=== PATIENT | male | born 1970 | race African-American/Black ===

== ENCOUNTER 2018-10-23 08:57 | Emergency (ER) | payer OTHER ==
[2018-10-23 09:20] LABS: #Basophils 0.1 thou/uL (0.0-0.2); #Lymphocytes 1.1 thou/uL (1.20-3.40); #Monocytes 0.7 thou/uL (0.11-0.59); #Neutrophils 5.8 thou/uL (1.40-6.50); %Basophils 0.8 % (0.0-1.0); %Eosinophils 0.1 % (0.0-10.0); %Lymphocytes 14.3 % (21.0-51.0); %Monocytes 9.3 % (0.0-10.0); %Neutrophils 75.4 % (42.0-75.0); Hemoglobin 14.5 g/dL (14.0-18.0); Mean Corpuscular HGB CONC 33.7 g/dL (32.0-36.0); Mean Corpuscular Hemoglobin 33.8 pg (27.0-31.0); Mean Platelet Volume 9.1 fL (7.4-10.4); Platelet Count 133 thou/uL (130-400); Red Blood Cell (RBC) Count 4.29 mill/uL (4.70-6.10); White Blood Cell (WBC) Count 7.7 thou/uL (4.8-10.8)
[2018-10-23 09:46] LABS: ALT (SGPT) 14 U/L (8-55); AST (SGOT) 50 U/L (5-34); Albumin 4.1 g/dL (3.5-5.0); Alkaline Phosphatase 96 U/L (40-150); Anion Gap 16 mmol/L (10-20); BUN (Urea Nitrogen) Less than 4 mg/dL (8.9-20.6); Bilirubin, Total 1.3 mg/dL (0.2-1.2); Calc. Creatinine Clearance 0 mL/min (70-130); Calcium 9.7 mg/dL (7.8-10.44); Carbon Dioxide 26 mmol/L (22-29); Chloride 97 mmol/L (98-107); Estimated GFR-MDRD Greater than 90; Glucose 124 mg/dL (70-105); Lipase 219 U/L (8-78); Potassium 3.7 mmol/L (3.5-5.1); Protein, Total 8.1 g/dL (6.0-8.3); Sodium 135 mmol/L (136-145)
[2018-10-23] MEDS ORDERED: Ondansetron PF 4 MG/2 ML Vial ONE (10:06)
[2018-10-23] MEDS ORDERED: Morphine 4 MG/ML VIAL ONE (10:06)
[2018-10-23 10:34] LABS: Bilirubin Negative (Negative); Blood, Urine Negative (Negative); Clarity CLEAR (Clear); Glucose, Urine (Dipstick) Negative (Negative); Leukocyte Negative (Negative); Nitrite Negative (Negative); Protein, Urine (Dipstick) Negative (Neg-Trace); Specific Gravity, Urine 1.018 (1.002-1.036); Urobilinogen 0.2 mg/dL (0.2-1.0); pH, Urine 6.5 (5.0-9.0)
--- NOTE | 2018-10-23 10:57 | CT ---
CT ABDOMEN AND PELVIS WITH IV CONTRAST: Date: 10/23/18 PROVIDED CLINICAL HISTORY: Right lower quadrant tenderness and nausea. FINDINGS: The visualized lung bases are free of significant opacity. There is diffuse fatty infiltration of the liver. The solid abdominal organs demonstrate an otherwise unremarkable CT appearance. Multiple gallstones are seen. No obvious pericholecystic inflammatory ch yeison. There is no bowel dilatation, inflammatory fat stranding, free fluid, or lymph node enlargement appar ent. No evidence for free air. The appendix appears normal. There are several subtle foci of diminished density that may reflect bone lesions within the lumbar s pine. IMPRESSION: 1. Cholelithiasis. 2. Fatty infiltration of the liver. 3. Subtle foci of density alteration involving the lumbar spine that may reflect bone lesions. Corre lation with a whole body bone scan is recommended to exclude metastatic disease. POS: CHARBEL
[2018-10-23] MEDS ORDERED: ISOVUE-370 76%-LOCM 1 ML ONE (11:24)
== END 2018-10-23 11:25 | disposition home or self-care (01) ==
LOC: ERS 08:57
DX: K85.90 Acute pancreatitis without necrosis or infection, unspecified (principal); K59.00 Constipation, unspecified; G95.9 Disease of spinal cord, unspecified; I48.91 Unspecified atrial fibrillation; I45.6 Pre-excitation syndrome; K21.9 Gastro-esophageal reflux disease without esophagitis; E78.5 Hyperlipidemia, unspecified; I10 Essential (primary) hypertension; F20.9 Schizophrenia, unspecified; F43.10 Post-traumatic stress disorder, unspecified
CPT/HCPCS: 36415; 74177; 80053; 81003; 83690; 85025; 96361; 96374; 96375; J2270; J2405

== ENCOUNTER 2018-12-16 07:17 | Outpatient (CLI) | payer OTHER ==
--- NOTE | 2018-12-16 08:54 | ULT ---
ABDOMINAL ULTRASOUND: 12/16/18 HISTORY: Cirrhosis FINDINGS: Liver demonstrates increased echogenicity likely attributable to fatty infiltration. There is mild nonspecific heterogeneity of the pancreas. The pancreas is not well evaluated on this e xam. There is echogenic material seen within the gallbladder lumen suggesting sludge. A few nonshadowing m obile echogenic foci also seen within the lumen of the gallbladder which is also likely attributable to sludge. Gallbladder wall is borderline increased in thickness measuring 0.3 cm. No pericholecystic fluid is seen. The common duct is normal in caliber measuring 0.4 cm. The spleen and bilateral kidneys demonstrate a normal sonographic appearance. The right kidney measur es 10.2 cm in length with the left kidney measuring 10.5 cm in length. IMPRESSION: 1. Fatty infiltration of the liver. 2. Gallbladder sludge with upper limits of normal to borderline thickening of the gallbladder wall. POS: CHARBEL
--- NOTE | 2018-12-16 14:39 | NM ---
WHOLE BODY BONE SCAN: HISTORY: Abnormality involving the lumbar spine on the CT scan of 10/23/2018. RADIOPHARMACEUTICAL: Technetium 99m MDP 33 millicuries injected intravenously. CORRELATION: CT abdomen and pelvis of 10/23/2018. FINDINGS: Mild increased uptake in the shoulders, elbows, and wrists, and focally intense uptake in the medial aspect of the left foot, consistent with degenerative changes. No other abnormal areas of tracer loc alization are seen, including the lumbar spine. Tracer excretion through the kidneys is within fatmata l limits. IMPRESSION: No scintigraphic evidence of metastatic disease. POS: OFF
== END 2018-12-16 07:18 | disposition home or self-care (01) ==
LOC: ULT 07:17
PROVIDERS: ATTEND Family Medicine
DX: Z12.9 Encounter for screening for malignant neoplasm, site unspecified (principal); K74.3 Primary biliary cirrhosis; M89.9 Disorder of bone, unspecified; K76.0 Fatty (change of) liver, not elsewhere classified; K82.8 Other specified diseases of gallbladder
CPT/HCPCS: 76700; 78306; A9503

== ENCOUNTER 2019-04-23 11:59 | Emergency (ER) | payer MEDICAID, OTHER ==
[2019-04-23] MEDS ORDERED: Ibuprofen 200 MG TAB ONE (13:56)
--- NOTE | 2019-04-23 14:05 | RAD ---
LEFT KNEE 4 VIEWS: HISTORY: Fall, left knee pain. FINDINGS/IMPRESSION: No acute fracture or dislocation is identified. POS: CHARBEL
--- NOTE | 2019-04-23 14:31 | RAD ---
RIGHT KNEE 4 VIEWS: HISTORY: Fall, right knee pain. FINDINGS/IMPRESSION: No acute fracture or dislocation is seen. There is cortical thickening in the proximal shaft of the fibula likely due to old healed fracture. POS: MICHELLEH
== END 2019-04-23 14:53 | disposition home or self-care (01) ==
LOC: ERS 11:59
DX: S80.02XA Contusion of left knee, initial encounter (principal); S80.01XA Contusion of right knee, initial encounter; I45.6 Pre-excitation syndrome; E78.5 Hyperlipidemia, unspecified; I10 Essential (primary) hypertension; I48.91 Unspecified atrial fibrillation; F43.10 Post-traumatic stress disorder, unspecified; F20.9 Schizophrenia, unspecified; K76.0 Fatty (change of) liver, not elsewhere classified; Z79.899 Other long term (current) drug therapy; W18.30XA Fall on same level, unspecified, initial encounter

== ENCOUNTER 2019-06-14 10:27 | Inpatient (IN) | payer MEDICAID, OTHER ==
[2019-06-14 11:33] LABS: #Lymphocytes 0.8 thou/uL (1.20-3.40); #Monocytes 0.8 thou/uL (0.11-0.59); #Neutrophils 5.5 thou/uL (1.40-6.50); %Eosinophils 0.2 % (0.0-10.0); %Lymphocytes 11.6 % (21.0-51.0); %Monocytes 11.1 % (0.0-10.0); %Neutrophils 77.1 % (42.0-75.0); ALT (SGPT) 33 U/L (8-55); AST (SGOT) 88 U/L (5-34); Alkaline Phosphatase 103 U/L (40-150); Anion Gap 15 mmol/L (10-20); BUN (Urea Nitrogen) Less than 4 mg/dL (8.9-20.6); Bilirubin, Total 1.3 mg/dL (0.2-1.2); Calc. Creatinine Clearance 0 mL/min (70-130); Calcium 9.6 mg/dL (7.8-10.44); Carbon Dioxide 27 mmol/L (22-29); Chloride 95 mmol/L (98-107); Estimated GFR-MDRD Greater than 90; Globulin 3.6 g/dL (2.4-3.5); Glucose 125 mg/dL (70-105); Hemoglobin 13.9 g/dL (14.0-18.0); Lipase 922 U/L (8-78); Mean Corpuscular HGB CONC 34.2 g/dL (32.0-36.0); Mean Corpuscular Hemoglobin 33.9 pg (27.0-31.0); Mean Corpuscular Volume 99.2 fL (78.0-98.0); Mean Platelet Volume 9.3 fL (7.4-10.4); Platelet Count 109 thou/uL (130-400); Platelet Morphology Comment Appears Decreased; Potassium 3.8 mmol/L (3.5-5.1); Protein, Total 7.6 g/dL (6.0-8.3); RBC Distribution Width 12.6 % (11.5-14.5); Sodium 133 mmol/L (136-145); White Blood Cell (WBC) Count 7.1 thou/uL (4.8-10.8)
[2019-06-14 12:01] LABS: Bacteria/HPF None Seen HPF (None Seen); Bilirubin Negative (Negative); Blood, Urine Negative (Negative); Clarity Clear (Clear); Glucose, Urine (Dipstick) Normal (Negative); Leukocyte Negative Leu/uL (Negative); Nitrite Negative (Negative); Protein, Urine (Dipstick) 30 mg/dL (Neg-Trace); Squamous Epithelial 0-3 HPF (0-3); WBC/HPF 0-3 HPF (0-3)
--- NOTE | 2019-06-14 12:42 | ULT ---
RIGHT UPPER QUADRANT ULTRASOUND: DATE: 06/14/2019. COMPARISON: None. HISTORY: Right upper quadrant pain. TECHNIQUE: Multiplanar, figueroa scale, sonographic imaging of the right upper quadrant obtained. FINDINGS: The pancreas is obscured by bowel gas. The hepatic parenchyma is heterogeneous and echogenic suggesting hepatocellular disease, such as hepa tic steatosis. The common bile duct measures 4 mm, within normal limits. No gallbladder wall thickening or pericholecystic fluid is seen. There is hyperdense material layering within the gallbladder fundus suggesting gallbladder sludge. N o shadowing stones. The right kidney measures 10.5 cm in craniocaudal dimension and demonstrates no evidence for stone, h ydronephrosis, or mass lesion. The dry mop maker reports a negative Ureña's sign. IMPRESSION: Findings suggesting significant gallbladder sludge within the fundus with no shadowing stones. No so nographic evidence of cholecystitis or biliary dilatation. POS: OFF
[2019-06-14] MEDS ORDERED: Morphine 4 MG/ML VIAL ONE (13:03)
[2019-06-14] MEDS ORDERED: Ondansetron PF 4 MG/2 ML Vial ONE (13:04)
[2019-06-14] MEDS ORDERED: ISOVUE-370 76%-LOCM 1 ML ONE (13:11)
--- NOTE | 2019-06-14 13:23 | CT ---
CT OF THE ABDOMEN AND PELVIS: DATE: 06/14/2019. COMPARISON: 10/23/2018. HISTORY: Abdominal pain. TECHNIQUE: Axial CT imaging at 5 mm intervals from the lung bases through the pubic symphysis with IV contrast. Coronal and sagittal reformatted imaging obtained. FINDINGS: The visualized lung bases are unremarkable. No free intraperitoneal air. The hepatic parenchyma is diffusely hypodense, evidence of steatosis. High-density material is again seen within the gallbladder suggesting sludge in the region of the fun dus. The spleen and adrenal glands are unremarkable. The pancreatic body and tail of the pancreas are ill-defined and mildly enlarged, a new finding. In addition, there is new free fluid adjacent to the body and tail of the pancreas extending into the pa racolic gutter on the left involving the left perirenal space. Findings suggest pancreatitis. Bilateral kidneys appear unremarkable. Evaluation of the bowel is limited without oral contrast media. There is no evidence for bowel infla mmatory change or bowel obstruction. The appendix appears grossly unremarkable. There is no lymphadenopathy appreciated within the abdomen or pelvis. The vascular structures appear patent. Review of the osseous structures demonstrates no worrisome lytic or bone lesions. IMPRESSION: 1. Ill-defined enlarged pancreatic body and tail with adjacent inflammatory stranding and free fluid suggesting interval development of pancreatitis. 2. Fatty infiltration of the liver. 3. Findings suggesting sludge within the gallbladder fundus. POS: OFF
--- NOTE | 2019-06-14 13:30 | PDOC.FPRHP ---
- History of Present Illness Chief Complaint: abdominal pain History of Present Illness: Patient is a 49M with PMHx of afib, sky-parkinson white syndrome, HLD, HTN, GERD, schizophrenia, PTSD presenting with 2 day course of abdominal pain accompanied by nausea, vomiting, and diarrhea. Patient reports the symptoms began this past Friday. Anything he tried to eat would come back up with bouts of emesis. He tried some pepto bismol but that did not seem to help. He denies any jose blood in his emesis or diarrhea. He points to the midepigastrium, radiating diffusely, as the source of his pain. He states that it is constant, stabbing, 10/10 pain that woke him from sleep. He denies any previous episodes of pain like this. ED Course: 1L NS, 4mg zofran, 4mg morphine - Allergies/Adverse Reactions Allergies Allergy/AdvReac Type Severity Reaction Status Date / Time ELZBIETA Inhibitors Allergy Anaphylaxis Verified 04/11/16 03:04 sertraline HCl [From Zoloft] Allergy Swollen Verified 04/11/16 03:04 Lips Sulfa (Sulfonamide Allergy Verified 05/21/16 01:56 Antibiotics) sulfamethoxazole Allergy Verified 04/11/16 03:04 [From Bactrim] trimethoprim [From Bactrim] Allergy Verified 04/11/16 03:04 - Home Medications Medication Instructions Recorded Confirmed Type Amlodipine Besylate [amLODIPine 10 mg PO DAILY 06/24/13 06/14/19 History Besylate] Esomeprazole Magnesium [NexIUM] 20 mg PO QAM-WM 12/22/15 06/14/19 History Ibuprofen [Motrin] 600 mg PO Q6H PRN #0 tab 02/22/16 06/14/19 Rx Aspirin [Ecotrin Low Strength] 81 mg PO DAILY #0 tab 05/23/16 06/14/19 Rx Paliperidone Palmitate [Invega 234 mg IM Q28D 06/14/19 06/14/19 History Sustenna] - History PMHx: Afib, sky-parkinson white syndrome, GERD, HTN, HLD, schizophrenia, PTSD PSHx: bilateral compartment syndrome (2016), hernia repair FHx: Mom: HTN and HLD Social: Drinks 6pk per week, no alcohol since last . Denies smoking and illicit drug use. - Review of Systems General: reports: fever/chills. denies: weight/appetite/sleep changes Eyes: denies: eye pain, vision changes ENT: reports: rhinorrhea. denies: nasal congestion Respiratory: denies: cough, congestion, shortness of breath Cardiovascular: denies: chest pain, palpitation, edema, paroxysmal nocturnal dyspnea Gastrointestinal: reports: nausea, vomiting, diarrhea, abdominal pain. denies: constipation, GI bleeding Genitourinary: reports: dysuria (Since Friday.). denies: polyuria, discharge Skin: denies: rashes, lesions Musculoskeletal: denies: pain, tenderness, stiffness Neurological: reports: other (h/o migraines). denies: numbness, syncope, seizure Psychological: reports: other (Schizophrenia) - Vital signs BP: [147/90] HR: [103] RR: [18] Tmax: [99.2] Pox: [99]% on [RA] Wt: [58] - Physical Exam Constitutional: NAD, awake, alert and oriented, well developed HEENT: normocephalic and atraumatic, other (scleral icterus) Neck: FROM, trachea midline Chest: no-tender to palpation Heart: RRR, normal S1/S2 Lungs: CTAB, no respiratory distress, no wheezing Abdomen: other (distention, tenderness to palpation) Musculoskeletal: normal tone, ROM grossly normal Neurological: no focal deficit, normal sensation Skin: good turgor, capillary refill <2 seconds Heme/Lymphatic: no unusual bruising or bleeding Psychiatric: normal mood and affect, good judgment and insight FMR H&P: Results - Labs Result Diagrams: 06/14/19 10:59 06/14/19 10:59 Lab results: WBC 7.1 thou/uL (4.8-10.8) 06/14/19 10:59 Hgb 13.9 g/dL (14.0-18.0) L 06/14/19 10:59 Hct 40.7 % (42.0-52.0) L 06/14/19 10:59 MCV 99.2 fL (78.0-98.0) H 06/14/19 10:59 Plt Count 109 thou/uL (130-400) L 06/14/19 10:59 Neutrophils % 77.1 % (42.0-75.0) H 06/14/19 10:59 Sodium 133 mmol/L (136-145) L 06/14/19 10:59 Potassium 3.8 mmol/L (3.5-5.1) 06/14/19 10:59 Chloride 95 mmol/L (98-107) L 06/14/19 10:59 Carbon Dioxide 27 mmol/L (22-29) 06/14/19 10:59 BUN Less than 4 mg/dL (8.9-20.6) L 06/14/19 10:59 Creatinine 0.77 mg/dL (0.7-1.3) 06/14/19 10:59 Glucose 125 mg/dL (70-105) H 06/14/19 10:59 Calcium 9.6 mg/dL (7.8-10.44) 06/14/19 10:59 Total Bilirubin 1.3 mg/dL (0.2-1.2) H 06/14/19 10:59 AST 88 U/L (5-34) H 06/14/19 10:59 ALT 33 U/L (8-55) 06/14/19 10:59 Alkaline Phosphatase 103 U/L (40-150) 06/14/19 10:59 Serum Total Protein 7.6 g/dL (6.0-8.3) 06/14/19 10:59 Albumin 4.0 g/dL (3.5-5.0) 06/14/19 10:59 Lipase 922 U/L (8-78) H 06/14/19 10:59 Urine Ketones 20 mg/dL (Negative) A 06/14/19 11:27 Urine Blood Negative (Negative) 06/14/19 11:27 Urine Nitrite Negative (Negative) 06/14/19 11:27 Ur Leukocyte Esterase Negative Liang/uL (Negative) 06/14/19 11:27 Urine RBC 4-6 HPF (0-3) A 06/14/19 11:27 Urine WBC 0-3 HPF (0-3) 06/14/19 11:27 Ur Squamous Epith Cells 0-3 HPF (0-3) 06/14/19 11:27 Urine Bacteria None Seen HPF (None Seen) 06/14/19 11:27 - EKG Interpretation EKG: Normal sinus rhythm - Radiology Interpretation CT scan - abdomen Status: report reviewed by me Additional comment: Ill-defined enlarged pancreatic body and tail with adjacent inflammatory stranding and free fluid suggesting interval development of pancreatitis Fatty infiltration of the liver Findings suggesting sludge within the gallbladder fundus US - abdomen Status: report reviewed by me (Significant gallbladder sludge within the fundus with no shadowing stones. No sonographic evidence of cholecystitis or biliary dilatation) FMR H&P: A/P - Problem List (1) Pancreatitis Current Visit: Yes Status: Acute Code(s): K85.90 - ACUTE PANCREATITIS WITHOUT NECROSIS OR INFECTION, UNSP (2) GERD (gastroesophageal reflux disease) Current Visit: No Status: Acute Code(s): K21.9 - GASTRO-ESOPHAGEAL REFLUX DISEASE WITHOUT ESOPHAGITIS (3) Transaminitis Current Visit: No Status: Acute Code(s): R74.0 - NONSPEC ELEV OF LEVELS OF TRANSAMNS & LACTIC ACID DEHYDRGNSE (4) Hypertension Current Visit: No Status: Chronic Code(s): I10 - ESSENTIAL (PRIMARY) HYPERTENSION (5) Schizophrenia Current Visit: No Status: Chronic Code(s): F20.9 - SCHIZOPHRENIA, UNSPECIFIED (6) Okmyq-Bbzikgxyy-Ohuuy (WPW) syndrome Current Visit: No Status: Chronic Code(s): I45.6 - PRE-EXCITATION SYNDROME (7) Thrombocytopenia Current Visit: Yes Status: Acute Code(s): D69.6 - THROMBOCYTOPENIA, UNSPECIFIED - Plan Patient is a 49M with PMHx of afib, sky-parkinson white syndrome, HLD, HTN, GERD, schizophrenia, PTSD presenting with pancreatitis. #Pancreatitis -lipase 922 -Abdominal CT: pancreatitis, biliary sludge within the gallbladder fundus -Abdominal U/S: gallbladder fundus sludge, No sonographic evidence of cholecystitis or biliary dilatation -AST 88, ALT 33, Patient reports drinking 6 drinks/week -Bilirubin 1.3 -FLP to look for hypertriglyceridemia -NPO -IVF -morphine for pain control -will continue to monitor electrolytes and lipase #Transaminitis, Thrombocytopenia likely 2/2 fatty infiltration of the liver, possibly 2/2 primary biliary cirrhosis -previously positive smooth muscle and anti-mitochondrial antibodies, though biopsy not suggestive primary biliary cirrhosis at that time 2/2 concurrent disease process -recommend outpatient repeat labs -AST 88 -Platelets 109 #HTN -continue home 10mg amlodipine #HLD -not currently on medication -FLP to look for hypertrigliceridemia #Schizophrenia -currently on 234 invega, controlled #Sky-parkinson white, afib -currently in NSR #GERD -continue home nexium DVT: SCDs Diet: NPO Code Status: Full Dispo: Inpatient for pancreatitis workup and management FMR H&P: Upper Level - Pertinent history 49 year old male with history of schizophrenia, HTN, HLD, and GERD presents with N/V/D since Friday. Patient reports associated abdominal pain is constant and rated at 10/10. Pain is sharp in nature. He has not experienced pain like this before. Patient reports he has not been told he has gallstones or gallbladder sludge previously, although records would suggest otherwise. Patient states that he drinks approximately 6 beers a week. He states that he last drank on at which point he had only 2-3 beers while at [facility]. Per records, patient has had history of alcohol abuse in the past. Patient has had extensive workup for elevated liver enzymes and hyperbilirubinemia. Diagnosis at the time was cholestasis with possible PBC given elevated antimitochondrial antibodies, smooth muscle antibodies, and FRANCISCO JAVIER. Patient was supposed to follow up for outpatient serial labs to measure these values when cholestasis had resolved. - Pertinent findings General: Alert and oriented. No acute distress. HEENT: MMM Card: Tachycardia, no appreciable murmur Resp: CTA bilaterally, no acute respiratory distress Abdomen: Soft, mildly distended, tender to palpation throughout, but worse in epigastric region, bowel sounds present Ext: No lower extremity edema or cyanosis - Plan Date/Time: 06/14/19 1326 IPaty, have evaluated this patient and agree with findings/plan as outlined by staff internist office based only resident. Pertinent changes/additions are listed here. Acute pancreatitis - Elevated lipase (900's), evidence of pancreatitis on CT abdomen/pelvis - N/V, decreased PO intake - Morphine CUCO and PRN for breakthrough; wean as tolerated - LR @ 150 mL/hr - Unclear etiology at this time. Hx of EtoH abuse, but denies recent EtOH use. Drug screens pending. Gallbladder with sludge but no evidence of stones. Labs similar to previous admission and sludge noted on previous admission. 20-40% of patients with acute pancreatitis with no obvious cause can be attributed to biliary sludge. Consider HIDA scan and GI consult if no improvement in pancreatitis. FLP pending to evaluate TG's. - Trend lipase and evaluate for improvement clinically - Early feeding as tolerated as recommended for treatment of pancreatitis Hyperbilirubinemia and elevated transaminase likely 2/2 PBC - Unclear if this has been officially diagnosed - Patient with cholestasis during hospital visit in which antibodies were collected and liver biopsy was performed; given existing cholestasis, a definitive diagnosis of PBC could not be made at that time - Labs seem to be at baseline currently, but will continue to trend - RUQ ultrasound and CT suggestive of biliary sludge, but no evidence of cholecystitis or gallstones - Consider HIDA scan to further evaluate, CBD WNL Thrombocytopenia - 119, has been low in the past, but baseline appears to be in normal range- - Continue to monitor HTN - Continue current medications HLD - Not currently on statin - FLP pending GERD - Continue home medication Schizophrenia - Continue home medication (injection qmonth) Macrocytic anemia - Has been evaluated in the past - Concern for hemachromatosis at that time, as ferritin was elevated - Will continue to monitor - Consider B12 and folate - Anemia much improved from prior visits Dispo: Code status: Full DVT PPX: SCD's Dispo: Admit to medical for management of acute pancreatitis. Anticipate LOS > 48 hours. Addendum - Attending - Attending Attestation Date/Time: 06/14/192029 I personally evaluated the patient and discussed the management with Dr. Menjivar I agree with the History, Examination, Assessment and Plan documented above with any addition or exceptions noted below - 49 yo male with h/o HTN, HLD, schizophrenia who presets c/o abdominal pain since Friday. States that pain is in midepigatrium but radiates diffusely. Pain has been associated with N/V. States that he has been unable to hold down food or liquids. He tried Pepto without relief. PMH/PSH/Meds/SH reviewed and agree with resident's documentation. Afebrile BP 145/84 P96 RR19 99% RA Exam repeated by me and agree with resident's findings. Labs: WBC=7.1, H/H=13.9/40.7, Los=744, Qz=863, K =3.8, Cl=95, CO2=27, BUN/Cr=4/0.77, Biet=984, t bili=1.3, AST=88, ALT=33, lipase =933, UDS negative; ETOH=negative. CT Abd- ill defines enlearged pancreatic body and tail with adjacent inflammatory stranding and free fluid suggestive of pancreatitis. A/P: 1) Pancreatitis- Admit to medical. NPO, IVF, pain medications. 2) HTN- continue home meds.
[2019-06-14] MEDS ORDERED: Ondansetron ODT 4 MG TAB PO PRN (14:01)
[2019-06-14] MEDS ORDERED: Senokot S 8.6-50 MG TAB PO PRN (14:01)
[2019-06-14] MEDS ORDERED: Calcium Carbonate 500 MG ChewTAB PO PRN (14:01)
[2019-06-14] MEDS ORDERED: Morphine 2 MG/ML SYRINGE SLOW IVP PRN ×2 (14:10→21:31)
[2019-06-14 14:22] LABS: Amphetamine Not Detected (NotDetected); Barbiturates Screen Not Detected (NotDetected); Benzodiazepine Screen Not Detected (NotDetected); Cocaine Metabolite Screen Not Detected (NotDetected); Medtox Control Line Valid? VALID (VALID); Medtox Reader # READER 4; Methadone Not Detected (NotDetected); Methamphetamine Not Detected (NotDetected); Opiate Screen Not Detected (NotDetected); Oxycodone Screen Not Detected (NotDetected); Phencyclidine (PCP) Not Detected (NotDetected); THC/Cannabinoid Screen Not Detected (NotDetected); Tricyclic Screen Not Detected (NotDetected)
[2019-06-14 15:21] VITALS: BMI 20.3
[2019-06-14 15:23] LABS: INR-International Normal Ratio 1.1
[2019-06-14 15:25] LABS: Acetaminophen Less than 6.0 mcg/mL (10.0-30.0); Alcohol Less than 10 mg/dL (Less than 10); Salicylate Less than 8.0 mg/dL (15.0-30.0)
[2019-06-14] MEDS ORDERED: Prevnar 13-Val Conj/PF 0.5 ML SYRINGE IM ONE (15:45)
[2019-06-14] MEDS: Lactated Ringer's 1,000 ML IV SCH ×2 (15:49→21:55)
[2019-06-14] MEDS: Morphine 2 MG/ML SYRINGE SLOW IVP SCH ×3 (15:56→21:53)
[2019-06-15] MEDS: Morphine 2 MG/ML SYRINGE SLOW IVP SCH ×2 (02:16→06:08)
[2019-06-15] MEDS: Lactated Ringer's 1,000 ML IV SCH ×4 (02:18→22:46)
--- NOTE | 2019-06-15 05:26 | PDOC.FM ---
- Subjective Subjective: Patient doing well this morning, though he continues to report of abdominal pain. Denies cp, sob. - Objective Vital Signs & Weight: Vital Signs (12 hours) Temp Pulse Resp BP Pulse Ox 06/15/19 02:19 99.2 F 91 16 132/84 98 06/14/19 20:00 98.4 F 91 18 152/90 H 98 Weight Weight 55.452 kg I&O: 06/13/19 06/14/19 06/15/19 06:59 06:59 06:59 Intake Total 450 Balance 450 Result Diagrams: 06/15/19 05:41 06/15/19 05:41 Phys Exam - Physical Examination Constitutional: NAD HEENT: moist MMs sclera icteric Neck: supple, full ROM Respiratory: no wheezing, clear to auscultation bilateral Cardiovascular: RRR, no significant murmur firm, tender to palpation Musculoskeletal: no edema, pulses present Neurological: normal sensation, moves all 4 limbs Lymphatic: no nodes Psychiatric: normal affect, A&O x 3 Skin: normal turgor, cap refill <2 seconds Dx/Plan (1) Pancreatitis Code(s): K85.90 - ACUTE PANCREATITIS WITHOUT NECROSIS OR INFECTION, UNSP Status: Acute (2) GERD (gastroesophageal reflux disease) Code(s): K21.9 - GASTRO-ESOPHAGEAL REFLUX DISEASE WITHOUT ESOPHAGITIS Status: Acute (3) Transaminitis Code(s): R74.0 - NONSPEC ELEV OF LEVELS OF TRANSAMNS & LACTIC ACID DEHYDRGNSE Status: Acute (4) Hypertension Code(s): I10 - ESSENTIAL (PRIMARY) HYPERTENSION Status: Chronic (5) Schizophrenia Code(s): F20.9 - SCHIZOPHRENIA, UNSPECIFIED Status: Chronic (6) Effjo-Txgzmqsry-Rsicc (WPW) syndrome Code(s): 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 #Pancreatitis -lipase 922>755 -Abdominal CT: pancreatitis, biliary sludge within the gallbladder fundus -Abdominal U/S: gallbladder fundus sludge, No sonographic evidence of cholecystitis or biliary dilatation -AST 88, ALT 33, Patient reports drinking 6 drinks/week -Bilirubin 1.3 -FLP: triglycerides 41, total chol 161, LDL 58, HDL 95 -NPO -IVF -morphine for pain control -will continue to monitor electrolytes and lipase -will consider GI/gen surg consult if his pain does not improve #Transaminitis, Thrombocytopenia likely 2/2 fatty infiltration of the liver, possibly 2/2 primary biliary cirrhosis -previously positive smooth muscle and anti-mitochondrial antibodies, though biopsy not suggestive primary biliary cirrhosis at that time 2/2 concurrent disease process -recommend outpatient repeat labs -AST 88>48 -Platelets 109>87 -will continue to monitor #HTN -continue home 10mg amlodipine #HLD -not currently on medication -FLP: triglycerides 41, total chol 161, LDL 58, HDL 95 #Schizophrenia -currently on 234 invega, controlled #Sky-parkinson white, afib -currently in NSR #GERD -continue home nexium DVT: SCDs Diet: NPO Code Status: Full Dispo: Inpatient for pancreatitis workup and management Addendum - Attending - Attending Attestation Date/Time: 06/15/19 [id number] I personally evaluated the patient and discussed the management with Dr. Olivas. I agree with the History, Examination, Assessment and Plan documented above with any addition or exceptions noted below. Pt still has epigastric tenderness this morning and doesn't want to eat at this time. Will continue iv fluids and npo status. Pain control.
[2019-06-15 06:14] LABS: Mean Corpuscular HGB CONC 34.5 g/dL (32.0-36.0); Mean Corpuscular Hemoglobin 33.8 pg (27.0-31.0); Mean Corpuscular Volume 98.2 fL (78.0-98.0); Mean Platelet Volume 9.5 fL (7.4-10.4); Platelet Count 87 thou/uL (130-400); RBC Distribution Width 12.4 % (11.5-14.5); Red Blood Cell (RBC) Count 3.85 mill/uL (4.70-6.10); White Blood Cell (WBC) Count 8.3 thou/uL (4.8-10.8)
[2019-06-15 06:21] LABS: ALT (SGPT) 22 U/L (8-55); AST (SGOT) 48 U/L (5-34); Albumin 3.5 g/dL (3.5-5.0); Alkaline Phosphatase 85 U/L (40-150); Anion Gap 11 mmol/L (10-20); BUN (Urea Nitrogen) Less than 4 mg/dL (8.9-20.6); Bilirubin, Total 1.1 mg/dL (0.2-1.2); Calc. Creatinine Clearance 109 mL/min (70-130); Carbon Dioxide 25 mmol/L (22-29); Cardiac Risk 1.7 (Less than 4.5); Chloride 96 mmol/L (98-107); Cholesterol 161 mg/dl (< 200 Desired); Estimated GFR-MDRD Greater than 90; Globulin 3.2 g/dL (2.4-3.5); Glucose 100 mg/dL (70-105); HDL Cholesterol 95 mg/dL (>60 Neg Risk); LDL Cholesterol, Calculated 58 mg/dL; Lipase 755 U/L (8-78); Potassium 3.4 mmol/L (3.5-5.1); Protein, Total 6.7 g/dL (6.0-8.3); Sodium 129 mmol/L (136-145); Triglycerides 41 mg/dL (Less than 150)
[2019-06-15] MEDS: Amlodipine 10 MG TAB PO SCH (08:13)
[2019-06-15] MEDS: Morphine 2 MG/ML SYRINGE SLOW IVP PRN ×4 (09:52→22:41)
[2019-06-16] MEDS: Morphine 2 MG/ML SYRINGE SLOW IVP PRN ×5 (02:44→19:31)
--- NOTE | 2019-06-16 05:25 | PDOC.FM ---
- Subjective Subjective: Patient doing better this morning. Still reporting pain at an 8 after his morpine starts to wear off. Reports that he has started to feel hungry, as he hasn't eaten since this past Friday since he had been vomiting before coming to the ED. - Objective Vital Signs & Weight: Vital Signs (12 hours) Temp Pulse Resp BP Pulse Ox 06/16/19 04:50 99.0 F 106 H 18 128/87 98 06/16/19 00:00 99.0 F 105 H 20 125/76 97 06/15/19 20:09 98.6 F 91 18 120/77 98 06/15/19 20:00 98 Weight Admit Weight 55.452 kg Weight 55.452 kg I&O: 06/14/19 06/15/19 06/16/19 06:59 06:59 06:59 Intake Total 450 1800 Output Total 1900 Balance 450 -100 Result Diagrams: 06/16/19 04:58 06/16/19 04:58 Phys Exam - Physical Examination Constitutional: NAD HEENT: moist MMs, oral pharynx no lesions Neck: supple, full ROM Respiratory: no wheezing, clear to auscultation bilateral Cardiovascular: RRR, no significant murmur Gastrointestinal: positive bowel sounds softer than yesterday, ttp throughout Musculoskeletal: no edema, pulses present Neurological: normal sensation, moves all 4 limbs Lymphatic: no nodes Psychiatric: normal affect, A&O x 3 Skin: normal turgor, cap refill <2 seconds Dx/Plan (1) Pancreatitis Code(s): K85.90 - ACUTE PANCREATITIS WITHOUT NECROSIS OR INFECTION, UNSP Status: Acute (2) GERD (gastroesophageal reflux disease) Code(s): K21.9 - GASTRO-ESOPHAGEAL REFLUX DISEASE WITHOUT ESOPHAGITIS Status: Acute (3) Transaminitis Code(s): R74.0 - NONSPEC ELEV OF LEVELS OF TRANSAMNS & LACTIC ACID DEHYDRGNSE Status: Acute (4) Hypertension Code(s): I10 - ESSENTIAL (PRIMARY) HYPERTENSION Status: Chronic (5) Schizophrenia Code(s): F20.9 - SCHIZOPHRENIA, UNSPECIFIED Status: Chronic (6) Wzwna-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 #Pancreatitis -lipase 922>[id number] -Abdominal CT: pancreatitis, biliary sludge within the gallbladder fundus -Abdominal U/S: gallbladder fundus sludge, No sonographic evidence of cholecystitis or biliary dilatation -AST 88, ALT 33, Patient reports drinking 6 drinks/week -Bilirubin 1.3>0.9 -FLP: triglycerides 41, total chol 161, LDL 58, HDL 95 -NPO, though may consider advancing his diet today as tolerated -IVF -morphine for pain control, pain scores mostly 7-8 overnight, patient continues to request q4h morphine -will continue to monitor electrolytes and lipase -will consider GI/gen surg consult if his pain does not improve #Transaminitis, Thrombocytopenia likely 2/2 fatty infiltration of the liver, possibly 2/2 primary biliary cirrhosis -previously positive smooth muscle and anti-mitochondrial antibodies, though biopsy not suggestive primary biliary cirrhosis at that time 2/2 concurrent disease process -recommend outpatient repeat labs -AST 88>48>34 -Platelets 109>87>86 -will continue to monitor #HTN -continue home 10mg amlodipine #HLD -not currently on medication -FLP: triglycerides 41, total chol 161, LDL 58, HDL 95 #Schizophrenia -currently on 234 invega, controlled #Sky-parkinson white, afib -currently in NSR #GERD -continue home nexium DVT: SCDs Diet: NPO Code Status: Full Dispo: Inpatient for pancreatitis workup and management Addendum - Attending - Attending Attestation Date/Time: 06/16/19 2854 I personally evaluated the patient and discussed the management with Dr. Olivas. I agree with the History, Examination, Assessment and Plan documented above with any addition or exceptions noted below. The patient rates pain as 8/10 however he is hungry this morning. He has started with clear liquids and is tolerating these. Lipase is improving. Clinically improved. Pt resting comfortably.
[2019-06-16 05:49] LABS: Hemoglobin 12.2 g/dL (14.0-18.0); Mean Corpuscular HGB CONC 34.9 g/dL (32.0-36.0); Mean Corpuscular Hemoglobin 34.8 pg (27.0-31.0); Mean Corpuscular Volume 99.5 fL (78.0-98.0); Mean Platelet Volume 9.8 fL (7.4-10.4); Platelet Count 86 thou/uL (130-400); RBC Distribution Width 12.3 % (11.5-14.5); Red Blood Cell (RBC) Count 3.52 mill/uL (4.70-6.10); White Blood Cell (WBC) Count 6.9 thou/uL (4.8-10.8)
[2019-06-16 06:10] LABS: ALT (SGPT) 17 U/L (8-55); AST (SGOT) 34 U/L (5-34); Albumin 3.3 g/dL (3.5-5.0); Alkaline Phosphatase 73 U/L (40-150); Anion Gap 13 mmol/L (10-20); BUN (Urea Nitrogen) Less than 4 mg/dL (8.9-20.6); Bilirubin, Total 0.9 mg/dL (0.2-1.2); Calc. Creatinine Clearance 112 mL/min (70-130); Calcium 8.5 mg/dL (7.8-10.44); Carbon Dioxide 25 mmol/L (22-29); Chloride 96 mmol/L (98-107); Estimated GFR-MDRD Greater than 90; Glucose 75 mg/dL (70-105); Lipase 430 U/L (8-78); Potassium 3.1 mmol/L (3.5-5.1); Protein, Total 6.3 g/dL (6.0-8.3); Sodium 131 mmol/L (136-145)
[2019-06-16] MEDS: Lactated Ringer's 1,000 ML IV SCH ×3 (06:43→19:31)
[2019-06-16] MEDS ORDERED: Potassium Chloride 20 MEQ TAB PO SCH (07:30)
[2019-06-16] MEDS: Amlodipine 10 MG TAB PO SCH (10:52)
[2019-06-16] MEDS ORDERED: Polyethylene Glycol 3350 17 GM Packet PO PRN (12:23)
[2019-06-17] MEDS: Morphine 2 MG/ML SYRINGE SLOW IVP PRN ×2 (00:12→04:27)
[2019-06-17] MEDS: Lactated Ringer's 1,000 ML IV SCH ×4 (03:07→23:45)
--- NOTE | 2019-06-17 05:32 | PDOC.FM ---
- Subjective Subjective: Patient doing well this morning. Tolerated the clear liquids well yesterday, reports that he is hungry today. Per nursing he will ask for his morphine exactly every 4 hours, and when asked his pain he will say "10" and then immediately after it will be "zero." Per nursing at some encounters he has denied abdominal pain but has endorsed back pain. He has been encouraged to get out of bed and walk around. Per patient has has slept very little since he's been here, due to pain. Per nursing he sleeps very few hours every day even after receiving morphine. - Objective Vital Signs & Weight: Vital Signs (12 hours) Temp Pulse Resp BP Pulse Ox 06/17/19 04:00 98.0 F 112 H 20 125/84 98 06/16/19 20:00 99 06/16/19 19:52 98.4 F 94 18 133/79 99 Weight Admit Weight 55.452 kg Weight 55.452 kg I&O: 06/15/19 06/16/19 06/17/19 06:59 06:59 06:59 Intake Total 450 3300 2400 Output Total 2900 3750 Balance 450 400 -1350 Result Diagrams: 06/17/19 04:43 06/17/19 04:43 Phys Exam - Physical Examination Constitutional: NAD HEENT: moist MMs, sclera anicteric Neck: supple, full ROM Respiratory: no wheezing, clear to auscultation bilateral Cardiovascular: RRR, no significant murmur firm, ttp mostly toward the upper abdomen, some guarding noted Musculoskeletal: no edema, pulses present Neurological: normal sensation, moves all 4 limbs Lymphatic: no nodes Psychiatric: A&O x 3 Deviation from normal: flat affect Skin: normal turgor, cap refill <2 seconds Dx/Plan (1) Pancreatitis Code(s): K85.90 - ACUTE PANCREATITIS WITHOUT NECROSIS OR INFECTION, UNSP Status: Acute (2) GERD (gastroesophageal reflux disease) Code(s): K21.9 - GASTRO-ESOPHAGEAL REFLUX DISEASE WITHOUT ESOPHAGITIS Status: Acute (3) Transaminitis Code(s): R74.0 - NONSPEC ELEV OF LEVELS OF TRANSAMNS & LACTIC ACID DEHYDRGNSE Status: Acute (4) Hypertension Code(s): I10 - ESSENTIAL (PRIMARY) HYPERTENSION Status: Chronic (5) Schizophrenia Code(s): F20.9 - SCHIZOPHRENIA, UNSPECIFIED Status: Chronic (6) Ljlvp-Vvzmobpwo-Yqaqj (WPW) syndrome Code(s): 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 #Pancreatitis -lipase 922>755>430>375 -Abdominal CT: pancreatitis, biliary sludge within the gallbladder fundus -Abdominal U/S: gallbladder fundus sludge, No sonographic evidence of cholecystitis or biliary dilatation -AST 88>40, ALT 33, Patient reports drinking 6 drinks/week -Bilirubin 1.3>0.9 -FLP: triglycerides 41, total chol 161, LDL 58, HDL 95 -tolerated his clear liquid diet yesterday, will advance today to full liquids -IVF -morphine for pain control, pain scores 10 overnight, which quickly resolve to 0 with morphine; patient continues to request q4h morphine; will transition to q6h -will continue to monitor electrolytes and lipase -will consider GI/gen surg consult if his pain does not improve #Transaminitis, Thrombocytopenia likely 2/2 fatty infiltration of the liver, possibly 2/2 primary biliary cirrhosis -previously positive smooth muscle and anti-mitochondrial antibodies, though biopsy not suggestive primary biliary cirrhosis at that time 2/2 concurrent disease process -recommend outpatient repeat labs -AST 88>48>40 -Platelets 109>87>86>99 -will continue to monitor #HTN -continue home 10mg amlodipine #HLD -not currently on medication -FLP: triglycerides 41, total chol 161, LDL 58, HDL 95 #Schizophrenia -currently on 234 invega, controlled #Sky-parkinson white, afib -currently in NSR #GERD -continue home nexium DVT: SCDs Diet: NPO Code Status: Full Dispo: Inpatient for pancreatitis workup and management. Morphine 6qh for pain control. Advance diet today to full liquids Addendum - Attending - Attending Attestation Date/Time: 06/17/19 1422 I personally evaluated the patient and discussed the management with Dr. Olivas. I agree with the History, Examination, Assessment and Plan documented above with any addition or exceptions noted below. Pt has no more abdominal guarding and has no pain on palpation of his abdomen.
[2019-06-17 06:08] LABS: Mean Corpuscular HGB CONC 34.1 g/dL (32.0-36.0); Mean Corpuscular Volume 99.8 fL (78.0-98.0); Mean Platelet Volume 9.9 fL (7.4-10.4); Platelet Count 99 thou/uL (130-400); RBC Distribution Width 12.3 % (11.5-14.5); Red Blood Cell (RBC) Count 3.83 mill/uL (4.70-6.10); White Blood Cell (WBC) Count 6.5 thou/uL (4.8-10.8)
[2019-06-17 06:29] LABS: ALT (SGPT) 18 U/L (8-55); AST (SGOT) 40 U/L (5-34); Albumin 3.5 g/dL (3.5-5.0); Alkaline Phosphatase 78 U/L (40-150); Anion Gap 12 mmol/L (10-20); BUN (Urea Nitrogen) Less than 4 mg/dL (8.9-20.6); Bilirubin, Total 0.9 mg/dL (0.2-1.2); Calc. Creatinine Clearance 103 mL/min (70-130); Calcium 9.2 mg/dL (7.8-10.44); Carbon Dioxide 28 mmol/L (22-29); Chloride 98 mmol/L (98-107); Estimated GFR-MDRD Greater than 90; Globulin 3.3 g/dL (2.4-3.5); Glucose 101 mg/dL (70-105); Lipase 375 U/L (8-78); Potassium 3.2 mmol/L (3.5-5.1); Protein, Total 6.8 g/dL (6.0-8.3); Sodium 135 mmol/L (136-145)
[2019-06-17] MEDS ORDERED: Morphine 2 MG/ML SYRINGE SLOW IVP PRN (07:24)
[2019-06-17] MEDS ORDERED: Potassium Chloride 20 MEQ TAB PO SCH (07:30)
[2019-06-17] MEDS: Amlodipine 10 MG TAB PO SCH (08:44)
[2019-06-17] MEDS ORDERED: Acetaminophen 325 MG TAB PO PRN (14:44)
[2019-06-17] MEDS: traMADol HCl 50 MG TAB PO PRN ×2 (15:16→21:34)
[2019-06-18] MEDS: traMADol HCl 50 MG TAB PO PRN (03:26)
--- NOTE | 2019-06-18 05:00 | PDOC.FM ---
- Subjective Subjective: Tolerated full diet yesterday. Pain scores 4-8 overnight on tramadol q6h prn. Nursing reports that he will know exactly when 6 hours are up to request pain medication again. Denies cp, sob. - Objective Vital Signs & Weight: Vital Signs (12 hours) Temp Pulse Resp BP Pulse Ox 06/18/19 03:33 98 06/17/19 20:00 99 06/17/19 19:50 98.4 F 84 16 130/88 99 Weight Admit Weight 55.452 kg Weight 55.452 kg I&O: 06/16/19 06/17/19 06/18/19 06:59 06:59 06:59 Intake Total 3300 4900 640 Output Total 2900 6050 1375 Balance 656 -7890 -005 Result Diagrams: 06/17/19 04:43 06/18/19 07:08 Phys Exam - Physical Examination Constitutional: NAD HEENT: moist MMs, sclera anicteric Neck: supple, full ROM Respiratory: no wheezing, clear to auscultation bilateral Cardiovascular: RRR, no significant murmur softer than yesterday, mildly ttp Musculoskeletal: no edema, pulses present Neurological: normal sensation, moves all 4 limbs Lymphatic: no nodes Psychiatric: A&O x 3 Deviation from normal: flat affect Skin: normal turgor, cap refill <2 seconds Dx/Plan (1) Pancreatitis Code(s): K85.90 - ACUTE PANCREATITIS WITHOUT NECROSIS OR INFECTION, UNSP Status: Acute (2) GERD (gastroesophageal reflux disease) Code(s): K21.9 - GASTRO-ESOPHAGEAL REFLUX DISEASE WITHOUT ESOPHAGITIS Status: Acute (3) Transaminitis Code(s): R74.0 - NONSPEC ELEV OF LEVELS OF TRANSAMNS & LACTIC ACID DEHYDRGNSE Status: Acute (4) Hypertension Code(s): I10 - ESSENTIAL (PRIMARY) HYPERTENSION Status: Chronic (5) Schizophrenia Code(s): F20.9 - SCHIZOPHRENIA, UNSPECIFIED Status: Chronic (6) Vowdp-Lmnswrpaj-Owsld (WPW) syndrome Code(s): I45.6 - PRE-EXCITATION SYNDROME Status: Chronic (7) Thrombocytopenia Code(s): D69.6 - THROMBOCYTOPENIA, UNSPECIFIED Status: Acute (8) Hypokalemia Code(s): E87.6 - HYPOKALEMIA Status: Acute - Plan Plan: Patient is a 49M with PMHx of afib, sky-parkinson white syndrome, HLD, HTN, GERD, schizophrenia, PTSD presenting with pancreatitis. #Pancreatitis -lipase 922>755>430>375>356 -Abdominal CT: pancreatitis, biliary sludge within the gallbladder fundus -Abdominal U/S: gallbladder fundus sludge, No sonographic evidence of cholecystitis or biliary dilatation -AST 88>40, ALT 33, Patient reports drinking 6 drinks/week -Bilirubin 1.3>0.9 -FLP: triglycerides 41, total chol 161, LDL 58, HDL 95 -tolerated his regular diet yesterday -D/C IVF today -morphine transitioned to tramadol q6h for pain control yesterday, try to wean today -will continue to monitor electrolytes #Transaminitis, Thrombocytopenia likely 2/2 fatty infiltration of the liver, possibly 2/2 primary biliary cirrhosis -previously positive smooth muscle and anti-mitochondrial antibodies, though biopsy not suggestive primary biliary cirrhosis at that time 2/2 concurrent disease process -recommend outpatient repeat labs -AST 88>48>40 -Platelets 109>87>86>99 -will continue to monitor #Hypokalemia -potassium 3.0 this morning, ordered 40meq K-dur #HTN -continue home 10mg amlodipine #HLD -not currently on medication -FLP: triglycerides 41, total chol 161, LDL 58, HDL 95 #Schizophrenia -currently on 234 invega, controlled -due for next dose 06/24 @840am at [facility] #Sky-parkinson white, afib -currently in NSR #GERD -continue home nexium DVT: SCDs Diet: NPO Code Status: Full Dispo: Inpatient for pancreatitis workup and management. Morphine 6qh for pain control. Possibly home today if continues to tolerate diet Addendum - Attending - Attending Attestation Date/Time: 06/18/191934 I personally evaluated the patient and discussed the management with Dr. Olivas. I agree with the History, Examination, Assessment and Plan documented above with any addition or exceptions noted below. Patient was able to eat last night. When I palpate his abdomen this morning he states it "feels good." He has no guarding and abdomen is soft. He will d/c home.
[2019-06-18 08:11] LABS: ALT (SGPT) 18 U/L (8-55); AST (SGOT) 40 U/L (5-34); Albumin 3.5 g/dL (3.5-5.0); Alkaline Phosphatase 74 U/L (40-150); Anion Gap 10 mmol/L (10-20); BUN (Urea Nitrogen) Less than 4 mg/dL (8.9-20.6); Bilirubin, Total 0.7 mg/dL (0.2-1.2); Calc. Creatinine Clearance 111 mL/min (70-130); Calcium 8.9 mg/dL (7.8-10.44); Carbon Dioxide 29 mmol/L (22-29); Chloride 97 mmol/L (98-107); Estimated GFR-MDRD Greater than 90; Globulin 3.3 g/dL (2.4-3.5); Glucose 92 mg/dL (70-105); Protein, Total 6.8 g/dL (6.0-8.3); Sodium 133 mmol/L (136-145)
[2019-06-18] MEDS ORDERED: traMADol HCl 50 MG TAB PO PRN (08:21)
[2019-06-18] MEDS ORDERED: Potassium Chloride 20 MEQ TAB PO SCH (08:30)
[2019-06-18] MEDS: Amlodipine 10 MG TAB PO SCH (08:52)
[2019-06-18] MEDS ORDERED: Prevnar 13-Val Conj/PF 0.5 ML SYRINGE IM ONE (12:15)
[2019-06-18] MEDS ORDERED: Magnesium 2 GM/50 ML 2 GM in Premix Bag 1 BAG IVPB SCH (12:30)
[2019-06-18 16:07] VITALS: BP 109/74; TEMP 97.5
--- NOTE | 2019-06-19 03:24 | DIS ---
DATE OF ADMISSION: 06/14/2019 DATE OF DISCHARGE: 06/18/2019 ADMITTING RESIDENT: Chantale Olivas MD ADMITTING ATTENDING: Carol Villalba MD DISCHARGE RESIDENT: Chantale Olivas MD DISCHARGE ATTENDING: MD Moustapha CONSULTS: Walking program. PROCEDURES: None. PRIMARY DIAGNOSES: Pancreatitis, transaminitis, thrombocytopenia, hypokalemia, hypomagnesemia. SECONDARY DIAGNOSES: Hypertension, hyperlipidemia, schizophrenia, atrial fibrillation, Hfbsn-Soxionbsk-Dagaf, and gastroesophageal reflux disease. DISCHARGE MEDICATIONS: 1. 650 mg of acetaminophen p.o. q.6 hours p.r.n. x3 days. 2. 10 mg amlodipine p.o. daily. 3. 81 mg aspirin p.o. daily. 4. 20 mg Nexium p.o. q.a.m. with meals. 5. 600 mg ibuprofen p.o. q.6 hours p.r.n. 6. 234 mg Invega IM q.28 days. DISCONTINUED MEDICATIONS: 1. Morphine. 2. Tramadol. 3. Magnesium. 4. Potassium. HISTORY OF PRESENT ILLNESS/HOSPITAL COURSE: The patient presented after having onset of abdominal pain, diarrhea, emesis throughout days prior. He reported that he had not been able to keep anything down because of the continuous emesis. He was found to have a lipase of 922, AST 88, ALT 33, bilirubin of 1.3. EKG showed normal sinus rhythm. He was diagnosed with pancreatitis and kept n.p.o., being started on IVF and given morphine for pain management. His diet was progressed as tolerated from clear liquids to full liquids, advance to full diet. The pain medication was transitioned from morphine to tramadol and finally to Tylenol. He was able to tolerate a full diet on the day of discharge, with pain control on Tylenol. His potassium and magnesium were also repleted at times throughout the hospitalization, but day of discharge they were within normal limits. DISPOSITION: Stable. DISCHARGE INSTRUCTIONS: 1. Location: Home. 2. Diet: Heart healthy. 3. Activity: As tolerated. 4. Followup: With PCP within 7 to 10 days. Job ID: [id number] [facility]
--- NOTE | 2019-06-19 23:17 | EKG ---
Test Reason : ABD PAIN Blood Pressure : / mmHG Vent. Rate : 084 BPM Atrial Rate : 084 BPM P-R Int : 120 ms QRS Dur : 080 ms QT Int : 340 ms P-R-T Axes : 030 022 021 degrees QTc Int : 401 ms Normal sinus rhythm Nonspecific T wave abnormality Abnormal ECG Confirmed by DRAON ZHANG ([id number]), make up editor DARCI PIMENTEL ([id number]) on 06/19/2019 11:16:52 PM Referred By: Confirmed By:DARON ZHANG
--- NOTE | 2019-06-21 04:42 | PQF ---
BRYAN KILLIAN KATHERINE MD [id number] CLINICAL DOCUMENTATION CLARIFICATION FORM: POST DISCHARGE Addendum to original discharge summary date: ____ Late entry note date: __ DATE: 06-21-2019 ATTN:Venessa Lai Please exercise your independent, professional judgment in responding to the clarification form. Clinical indicators are provided on the bottom of this form for your review Can you please specify the clinical significance of the indicators below. Please check appropriate box(s): [ x ] Hyponatremia [ ] Insignificant laboratory finding [ ] Other diagnosis please specify: [ ] Unable to determine For continuity of documentation, please document condition throughout progress notes and discharge summary. Thank You. CLINICAL INDICATORS: HP 06/[address] Olivas presenting with abdominal pain accompanied with nausea and vomiting HP 06/[address] Olivas Ill defined enlarged pancreatic body and tail with adjacent inflammatory stranding and free fluid suggesting interval development of pancreatitis DS 06/[address] Olivas hypokalemia, hypomagnesemia Laboratory: Sjzvgq=789 L (06/18) 135 L(06/17) 131 L (06/16) 129L (06/15) 133 L (06/14) RISK FACTORS: HP 06/14 Dr. Olivas- GERD HP 06/14 Dr. Olivas- Pancreatitis HP 06/14 Dr. Olivas- ROS GI: nausea, vomiting, diarrhea TREATMENT: Imaging 06/14- CT abdomen laboratory- Chemistry labs monitoring DEC 19- Lactated Ringers 1,000 ml IV 150mls/hr DEC 19 Sodium Chloride 10ml IV (This form is maintained as a part of the permanent medical record) 2014 [employer]. All Rights Reserved Shima [email or web address] [not provided] MTDD
== END 2019-06-18 16:08 | disposition home or self-care (01) | DRG 439 ==
LOC: ERS 10:27 → T4-A 13:53
PROVIDERS: ADMIT Family Medicine; ATTEND Family Medicine
PROC: 3E0234Z Introduction of Serum, Toxoid and Vaccine into Muscle, Percutaneous Approach (ICD-10-PCS; principal; 2019-06-15)
DX: K85.90 Acute pancreatitis without necrosis or infection, unspecified (principal); E87.1 Hypo-osmolality and hyponatremia; I48.91 Unspecified atrial fibrillation; K21.9 Gastro-esophageal reflux disease without esophagitis; E78.5 Hyperlipidemia, unspecified; E78.00 Pure hypercholesterolemia, unspecified; I10 Essential (primary) hypertension; F20.9 Schizophrenia, unspecified; F43.10 Post-traumatic stress disorder, unspecified; F17.210 Nicotine dependence, cigarettes, uncomplicated; I45.6 Pre-excitation syndrome; K76.0 Fatty (change of) liver, not elsewhere classified; D69.6 Thrombocytopenia, unspecified; E87.6 Hypokalemia; E83.42 Hypomagnesemia; Z23 Encounter for immunization; Z88.2 Allergy status to sulfonamides; Z88.1 Allergy status to other antibiotic agents; Z88.8 Allergy status to other drugs, medicaments and biological substances; Z79.899 Other long term (current) drug therapy; Z79.82 Long term (current) use of aspirin; D53.9 Nutritional anemia, unspecified
CPT/HCPCS: 36415; 74177; 76705; 80053; 80061; 80306; 80307; 81003; 81015; 83690; 83735; 85025; 85027; 85610; 85730; 90471; 90670; 93005; 96361; 96374; 96375; G0009; J2270; J2405; J3475; Q9966

== ENCOUNTER 2020-03-25 16:59 | Inpatient (IN) | payer OTHER ==
[~2020-03-25 16:59] MED LIST: Magnesium 2 GM/50 ML 2 GM in Premix Bag 1 BAG IVPB SCH
[2020-03-25 17:38] LABS: Bilirubin Negative (Negative); Blood, Urine Negative (Negative); Clarity Clear (Clear); Glucose, Urine (Dipstick) Normal (Negative); Leukocyte Negative Leu/uL (Negative); Nitrite Negative (Negative); Protein, Urine (Dipstick) Negative (Neg-Trace); Urobilinogen Normal mg/dL (Less than 2)
[2020-03-25] MEDS ORDERED: Ondansetron PF 4 MG/2 ML Vial ONE (17:49)
[2020-03-25] MEDS ORDERED: Morphine 4 MG/ML VIAL ONE ×2 (17:49→21:19)
[2020-03-25] MEDS ORDERED: Pantoprazole 40 MG VIAL ONE (17:49)
[2020-03-25 17:50] LABS: #Lymphocytes 1.2 thou/uL (1.20-3.40); #Monocytes 0.5 thou/uL (0.11-0.59); #Neutrophils 2.8 thou/uL (1.40-6.50); %Basophils 0.5 % (0.0-1.0); %Eosinophils 0.4 % (0.0-10.0); %Lymphocytes 26.7 % (21.0-51.0); %Monocytes 10.8 % (0.0-10.0); %Neutrophils 61.6 % (42.0-75.0); Hemoglobin 12.2 g/dL (14.0-18.0); Mean Corpuscular Hemoglobin 34.9 pg (27.0-31.0); Mean Corpuscular Volume 99.7 fL (78.0-98.0); Mean Platelet Volume 11.1 fL (7.4-10.4); Platelet Count 36 thou/uL (130-400); RBC Distribution Width 11.6 % (11.5-14.5); Red Blood Cell (RBC) Count 3.49 mill/uL (4.70-6.10); White Blood Cell (WBC) Count 4.6 thou/uL (4.8-10.8)
[2020-03-25 18:00] LABS: MDiff Complete? YES; Platelet Morphology Comment Appears Decreased; Polychromasia SLIGHT = 2-3 cells (100X) (0-2/hpf)
[2020-03-25 18:05] LABS: ALT (SGPT) 45 U/L (8-55); AST (SGOT) 147 U/L (5-34); Albumin 3.7 g/dL (3.5-5.0); Alkaline Phosphatase 94 U/L (40-110); Anion Gap 19 mmol/L (10-20); BUN (Urea Nitrogen) Less than 4 mg/dL (8.9-20.6); Calc. Creatinine Clearance 0 mL/min (70-130); Carbon Dioxide 21 mmol/L (22-29); Chloride 93 mmol/L (98-107); Estimated GFR-MDRD Greater than 90; Globulin 3.6 g/dL (2.4-3.5); Glucose 110 mg/dL (70-105); Lipase 239 U/L (8-78); Potassium 3.1 mmol/L (3.5-5.1); Protein, Total 7.3 g/dL (6.0-8.3); Sodium 130 mmol/L (136-145)
--- NOTE | 2020-03-25 19:28 | CT ---
EXAM: ABDOMEN CT WITH CONTRAST PELVIC CT WITH CONTRAST 03/25/20 HISTORY: Bilateral lower leg surgery. History of blood clots. Previous hernia repair. Abdominal pain. Epigastr ic pain. FINDINGS: ABDOMEN CT: Lung bases do not demonstrate any acute abnormality. Normal heart size. No pericardial effusion. The visualized aorta has a normal caliber. No periaortic fat stranding. Heterogeneous attenuation of the liver due to hepatic steatosis and fatty sparing. There are no enha ncing masses within the liver. There is hyperdensity In the dependent portion of the gallbladder suggesting sludge and possible ston es. There is hyperemia of the gallbladder wall. Cholecystitis cannot be excluded. Common bile duct trujillo s a normal caliber. Pancreas, spleen, and adrenal glands have appropriate attenuation and enhancement. Bilaterally, no obstructive uropathy. Symmetric enhancement of the kidneys. No mesenteric mass, lymphadenopathy, free air or free fluid. Limited evaluation of the alimentary canal by the lack of oral contrast. There is no small bowel obst ruction. Ileocecal junction is normal. Normal caliber appendix. Scattered fecal material in a nondist ended, nondilated colon. Anterior abdominal wall: No hernias. PELVIC CT: Heterogeneous prostate gland. Correlate for prostatitis. There is mild stranding of the peripancreati c fat at the level of the distal body and tail of the pancreas. No mass effect upon the floor of the urinary bladder. Incomplete evaluation of the bladder mucosal due to inadequate distention. No pelvic mass, lymphadenopathy, free air or free fluid. Degenerative changes of the lumbosacral junction. No lytic or blastic lesions in the osseous structur es. IMPRESSION: 1. Sludge and stones in the lumen of the gallbladder. There is gallbladder wall enhancement. Cor relate for possible cholecystitis. Findings are similar to the previous examination. Minimal strandin g of the tail of the pancreas and distal body of the pancreas. Correlate for possible pancreatitis. 2. Heterogeneous prostate gland. Correlate for prostatitis. POS: PPP
--- NOTE | 2020-03-25 20:34 | ULT ---
ULTRASOUND ABDOMEN LIMITED: (RIGHT UPPER QUADRANT) DATE: 03/25/2020 HISTORY: 49-year-old male with abdominal pain, nausea, vomiting, elevated lipase, and elevated bilirubin. FINDINGS: Gallbladder:Mildly distended. Diffuse hypoechoic sludge in the lumen. At the fundus, there is an appr oximately 2.5 x 2.5 x 1 cm intraluminal masslike structure which is homogeneously hyperechoic, with no acoustic shadowing. This appearance is unchanged compared to ultrasound of 06/14/2019, and correspon ds to the hyperdense region seen on CTs of today and 06/14/2019 at the gallbladder fundus. No gallstone identified. Normal wall thickness. No pericholecystic fluid. No sonographic Ureña's sign. Common duct: 4 mm. Liver:Diffusely increased echogenicity consistent with fatty liver Pancreas:Completely obscured by shadowing from bowel gas Right kidney:No hydronephrosis IMPRESSION: 1) in addition to typical gallbladder sludge, there is a small nonshadowing hyperechoic mass-like str ucture at the gallbladder fundus. This could be a sludge ball. Neoplasm is less likely but possible. 2) hepatic steatosis
--- NOTE | 2020-03-25 21:43 | PDOC.FPRHP ---
- History of Present Illness Chief Complaint: Abdominal Pain History of Present Illness: 49yo AAM with h/o pancreatitis 1 year ago, afib, HLD, HTN, schizophrenia who presents for acute onset abdominal pain. Onset of pain , epigastric, radiating throughout the abdomen. Associated diarrhea x3 daily, nonbloody. Nausea with associated vomiting x4, streaks of blood, nonbillious. Unable to keep food down. No CP, SOB, congestion, fever. Pain worse with PO intake, nothing seems to make worse. Rated 10/10. States used to be chronic drinker, but has "cut back" since previous hospitalization last year. States last drink was last friday, but then told attending, last drink was at onset of sxs. Drinks about a 6 pack when he does drink. Endorses a tremor, states slightly worse, but states has been ongoing for "many years." ED Course: Morphine 4mg x2, 1L NS, 200cc/hr, Protonix 80mg, zofran 4mg - Allergies/Adverse Reactions Allergies Allergy/AdvReac Type Severity Reaction Status Date / Time ELZBIETA Inhibitors Allergy Anaphylaxis Verified 04/11/16 03:04 sertraline HCl [From Zoloft] Allergy Swollen Verified 04/11/16 03:04 Lips Sulfa (Sulfonamide Allergy Verified 05/21/16 01:56 Antibiotics) sulfamethoxazole Allergy Verified 04/11/16 03:04 [From Bactrim] trimethoprim [From Bactrim] Allergy Verified 04/11/16 03:04 - Home Medications Medication Instructions Recorded Confirmed Type Amlodipine Besylate [amLODIPine 10 mg PO DAILY 06/24/13 03/25/20 History Besylate] Esomeprazole Magnesium [NexIUM] 20 mg PO QAM-WM 12/22/15 03/25/20 History Aspirin [Ecotrin Low Strength] 81 mg PO DAILY #0 tab 05/23/16 03/25/20 Rx Paliperidone Palmitate [Invega 234 mg IM Q28D 06/14/19 03/25/20 History Sustenna] Acetaminophen [Tylenol Regular 650 mg PO Q6H PRN 3 Days #24 tab 06/18/19 Rx Strength] - History PMHx: Afib, GERD, Schizophrenia, WPW, HLD, HTN, fatty Liver PSHx: Umbilical Hernia repair, Bl LE surgery for compartment syndrome and " blood clots" FHx: CAD, HTN Social: 6 pack of beer 1-2x/wk, last drink 1 wk ago. Used to drink daily and cut back about a year ago. Denies tobacco and illicit drug use. - Review of Systems General: reports: weight/appetite/sleep changes. denies: fever/chills Eyes: denies: eye pain, vision changes ENT: reports: other (scleral icterus). denies: nasal congestion, rhinorrhea Respiratory: denies: cough, congestion, shortness of breath, exercise intolerance Cardiovascular: denies: chest pain, palpitation, edema Gastrointestinal: reports: nausea, vomiting, diarrhea, abdominal pain, GI bleeding (notes specks of blood in vomiting) Genitourinary: reports: dysuria. denies: incontinence Skin: denies: rashes Musculoskeletal: denies: pain, tenderness Neurological: denies: numbness, weakness Psychological: denies: anxiety, depression - Vital signs BP: 126/80 HR: 88 RR: 20 Tmax: 98.8 Pox: 99% on RA Wt: 57kg - Physical Exam Constitutional: NAD, awake, alert and oriented, well developed, other (thin) HEENT: normocephalic and atraumatic, PERRLA, EOMI, grossly normal vision, grossly normal hearing, normal nasal mucosa, MMM, oropharynx clear, other ( scleral icterus) Neck: supple, trachea midline Heart: RRR, normal S1/S2, pulses present, no edema, other (2/6 CAROL best heard at apex) Lungs: CTAB, no respiratory distress, good air movement, no rales/rhonchi, no wheezing Abdomen: soft, non-tender (non-tender with distracted palpation, during questioning states epigastric TTP), bowel sounds present, other (negative napier 's, no rebound or guarding) Musculoskeletal: normal structure, normal tone Neurological: no focal deficit, other (resting tremor) Skin: no rash/lesions, good turgor Heme/Lymphatic: no unusual bruising or bleeding, no purpura, no petechia Psychiatric: normal mood and affect, good judgment and insight, intact recent and remote memory FMR H&P: Results - Labs Result Diagrams: 03/26/20 01:47 03/26/20 01:47 Lab results: WBC 4.6 thou/uL (4.8-10.8) L 03/25/20 17:31 Hgb 12.2 g/dL (14.0-18.0) L 03/25/20 17:31 Hct 34.8 % (42.0-52.0) L 03/25/20 17:31 MCV 99.7 fL (78.0-98.0) H 03/25/20 17:31 Plt Count 36 thou/uL (130-400) L 03/25/20 17: Neutrophils % 61.6 % (42.0-75.0) 03/25/20 17:31 Sodium 130 mmol/L (136-145) L 03/25/20 17:31 Potassium 3.1 mmol/L (3.5-5.1) L 03/25/20 17: Chloride 93 mmol/L (98-107) L 03/25/20 17:31 Carbon Dioxide 21 mmol/L (22-29) L 03/25/20 17:31 BUN Less than 4 mg/dL (8.9-20.6) L 03/25/20 17: Creatinine 0.73 mg/dL (0.7-1.3) 03/25/20 17:31 Glucose 110 mg/dL (70-105) H 03/25/20 17: Calcium 9.0 mg/dL (7.8-10.44) 03/25/20 17:31 Total Bilirubin 2.0 mg/dL (0.2-1.2) H 03/25/20 17:31 AST 147 U/L (5-34) H 03/25/20 17:31 ALT 45 U/L (8-55) 03/25/20 17:31 Alkaline Phosphatase 94 U/L (40-110) 03/25/20 17:31 Serum Total Protein 7.3 g/dL (6.0-8.3) 03/25/20 17:31 Albumin 3.7 g/dL (3.5-5.0) 03/25/20 17:31 Lipase 239 U/L (8-78) H 03/25/20 17:31 Urine Ketones Negative mg/dL (Negative) 03/25/20 17:20 Urine Blood Negative (Negative) 03/25/20:20 Urine Nitrite Negative (Negative) 03/25/20 17:20 Ur Leukocyte Esterase Negative Liang/uL (Negative) 03/25/20 17:20 - Radiology Interpretation CT scan - abdomen Status: report reviewed by me (sludge and stones in gallbladder, inflammation suggestive of pancreatitis, possible cholecystitis, possible prostitis, clinically correlate) US - abdomen Status: report reviewed by me (Hepatic steatosis, sludge in gallbladder. CBD 4mm , 2.5 x 2.5 x 1 c mass in fundus of gallbladder likely sludge ball cannot exclude neoplasm) FMR H&P: A/P - Problem List (1) Alcohol withdrawal Current Visit: No Status: Acute Code(s): F10.239 - ALCOHOL DEPENDENCE WITH WITHDRAWAL, UNSPECIFIED Qualifiers: Complication of substance-induced condition: uncomplicated Qualified Code(s ): F10.230 - Alcohol dependence with withdrawal, uncomplicated (2) Pancreatitis Current Visit: No Status: Acute Code(s): K85.90 - ACUTE PANCREATITIS WITHOUT NECROSIS OR INFECTION, UNSP Qualifiers: Chronicity: acute Pancreatitis type: alcohol induced - Plan 49yo AAM with h/o pancreatitis 1 year ago, afib, HLD, HTN, schizophrenia who presents for acute onset abdominal pain. #Acute Pancreatitis, likely alcohol induced - Lipase 239, CT findings suggestive of pancreatitis - RUQ US with gallbladder sludge, CBD 4mm, no inflammation, 2.5x2.5x1cm sludge ball vs possible neoplasm - VSS, non-toxic appearing - blood streaked vomiting, suspect esophageal irritation with possible Romy Vyas Tears. Hb stable, will trend and monitor - LR @ 200cc/hr - Zofran and morphine prn - will check mag and replace lytes as necessary - Lipid panel ordered - NPO for bowel rest #EtOH abuse, concern for acute alcohol withdrawal - h/o abuse, patient unclear with current use and of last drink - tremor at baseline - ASE scores with ASE med protocol - Multivitamin, Folic acid, IV high-dose thiamine - will monitor closely #Transaminitis and hyperbilirubenemia - AST 147, ALT 45, Tbili 2.0 - likely alcohol induced with chronic gallbladder sludge and possible intermittent obstruction of CBD, will monitor #Suspected Cirrhosis - Hepatic steatosis on US - Plt 36, elevated LFTs - will obtain coag studies, will need outpatient GI follow up #Anion gap metabolic acidosis - AG 16, CO2 21 - suspected lactic acidosis from volume deleption - will check LA - monitor #Pancytopenia - likely EtOH induced - Will check iron studies and B12 and folate - peripheral smear #Gallbladder sludge ball vs neoplasm - will need outpatient GI follow up and likely cholecystectomy as outpatient with surg once pancreatitis resolved #H/o Afib and WPW - sinus at presentation, will monitor #Schizophrenia - on Invega injections, no acute episode PCP: ZAY You Ivf: LR @ 200cc/hr Diet: NPO VTE: SCDs (Held pharm 2/2 Plt) Disposition/LOS: Admit to medical for acute pancreatitis, likely EtOH induced. Further workup pending, supportive care. Anticipate LOS > 48hrs. FMR H&P: Upper Level - Plan Date/Time: 03/25/202142 IMatilde DO, have evaluated this patient and agree with findings/plan as outlined by pr intern resident. Pertinent changes/additions are listed here. Pt is a 49 yo M with PMH of alcoholism, hx of pancreatitis 06/2019, and questionable hx of Primary Biliary Cirrhosis presenting for abd pain x2 days associated with n/v/d, worsened by movement and eating, relieved by nothing. Hx of positive anti smooth muscle and anti-mitochondrial ab with neg bx for PBC , however GI f/u recommended but hasn't followed up. Hx of alcoholism, reports last drink 1 wk ago. VS: T99.6, P119, R18, O296%RA, BP135/85 PE: Gen: tremulous, NAD HEENT: Moist MM, no LAD, scleral icterus Heart: Regular rhythm, mildly tachycardic, no murmurs or extra sounds. Distal pulses 2+ Lungs: CTAB, no wheezing. No increased work of breathing Abd: soft, mild epigastric ttp, BS+, no masses or hernias Neuro: b/l hand/arm tremor, no asterixis Ext: no cyanosis or edema Skin: no rashes Psych: AOx3 Pertinent Labs/Imaging: Na 130, K 3.1, Cl 93, CO2- 21, Alb 3.7 Bili 2.0 Lipase 239 Hgb 12.2, RBC 3.4, WBC 4.6, Plt 36 AST 147 CTabd/pelvis- possible cholecystitis with gallbladder sludge and inflammation of pancreas suggestive of pancreatitis RUQ US-gallbladder sludge, small nonshadowing hyperechoic mass-like structure at GB fundus- sludge ball vs neoplasm (less likely) A/P: Acute Pancreatitis: -likely 2/2 alcohol use -r/o other causes with FLP -NPO, LR @200 -morphine for pain control Pancytopenia: -likely 2/2 chronic alcohol use -peripheral smear, Fe, B12, Folate pending -coags pending Transaminitis and Hyperbilirubinemia: -hepatic steatosis on US -coags pending -likely bordering cirrhosis with hx and severe thrombocytopenia, will need GI f/ u outpatient Gallbladder Sludge Ball vs Neoplasm: - no acute signs of cholecystitis -US with CBD 4mm, no wall thickening, or pericholecystic fluid, Sludge ball vs neoplasm on US -will need outpatient f/u for likely cholecystectomy Hx of Autoimmune Hepatitis vs Primary Biliary Cirrhosis: -per chart review, dx unclear and patient hasn't followed up with GI -will need to establish GI care outpt Hypovolemic Hyponatremia: -IVF and trend Hypochloremic Metabolic Acidosis with Anion Gap: -likely from volume depletion -LA pending -IVF as above Alcohol Abuse: -pt reports cutting back however has sx of acute withdrawal -Alcohol level and UDS pending -ASE protocol with prn meds per protocol -Place on thiamine, b12, and folate Hx of Afib and WPW: -NSR at this time, no rate or rhythm controlling agents per clinic chart. -continue to monitor -not a candidate for anticoagulation with thrombocytopenia GERD -continue home meds HTN: -continue home meds Schizophrenia: -takes monthly Invega injections Dispo: stable, place inpatient for pancreatitis tx, LOS likely >48h DVT PPx: SCD GI PPx: home nexium PCP: Dr. Ady You Addendum - Attending - Attending Attestation Date/Time: 03/26/20 3467 I personally evaluated the patient and discussed the management with the team. I agree with the History, Examination, Assessment and Plan documented above with any addition or exceptions noted below. Tells me he stopped drinking last , the day that his pain started. TTP, especially in BILLIE, with no guarding or rigidity. IVF Pain control Early feeds if possible Progression of liver disease presumably, consider GI consultation as he has not followed up outpatient. Low suspicion for acute cholecysitis/biliary pathology as cause currently.
[2020-03-25] MEDS ORDERED: Ondansetron PF 4 MG/2 ML Vial IVP PRN ×2 (21:57→22:27)
[2020-03-25] MEDS ORDERED: Ondansetron ODT 4 MG TAB SL PRN (21:57)
[2020-03-25] MEDS ORDERED: Morphine 4 MG/ML VIAL SLOW IVP PRN ×2 (21:58→22:32)
[2020-03-25] MEDS ORDERED: Lactated Ringer's 1,000 ML IV SCH (22:00)
[2020-03-25] MEDS ORDERED: Ondansetron ODT 4 MG TAB PO PRN (22:27)
[2020-03-25] MEDS ORDERED: Calcium Carbonate 500 MG ChewTAB PO PRN (22:27)
[2020-03-25] MEDS ORDERED: Potassium Chloride 20 MEQ TAB PO SCH (22:45)
[2020-03-25 22:51] VITALS: BMI 21.1
[2020-03-25] MEDS ORDERED: Diazepam 5 MG TAB PO PRN (22:54)
[2020-03-25 23:00] LABS: INR-International Normal Ratio 1.1; PTT 28.1 sec (22.9-36.1); Prothrombin Time 14.4 sec (12.0-14.7)
[2020-03-25] MEDS ORDERED: Diazepam 5 MG TAB PO SCH (23:00)
[2020-03-25 23:16] LABS: Alcohol Less than 10 mg/dL (Less than 10); Cardiac Risk 2.1 (Less than 4.5); Cholesterol 173 mg/dl (< 200 Desired); HDL Cholesterol 84 mg/dL (>60 Neg Risk); LDL Cholesterol, Calculated 78 mg/dL; Magnesium 1.5 mg/dL (1.6-2.6); Triglycerides 57 mg/dL (Less than 150)
[2020-03-25 23:21] LABS: Lactic Acid 4.8 mmol/L (0.5-2.2)
[2020-03-26] MEDS: Magnesium 2 GM/50 ML 2 GM in Premix Bag 1 BAG IVPB SCH (01:26)
[2020-03-26] MEDS: Lactated Ringer's 1,000 ML IV SCH ×7 (01:39→23:23)
[2020-03-26 02:18] LABS: Band 3 % (5-11); Hypochromia SLIGHT = 6-15 cells (100X) (0-5/hpf); Lymphocytes 15 % (21-51); MDiff Complete? YES; Mean Corpuscular HGB CONC 35.2 g/dL (32.0-36.0); Mean Corpuscular Hemoglobin 35.4 pg (27.0-31.0); Mean Platelet Volume 11.5 fL (7.4-10.4); Monocytes 1 % (0-10); Neutrophil 81 % (42-75); Platelet Count 35 thou/uL (130-400); Platelet Morphology Comment Appears Decreased; RBC Distribution Width 11.8 % (11.5-14.5); Red Blood Cell (RBC) Count 3.11 mill/uL (4.70-6.10); White Blood Cell (WBC) Count 5.7 thou/uL (4.8-10.8)
[2020-03-26 02:31] LABS: ALT (SGPT) 35 U/L (8-55); AST (SGOT) 114 U/L (5-34); Albumin 3.3 g/dL (3.5-5.0); Alkaline Phosphatase 82 U/L (40-110); Anion Gap 14 mmol/L (10-20); BUN (Urea Nitrogen) Less than 4 mg/dL (8.9-20.6); Bilirubin, Total 2.1 mg/dL (0.2-1.2); Calc. Creatinine Clearance 97 mL/min (70-130); Carbon Dioxide 25 mmol/L (22-29); Chloride 98 mmol/L (98-107); Estimated GFR-MDRD Greater than 90; Globulin 3.2 g/dL (2.4-3.5); Glucose 111 mg/dL (70-105); Magnesium 2.6 mg/dL (1.6-2.6); Potassium 3.6 mmol/L (3.5-5.1); Protein, Total 6.5 g/dL (6.0-8.3); Sodium 133 mmol/L (136-145)
[2020-03-26] MEDS ORDERED: Diazepam 5 MG TAB PO PRN (04:00)
--- NOTE | 2020-03-26 04:55 | PDOC.FM ---
- Subjective Subjective: Patient was resting comfortably in bed at the time of evaluation. He complained of continued ABD pain and occasional nausea. He denied any chest pain, SOB, fevers or auditory/visual hallucinations. - Objective Vital Signs & Weight: Vital Signs (12 hours) Temp Pulse Resp BP BP Pulse Ox 03/26/20 04:00 98.0 F 85 18 123/72 123/72 96 03/26/20 00:00 99.0 F 106 H 18 137/76 97 03/25/20 21:50 99.6 F 119 H 18 135/85 96 Weight Weight 57.606 kg Result Diagrams: 03/26/20 01:47 03/26/20 01:47 Phys Exam - Physical Examination Constitutional: NAD HEENT: PERRLA, moist MMs, oral pharynx no lesions Mild scleral icterus Neck: supple, full ROM Respiratory: no wheezing, no rales, no rhonchi, clear to auscultation bilateral Cardiovascular: RRR, no significant murmur, no rub Gastrointestinal: soft, no distention, positive bowel sounds No TTP noted during exam, but when questioned patient endorsed 10/10 pain Musculoskeletal: no edema, pulses present Neurological: non-focal, moves all 4 limbs Psychiatric: A&O x 3 Deviation from normal: Flattened Affect Skin: no rash Dx/Plan (1) Anxiety and depression Code(s): F41.9 - ANXIETY DISORDER, UNSPECIFIED; F32.9 - MAJOR DEPRESSIVE DISORDER, SINGLE EPISODE, UNSPECIFIED Status: Chronic (2) Hypokalemia Code(s): E87.6 - HYPOKALEMIA Status: Acute (3) Pancreatitis Code(s): K85.90 - ACUTE PANCREATITIS WITHOUT NECROSIS OR INFECTION, UNSP Status: Acute Qualifiers: Chronicity: acute Pancreatitis type: alcohol induced (4) Thrombocytopenia Code(s): D69.6 - THROMBOCYTOPENIA, UNSPECIFIED Status: Acute (5) Transaminitis Code(s): R74.0 - NONSPEC ELEV OF LEVELS OF TRANSAMNS & LACTIC ACID DEHYDRGNSE Status: Acute (6) Hypertension Code(s): I10 - ESSENTIAL (PRIMARY) HYPERTENSION Status: Chronic (7) Schizophrenia Code(s): F20.9 - SCHIZOPHRENIA, UNSPECIFIED Status: Chronic (8) 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 #Acute Pancreatitis, likely EtOH-Induced - Elevated Lipase (239) w/ CT findings suggestive of Pancreatitis - RUQ US: Gallbladder sludge, CBD 4mm, no inflammation, 2.5x2.5x1cm sludge ball vs. possible neoplasm - VSS, non-toxic appearing on intial evaluation - Blood streaked vomiting, suspect esophageal irritation with possible Romy Vyas Tears. Hb stable, will trend and monitor - LR @ 200cc/hr, s/p 1L NS bolus - Zofran and Morphine prn - will attempt to decrease Morphine use this AM based on suspect physical exam - M.6 - Ca: 8 - Glucose: 111 - FLP: Tri(57) Chol(173) LDL(78) HDL(84) - NPO for bowel rest #EtOH Abuse, concern for EtOH Withdrawal - Patient endorses a Hx of abuse, unclear with current use and of last drink - Tremor at baseline - ASE Protocol - Multivitamin, Folic Acid, IV high-dose Thiamine - Will continue to monitor #Transaminitis, Hyperbilirubinemia - AST: 147 / ALT: 45 - TBili: 2.0 - Likely EtOH-induced, chronic gallbladder sludge and possible intermittent obstruction of CBD could be contributing factors - Will continue to monitor #Suspected Cirrhosis - US suggestive of Hepatic Steatosis - Plt: 36 - Coag Panel: PT(14.4) INR(1.1) APTT(28.1) - Patient will require outpatient GI follow-up #Anion Gap Metabolic Acidosis, resolved - A on admission > 10 on 03/26 - LA: 4.8 on admission - 1.4 on 03/26 - Suspected Lactic Acidosis from volume depletion - Will continue to monitor #Pancytopenia - Likely EtOH induced - Peripheral Smear: Pending #Gallbladder Sludge Ball vs Neoplasm - Will need outpatient GI / GenSurg follow-up and likely cholecystectomy as outpatient #H/o A-Fib and WPW - Sinus Rhythm at presentation - Will continue to monitor #Schizophrenia - On Invega injections, no acute episode - Will continue home medication regimen PCP: ZAY You Code: Full Diet: NPO Activity: Ad brian IVF: LR @ 200cc/hr VTE: SCDs Only due to Low Platelets Dispo: Patient is currently admitted to the Medical Floor for ongoing evaluation and treatment of likely EtOH-induced Acute Pancreatitis. Will proceed with fluid resuscitation, pain management, and bowel rest as per above. Additional work-up pending. Expected LOS > 48H. Addendum - Attending - Attending Attestation Date/Time: 03/26/20 0806 I personally evaluated the patient and discussed the management with Dr. Rojas. I agree with the History, Examination, Assessment and Plan documented above with any addition or exceptions noted below. Patient admitted for acute pancreatitis. he continues to complain of abd pain. Nausea as well. Patient NPO, continue bowel rest and IVF. Should further evaluate this possibility of cholecystitis based on the CT scan report.
[2020-03-26] MEDS: Morphine 4 MG/ML VIAL SLOW IVP PRN ×5 (05:22→19:24)
[2020-03-26 07:18] LABS: Amphetamine Not Detected (NotDetected); Barbiturates Screen Not Detected (NotDetected); Benzodiazepine Screen Not Detected (NotDetected); Cocaine Metabolite Screen Not Detected (NotDetected); Medtox Control Line Valid? VALID (VALID); Medtox Reader # READER 4; Methadone Not Detected (NotDetected); Methamphetamine Not Detected (NotDetected); Opiate Screen Not Detected (NotDetected); Oxycodone Screen Not Detected (NotDetected); Phencyclidine (PCP) Not Detected (NotDetected); THC/Cannabinoid Screen Not Detected (NotDetected); Tricyclic Screen Not Detected (NotDetected)
[2020-03-26] MEDS: Folic Acid 1 MG TAB PO SCH (08:05)
[2020-03-26] MEDS: Amlodipine 10 MG TAB PO SCH (08:05)
[2020-03-26] MEDS: Multivitamin W/ Minerals 1 TAB PO SCH (08:05)
[2020-03-26] MEDS: Aspirin 81 mg Enteric Coated Tablet PO SCH (08:05)
[2020-03-26 08:06] LABS: Iron 62 ug/dL (65-175); Iron Binding Capacity, Total 144 mcg/dL (261-462)
[2020-03-26] MEDS ORDERED: Magnesium Oxide 400 MG TAB PO SCH (09:00)
--- NOTE | 2020-03-26 12:36 | CON ---
DATE OF CONSULTATION: CHIEF COMPLAINT: Epigastric abdominal pain. HISTORY OF PRESENT ILLNESS: This is a 49-year-old male with 3-day history of epigastric pain associated with nausea. He has had previous episodes. No change in urine color. No fever. PAST MEDICAL HISTORY: Schizophrenia, history of deep venous thrombosis, and hypertension. MEDICATIONS: Include; 1. Invega, that is given IM every 28 days. 2. Nexium. 3. Aspirin. 4. Amlodipine. 5. Acetaminophen. PAST SURGICAL HISTORY: He has had leg surgery twice. ALLERGIES: TO SULFA. FAMILY HISTORY: Noncontributory. SOCIAL HISTORY: Single, unemployed. No tobacco. Social alcohol. PHYSICAL EXAMINATION: VITAL SIGNS: Temperature 98.1, pulse 97, and blood pressure 139/86. GENERAL: He is a thin man, in no apparent distress. HEENT: No jaundice. LUNGS: Clear. HEART: Regular rate and rhythm. ABDOMEN: Soft. He is tender in the right upper quadrant. No real Ureña's sign. He has well-healed surgical scars on his legs. LABORATORY DATA: His white count is 5.7, H/H of 11 and 31, and his platelet count is only 35,000. His T-bilirubin is 2.1, AST of 114. CT scan showed some hyperemia of the gallbladder wall, normal common duct, and sludge. Ultrasound showed a sludge ball. The common bile duct is 4 mm. ASSESSMENT: This could be biliary colic. PLAN: HIDA scan. He is at high risk due to his thrombocytopenia for surgery. Job ID: [id number]
[2020-03-26] MEDS: Senokot S 8.6-50 MG TAB PO SCH (17:26)
[2020-03-26] MEDS ORDERED: Fleet Enema 133 ML BOT PR SCH (19:00)
[2020-03-27] MEDS: Magnesium 2 GM/50 ML 2 GM in Premix Bag 1 BAG IVPB SCH (00:33)
[2020-03-27] MEDS: Morphine 4 MG/ML VIAL SLOW IVP PRN ×4 (00:34→17:52)
[2020-03-27] MEDS: Lactated Ringer's 1,000 ML IV SCH ×4 (04:56→19:54)
[2020-03-27 05:35] LABS: ALT (SGPT) 29 U/L (8-55); AST (SGOT) 76 U/L (5-34); Albumin 3.6 g/dL (3.5-5.0); Alkaline Phosphatase 80 U/L (40-110); Anion Gap 14 mmol/L (10-20); BUN (Urea Nitrogen) Less than 4 mg/dL (8.9-20.6); Bilirubin, Total 2.5 mg/dL (0.2-1.2); Calc. Creatinine Clearance 101 mL/min (70-130); Calcium 8.3 mg/dL (7.8-10.44); Carbon Dioxide 26 mmol/L (22-29); Chloride 98 mmol/L (98-107); Estimated GFR-MDRD Greater than 90; Globulin 3.4 g/dL (2.4-3.5); Glucose 90 mg/dL (70-105); Potassium 3.7 mmol/L (3.5-5.1); Sodium 134 mmol/L (136-145)
[2020-03-27] MEDS ORDERED: Lactated Ringer's 1,000 ML IV SCH (05:41)
[2020-03-27 05:51] LABS: Band 8 % (5-11); Hemoglobin 11.4 g/dL (14.0-18.0); Lymphocytes 15 % (21-51); MDiff Complete? YES; Mean Corpuscular HGB CONC 32.5 g/dL (32.0-36.0); Mean Corpuscular Hemoglobin 32.9 pg (27.0-31.0); Mean Platelet Volume 11.8 fL (7.4-10.4); Monocytes 5 % (0-10); Neutrophil 72 % (42-75); Platelet Count 47 thou/uL (130-400); Platelet Morphology Comment Appears Decreased; RBC Distribution Width 12.1 % (11.5-14.5); Red Blood Cell (RBC) Count 3.45 mill/uL (4.70-6.10); White Blood Cell (WBC) Count 6.4 thou/uL (4.8-10.8)
--- NOTE | 2020-03-27 05:51 | PDOC.FM ---
- Subjective Subjective: Patient was resting comfortably in bed at the time of evaluation. He denied any acute overnight events, and specifically stated that his ABD pain was reduced from the previous evaluation. He denied any severe fevers, nausea or vomiting. - Objective Vital Signs & Weight: Vital Signs (12 hours) Temp Pulse Resp BP BP Pulse Ox 03/27/20 04:00 99.3 F 121 H 16 128/84 128/84 96 03/27/20 00:00 131/78 03/26/20 23:33 99.0 F 101 H 20 131/78 97 03/26/20 20:00 142/92 H 03/26/20 19:56 98.8 F 111 H 16 142/92 H 98 Weight Weight 57.606 kg I&O: 03/25/20 03/26/20 03/27/20 06:59 06:59 06:59 Intake Total 1700 4560 Output Total 400 Balance 1700 4160 Result Diagrams: 03/27/20 05:03 03/27/20 05:03 Phys Exam - Physical Examination Constitutional: NAD HEENT: PERRLA, moist MMs, oral pharynx no lesions Neck: supple, full ROM Respiratory: no wheezing, no rales, no rhonchi, clear to auscultation bilateral Cardiovascular: no significant murmur, no rub Tachycardia Gastrointestinal: soft, no distention, positive bowel sounds Minimally tender in the epigastric region - patient endorses "soreness" Musculoskeletal: no edema, pulses present Neurological: non-focal, moves all 4 limbs Lymphatic: no nodes Deviation from normal: Guarded affect Skin: no rash Dx/Plan (1) Anxiety and depression Code(s): F41.9 - ANXIETY DISORDER, UNSPECIFIED; F32.9 - MAJOR DEPRESSIVE DISORDER, SINGLE EPISODE, UNSPECIFIED Status: Chronic (2) Pancreatitis Code(s): K85.90 - ACUTE PANCREATITIS WITHOUT NECROSIS OR INFECTION, UNSP Status: Acute Qualifiers: Chronicity: acute Pancreatitis type: alcohol induced (3) Thrombocytopenia Code(s): D69.6 - THROMBOCYTOPENIA, UNSPECIFIED Status: Acute (4) Transaminitis Code(s): R74.0 - NONSPEC ELEV OF LEVELS OF TRANSAMNS & LACTIC ACID DEHYDRGNSE Status: Acute (5) Hypertension Code(s): I10 - ESSENTIAL (PRIMARY) HYPERTENSION Status: Chronic (6) Schizophrenia Code(s): F20.9 - SCHIZOPHRENIA, UNSPECIFIED Status: Chronic (7) Xgwnd-Xasncdxif-Glksy (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 #Acute Pancreatitis, likely EtOH-Induced - Elevated Lipase (239 > 1288), ABD pain and w/ CT findings suspicious for inflammation at the Pancreatic Tail - RUQ US: Gallbladder sludge, CBD 4mm, no inflammation, 2.5x2.5x1cm sludge ball vs. possible neoplasm - VSS, non-toxic appearing on initial evaluation - Blood streaked vomiting noted by patient, suspect esophageal irritation with possible Romy Vyas Tears - Hg/Hct appear stable - will trend with AM Labs and continue to monitor - LR @ 150 ml/hr - titrated down from 200 ml/hr for ~36H and s/p 1L NS bolus in ED - Zofran and Morphine PRN - M.6 - Ca: 8 - Glucose: 111 - FLP: Tri(57) Chol(173) LDL(78) HDL(84) - NPO for bowel rest -GenSurg: Consulted on 03/26 - recommended HIDA Scan -HIDA Scan: Pending #EtOH Abuse, concern for EtOH Withdrawal - Patient endorses a Hx of abuse, unclear with current use and of last drink - Tremor at baseline - ASE Protocol - Multivitamin, Folic Acid, IV high-dose Thiamine - UDS: Negative - Will continue to monitor #Transaminitis, Hyperbilirubinemia - AST: 147 / ALT: 45 > AST: 76 / ALT: 29 - TBili: 2.0 > 2.5 - Likely EtOH-induced, chronic gallbladder sludge and possible intermittent obstruction of CBD could be contributing factors - Will continue to monitor #Suspected Cirrhosis - US suggestive of Hepatic Steatosis - Plt: 36 - Coag Panel: PT(14.4) INR(1.1) APTT(28.1) - Patient will require outpatient GI follow-up #Anion Gap Metabolic Acidosis, resolved - A on admission > 10 on 03/26 - LA: 4.8 on admission - 1.4 on 03/26 - Suspected Lactic Acidosis from volume depletion - Will continue to monitor #Pancytopenia - Likely EtOH induced - Peripheral Smear: Pending #Gallbladder Sludge Ball vs Neoplasm - Will need outpatient GI / GenSurg follow-up and likely cholecystectomy as outpatient #H/o A-Fib and WPW - Sinus Rhythm at presentation - Will continue to monitor #Schizophrenia - On Invega injections, no acute episode - Will continue home medication regimen PCP: ZAY You Code: Full Diet: NPO Activity: Ad brian IVF: LR @ 150 ml/hr VTE: SCDs Only due to Low Platelets Dispo: Patient is currently admitted to the Medical Floor for ongoing evaluation and treatment of likely EtOH-induced Acute Pancreatitis. Will proceed with fluid resuscitation, pain management, and bowel rest as per above. GenSurg consulted, recs appreciated - will proceed w/ HIDA Scan this AM. Additional work-up and evaluation pending. Expected LOS > 48H. Addendum - Attending - Attending Attestation Date/Time: 03/27/201818 I personally evaluated the patient and discussed the management with Dr. Rojas I agree with the History, Examination, Assessment and Plan documented above with any addition or exceptions noted below - Patient ambulating in room. States that h continues to have abdominal pain. Denies any N/V. Afebrile VSS A/P : 1) Acute pancreatitis - trial of clears; continue pain medications. HIDA scan negative. 2) Cirrhosis - stable. 3) Thrombocytopenia secondary to #2- stable.
[2020-03-27] MEDS: Amlodipine 10 MG TAB PO SCH (08:41)
[2020-03-27] MEDS: Aspirin 81 mg Enteric Coated Tablet PO SCH (08:41)
[2020-03-27] MEDS: Folic Acid 1 MG TAB PO SCH (08:44)
[2020-03-27] MEDS: Multivitamin W/ Minerals 1 TAB PO SCH (08:45)
[2020-03-27] MEDS: Senokot S 8.6-50 MG TAB PO SCH ×2 (08:45→19:54)
--- NOTE | 2020-03-27 12:07 | NM ---
HEPATOBILIARY SCAN: Date: 03/27/2020 HISTORY: Epigastric pain, elevated LFTs. Gallbladder sludge and hyperechoic mass at the gallbladder fundus on the ultrasound of 03/25/2020. RADIOPHARMACEUTICAL: 5 mCi technetium-99m mebrofenin injected intravenously. FINDINGS: There is good tracer extraction by the liver with normal excretion into the biliary tract and small b owel loops, and normal filling of the gallbladder. IMPRESSION: No evidence of cystic duct obstruction or acute cholecystitis. POS: [facility]
[2020-03-28] MEDS: Morphine 4 MG/ML VIAL SLOW IVP PRN ×4 (00:06→18:30)
[2020-03-28] MEDS: Lactated Ringer's 1,000 ML IV SCH ×4 (00:07→18:31)
[2020-03-28 05:06] LABS: Band 1 % (5-11); Hypochromia SLIGHT = 6-15 cells (100X) (0-5/hpf); Lymphocytes 21 % (21-51); MDiff Complete? YES; Macrocytosis SLIGHT = 6-15 cells (100X) (0-5/hpf); Mean Corpuscular HGB CONC 32.9 g/dL (32.0-36.0); Mean Corpuscular Hemoglobin 33.8 pg (27.0-31.0); Mean Platelet Volume 11.7 fL (7.4-10.4); Monocytes 9 % (0-10); Neutrophil 69 % (42-75); Platelet Count 43 thou/uL (130-400); Platelet Morphology Comment Appears Decreased; RBC Distribution Width 12.2 % (11.5-14.5); Red Blood Cell (RBC) Count 2.95 mill/uL (4.70-6.10); White Blood Cell (WBC) Count 4.2 thou/uL (4.8-10.8)
[2020-03-28 05:20] LABS: ALT (SGPT) 26 U/L (8-55); AST (SGOT) 73 U/L (5-34); Albumin 3.1 g/dL (3.5-5.0); Alkaline Phosphatase 66 U/L (40-110); Anion Gap 9 mmol/L (10-20); BUN (Urea Nitrogen) Less than 4 mg/dL (8.9-20.6); Bilirubin, Total 1.4 mg/dL (0.2-1.2); Calc. Creatinine Clearance 113 mL/min (70-130); Carbon Dioxide 27 mmol/L (22-29); Chloride 99 mmol/L (98-107); Estimated GFR-MDRD Greater than 90; Globulin 2.9 g/dL (2.4-3.5); Glucose 70 mg/dL (70-105); Potassium 3.3 mmol/L (3.5-5.1); Sodium 132 mmol/L (136-145)
--- NOTE | 2020-03-28 07:01 | EKG ---
Test Reason : Blood Pressure : / mmHG Vent. Rate : 096 BPM Atrial Rate : 096 BPM P-R Int : 112 ms QRS Dur : 080 ms QT Int : 342 ms P-R-T Axes : 063 025 024 degrees QTc Int : 432 ms Normal sinus rhythm Normal ECG When compared with ECG of 25-MAR-2020 17:53, (Unconfirmed) Premature atrial complexes are no longer Present Criteria for Septal infarct are no longer Present Confirmed by DR. Najma CONTRERAS ([id number]) on 03/28/2020 7:01:22 AM Referred By: KASI wallace Confirmed By:DR. Najma CONTRERAS
--- NOTE | 2020-03-28 08:34 | PRG ---
DATE OF SERVICE: 03/28/2020 SUBJECTIVE: The patient states he is still having quite a bit of epigastric pain, maybe a little better. No nausea or vomiting. OBJECTIVE: VITAL SIGNS: On examination temperature is 98.6, pulse 106, blood pressure 142/91. GENERAL: He is awake, alert, in minimal distress. ABDOMEN: Mildly tender. LABORATORY DATA: His white count is 4.2, H and H is 10 and 30, is platelet is only 43,000. His last lipase, it was going up, it was 1288. ASSESSMENT: Pancreatitis, possibly biliary, but he does not have gallstones present, just sludge on ultrasound. He has a very low platelet count, making this a higher risk procedure. I have GI look at him. We will repeat his lipase today. We may need to do a lap sofia with cholangiogram with added platelets. I will see what GI has to say. Job ID: [id number]
--- NOTE | 2020-03-28 08:43 | PDOC.FM ---
- Subjective Subjective: Patient was resting comfortably in bed at the time of evaluation. Patient denied any acute overnight events, but did states that he noticed that his ABD pain returned intermittently in between doses of PRN Morphine. Patient also endorsed an increased appetite and asked if his diet could be advanced beyond Clear Liquids. - Objective Vital Signs & Weight: Vital Signs (12 hours) Temp Pulse Resp BP BP Pulse Ox 03/28/20 07:39 98.6 F 106 H 18 142/91 H 99 03/28/20 04:00 135/85 03/28/20 03:24 98.6 F 105 H 16 135/85 100 03/27/20 23:30 98.5 F 105 H 16 134/81 99 Weight Admit Weight 57.606 kg Weight 57.606 kg I&O: 03/27/20 03/28/20 03/29/20 06:59 06:59 06:59 Intake Total 4560 5010 Output Total 400 325 Balance 4160 4685 Result Diagrams: 03/28/20 04:27 03/28/20 04:27 Phys Exam - Physical Examination Constitutional: NAD HEENT: moist MMs, oral pharynx no lesions Neck: supple, full ROM Respiratory: no wheezing, no rales, no rhonchi, clear to auscultation bilateral Cardiovascular: no significant murmur, no rub Mild tacycardia Gastrointestinal: soft, non-tender, no distention, positive bowel sounds No TTP, Apprehension Sign(-) Musculoskeletal: no edema, pulses present Neurological: non-focal, moves all 4 limbs Deviation from normal: Flattened affect Dx/Plan (1) Anxiety and depression Code(s): F41.9 - ANXIETY DISORDER, UNSPECIFIED; F32.9 - MAJOR DEPRESSIVE DISORDER, SINGLE EPISODE, UNSPECIFIED Status: Chronic (2) Hypokalemia Code(s): E87.6 - HYPOKALEMIA Status: Acute (3) Pancreatitis Code(s): K85.90 - ACUTE PANCREATITIS WITHOUT NECROSIS OR INFECTION, UNSP Status: Acute Qualifiers: Chronicity: acute Pancreatitis type: alcohol induced (4) Thrombocytopenia Code(s): D69.6 - THROMBOCYTOPENIA, UNSPECIFIED Status: Acute (5) Transaminitis Code(s): R74.0 - NONSPEC ELEV OF LEVELS OF TRANSAMNS & LACTIC ACID DEHYDRGNSE Status: Acute (6) Hypertension Code(s): I10 - ESSENTIAL (PRIMARY) HYPERTENSION Status: Chronic (7) Schizophrenia Code(s): F20.9 - SCHIZOPHRENIA, UNSPECIFIED Status: Chronic (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 #Acute Pancreatitis, EtOH-induced vs/ Gallstone-induced - Elevated Lipase (239 > 1288), ABD pain and w/ CT findings suspicious for inflammation at the Pancreatic Tail - RUQ US: Gallbladder sludge, CBD 4mm, no inflammation, 2.5x2.5x1cm sludge ball vs. possible neoplasm - VSS, non-toxic appearing on initial evaluation - Blood streaked vomiting noted by patient, suspect esophageal irritation with possible Romy Vyas Tears - Hg/Hct appear stable - will trend with AM Labs and continue to monitor - LR @ 150 ml/hr - titrated down from 200 ml/hr for ~36H and s/p 1L NS bolus in ED - Zofran and Morphine PRN - M.6 - Ca: 8 - Glucose: 111 - FLP: Tri(57) Chol(173) LDL(78) HDL(84) - Clear Liquid Diet - will plan to advance as tolerated later today - GenSurg: Consulted on 03/26 - recommended HIDA Scan, subsequently consulted GI - HIDA Scan: No Filling Defects - GI Consult: Pending #EtOH Abuse, concern for EtOH Withdrawal - Patient endorses a Hx of abuse, unclear with current use and of last drink - Tremor at baseline - ASE Protocol - Multivitamin, Folic Acid, IV high-dose Thiamine - UDS: Negative - Will continue to monitor #Transaminitis, Hyperbilirubinemia - AST: 147 / ALT: 45 > AST: 76 / ALT: 29 - TBili: 2.0 > 2.5 > 1.4 - Likely EtOH-induced, chronic gallbladder sludge and possible intermittent obstruction of CBD could be contributing factors - Will continue to monitor #Suspected Cirrhosis - US suggestive of Hepatic Steatosis - Plt: 36 - Coag Panel: PT(14.4) INR(1.1) APTT(28.1) - Patient will require outpatient GI follow-up #Anion Gap Metabolic Acidosis, resolved - A on admission > 10 on 03/26 - LA: 4.8 on admission - 1.4 on 03/26 - Suspected Lactic Acidosis from volume depletion - Will continue to monitor #Pancytopenia - Likely EtOH induced - Peripheral Smear: Thrombocytopenia, possibly multi-factorial #Gallbladder Sludge Ball vs Neoplasm - GI Consult: Pending #H/o A-Fib and WPW - Sinus Rhythm at presentation - Repeat EKG: NSR - Will continue to monitor #Schizophrenia - On Invega injections, no acute episode - Will continue home medication regimen PCP: ZAY You Code: Full Diet: NPO Activity: Ad brian IVF: LR @ 150 ml/hr VTE: SCDs Only due to Low Platelets Dispo: Patient is currently admitted to the Medical Floor for ongoing evaluation and treatment of likely EtOH-induced Acute Pancreatitis. Will proceed with fluid resuscitation, pain management, and diet advancement as per above. GenSurg and GI consulted, recs appreciated. Additional work-up and evaluation pending. Expected LOS > 48H. Addendum - Attending - Attending Attestation Date/Time: 03/28/20 1882 I personally evaluated the patient and discussed the management with Dr. Rojas I agree with the History, Examination, Assessment and Plan documented above with any addition or exceptions noted below - Patient sitting up in bed. Pain controlled. States that Dr. Sow told him he would have surgery tomorrow. Afebrile VSS A/P: 1) Pancreatitis- lipase and pain improving. Plan for cholecystectomy tomorrow; appreciate surgery assistance. 2) Cirrhosis with thrombocytopenia- Platelets stable; plan to transfuse prior to surgery. 3) H/o WPW - will discuss with Dr. Andrade as to any pre-operative surgery recommendations.
[2020-03-28] MEDS ORDERED: Potassium Chloride 20 MEQ TAB PO SCH (09:00)
[2020-03-28] MEDS: Aspirin 81 mg Enteric Coated Tablet PO SCH (09:22)
[2020-03-28] MEDS: Senokot S 8.6-50 MG TAB PO SCH ×2 (09:22→20:02)
[2020-03-28] MEDS: Folic Acid 1 MG TAB PO SCH (09:22)
[2020-03-28] MEDS: Amlodipine 10 MG TAB PO SCH (09:22)
[2020-03-28] MEDS: Multivitamin W/ Minerals 1 TAB PO SCH (09:22)
[2020-03-28] MEDS ORDERED: CEFAZOLIN 2 GM in Premix Bag 1 BAG IVPB SCH (11:45)
--- NOTE | 2020-03-28 11:59 | PRG ---
DATE OF SERVICE: 03/28/2020 SUBJECTIVE: He is feeling better. His lipase has come back significantly improved down from 1200 to 200 and his bilirubin has dropped from 2.5 to 1.4. ASSESSMENT: Biliary pancreatitis, improved. PLAN: Recommend laparoscopic cholecystectomy with cholangiogram. Due to his thrombocytopenia, we will have platelets available. Job ID: [id number]
[2020-03-29] MEDS: Morphine 4 MG/ML VIAL SLOW IVP PRN ×2 (00:33→10:42)
--- NOTE | 2020-03-29 02:49 | CON ---
DATE OF CONSULTATION: 03/28/2020 CHIEF COMPLAINT: Abdominal pain. HISTORY OF PRESENT ILLNESS: Mr. Sabillon is a 49-year-old man with a history of pancreatitis and alcoholic hepatitis who presented with epigastric to diffuse abdominal pain that started 5 days ago. He has also had intermittent left lower quadrant pain as well. His pain has been stabbing to burning. He has had nausea and vomiting with it. When the pain started, he had diarrhea with a few liquidy stools per day initially. If he leans forward it helps the pain. He drinks alcohol couple times per week. PAST MEDICAL HISTORY: Atrial fibrillation, alcoholic hepatitis, fatty liver disease, gastroesophageal reflux disease, Bqhuq-Xbsgzlnmg-Cuceg syndrome, hypertension, hyperlipidemia, history of DVT. PAST SURGICAL HISTORY: Hernia repair. FAMILY HISTORY: Negative for GI malignancy. SOCIAL HISTORY: He drinks few beers a couple of times per week. He used to drink daily. No smoking or illicit drugs. ALLERGIES: INCLUDE ELZBIETA INHIBITORS, SERTRALINE, SULFA. OUTPATIENT MEDICATIONS: 1. Nexium. 2. Aspirin. 3. Amlodipine. 4. Paliperidone palmitate. REVIEW OF SYSTEMS: Negative x10 systems reviewed except as stated in the history of present illness. PHYSICAL EXAMINATION: VITAL SIGNS: Temperature 98.4, pulse 100, blood pressure 138/85. GENERAL: He is in no acute distress. Alert and oriented x3. EYES: Have slight scleral icterus. Oropharynx is clear without lesions. No cervical or supraclavicular lymphadenopathy. LUNGS: Clear to auscultation bilaterally. HEART: Regular rate and rhythm without murmur. ABDOMEN: Tender diffusely and he keeps his abdominal muscles tense during exam. There is no rebound or evidence of a surgical abdomen. EXTREMITIES: Has no lower extremity edema. LABORATORY DATA: Creatinine 0.65, bilirubin 1.4, down from 2.5 yesterday. AST is 73, ALT 26, alkaline phosphatase 66, albumin 3.1, lipase 1288 yesterday, down to 239 today. IMAGIN. Ultrasound of the gallbladder showed sludge versus gallbladder wall 2.5 x 2.5 cm intraluminal mass and hepatic steatosis. 2. CT scan of the abdomen and pelvis shows enhancement of the gallbladder wall and sludge and stones in the gallbladder. IMPRESSION: 1. Acute pancreatitis. He has known gallstones and elevated bilirubin and AST and this certainly could be a gallstone pancreatitis. He could have a recurrent alcoholic pancreatitis as well with elevation of the liver tests for other reasons. Either way, his gallbladder needs to be removed at this point. 2. A 2.5 cm x 2.5 cm gallbladder wall mass. Again, cholecystectomy was planned. 3. Abnormal liver function tests. He has a history of alcoholic hepatitis. His AST is mildly elevated greater than the ALT with elevated bilirubin and normal alkaline phosphatase. 4. This pattern would be more suggestive of alcoholic hepatitis than obstructive cholestasis. He has had in the past, transaminases as high as the thousands with elevated anti-smooth muscle antibody. He could have a history of autoimmune hepatitis. However, his globulin is not elevated now. He does have pancytopenia with low platelets, which could be a sign of portal hypertension and cirrhosis. His INR is normal. His albumin is low at 3.1. It might be helpful to pursue liver biopsy at the time of cholecystectomy to help sort out the etiology of his chronic liver disease and the degree of fibrosis. 5. History of schizophrenia. RECOMMENDATIONS: 1. Plan is for laparoscopic cholecystectomy with intraoperative cholangiogram tomorrow. 2. If possible, then liver biopsy would be helpful to sort out his degree of fibrosis and etiology of underlying liver disease. He has had elevated autoimmune markers in the past. However, I think his liver disease is more likely alcohol induced in nature. He does have thrombocytopenia and the plan is to receive platelets prior to his surgery tomorrow. I will give Dr. Sow a call regarding this. Job ID: [id number]
[2020-03-29 04:25] LABS: ALT (SGPT) 22 U/L (8-55); AST (SGOT) 62 U/L (5-34); Albumin 3.1 g/dL (3.5-5.0); Alkaline Phosphatase 69 U/L (40-110); Anion Gap 13 mmol/L (10-20); BUN (Urea Nitrogen) Less than 4 mg/dL (8.9-20.6); Bilirubin, Total 1.2 mg/dL (0.2-1.2); Calc. Creatinine Clearance 108 mL/min (70-130); Calcium 8.5 mg/dL (7.8-10.44); Carbon Dioxide 26 mmol/L (22-29); Chloride 102 mmol/L (98-107); Estimated GFR-MDRD Greater than 90; Globulin 3.2 g/dL (2.4-3.5); Glucose 81 mg/dL (70-105); Potassium 3.7 mmol/L (3.5-5.1); Protein, Total 6.3 g/dL (6.0-8.3); Sodium 137 mmol/L (136-145)
[2020-03-29 04:31] LABS: Band 2 % (5-11); Eosinophils 1 % (0-10); Hemoglobin 10.4 g/dL (14.0-18.0); Lymphocytes 21 % (21-51); MDiff Complete? YES; Mean Corpuscular HGB CONC 33.3 g/dL (32.0-36.0); Mean Corpuscular Hemoglobin 34.4 pg (27.0-31.0); Mean Platelet Volume 11.3 fL (7.4-10.4); Monocytes 10 % (0-10); Myelocyte 1 % (0-0); Neutrophil 63 % (42-75); Platelet Count 64 thou/uL (130-400); Platelet Morphology Comment Appears Decreased; RBC Distribution Width 12.3 % (11.5-14.5); Reactive Lymphocytes 2 % (0-10); Red Blood Cell (RBC) Count 3.02 mill/uL (4.70-6.10); White Blood Cell (WBC) Count 4.1 thou/uL (4.8-10.8)
--- NOTE | 2020-03-29 05:22 | PDOC.FM ---
- Subjective Subjective: Patient was resting comfortably in his bed at the time of evaluation. He denied any acute events, to include chest pain, worsening ABD pain, nausea or vomiting. - Objective Vital Signs & Weight: Vital Signs (12 hours) Temp Pulse Resp BP BP Pulse Ox 03/29/20 03:55 139/90 03/29/20 03:29 98.2 F 103 H 16 139/90 98 03/29/20 00:00 130/86 03/28/20 23:17 98.1 F 109 H 16 130/86 99 03/28/20 20:00 137/88 99 03/28/20 19:53 98.3 F 118 H 16 137/88 99 Weight Admit Weight 57.606 kg Weight 57.606 kg I&O: 03/27/20 03/28/20 03/29/20 06:59 06:59 06:59 Intake Total 4560 5010 5360 Output Total 400 325 Balance 4160 4685 5360 Result Diagrams: 03/29/20 03:26 03/29/20 03:26 Phys Exam - Physical Examination Constitutional: NAD HEENT: moist MMs, sclera anicteric, oral pharynx no lesions Neck: supple, full ROM Respiratory: no wheezing, no rales, no rhonchi, clear to auscultation bilateral Cardiovascular: no significant murmur, no rub Mild Tachycardia Gastrointestinal: soft, no distention Minimal bowel sounds, appropriately TTP Musculoskeletal: no edema, pulses present Mild tremor of upper extremities, at baseline Deviation from normal: Flattened affect Dx/Plan (1) Anxiety and depression Code(s): F41.9 - ANXIETY DISORDER, UNSPECIFIED; F32.9 - MAJOR DEPRESSIVE DISORDER, SINGLE EPISODE, UNSPECIFIED Status: Chronic (2) Hypokalemia Code(s): E87.6 - HYPOKALEMIA Status: Acute (3) Pancreatitis Code(s): K85.90 - ACUTE PANCREATITIS WITHOUT NECROSIS OR INFECTION, UNSP Status: Acute Qualifiers: Chronicity: acute Pancreatitis type: alcohol induced (4) Thrombocytopenia Code(s): D69.6 - THROMBOCYTOPENIA, UNSPECIFIED Status: Acute (5) Transaminitis Code(s): R74.0 - NONSPEC ELEV OF LEVELS OF TRANSAMNS & LACTIC ACID DEHYDRGNSE Status: Acute (6) Hypertension Code(s): I10 - ESSENTIAL (PRIMARY) HYPERTENSION Status: Chronic (7) Schizophrenia Code(s): F20.9 - SCHIZOPHRENIA, UNSPECIFIED Status: Chronic (8) Xhbpb-Sxkdzchry-Vqeac (WPW) syndrome Code(s): 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 #Acute Pancreatitis, EtOH-induced vs. Gallstone-induced - Elevated Lipase (239 > 1288), ABD pain and w/ CT findings suspicious for inflammation at the Pancreatic Tail - RUQ US: Gallbladder sludge, CBD 4mm, no inflammation, 2.5x2.5x1cm sludge ball vs. possible neoplasm - VSS, non-toxic appearing on initial evaluation - Blood streaked vomiting noted by patient, suspect esophageal irritation with possible Romy Vyas Tears - Hg/Hct appear stable - will trend with AM Labs and continue to monitor - LR @ 150 ml/hr - titrated down from 200 ml/hr for ~36H and s/p 1L NS bolus in ED - Zofran and Morphine 4 mg Q6H PRN - M.6 - Ca: 8 - Glucose: 111 - FLP: Tri(57) Chol(173) LDL(78) HDL(84) - Clear Liquid Diet - will plan to advance as tolerated following procedure today - GenSurg: Consulted on 03/26 - recommended HIDA Scan, subsequently consulted GI - recommended Cholecystectomy w/ Cholangiogram and Liver Biopsy - official reports still pending -GI: Consulted, recs appreciated - HIDA Scan: No Filling Defects #EtOH Abuse, concern for EtOH Withdrawal - Patient endorses a Hx of abuse, unclear with current use and of last drink - Tremor at baseline - ASE Protocol - Multivitamin, Folic Acid, IV high-dose Thiamine - UDS: Negative - Will continue to monitor #Transaminitis, Hyperbilirubinemia - AST: 147 / ALT: 45 > AST: 76 / ALT: 29 - TBili: 2.0 > 2.5 > 1.4 - Likely EtOH-induced, although chronic gallbladder sludge and possible intermittent obstruction of CBD could be contributing factors - Will continue to monitor #Suspected Cirrhosis - US suggestive of Hepatic Steatosis - Plt: 36 - Coag Panel: PT(14.4) INR(1.1) APTT(28.1) - Will have supplemental Plts ready during procedure on 03/29 - Patient will require outpatient GI follow-up #Anion Gap Metabolic Acidosis, resolved - A on admission > 10 on 03/26 - LA: 4.8 on admission - 1.4 on 03/26 - Suspected Lactic Acidosis from volume depletion - Will continue to monitor #Pancytopenia - Likely EtOH induced - Peripheral Smear: Thrombocytopenia, possibly multi-factorial #Gallbladder Sludge Ball vs Neoplasm - Will perform Cholecystectomy on 03/29 w/ intraoperative Cholangiogram - GI: Consulted, recs appreciated #H/o A-Fib and WPW - Sinus Rhythm at presentation - Repeat EKG: NSR - EP: Consulted - No barriers to surgery - recommended IV Amiodarone intraoperatively if SVT or A-Fib occurs - Will continue to monitor #Schizophrenia - On monthly Invega injections, no acute episode - Will continue home medication regimen PCP: ZAY You Code: Full Diet: NPO Activity: Ad brian IVF: LR @ 150 ml/hr VTE: SCDs Only due to Low Platelets Dispo: Patient is currently admitted to the Medical Floor for ongoing evaluation and treatment of likely EtOH-induced Acute Pancreatitis. Will proceed with fluid resuscitation, pain management, and diet advancement as per above. GenSurg and GI consulted, recs appreciated. Plan for surgery this AM. Expected LOS > 48H. Addendum - Attending - Attending Attestation Date/Time: 03/29/20 [id number] I personally evaluated the patient and discussed the management with Dr. Rojas I agree with the History, Examination, Assessment and Plan documented above with any addition or exceptions noted below. s/p cholecystectomy today. ERCP tomorrow. f/u specialist recs.
[2020-03-29] MEDS ORDERED: Iopamidol 50 ML FS ONE (06:27)
[2020-03-29] MEDS ORDERED: Bupivacaine 0.25% HCL 30 ML VIAL ONE (06:27)
[2020-03-29] MEDS ORDERED: EPINEPHrine 1 MG/ML AMP ONE (06:27)
[2020-03-29] MEDS ORDERED: Midazolam HCl 2 mg/2 ml Vial ONE (06:57)
[2020-03-29] MEDS ORDERED: Fentanyl 100 MCG/2 ML VIAL ONE ×2 (06:57→09:34)
--- NOTE | 2020-03-29 08:19 | RAD ---
Cholangiogram intraoperative: 03/29/2020 HISTORY: 49-year-old male with abdominal pain, nausea, vomiting, elevated lipase, and elevated bilirubin. Gall bladder sludge and mass in gallbladder lumen found on ultrasound. FINDINGS: 2 fluoroscopic spot images obtained with C-arm in the OR. The first image demonstrates contrast mater ial opacifying the common hepatic duct, left and right hepatic ducts, and right hepatic biliary radicles which all demonstrate little or no dilation. There is an abrupt cut off of the contrast in t he region of the common bile duct. No contrast in the duodenum. Slightly superior to this cough, there is a round filling defect occupying the entire diameter of the common duct. The second image de monstrates contrast caudal to that previously seen cut off, tapering to the region of the ampulla of Vater. There is still a filling defect, but it is slightly more caudal in location, and is no long er round, but rather deformed into a crescent shape. IMPRESSION: Filling defect in the common duct. Possibilities include choledocholithiasis, sludge ball, and air bu bble. Recommend correlation with appearance during fluoroscopy.
[2020-03-29] MEDS ORDERED: Ondansetron HCl/PF 4 MG/2 ML Vial IVP PRN (08:43)
[2020-03-29] MEDS ORDERED: Promethazine HCl 25 MG/ML VIAL IM PRN ×2 (08:43→08:54)
[2020-03-29] MEDS ORDERED: Promethazine HCl 25 MG/ML VIAL SLOW IVP PRN (08:43)
[2020-03-29] MEDS ORDERED: Esmolol 100 MG/10 ML VIAL ONE (08:47)
[2020-03-29] MEDS ORDERED: Dextrose 50% Abboject 50 ML SYRINGE SLOW IVP PRN (08:54)
[2020-03-29] MEDS ORDERED: Dextrose 5% in Water 1,000 ML IV PRN (08:54)
[2020-03-29] MEDS ORDERED: Calcium Carbonate 500 MG ChewTAB PO PRN (08:54)
[2020-03-29] MEDS ORDERED: HYDROcodone/Acetaminophen 10/325 mg Tablet PO PRN ×2 (08:54)
[2020-03-29] MEDS ORDERED: Mag-Al 1200 mg/1200 mg/30 ML UDCUP PO PRN (08:54)
[2020-03-29] MEDS ORDERED: Ondansetron PF 4 MG/2 ML Vial IVP PRN (08:54)
[2020-03-29] MEDS ORDERED: hydrALAZINE 20 MG/ML VIAL SLOW IVP PRN (08:54)
[2020-03-29] MEDS ORDERED: Metoprolol Tartrate 5 MG/5 ML VIAL ONE (09:57)
[2020-03-29] MEDS: Folic Acid 1 MG TAB PO SCH (10:43)
[2020-03-29] MEDS: Multivitamin W/ Minerals 1 TAB PO SCH (10:43)
[2020-03-29] MEDS: Senokot S 8.6-50 MG TAB PO SCH ×2 (10:43→19:43)
[2020-03-29] MEDS: Amlodipine 10 MG TAB PO SCH (10:43)
[2020-03-29] MEDS: Famotidine/PF 20 mg/2ml Vial SLOW IVP SCH ×2 (10:43→20:55)
[2020-03-29] MEDS: Lactated Ringer's 1,000 ML IV SCH ×2 (10:44→16:47)
[2020-03-29] MEDS: Famotidine 20 MG TAB PO SCH ×2 (10:44→21:09)
[2020-03-29] MEDS ORDERED: Lidocaine 1% PF 5 ML VIAL ONE (11:57)
[2020-03-29] MEDS ORDERED: Glycopyrrolate 0.2 MG/ML 5 ML SYRINGE ONE (11:57)
[2020-03-29] MEDS ORDERED: Rocuronium Bromide 10 MG/ML (10ML VIAL) ONE (11:57)
[2020-03-29] MEDS ORDERED: PROPOFOL 200 MG/20 ML VIAL ONE (11:57)
[2020-03-29] MEDS ORDERED: Ondansetron PF 4 MG/2 ML Vial ONE (11:57)
--- NOTE | 2020-03-29 12:15 | PRG ---
DATE OF SERVICE: 03/29/2020 SUBJECTIVE: The patient had a cholecystectomy earlier this morning. He is sore from the surgery. He has nausea, but no vomiting. PHYSICAL EXAMINATION: VITAL SIGNS: Temperature is 98.7, blood pressure is 120/75, pulse of 135. GENERAL: He is alert, uncomfortable, but in no distress. HEENT: Shows anicteric sclerae. Oropharynx is moist. CV: Shows normal S1, S2. Regular rate and rhythm. CHEST: Shows breath sounds. ABDOMEN: Slightly firm, but no distention. No active bowel sounds. EXTREMITIES: Show no edema. LABORATORY DATA: Prior to surgery, electrolytes in the normal range, creatinine 0.68, bilirubin is 1.2, alkaline phosphatase 69, AST 62, ALT 22. Lipase yesterday down to 239 from 1288. WBCs 4.1, hemoglobin 10.4, platelet count of 64. ASSESSMENT: 1. Gallstone pancreatitis, status post cholecystectomy earlier this morning. Intraoperative cholangiogram suggestive of choledocholithiasis. 2. Alcoholic hepatitis with pancytopenia. Status post liver biopsy this morning. RECOMMENDATIONS: We will proceed with ERCP tomorrow with sphincterotomy and stone extraction. Indication including risk, not limited to bleeding, perforation, and possible pancreatitis were reviewed with the patient. Job ID: [id number]
--- NOTE | 2020-03-29 13:19 | PDOC.EP ---
- Subjective Date: 03/29/20 Time: 13:17 Interval History: Follow-up for WPW management, perioperative. patient underwent cholecystectomy this morning as well as liver biopsy. he is having some discomfort but is relieved to have 1 operation done. Denies any significant are racing or palpitations since yesterday - Review of Systems Constitutional: reports: malaise. denies: chills, fever, weakness Respiratory: denies: cough, wheezing Cardiology: denies: chest pain, heart racing, light headedness, palpitations, passing out Gastrointestinal: reports: abdominal pain, diarrhea, nausea. denies: constipation Musculoskeletal: denies: unstable gait, falls - Objective Allergies/Adverse Reactions: Allergies Allergy/AdvReac Type Severity Reaction Status Date / Time ELZBIETA Inhibitors Allergy Anaphylaxis Verified 04/11/16 03:04 sertraline HCl [From Zoloft] Allergy Swollen Verified 04/11/16 03:04 Lips Sulfa (Sulfonamide Allergy Verified 05/21/16 01:56 Antibiotics) sulfamethoxazole Allergy Verified 04/11/16 03:04 [From Bactrim] trimethoprim [From Bactrim] Allergy Verified 04/11/16 03:04 Current Medications Acetaminophen (Tylenol) 650 mg PO Q4H PRN PRN Reason: Headache/Fever/Mild Pain (1-3) Hydrocodone Bitart/Acetaminophen ([place] 10/325) 1 tab PO Q6H PRN PRN Reason: Moderate Pain (4-6) Hydrocodone Bitart/Acetaminophen ([place] 10/325) 2 tab PO Q6H PRN PRN Reason: Severe Pain (7-10) Al Hydroxide/Mg Hydroxide (Maalox) 15 ml PO Q6H PRN PRN Reason: Dyspepsia Albuterol/Ipratropium (Duoneb) 3 ml NEB Q4H PRN PRN Reason: Wheezing Amlodipine Besylate (Norvasc) 10 mg PO DAILY [facility] Last Admin: 03/29/20 10:43 Dose: 10 mg Calcium Carbonate (Tums) 1,000 mg PO Q4H PRN PRN Reason: Dyspepsia Dextrose/Water (Dextrose 50%) 25 gm SLOW IVP PRN PRN PRN Reason: Hypoglycemia Diazepam (Valium) 5 mg PO Q4H PRN PRN Reason: FOR ASE 10 OR GREATER Famotidine (Pepcid) 20 mg PO Q12HR [facility] Last Admin: 03/29/20 10:44 Dose: Not Given Famotidine (Pepcid) 20 mg SLOW IVP Q12HR [facility] Last Admin: 03/29/20 10:43 Dose: 20 mg Folic Acid (Folvite) 1 mg PO DAILY [facility] Last Admin: 03/29/20 10:43 Dose: 1 mg Glucagon (Glucagon) 1 mg IM PRN PRN PRN Reason: Hypoglycemia Hydralazine HCl (Apresoline) 10 mg SLOW IVP Q4H PRN PRN Reason: SBP > 170 or DBP > 100 Thiamine HCl 200 mg/ Sodium (Chloride) 52 mls @ 100 mls/hr IVPB Q24HR [facility] Last Admin: 03/28/20 23:18 Dose: 52 mls Lactated Ringer's (Lactated Ringer's) 1,000 mls @ 150 mls/hr IV .Q6H40M [facility] Last Admin: 03/29/20 10:44 Dose: Not Given Cefazolin Sodium/Dextrose 2 gm (/ Device) 50 mls @ 100 mls/hr IVPB ONCALL-OR [facility] Dextrose/Water (D5w) 1,000 mls @ 0 mls/hr IV .Q0M PRN PRN Reason: Hypoglycemia Cefoxitin Sodium/Dextrose 2 gm (/ Device) 50 mls @ 100 mls/hr IVPB Q8HR [facility] Iron/Minerals/Multivitamins (Theragran M) 1 tab PO DAILY [facility] Last Admin: 03/29/20 10:43 Dose: 1 tab Miscellaneous (Ase Protocol) 1 each FS ONE [facility] Stop: 04/04/20 22:46 Morphine Sulfate (Morphine) 4 mg SLOW IVP Q6H PRN PRN Reason: Pain Last Admin: 03/29/20 10:42 Dose: 4 mg Ondansetron HCl (Zofran Odt) 4 mg PO Q6H PRN PRN Reason: Nausea/Vomiting Ondansetron HCl (Zofran) 4 mg IVP Q6H PRN PRN Reason: Nausea/Vomiting Last Admin: 03/26/20 18:07 Dose: 4 mg Pantoprazole Sodium (Protonix) 40 mg PO DAILY [facility] Last Admin: 03/29/20 10:44 Dose: 40 mg Promethazine HCl (Phenergan) 12.5 mg IM Q4H PRN PRN Reason: Nausea/Vomiting Senna/Docusate Sodium (Senokot S) 1 tab PO BID [facility] Last Admin: 03/29/20 10:43 Dose: 1 tab Sodium Chloride (Flush - Normal Saline) 10 ml IVF PRN PRN PRN Reason: Saline Flush Last Admin: 03/29/20 00:33 Dose: 10 ml Vital Signs & Weight: Vital Signs Temp Pulse Resp BP BP Pulse Ox 03/29/20 10:43 135 H 03/29/20 05:39 98.7 F 135 H 16 120/75 100 03/29/20 03:55 139/90 03/29/20 03:29 98.2 F 103 H 16 139/90 98 Admit Weight 127 lb Weight 127 lb I/O: I/O 03/28/20 03/29/20 03/30/20 06:59 06:59 06:59 Intake Total 5010 7900 Output Total 325 325 Balance 4685 7575 - Physical Exam General: alert & oriented x3, appears well, no apparent distress, speech clear, affect appropriate HEENT: mucus membranes moist, normocephaly Neck: supple neck, midline trachea, no lymphadenopathy Cardiology: regular rate and rhythm, PMI nondisplaced, tachycardia Lungs: clear to auscultation, no wheeze, rales, rhonchi Neurology: grossly intact, no lateralizing findings - Labs Result Diagrams: 03/29/20 03:26 03/29/20 03:26 - EKG Interpretation EKG Method: Telemetry EKG shows: Sinus rhythm, Sinus tachycardia - Assessment/Plan Assessment/Plan: 1. Ydzuh-Wzfkrfhap-Rvgfd syndrome 2. gallstone pancreatitis 3. alcoholic hepatitis 4. pancytopenia 5. alcohol abuse 6. tremor Mr. lang has done well with his 1st operation. Heart rhythm is remains study. He remains in sinus tachycardia with rates between 100-110 beats per minute. This could be associated with his ongoing pain or potentially alcohol withdrawal. I would recommend his medical issues to be addressed and resolved before considering ablation. I will allow him to recover from his recent an upcoming operations, seen him back in clinic in 6 weeks. At that time we can discuss scheduling an EP study and ablation. No atrial fibrillation has been seen and I can find no medical record/history of AFib. Should it be seen intraoperatively I would recommend IV amiodarone with a cardioversion. Thank you for allowing me to participate in the care of this patient. Feel free to contact me for any additional EP input that may be needed. EP signing off.
[2020-03-29] MEDS ORDERED: Lactated Ringer's 1,000 ML IV SCH (13:30)
[2020-03-29] MEDS: cefOXitin Sodium/Dextrose,Iso 2 GM in Premix Bag 1 BAG IVPB SCH ×2 (13:54→23:32)
[2020-03-29] MEDS ORDERED: cefOXitin 2 GM in Sodium Chloride 0.9% 100 ML IVPB SCH (14:00)
[2020-03-29 16:49] LABS: #Lymphocytes 0.4 thou/uL (1.20-3.40); #Monocytes 0.9 thou/uL (0.11-0.59); #Neutrophils 5.1 thou/uL (1.40-6.50); %Basophils 0.5 % (0.0-1.0); %Eosinophils 0.4 % (0.0-10.0); %Lymphocytes 5.8 % (21.0-51.0); %Monocytes 13.9 % (0.0-10.0); %Neutrophils 79.5 % (42.0-75.0); Hemoglobin 7.9 g/dL (14.0-18.0); MDiff Complete? YES; Mean Corpuscular HGB CONC 33.7 g/dL (32.0-36.0); Mean Corpuscular Hemoglobin 35.1 pg (27.0-31.0); Platelet Count 112 thou/uL (130-400); RBC Distribution Width 12.5 % (11.5-14.5); Red Blood Cell (RBC) Count 2.25 mill/uL (4.70-6.10); White Blood Cell (WBC) Count 6.4 thou/uL (4.8-10.8)
--- NOTE | 2020-03-29 18:06 | OP ---
DATE OF PROCEDURE: 03/29/2020 PREOPERATIVE DIAGNOSIS: Acute cholecystitis with elevated liver function tests. PROCEDURES PERFORMED: Laparoscopic cholecystectomy, intraoperative cholangiogram, wedge liver biopsy. INDICATIONS: The patient is a 49-year-old male, thrombocytopenic, with severe epigastric pain and pancreatitis, who on ultrasound was found to have multiple sludge or small stones. FINDINGS: Multiple tiny stones in the cystic duct that had to be milked out to be able to place the cholangiocatheter. Then, there was filling defect in the common duct and no flow in the duodenum. His liver looked very yellow and fatty, but not nodular. DESCRIPTION OF PROCEDURE: After informed consent was obtained, the patient was taken to the operating room, given general endotracheal anesthesia, placed in the supine position. Abdomen was prepped and draped in usual fashion. Local anesthesia was infiltrated subcutaneously and deep. A subumbilical incision was performed, subcu divided sharply. The fascia was grasped and 2 stay sutures of 0 Vicryl placed through each side of midline. Midline incised. Digital palpation revealed no local adhesions. A blunt 12 mm trocar inserted. Pneumoperitoneum was created to a pressure of 15 mmHg. A 0-degree laparoscope inserted under direct vision, three 5-mm ports were placed subcostally. The gallbladder grasped, advanced superiorly. This cystic duct and artery were dissected out. A clip was placed at the base of the gallbladder on the cystic duct. The cystic duct was opened and multiple stones were milked retrograde from the distal cystic duct out. Then, the cholangiocatheter was inserted, that is an Arrow cholangiocatheter, and an intraoperative cholangiogram was performed, which showed no flow into the duodenum and filling defects within the common duct. The duct was triply ligated with hemoclips and divided. The artery was triply ligated with hemoclips and divided. The gallbladder was removed from its fossa utilizing electrocautery. Hemostasis was achieved utilizing electrocautery. The gallbladder was removed from the abdomen through the umbilical port, then a wedge of liver was excised from the edge of the liver and hemostasis achieved with electrocautery, and then Ashley powder was applied to both the biopsy site and the gallbladder bed. Hemostasis was assured. Trocars and retractors removed. The fascia closed with interrupted 0 Vicryl suture. Skin closed with interrupted 4-0 Rapide. Dermabond applied. The patient tolerated the procedure well, transferred to Recovery in good condition. Sponge and needle count verified correct x2. Job ID: [id number]
--- NOTE | 2020-03-29 19:28 | EKG ---
Test Reason : COMFIRMATION Blood Pressure : / mmHG Vent. Rate : 107 BPM Atrial Rate : 107 BPM P-R Int : 128 ms QRS Dur : 068 ms QT Int : 340 ms P-R-T Axes : 047 012 -08 degrees QTc Int : 453 ms Poor data quality, interpretation may be adversely affected Sinus tachycardia Nonspecific T wave abnormality Abnormal ECG When compared with ECG of 27-MAR-2020 13:46, Nonspecific T wave abnormality now evident in Lateral leads Confirmed by DR. Najma CONTRERAS ([id number]) on 03/29/2020 7:27:57 PM Referred By: SHELLIE Confirmed By:DR. Najma CONTRERAS
--- NOTE | 2020-03-29 19:45 | CON ---
DATE OF CONSULTATION: 03/28/2020 REASON FOR CONSULTATION: WPW. HISTORY OF PRESENT ILLNESS: Mr. Sabillon is a 49-year-old gentleman with a history of hypertension, schizophrenia, and Wnofm-Bttvazcek-Kluos. He was evaluated in the emergency room for epigastric pain that radiated through the abdomen as well as diarrhea. There are associated nausea and vomiting as well. He is found to have significant alcohol abuse. During his evaluation, he was found to have acute pancreatitis, likely alcohol induced as well as pancytopenia and gallstone pancreatitis as well as choledocholithiasis. Given his history of Kyjvt-Suynfmyia-Zzjjx syndrome, EP consultation has been requested for perioperative evaluation. Ridge continues to have abdominal pain, tremors, but appears to be in no acute distress. REVIEW OF SYSTEMS: A 12-point review of systems is otherwise unremarkable. PAST MEDICAL HISTORY: 1. Hypertension. 2. Schizophrenia. 3. Xzqwd-Lkbvsfrnj-Cnadx. 4. Alcohol abuse. ALLERGIES: INCLUDE SULFA AND SULFA BASED MEDICATIONS. MEDICATIONS: 1. Invega injection IM q.28 days. 2. Nexium 20 mg daily. 3. Ecotrin 81 mg daily. 4. Amlodipine 10 mg daily. 5. Tylenol as needed. PHYSICAL EXAMINATION: VITAL SIGNS: Temperature 98.1 degrees Fahrenheit, pulse 109, blood pressure is 130/86, respirations 16, and oxygen 99% on room air. GENERAL: The patient is alert and oriented, underlying tremor. He appears restless, but is in no apparent distress at the time of the exam. HEENT: He is normocephalic and atraumatic. Sclerae are anicteric. EOMs are intact. Oral mucosa is moist and pink with adequate dentition. NECK: Supple without jugular venous distention. No lymphadenopathy. Trachea is midline. LUNGS: Clear to auscultation bilaterally without wheezes, crackles, or rhonchi. He is on room air. HEART: Rate is irregularly irregular. Slightly tachycardic. PMI nondisplaced. ABDOMEN: Tender to palpation. Positive bowel sounds are noted throughout. EXTREMITIES: Warm and dry to touch. Well perfused without clubbing, cyanosis, or edema. NEUROLOGIC: Grossly intact, nonfocal and gait was not assessed. LABORATORY DATA: WBC 4.2, hemoglobin 10, and platelet count 69. Chemistry; sodium 132, potassium 3.3, and creatinine 0.65. AST slightly elevated, ALT and alkaline phosphatase within normal ranges. Lipase peaked at 1288, today was 239. TSH within normal ranges. Magnesium 1.5 on admission, currently 2.6. IMAGING STUDIES: 1. EKGs and telemetry shows sinus tachycardia with slight delta wave. Current EKG is more prominent than prior EKGs from 2017. 2. There is concern for possible history of atrial fibrillation, though I can find no documentation where EKG/telemetry is reporting that. 3. History of preserved LVEF 70% and structurally normal heart by echo on 12/22/2015. 4. Alcoholic pancreatitis and cirrhosis. 5. Pancytopenia. 6. Anxiety, depression, and schizophrenia. ASSESSMENT: 1. Igwen-Txoffdyfs-Ajymz syndrome. 2. Palpitations. 3. Hypertension. 4. Gallstone pancreatitis. 5. Alcoholic hepatitis. 6. Pancytopenia. PLAN AND RECOMMENDATIONS: The patient is scheduled for cholecystectomy the following morning and arrhythmia clearance is requested and guidance regarding his WPW. He has a long documented history of WPW pre-excitation seen on EKGs dating back to at least 2012. At that time, he was also admitted for EP study and ablation, but has never followed to arrange this. I do not see his delta waves prominently on his current EKGs. They are clearly noted on prior EKGs. At this point, I do not think his operation should be delayed and you can proceed with surgery as scheduled. I cannot find any documented atrial fibrillation or notes historically mentioning that atrial fibrillation has been seen. If he does experience atrial fibrillation intraoperatively, I would recommend IV amiodarone with or without cardioversion depending on its duration. He would likely benefit from an EP study and possible ablation to lower his WPW pathway, which can be arranged as an outpatient after he is recovered from his upcoming procedures. Do not hesitate to contact me with any heart rhythm management-related questions surrounding his operative time. Thank you for allowing me to participate in the care of this patient. Job ID: [id number]
[2020-03-29] MEDS: Acetaminophen 325 MG TAB PO PRN (21:00)
[2020-03-30 00:02] LABS: Hemoglobin 9.6 g/dL (14.0-18.0)
[2020-03-30] MEDS: Lactated Ringer's 1,000 ML IV SCH ×4 (03:33→18:12)
[2020-03-30] MEDS: Acetaminophen 325 MG TAB PO PRN (03:37)
--- NOTE | 2020-03-30 05:24 | PDOC.FM ---
- Subjective Subjective: Patient was using the restroom at the time of evaluation, and was able to ambulate to his bed with ease. Patient endorsed overnight feelings of fevers, chills, continued but not worsening ABD pain, and diarrhea x1. Per chart review and discussions with Nursing, patient had continued bleeding after his surgical procedure on 03/29 and was transfused 1u PRBCs and 2u Plts. He documented 3 temperatures > 100.4 overnight and was administered Tylenol x2. Nursing also reported mild fluctuations in mental status, but stated that the patient was A&Ox3. The Resident Night Team was not notified. - Objective Vital Signs & Weight: Vital Signs (12 hours) Temp Pulse Pulse Resp BP BP BP 03/30/20 02:30 100.9 F H 104 H 18 129/73 03/30/20 00:49 100.5 F H 99 16 119/71 03/29/20 23:45 100.5 F H 99 16 119/71 03/29/20 23:30 100.5 F H 99 16 119/71 03/29/20 21:07 100.5 F H 97 18 121/62 03/29/20 20:42 99.8 F H 94 20 125/80 03/29/20 19:25 99.7 F H 113 H 20 126/75 126/75 03/29/20 17:50 99.7 F H BP Pulse Ox 03/30/20 02:30 96 03/30/20 00:49 95 03/29/20 23:45 119/71 95 03/29/20 23:30 95 03/29/20 21:07 95 03/29/20 20:42 94 L 03/29/20 19:25 94 L 03/29/20 17:50 Weight Admit Weight 57.606 kg Weight 57.606 kg I&O: 03/28/20 03/29/20 03/30/20 06:59 06:59 06:59 Intake Total 5010 7900 1040 Output Total 474 205 0885 Balance 4685 7575 40 Result Diagrams: 03/30/20 17:16 03/30/20 08:21 Phys Exam - Physical Examination Constitutional: NAD HEENT: moist MMs, oral pharynx no lesions Neck: supple, full ROM Respiratory: no wheezing, no rales, no rhonchi, clear to auscultation bilateral Cardiovascular: RRR, no significant murmur, no rub Gastrointestinal: soft, no distention, positive bowel sounds Bleeding umbilical incision, TTP, w/o guarding, rigidity or rebound. Musculoskeletal: no edema, pulses present Neurological: non-focal, normal sensation, moves all 4 limbs Psychiatric: normal affect, A&O x 3 Skin: no rash Dx/Plan (1) Anxiety and depression Code(s): F41.9 - ANXIETY DISORDER, UNSPECIFIED; F32.9 - MAJOR DEPRESSIVE DISORDER, SINGLE EPISODE, UNSPECIFIED Status: Chronic (2) Hypokalemia Code(s): E87.6 - HYPOKALEMIA Status: Acute (3) Pancreatitis Code(s): K85.90 - ACUTE PANCREATITIS WITHOUT NECROSIS OR INFECTION, UNSP Status: Acute Qualifiers: Chronicity: acute Pancreatitis type: alcohol induced (4) Thrombocytopenia Code(s): D69.6 - THROMBOCYTOPENIA, UNSPECIFIED Status: Acute (5) Transaminitis Code(s): R74.0 - NONSPEC ELEV OF LEVELS OF TRANSAMNS & LACTIC ACID DEHYDRGNSE Status: Acute (6) Hypertension Code(s): I10 - ESSENTIAL (PRIMARY) HYPERTENSION Status: Chronic (7) Schizophrenia Code(s): F20.9 - SCHIZOPHRENIA, UNSPECIFIED Status: Chronic (8) Vurwi-Csyedmsaf-Dbzte (WPW) syndrome Code(s): 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 #Acute Pancreatitis, EtOH-induced vs. Gallstone-induced - Elevated Lipase (239 > 1288), ABD pain and w/ CT findings suspicious for inflammation at the Pancreatic Tail - RUQ US: Gallbladder sludge, CBD 4mm, no inflammation, 2.5x2.5x1cm sludge ball vs. possible neoplasm - VSS, non-toxic appearing on initial evaluation - Blood streaked vomiting noted by patient, suspect esophageal irritation with possible Romy Vyas Tears - Hg/Hct appear stable - will trend with AM Labs and continue to monitor - LR @ 150 ml/hr - titrated down from 200 ml/hr for ~36H and s/p 1L NS bolus in ED - Zofran and Morphine 4 mg Q6H PRN, w/ [place] 10/325 post-op per GenSurg - M.6 - Ca: 8 - Glucose: 111 - FLP: Tri(57) Chol(173) LDL(78) HDL(84) - NPO - will plan to advance as tolerated following procedure today - GenSurg: Consulted on 03/26 - recommended HIDA Scan, subsequently consulted GI - recommended Cholecystectomy w/ Cholangiogram and Liver Biopsy -GI: Consulted, recs appreciated - HIDA Scan: No Filling Defects - Will plan for ERCP later this AM, per GI #Post-Operative Fever -Patient endorses continue ABD pain w/ new-onset fevers and chills -Possibly related to multiple recent transfusions, post-op atelectasis or infection of unknown etiology -CXR: Unremarkable -UA: Pending -UCx: Pending -BCx: Pending -Patient currently receiving Cefoxitin for surgical prophylaxis - may need to augment coverage infectious etiology identified #EtOH Abuse, concern for EtOH Withdrawal - Patient endorses a Hx of abuse, unclear with current use and of last drink, although patient has been asymptomatic for > 4D - Tremor at baseline, stable - ASE Protocol - Multivitamin, Folic Acid, IV high-dose Thiamine - UDS: Negative - Will continue to monitor #Transaminitis, Hyperbilirubinemia - AST: 147 / ALT: 45 > AST: 62 / ALT: 22 - TBili: 2.0 > 1.2 - Likely EtOH-induced, although chronic gallbladder sludge and possible intermittent obstruction of CBD could be contributing factors - Will continue to monitor #Suspected Cirrhosis - US suggestive of Hepatic Steatosis - Plt: 36 - Coag Panel: PT(14.4) INR(1.1) APTT(28.1) - Will have supplemental Plts ready during procedure on 03/29 - Liver Biopsy: Pending - Patient will require outpatient GI follow-up #Anion Gap Metabolic Acidosis, resolved - A on admission > 10 on 03/26 - LA: 4.8 on admission - 1.4 on 03/26 - Suspected Lactic Acidosis from volume depletion - Will continue to monitor #Pancytopenia - Likely EtOH induced - Peripheral Smear: Thrombocytopenia, possibly multi-factorial #Gallbladder Sludge Ball vs Neoplasm - Cholecystectomy performed on on 03/29 w/ intraoperative Cholangiogram - possible stone noted in CBD - GI: Consulted, recs appreciated #H/o A-Fib and WPW - Sinus Rhythm at presentation - Repeat EKG: NSR - EP: Consulted - No barriers to surgery - recommended IV Amiodarone intraoperatively if SVT or A-Fib occurs - Will continue to monitor #Schizophrenia - On monthly Invega injections, no acute episode - Will continue home medication regimen as required PCP: [facility] You Code: Full Diet: NPO Activity: Ad brian IVF: LR @ 150 ml/hr VTE: SCDs Only due to Low Platelets Dispo: Patient is currently admitted to the Medical Floor for ongoing evaluation and treatment of likely Gallstone-induced Acute Pancreatitis. Will proceed with fluid resuscitation, pain management, and diet advancement as per above. GenSurg and GI consulted, recs appreciated. Plan for ERCP this AM. Continue to investigate post-operative fever as per above. Expected LOS > 48H. Addendum - Attending - Attending Attestation Date/Time: 03/30/201942 I personally evaluated the patient and discussed the management with Dr. Rojas I agree with the History, Examination, Assessment and Plan documented above with any addition or exceptions noted below - Patient without complaints. Denies any pain currently. Tolerated clear liquids. Afebrile VSS. A/P: 1) Gallstone Pancreatitis- improved clinically. 2) Choledocholithiasis- s/P cholecystectomy, s/p ERCP- doing well. Plans as per surgery. 2) Anemia- continue to monitor H/H. 3) Cirrhosis - s/p liver biopsy.
[2020-03-30] MEDS: cefOXitin Sodium/Dextrose,Iso 2 GM in Premix Bag 1 BAG IVPB SCH ×3 (06:01→21:10)
--- NOTE | 2020-03-30 08:16 | RAD ---
PORTABLE CHEST: Date: 03/30/2020 PROVIDED CLINICAL HISTORY: Confusion, fever. FINDINGS: Comparison with 01/04/2017. Cardiac and mediastinal silhouette is within normal limits. No focal consolidation, pleural fluid, or pneumothorax apparent. IMPRESSION: No evidence for an acute cardiopulmonary process. POS: LEXI
[2020-03-30] MEDS: Folic Acid 1 MG TAB PO SCH (08:19)
[2020-03-30] MEDS: Amlodipine 10 MG TAB PO SCH (08:19)
[2020-03-30] MEDS: Multivitamin W/ Minerals 1 TAB PO SCH (08:20)
[2020-03-30] MEDS: Senokot S 8.6-50 MG TAB PO SCH ×2 (08:20→20:52)
[2020-03-30 08:53] LABS: Band 5 % (5-11); Eosinophils 1 % (0-10); Lymphocytes 10 % (21-51); MDiff Complete? YES; Mean Corpuscular HGB CONC 33.5 g/dL (32.0-36.0); Mean Corpuscular Hemoglobin 33.7 pg (27.0-31.0); Mean Platelet Volume 9.6 fL (7.4-10.4); Monocytes 19 % (0-10); Neutrophil 65 % (42-75); Platelet Count 163 thou/uL (130-400); Platelet Morphology Comment Appears Adequate; Polychromasia SLIGHT = 2-3 cells (100X) (0-2/hpf); RBC Distribution Width 13.5 % (11.5-14.5); Red Blood Cell (RBC) Count 2.97 mill/uL (4.70-6.10); White Blood Cell (WBC) Count 6.9 thou/uL (4.8-10.8)
--- NOTE | 2020-03-30 08:54 | PRG ---
DATE OF SERVICE: 03/30/2020 SUBJECTIVE: The patient is continuing to bleed through his umbilical incision. He had a hematoma there locally. He has required a unit of blood transfusion. OBJECTIVE: VITAL SIGNS: His temperature is 100, pulse 99, and blood pressure 119/71. GENERAL: He is awake, alert. ABDOMEN: Distended. LABORATORY DATA: His white count 6.4, H and H are now 9.6 and 27, and his platelet count is 110. ASSESSMENT: Bleeding is probably coming from enlarged vessels periumbilical due to cirrhosis. PLAN: He has an ERCP done and is scheduled for today for common bile duct stone. We will under anesthesia, open this incision and put some more stitches in to control bleeding. Job ID: [id number]
[2020-03-30 09:01] LABS: ALT (SGPT) 60 U/L (8-55); AST (SGOT) 299 U/L (5-34); Albumin 3.4 g/dL (3.5-5.0); Alkaline Phosphatase 115 U/L (40-110); Anion Gap 14 mmol/L (10-20); BUN (Urea Nitrogen) Less than 4 mg/dL (8.9-20.6); Bilirubin, Total 2.3 mg/dL (0.2-1.2); Calc. Creatinine Clearance 80 mL/min (70-130); Calcium 8.3 mg/dL (7.8-10.44); Carbon Dioxide 22 mmol/L (22-29); Chloride 101 mmol/L (98-107); Estimated GFR-MDRD Greater than 90; Globulin 3.2 g/dL (2.4-3.5); Glucose 79 mg/dL (70-105); Lipase 105 U/L (8-78); Potassium 3.5 mmol/L (3.5-5.1); Protein, Total 6.6 g/dL (6.0-8.3); Sodium 133 mmol/L (136-145)
[2020-03-30 09:36] LABS: Bacteria/HPF None Seen HPF (None Seen); Bilirubin Negative (Negative); Blood, Urine Negative (Negative); Clarity Clear (Clear); Glucose, Urine (Dipstick) Normal (Negative); Leukocyte Negative Leu/uL (Negative); Nitrite Negative (Negative); Protein, Urine (Dipstick) Negative (Neg-Trace); RBC/HPF 0-3 HPF (0-3); Squamous Epithelial 0-3 HPF (0-3); Urobilinogen Normal mg/dL (Less than 2); WBC/HPF 0-3 HPF (0-3)
[2020-03-30 09:37] LABS: Urine Culture Reflex No No
[2020-03-30] MEDS ORDERED: Iopamidol 50 ML FS ONE (11:25)
[2020-03-30] MEDS ORDERED: Indomethacin 50 MG SUPP ONE (11:25)
[2020-03-30] MEDS ORDERED: SUGAMMADEX SODIUM 200 MG/2 ML VIAL ONE (11:39)
[2020-03-30] MEDS ORDERED: Midazolam HCl 2 mg/2 ml Vial ONE (11:39)
[2020-03-30] MEDS ORDERED: Fentanyl 100 MCG/2 ML VIAL ONE ×3 (11:39→14:02)
--- NOTE | 2020-03-30 13:19 | RAD ---
EXAM: ERCP HISTORY: Cholelithiasis COMPARISON: Cholangiogram 03/29/2020 FINDINGS: Limited intraoperative fluoroscopic views were taken during a an ERCP. The common bile duct is normal in caliber without filling defect. No leakage from the common bile duct. No abnormality of the intrahepatic bile ducts. IMPRESSION: Unremarkable ERCP
[2020-03-30] MEDS ORDERED: Ondansetron HCl/PF 4 MG/2 ML Vial IVP PRN (13:23)
[2020-03-30] MEDS ORDERED: Dexamethasone 20 MG/5 ML VIAL ONE (15:19)
[2020-03-30] MEDS ORDERED: Rocuronium Bromide 10 MG/ML (10ML VIAL) ONE (15:19)
[2020-03-30] MEDS ORDERED: Glycopyrrolate 0.2 MG/ML 5 ML SYRINGE ONE (15:19)
[2020-03-30] MEDS ORDERED: diphenhydrAMINE 50 MG/ML VIAL ONE (15:19)
[2020-03-30] MEDS ORDERED: PROPOFOL 200 MG/20 ML VIAL ONE (15:19)
[2020-03-30] MEDS ORDERED: Ondansetron PF 4 MG/2 ML Vial ONE (15:19)
[2020-03-30 17:26] LABS: Hemoglobin 9.1 g/dL (14.0-18.0)
--- NOTE | 2020-03-30 19:31 | OP ---
DATE OF PROCEDURE: 03/30/2020 PROCEDURES PERFORMED: Endoscopic retrograde cholangiopancreatography with sphincterotomy and removal of foreign body with balloon extraction. INDICATION FOR PROCEDURE: Choledocholithiasis with filling defects seen on intraoperative cholangiogram, biliary pancreatitis. DESCRIPTION OF PROCEDURE: After the risks and benefits of the procedure were explained to the patient including risks of bleeding, infection, perforation, reactions to anesthesia, aspiration, and/or pain, informed consent was obtained. The patient was then taken to the endoscopy suite, where general anesthesia was administered followed by endotracheal tube intubation. Once the patient was intubated and sedated, he was taken to the ERCP/fluoroscopy room, where he was placed in the prone position in anticipation of the ERCP. Once in adequate position, the standard duodenoscope was introduced into the mouth with intubation of the esophagus, stomach, and the proximal small intestines with the findings listed below. On conclusion of the initial examination/EGD portion of the exam, the ampulla was successfully identified within the second portion of the duodenum again with the findings listed below. On conclusion of the procedure, all equipment was removed from the patient and the patient was transferred to PACU in satisfactory condition. FINDINGS: EGD findings: Of the limited views seen of the esophagus, stomach, and the proximal small intestines, normal-appearing mucosa was seen in the proximal, mid, and distal esophagus. There were 2 small erythematous spots measuring approximately 3 to 4 mm in diameter seen in the gastric body without any associated erosion or ulceration. No biopsies were taken during this examination. Otherwise, normal-appearing mucosa was seen in the gastric cardia, fundus, body, incisura, and antrum. Normal-appearing mucosa was then seen within the duodenal bulb and second portion of the duodenum. ERCP findings: The ampulla was easily identified within the second portion of the duodenum and did not display any mucosal irregularities or erythema. Using a 5 mm sphincterotome/Ultratome, the ampulla was then successfully cannulated with a guidewire placed into the intrahepatic biliary tree. Once adequate placement of the guidewire was performed, the sphincterotome was advanced into the common bile duct with a cholangiogram subsequently performed at that time. The common bile duct measured approximately 4 to 5 mm in size with possible filling defect seen in the distal common bile duct. The cystic duct takeoff was also seen in the distal aspect of the common hepatic/common bile duct in addition to surgical clips on the cystic duct with no leak noted at the time of the procedure. Using the sphincterotome, a generous sphincterotomy was then performed with mild oozing of blood after the maneuver. Then, the sphincterotome was then exchanged over the guidewire for a 9-12 mm balloon using exchange technique. Once the exchange was successful, a 9 mm biliary balloon was advanced into the common bile duct with successive sweeps of the duct performed. There were no observed stones or debris extracted from the common bile duct despite 3-4 successive attempts. The balloon was then advanced to the common hepatic duct with a successive balloon sweep yielding again no debris or stones. An occlusion cholangiogram was then performed, which showed adequate filling of the intrahepatic, common hepatic, and common bile duct as well as the cystic duct stump, which again did not show any evidence of leak. All equipment was then removed from the patient. With direct visualization, the mild oozing of blood was visualized to slow down, at which point, the duodenoscope was removed from the patient. IMPRESSION: Possible biliary choledocholithiasis, status post successful sphincterotomy and balloon sweeps with possible stone extraction. RECOMMENDATIONS: 1. We would continue to trend the patient's H and H and transfuse as necessary to maintain an H and H of 7/21. 2. Continue to monitor clinically for signs of active GI bleeding, especially in light of minimal oozing of blood seen during the examination today. 3. Would continue IV fluid resuscitation as part of treatment for pancreatitis. 4. We would place the patient on a clear liquid diet and advance as tolerated. 5. Pain control per primary team. 6. We will continue to monitor the patient clinically for signs of worsening pancreatitis indicative of post ERCP pancreatitis. We will continue to follow. Please call with any questions. Job ID: [id number]
[2020-03-30 23:17] LABS: Hemoglobin 8.7 g/dL (14.0-18.0)
[2020-03-31] MEDS: Lactated Ringer's 1,000 ML IV SCH ×2 (02:20→15:42)
[2020-03-31 03:53] LABS: Band 10 % (5-11); Hemoglobin 8.5 g/dL (14.0-18.0); Lymphocytes 15 % (21-51); MDiff Complete? YES; Mean Corpuscular HGB CONC 34.3 g/dL (32.0-36.0); Mean Corpuscular Hemoglobin 34.7 pg (27.0-31.0); Mean Platelet Volume 9.2 fL (7.4-10.4); Monocytes 12 % (0-10); Neutrophil 63 % (42-75); Platelet Count 125 thou/uL (130-400); Platelet Morphology Comment Appears Adequate; RBC Distribution Width 13.2 % (11.5-14.5); Red Blood Cell (RBC) Count 2.44 mill/uL (4.70-6.10); White Blood Cell (WBC) Count 6.1 thou/uL (4.8-10.8)
[2020-03-31 04:11] LABS: ALT (SGPT) 42 U/L (8-55); AST (SGOT) 137 U/L (5-34); Albumin 2.8 g/dL (3.5-5.0); Alkaline Phosphatase 84 U/L (40-110); Anion Gap 11 mmol/L (10-20); BUN (Urea Nitrogen) Less than 4 mg/dL (8.9-20.6); Bilirubin, Total 1.1 mg/dL (0.2-1.2); Calc. Creatinine Clearance 104 mL/min (70-130); Calcium 7.9 mg/dL (7.8-10.44); Carbon Dioxide 26 mmol/L (22-29); Chloride 105 mmol/L (98-107); Estimated GFR-MDRD Greater than 90; Globulin 2.8 g/dL (2.4-3.5); Glucose 104 mg/dL (70-105); Potassium 3.7 mmol/L (3.5-5.1); Protein, Total 5.6 g/dL (6.0-8.3); Sodium 138 mmol/L (136-145)
--- NOTE | 2020-03-31 05:22 | OP ---
DATE OF PROCEDURE: 03/30/2020 PREOPERATIVE DIAGNOSIS: Wound hemorrhage. PROCEDURE PERFORMED: Wound exploration. INDICATIONS FOR PROCEDURE: A 49-year-old male with cirrhosis and biliary pancreatitis, underwent lap sofia yesterday, had extensive bleeding from his umbilical incision and a hematoma. He required platelet transfusion, still bleeding. FINDINGS: General ooze in the subcutaneous tissue, did not appear to be coming from the depth of the wound. I was able to stop this with electrocautery as well as suture ligation. DESCRIPTION OF PROCEDURE: After informed consent was obtained, the patient was taken to the operating room, given general mask anesthesia, placed in supine position. Abdomen was prepped and draped in usual fashion. A subumbilical incision was performed through the incision. The sutures were removed. Suction was used. There was ooze from the subcu that was controlled with electrocautery. Then, the subcu was reapproximated with interrupted 2-0 Vicryl, and the skin was closed with a running subcuticular 4-0 Rapide. Dermabond applied. The patient tolerated the procedure well. Job ID: [id number]
[2020-03-31] MEDS: cefOXitin Sodium/Dextrose,Iso 2 GM in Premix Bag 1 BAG IVPB SCH ×2 (05:45→15:23)
--- NOTE | 2020-03-31 07:29 | PDOC.FM ---
- Subjective Subjective: Patient was resting comfortably in bed at the time of evaluation. He stated that his pain had greatly improved since his last evaluation, and that he was able to tolerate a PO diet. - Objective Vital Signs & Weight: Vital Signs (12 hours) Temp Pulse Resp BP BP BP Pulse Ox 03/31/20 04:00 114/81 03/31/20 03:36 99.0 F 87 18 114/81 99 03/30/20 23:59 99.1 F 91 18 115/72 115/72 99 03/30/20 20:00 135/81 99 Weight Admit Weight 57.606 kg Weight 57.606 kg I&O: 03/30/20 03/31/20 04/01/20 06:59 06:59 06:59 Intake Total 1040 4500 Output Total 1000 900 Balance 40 3600 Result Diagrams: 03/31/20 03:29 03/31/20 03:29 Phys Exam - Physical Examination Constitutional: NAD HEENT: moist MMs, oral pharynx no lesions Neck: supple, full ROM Respiratory: no wheezing, no rales, no rhonchi, clear to auscultation bilateral Cardiovascular: RRR, no significant murmur, no rub Gastrointestinal: soft, non-tender, no distention, positive bowel sounds Musculoskeletal: no edema, pulses present Deviation from normal: Flattened affect Skin: no rash Deviation from normal: Well healing surgical incision sites. Dx/Plan (1) Anxiety and depression Code(s): F41.9 - ANXIETY DISORDER, UNSPECIFIED; F32.9 - MAJOR DEPRESSIVE DISORDER, SINGLE EPISODE, UNSPECIFIED Status: Chronic (2) Hypokalemia Code(s): E87.6 - HYPOKALEMIA Status: Acute (3) Pancreatitis Code(s): K85.90 - ACUTE PANCREATITIS WITHOUT NECROSIS OR INFECTION, UNSP Status: Acute Qualifiers: Chronicity: acute Pancreatitis type: alcohol induced (4) Thrombocytopenia Code(s): D69.6 - THROMBOCYTOPENIA, UNSPECIFIED Status: Acute (5) Transaminitis Code(s): R74.0 - NONSPEC ELEV OF LEVELS OF TRANSAMNS & LACTIC ACID DEHYDRGNSE Status: Acute (6) Hypertension Code(s): I10 - ESSENTIAL (PRIMARY) HYPERTENSION Status: Chronic (7) Schizophrenia Code(s): F20.9 - SCHIZOPHRENIA, UNSPECIFIED Status: Chronic (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 #Acute Pancreatitis, EtOH-induced vs. Gallstone-induced - Elevated Lipase (239 > 1288), ABD pain and w/ CT findings suspicious for inflammation at the Pancreatic Tail - RUQ US: Gallbladder sludge, CBD 4mm, no inflammation, 2.5x2.5x1cm sludge ball vs. possible neoplasm - VSS, non-toxic appearing on initial evaluation - Blood streaked vomiting noted by patient, suspect esophageal irritation with possible Romy Vyas Tears - Hg/Hct appear stable - will trend with AM Labs and continue to monitor - LR @ 150 ml/hr - titrated down from 200 ml/hr for ~36H and s/p 1L NS bolus in ED - Zofran and Morphine 4 mg Q6H PRN, w/ [place] 10/325 post-op per GenSurg - M.6 - Ca: 8 - Glucose: 111 - FLP: Tri(57) Chol(173) LDL(78) HDL(84) - GenSurg: Consulted on 03/26 - recommended HIDA Scan, subsequently consulted GI - recommended Cholecystectomy w/ Cholangiogram and Liver Biopsy -GI: Consulted, recs appreciated -HIDA Scan: No Filling Defects -s/p Cholecystectomy and ERCP #Post-Operative Fever -No documented fevers overnight -Possibly related to multiple recent transfusions, post-op atelectasis or infection of unknown etiology -CXR: Unremarkable -UA: Unremarkable -UCx: Pending -BCx: Pending -Wheezing reported by Nursing following procedure on 03/30 - possible Atelectasis , will encourage Incentive Spirometry -Patient currently receiving Cefoxitin for surgical prophylaxis - may need to augment coverage if infectious etiology identified #EtOH Abuse, concern for EtOH Withdrawal - Patient endorses a Hx of abuse, unclear with current use and of last drink - asymptomatic since admission - Tremor at baseline, stable - ASE Protocol - Multivitamin, Folic Acid, IV high-dose Thiamine - UDS: Negative - Will continue to monitor #Transaminitis, Hyperbilirubinemia - AST: 147 / ALT: 45 > AST: 62 / ALT: 22 - TBili: 2.0 > 1.2 - Likely EtOH-induced, although chronic gallbladder sludge and possible intermittent obstruction of CBD could be contributing factors - Will continue to monitor #Suspected Cirrhosis - US suggestive of Hepatic Steatosis - Plt: 36 - Coag Panel: PT(14.4) INR(1.1) APTT(28.1) - Will have supplemental Plts ready during procedure on 03/29 - Liver Biopsy: Pending - Patient will require outpatient GI follow-up #Anion Gap Metabolic Acidosis, resolved - A on admission > 10 on 03/26 - LA: 4.8 on admission - 1.4 on 03/26 - Suspected Lactic Acidosis from volume depletion - Will continue to monitor #Pancytopenia - Likely EtOH induced - Peripheral Smear: Thrombocytopenia, possibly multi-factorial #Gallbladder Sludge Ball vs Neoplasm - Cholecystectomy performed on on 03/29 w/ intraoperative Cholangiogram - possible stone noted in CBD - GI: Consulted, recs appreciated #H/o A-Fib and WPW - Sinus Rhythm at presentation - Repeat EKG: NSR - EP: Consulted - No barriers to surgery - recommended IV Amiodarone intraoperatively if SVT or A-Fib occurs - Will continue to monitor #Schizophrenia - On monthly Invega injections, no acute episode - Will continue home medication regimen as required PCP: ZAY You Code: Full Diet: Regular Activity: Ad brian IVF: None VTE: SCDs Only due to Low Platelets Dispo: Patient is currently admitted to the Medical Floor for ongoing evaluation and treatment of likely Gallstone-induced Acute Pancreatitis. Will likely DC today based on GenSurg and GI recs. Expected LOS < 48H. Addendum - Attending - Attending Attestation Date/Time: 03/31/20 1746 I personally evaluated the patient and discussed the management with Dr. Rojas I agree with the History, Examination, Assessment and Plan documented above with any addition or exceptions noted below - Patient feeling well. Tolerating regular diet. Afebrile VSS. A/P: 1) Gallstone pancreatitis- s/p lap sofia and ERCP- tolerating po well. Plan to d/c home today. 2) WPW- stable
--- NOTE | 2020-03-31 07:54 | PRG ---
DATE OF SERVICE: 03/31/2020 SUBJECTIVE: The patient reports that he feels much better. He denies any pain. He is hungry for hamburger. OBJECTIVE: VITAL SIGNS: His temperature is 99, pulse is 87, blood pressure 114/81. He looks good. ABDOMEN: The umbilical incision has stopped bleeding. It is dry. The other incisions are good. LABORATORY DATA: His white count is 6.1, H and H 8.5 and 24.7. His platelet count is 125. Electrolytes are fine. His T-bilirubin has gone down to normal at 1.1. His AST is down to 137. Rest of his LFTs are normal. Lipase is normal. ASSESSMENT: Status post ERCP and stone extraction after laparoscopic cholecystectomy for biliary pancreatitis, doing well. PLAN: Advance diet. Discharge when stable by Medical Services. Job ID: [id number]
[2020-03-31 08:18] VITALS: TEMP 98.6
[2020-03-31] MEDS: Amlodipine 10 MG TAB PO SCH (08:18)
[2020-03-31] MEDS: Folic Acid 1 MG TAB PO SCH (08:18)
[2020-03-31] MEDS: Multivitamin W/ Minerals 1 TAB PO SCH (08:19)
[2020-03-31] MEDS: Senokot S 8.6-50 MG TAB PO SCH (08:19)
[2020-03-31 08:20] VITALS: BP 114/81
--- NOTE | 2020-03-31 14:49 | PRG ---
DATE OF SERVICE: 03/31/2020 SUBJECTIVE: The patient states that he is doing well this morning with no acute events or problems overnight. In relation to his abdominal pain,it seems centered around the umbilicus at this point, related to the surgery that he received yesterday. He currently denies any midepigastric pain and had been able to tolerate his regular diet this morning without difficulty or increase in his pain. Currently, he denies any nausea, vomiting, fevers, chills, dysphagia, or odynophagia. OBJECTIVE: VITAL SIGNS: Temperature 98.6, pulse 93, blood pressure 114/81, respiratory rate 16, and saturating 99% on room air. GENERAL: The patient was sitting at bedside, in no acute distress. Alert and oriented x4. CARDIOVASCULAR: Regular rate and rhythm. RESPIRATORY: Clear to auscultation bilaterally. ABDOMEN: Normoactive bowel sounds. Soft, nondistended. Tenderness to palpation in the periumbilical region. The periumbilical wound was clean, dry, and intact with no evidence of continued bleeding. EXTREMITIES: No cyanosis, clubbing, or edema. LABORATORY DATA: CBC with a white blood cell count of 6.1, hemoglobin 8.5, hematocrit 24.7, and platelets 125. Chemistry with a sodium of 138, potassium 3.7, chloride 105, CO2 of 26, BUN less than 4, creatinine 0.71, and glucose 104. AST 137, ALT 42, alkaline phosphatase 84, and total bilirubin 1.1. IMAGING DATA: ERCP was performed on 03/30/2020, which showed a normal diameter of the common bile duct with a possible filling defect in the distal common bile duct; however, multiple balloon sweeps did not yield any stone or stone debris consistent with choledocholithiasis. ASSESSMENT AND PLAN: The patient is a 49-year-old male with past medical history of atrial fibrillation, gastroesophageal reflux disease, schizophrenia, Kgtwp-Aohyvikja-Vdxii syndrome, hyperlipidemia, hypertension, and hepatic steatosis, presenting with presumed biliary pancreatitis (now resolving) and fatty liver on biopsy. 1. Biliary pancreatitis: The patient initially presented to the hospital with the acute onset of abdominal pain, located in the epigastric region and radiating throughout the entire abdomen. Right upper quadrant ultrasound showed the presence of sludge versus a gallbladder wall intraluminal mass along with hepatic steatosis. CT scan of the abdomen and pelvis showed enhancement of the gallbladder wall in addition to the stones and sludge within the gallbladder. However, serological testing also showed an elevated lipase of 1288, consistent with a diagnosis of pancreatitis. He was subsequently placed on IV fluids and pain control with n.p.o. status, but given the presence of these stones, he underwent a cholecystectomy on 03/29/2020 with an intraoperative cholangiogram performed showing possible choledocholithiasis in the distal common bile duct. ERCP was subsequently performed on 03/30/2020, which did possibly show a filling defect in the distal common bile duct on initial cholangiogram, but with successive balloon sweeps and repeat cholangiogram, no further stones were seen. At this time, the patient is doing well and tolerating a regular diet without any significant increases in his pain. Based on his history and laboratory findings, I would consider this acute uncomplicated pancreatitis that is now resolving/resolved. Recommendations: a. Would continue to monitor the patient clinically for signs of increasing midepigastric pain, consistent with repeat pancreatitis or post-ERCP pancreatitis. b. Continue the patient on solid diet, but with recommendations to maintain a low-fat diet on discharge. c. Pain control per primary team. 2. Possible cirrhosis: The patient presented with a history of hepatic steatosis, but during the laparoscopic cholecystectomy, he was noted to have some mild nodular morphology of the liver, but more extensively hepatic steatosis on the liver. Liver biopsy was performed at that time, which showed extensive steatosis without the presence of necroinflammatory activity or fibrosis indicative of cirrhosis. At this time, the patient does not have any biopsy findings that conducive toward the diagnosis of cirrhosis and currently has normal function as denoted by a normal total bilirubin. He does continue to have some mildly decreased thrombocytes/thrombocytopenia, but could also be a normal variant of the patient. Recommendations: a. Would continue to trend his LFTs during the course of this admission to continue monitoring and downtrending of the enzymes. b. Would have the patient follow up in the outpatient GI Clinic for management regarding his hepatic steatosis including strong recommendations for weight loss. Given the resolving abdominal pain and lack of cirrhosis on liver biopsy, we will sign off at this time. Please call with any additional questions. Job ID: [id number]
[2020-03-31] MEDS: Acetaminophen 325 MG TAB PO PRN (15:22)
--- NOTE | 2020-03-31 23:58 | DIS ---
DATE OF ADMISSION: 03/25/2020 DATE OF DISCHARGE: 03/31/2020 RESIDENT: Rehan Rojas MD ADMITTING ATTENDING: Celestino Kraft MD DISCHARGE ATTENDING: Carol Villalba MD CONSULTS: 1. Reed Sow MD, General Surgery. 2. Jacek Chance MD, Gastroenterology. 3. Martin Ochoa MD, Gastroenterology. PROCEDURES PERFORMED: Abdomen pelvis CT scan performed on 03/25/2020, demonstrating sludge and stones in the lumen of the gallbladder. There is gallbladder wall enhancement correlate for possible cholecystitis. Heterogeneous prostate gland correlate for prostatitis. Abdominal ultrasound performed on 03/25/2020, revealing gallbladder stone, sludge, and a small non-shadowing hyperechoic masslike structure of the gallbladder fundus could be a sludge ball neoplasm less likely. Hepatic steatosis. HIDA scan performed on 03/27/2020, showing no evidence of cystic duct obstruction or acute cholecystitis. Intraoperative cholangiogram performed on 03/29/2020, showing a filling defect in the common duct. Possibilities include choledocholithiasis, sludge ball or air bubble recommend correlation with appearance during ERCP. Traditional cholecystectomy performed on 03/29/2020. ERCP performed on 03/30/2020, revealing an unremarkable exam. PRIMARY DIAGNOSIS: Acute cholecystitis most likely secondary to gallstones, possible alcohol abuse contributing factor. SECONDARY DIAGNOSES: Alcohol abuse, transaminitis, hyperbilirubinemia, cirrhosis, anion gap metabolic acidosis, pancytopenia, history of atrial fibrillation and Fgrge-Ocvxizavt-Fscbk, schizophrenia. DISCHARGE MEDICATIONS: 1. Amlodipine 10 mg p.o. daily. 2. Aspirin 81 mg p.o. daily. 3. Esomeprazole 40 mg p.o. daily. 4. Invega 234 mg IM q.28 days. DISCONTINUED MEDICATIONS: None. HISTORY OF PRESENT ILLNESS/HOSPITAL COURSE: The patient is a 49-year-old male with a history significant for pancreatitis one year ago, atrial fibrillation, hyperlipidemia, hypertension, schizophrenia, presents for acute onset abdominal pain. The patient states the pain began on was epigastric in nature and radiated throughout the abdomen, associated with diarrhea x3 that was nonbloody. Patient also experienced nausea and vomiting x4, streaks of blood, nonbilious, unable to keep food down. No chest pain, shortness of breath, congestion, fever, pain, worse p.o. intake. Nothing seems to make the pain better. Pain was rated as 10/10. The patient states he used to be a chronic drinker, but has cut back since previous hospitalization last year. States that his last drink was last Friday, but then told the attending his last drink was last . The patient states he drinks about a six-pack a day. Endorses tremor at baseline as the patient thinks that is slightly worse than normal. The patient states the tremors are present for many years. In the emergency department, the patient was given morphine 4 mg IV x2, 1 L normal saline bolus, and started on lactated Ringer's 200 mL/h as well as Protonix 80 mg and Zofran 4 mg. Additional evaluations with multiple imaging modalities were performed, the results of which are mentioned elsewhere in this document. The patient was subsequently transferred to the Oncology floor as there was no beds available on the medical floor. The patient was subsequently kept n.p.o. and given aggressive fluid resuscitation and pain management. GI and Surgery were both consulted and multiple procedures were performed, the results of which are mentioned elsewhere in this document. The patient recovered well following his traditional cholecystectomy, as well as his endoscopic retrograde cholangiopancreatography. Of note, the patient's traditional cholecystectom was high risk due to the patient's aforementioned pancytopenia, most likely secondary to cirrhosis as the patient's platelet count and hemoglobin remained low throughout his hospital stay. As such, he was subsequently transfused 2 units of platelets and 1 unit of packed red blood cells postoperatively. No complications were noted, and the patient remained hemodynamically stable throughout the duration of his hospitalization Following the successful completion of the patient's cholecystectomy, cholangiogram, liver biopsy, and ERCP, the patient's overall condition improved and his pain became greatly diminished and he was subsequently able to tolerate his baseline level of p.o. intake. As such, he was subsequently prepped for discharge. Prior to discharge, the patient's vital signs were recorded as temperature 98.6, pulse 93, blood pressure 114/81, respirations 16, O2 saturation 99% on room air. Laboratory analysis revealed white blood cell count of 6.1, hemoglobin 8.5, hematocrit 24.7, platelet count 125. Coag panel revealed a PT of 14.4, INR 1.1, APTT of 28.1. Chem panel revealed sodium of 138, potassium 3.7, chloride 105, carbon dioxide 26, BUN less than 4, creatinine 0.71, glucose 104. Lactic acid 1.4, downtrended from 4.8. Calcium 7.9, magnesium 2.6. Iron 62, TIBC 144, percent saturation 43, AST 137, ALT 42, alkaline phosphatase 84. Lipase 105, downtrended from a peak of 1288. Folate 11, TSH 4.4, triglycerides 57, cholesterol 173, LDL 78, HDL 84. Urinalysis was unremarkable x2. Toxicology report revealed negative urine drug screen. DISPOSITION: Stable. DISCHARGE INSTRUCTIONS: 1. Location: Home. 2. Diet: Heart healthy. 3. Activity: No restrictions. The patient was encouraged to refrain from lifting objects weighing greater than 25 pounds until being evaluated by General Surgery in approximately two weeks. Additionally, the patient was encouraged to follow up with Gastroenterology in two weeks in order to discuss the most recent results of the liver biopsy taken intraoperatively during his traditional course. Job ID: [id number] MTDD
--- NOTE | 2020-04-01 13:02 | EKG ---
Test Reason : Blood Pressure : / mmHG Vent. Rate : 088 BPM Atrial Rate : 088 BPM P-R Int : 126 ms QRS Dur : 072 ms QT Int : 380 ms P-R-T Axes : 069 015 015 degrees QTc Int : 459 ms Sinus rhythm with Premature atrial complexes Possible Left atrial enlargement Septal infarct , age undetermined Abnormal ECG Confirmed by ADITYA BOSCH DO ([id number]), editor magazine MINERVA COOK ([id number]) on 04/01/2020 1:02:18 PM Referred By: Confirmed By:ADITYA BOSCH DO
--- NOTE | 2020-04-03 09:52 | PQF ---
BRYAN KILLIAN ANNA MD [id number] CLINICAL DOCUMENTATION CLARIFICATION FORM: POST DISCHARGE Addendum to original discharge summary date: ____ Late entry note date: __ DATE: 04/03/2020 ATTN: Carol Noe Please exercise your independent, professional judgment in responding to the clarification form. Clinical indicators are provided on the bottom of this form for your review Please check appropriate box(s): [ ] Bleeding is a complication of current cholecystectomy surgery [ ] Bleeding is not a complication of current cholecystectomy surgery [ ] Other diagnosis [ ] Unable to determine In addition, please specify: Present on Admission (POA): [ ] Yes [ ] No [ ] Unable to determine CLINICAL INDICATORS - SIGNS / SYMPTOMS / LABS Patient is continuing to bleeding through his umbilical incision. He had a hematoma there locally. He has required a unit of blood transfusion - PN 03/30 by Reed Sow MD We will under anesthesia, open this incision and put some more stitches in to control bleeding - PN 03/30 by Reed Sow MD Underwent lap sofia yesterday, had extensive bleeding from his umbilical incision and a hematoma. He required platelet transfusion, still bleeding - OP report 03/30 by Reed Sow MD General ooze in the subcutaneous tissue, did not appear to be coming from the depth of the wound. I was able to stop this with electrocautery as well as suture ligation - OP report 03/30 by Reed Sow MD RISK FACTORS Laparoscopic cholecystectomy - OP report 03/29 by Reed Sow MD Cirrhosis - PN 03/30 by Reed Sow MD TREATMENT: Would exploration with control of bleeding - OP report 03/30 by Reed Sow MD Platelet transfusion 03/30 - Blood bank (This form is maintained as a part of the permanent medical record) 2014 [employer]. All Rights Reserved Maurisio JOE
== END 2020-03-31 16:25 | disposition home or self-care (01) | DRG 417 ==
LOC: ERS 16:59 → ONC 20:59
PROVIDERS: ADMIT Emergency Medicine; ATTEND Emergency Medicine
PROC: 0FT44ZZ Resection of Gallbladder, Percutaneous Endoscopic Approach (ICD-10-PCS; principal; 2020-03-29)
PROC: 0FB04ZX Excision of Liver, Percutaneous Endoscopic Approach, Diagnostic (ICD-10-PCS; 2020-03-29)
PROC: BF13YZZ Fluoroscopy of Gallbladder and Bile Ducts using Other Contrast (ICD-10-PCS; 2020-03-29)
PROC: 30233R1 Transfusion of Nonautologous Platelets into Peripheral Vein, Percutaneous Approach (ICD-10-PCS; 2020-03-29)
PROC: 30233N1 Transfusion of Nonautologous Red Blood Cells into Peripheral Vein, Percutaneous Approach (ICD-10-PCS; 2020-03-29)
PROC: 0W3F0ZZ Control Bleeding in Abdominal Wall, Open Approach (ICD-10-PCS; 2020-03-30)
PROC: 0F798ZZ Dilation of Common Bile Duct, Via Natural or Artificial Opening Endoscopic (ICD-10-PCS; 2020-03-30)
DX: K85.10 Biliary acute pancreatitis without necrosis or infection (principal); K22.6 Gastro-esophageal laceration-hemorrhage syndrome; E87.2 Acidosis; D61.818 Other pancytopenia; E87.1 Hypo-osmolality and hyponatremia; K80.62 Calculus of gallbladder and bile duct with acute cholecystitis without obstruction; I48.91 Unspecified atrial fibrillation; E78.5 Hyperlipidemia, unspecified; I10 Essential (primary) hypertension; F20.9 Schizophrenia, unspecified; K76.0 Fatty (change of) liver, not elsewhere classified; F41.9 Anxiety disorder, unspecified; F32.9 Major depressive disorder, single episode, unspecified; E87.6 Hypokalemia; I45.6 Pre-excitation syndrome; K82.8 Other specified diseases of gallbladder; K21.9 Gastro-esophageal reflux disease without esophagitis; K74.60 Unspecified cirrhosis of liver; K70.10 Alcoholic hepatitis without ascites; E86.9 Volume depletion, unspecified; F10.10 Alcohol abuse, uncomplicated; R00.0 Tachycardia, unspecified; R50.9 Fever, unspecified; Z88.1 Allergy status to other antibiotic agents; Z88.2 Allergy status to sulfonamides; Z88.8 Allergy status to other drugs, medicaments and biological substances; Z79.82 Long term (current) use of aspirin; Z86.718 Personal history of other venous thrombosis and embolism
CPT/HCPCS: 36415; 36416; 36430; 47532; 71045; 74177; 74330; 76705; 78226; 80053; 80061; 80306; 80307; 81001; 81003; 82150; 82607; 82746; 83540; 83550; 83605; 83690; 83735; 84443; 85007; 85025; 85027; 85060; 85610; 85730; 86850; 86900; 86901; 87040; 88304; 88307; 88313; 93005; 93010; 96361; 96374; 96375; 96376; A9537; C9113; J0171; J0690; J0694; J1100; J1200; J2001; J2250; J2270; J2405; J2704; J3010; J3411; J3475; J3490; P9016; P9035; Q9967; S0020; S0028

== ENCOUNTER 2020-08-16 06:47 | Outpatient (CLI) | payer OTHER ==
[2020-08-16 15:19] LABS: Hemoglobin 12.8 g/dL (14.0-18.0); Mean Corpuscular HGB CONC 33.6 G/DL (32.0-36.0); Mean Corpuscular Hemoglobin 33.6 PG (27.0-33.0); Platelet Count 103 10x3/uL (130-400); RBC Distribution Width 12.4 % (11.5-14.5); Red Blood Cell (RBC) Count 3.81 10x6/uL (4.40-5.80); White Blood Cell (WBC) Count 3.4 10x3/uL (4.5-11.0)
[2020-08-16 15:23] LABS: Anion Gap 18 mmol/L (10-20); BUN (Urea Nitrogen) 4 mg/dL (8.9-20.6); Calc. Creatinine Clearance 0 mL/min (70-130); Calcium 8.4 mg/dL (7.8-10.44); Carbon Dioxide 26 mmol/L (22-29); Chloride 100 mmol/L (98-107); Estimated GFR-MDRD Greater than 90; Glucose 86 mg/dL (70-105); Potassium 3.9 mmol/L (3.5-5.1); Sodium 140 mmol/L (136-145)
[2020-08-16 15:33] LABS: PTT 26.8 sec (22.0-33.0); Prothrombin Time 10.9 sec (9.5-12.1)
[2020-08-17 14:45] LABS: SARS-CoV-2 MS2 Positive; SARS-CoV-2 N Gene Negative; SARS-CoV-2 S Gene Negative; SARS-CoV-2 by NAA Not Detected (NotDetected); SARS-CoV-2 orf1ab Negative
== END 2020-08-16 06:48 | disposition home or self-care (01) ==
LOC: LABBT 06:47
PROVIDERS: ATTEND Internal Medicine Cardiovascular Disease
DX: Z01.818 Encounter for other preprocedural examination (principal); Z20.828 Contact with and (suspected) exposure to other viral communicable diseases; I45.6 Pre-excitation syndrome
CPT/HCPCS: 80048; 85027; 85610; 85730; 87635; 93005; 93010; U0003

== ENCOUNTER 2020-08-21 07:29 | Day surgery (SDC) | payer OTHER ==
[2020-08-18 09:41] VITALS: BMI 21.2
[2020-08-21] MEDS ORDERED: PHENYLEPHRINE-NS 100 MCG/ML 10 ML SYRINGE ONE (11:50)
[2020-08-21] MEDS ORDERED: Ondansetron PF 4 MG/2 ML Vial ONE (11:50)
[2020-08-21] MEDS ORDERED: Dexamethasone 20 MG/5 ML VIAL ONE (11:50)
[2020-08-21] MEDS ORDERED: Rocuronium Bromide 10 MG/ML (10ML VIAL) ONE (11:50)
[2020-08-21] MEDS ORDERED: PROPOFOL 200 MG/20 ML VIAL ONE (11:50)
[2020-08-21] MEDS ORDERED: diphenhydrAMINE 50 MG/ML VIAL ONE (11:50)
[2020-08-21] MEDS ORDERED: Glycopyrrolate 0.2 MG/ML 5 ML SYRINGE ONE (11:50)
[2020-08-21] MEDS ORDERED: Fentanyl 100 MCG/2 ML VIAL ONE (12:51)
[2020-08-21] MEDS ORDERED: Midazolam HCl 2 mg/2 ml Vial ONE (12:51)
[2020-08-21] MEDS ORDERED: Heparin 10,000 UNITS/ 10 ML VIAL ONE (13:19)
[2020-08-21] MEDS ORDERED: Isoproterenol 0.2 MG/1 ML AMP ONE (14:33)
--- NOTE | 2020-08-21 18:11 | OP ---
DATE OF PROCEDURE: 08/21/2020 PROCEDURE PERFORMED: Electrophysiology study and radiofrequency ablation. REASON FOR PROCEDURE: Mr. Sabillon is a 50-year-old man with prior EKGs consistent with pre-excitation and periodic rapid palpitations, tachycardia. He had history of pancreatitis and pancytopenia in March and now that he has recovered from that and is here for ablation. DESCRIPTION OF PROCEDURE: The patient received general anesthesia. After adequate level of sedation achieved, the left and right femoral venous area was prepped, draped, and anesthetized using subcutaneous lidocaine, and under ultrasound guidance, both femoral veins were cannulated. On the left side, a 6-Latvian sheath was introduced, through which an octapolar catheter was advanced to the right ventricle, His bundle, right atrial location. On the right femoral vein, an 8-Latvian sheath was used to advance a DecaNav pacing, mapping, and 3D mapping catheter into the right atrium, where it was used to image the right atrium, delineating His bundle, cavotricuspid isthmus, CS location. The catheter was eventually placed in the CS, and pacing, mapping, and recording were performed on all of these leads including pacing left atrium via the CS. Following findings were noted. Baseline rhythm was sinus rhythm, RR interval of 641 milliseconds, MS 170 milliseconds, QRS 69 milliseconds, QT 284 millisecond, AH 82 milliseconds, HV 35 milliseconds. The AV Wenckebach cycle length was measured at 320 milliseconds, retrograde Wenckebach cycle length was 280 milliseconds. Concentric retrograde VA conduction was seen. AV jett ERP was measured at 500/190 milliseconds. The dual AV node physiology noted at baseline. With burst atrial pacing maneuvers, echo beats were seen, double echo beats were also noted. We could not induce true SVTs. Following that, Isuprel was administered up to 10 mcg/minute, and even with that, we were unable to reinduce any supraventricular tachycardia sustained. Burst atrial pacing in the atrium down to 200 millisecond did not reinduce atrial flutter or fibrillation. No pre-excitation was noted with all of these maneuvers. At this point, decision was made to perform slow pathway modification, hence most likely cause for the patient's symptoms possibly is the development of AV jett reentry tachycardia, which with the current sympathetic tone - while in anesthesia - we were not able to induce. Slow pathway modification was performed using a standard 4 mm ablation catheter at 40 melvin and 50 degrees cut off. Junctional beats were noted throughout the burn, total of 1 minute, single burn was delivered. Following that, Isuprel was reintroduced and we were not able to demonstrate dual AV jett physiology, but the AV Wenckebach cycle length did not change. Additional burst atrial pacing and ventricular pacing maneuvers did not reinduce any atrial or ventricular arrhythmias, no evidence of pre-excitation there. CONCLUSION: 1. No evidence of pre-excitation at baseline or with pacing maneuvers, on Isuprel. 2. No definite SVT inducible, but dual AV jett physiology present. 3. Slow pathway modification performed. 4. Normal AV jett and His-Purkinje function. PLAN: Routine post ablation care. Continue monitoring for recurrent arrhythmias. Job ID: [id number] [facility]
== END 2020-08-21 20:53 | disposition home or self-care (01) ==
LOC: SDC 07:29
PROVIDERS: ATTEND Internal Medicine Cardiovascular Disease
PROC: 02K83ZZ Map Conduction Mechanism, Percutaneous Approach (ICD-10-PCS; principal; 2020-08-21)
PROC: 02583ZZ Destruction of Conduction Mechanism, Percutaneous Approach (ICD-10-PCS; principal; 2020-08-21)
PROC: 4A0234Z Measurement of Cardiac Electrical Activity, Percutaneous Approach (ICD-10-PCS; principal; 2020-08-21)
PROC: 4A023FZ Measurement of Cardiac Rhythm, Percutaneous Approach (ICD-10-PCS; principal; 2020-08-21)
DX: I45.6 Pre-excitation syndrome (principal); F20.9 Schizophrenia, unspecified; I10 Essential (primary) hypertension; Z79.82 Long term (current) use of aspirin; Z79.899 Other long term (current) drug therapy; Z88.2 Allergy status to sulfonamides; Z88.8 Allergy status to other drugs, medicaments and biological substances
CPT/HCPCS: 76942; 93005; 93613; 93623; 93653; C1730; C1732; J1100; J1200; J1644; J2250; J2405; J2704; J3010

== ENCOUNTER 2020-10-24 11:54 | Inpatient (IN) | payer OTHER ==
[2020-10-24 12:59] LABS: Hemoglobin 11.6 g/dL (14.0-18.0); Mean Corpuscular HGB CONC 33.9 g/dL (32.0-36.0); Mean Corpuscular Hemoglobin 33.9 pg (27.0-31.0); Red Blood Cell (RBC) Count 3.42 mill/uL (4.70-6.10); White Blood Cell (WBC) Count 8.5 thou/uL (4.8-10.8)
[2020-10-24 13:10] LABS: ALT (SGPT) 25 U/L (8-55); AST (SGOT) 118 U/L (5-34); Albumin 3.8 g/dL (3.5-5.0); Alkaline Phosphatase 73 U/L (40-110); Anion Gap 24 mmol/L (10-20); BUN (Urea Nitrogen) Less than 4 mg/dL (8.9-20.6); Bilirubin, Total 1.2 mg/dL (0.2-1.2); CK (CPK) 353 U/L (30-200); Calc. Creatinine Clearance 0 mL/min (70-130); Calcium 8.5 mg/dL (7.8-10.44); Carbon Dioxide 18 mmol/L (22-29); Chloride 94 mmol/L (98-107); Globulin 3.6 g/dL (2.4-3.5); Glucose 75 mg/dL (70-105); Potassium 3.6 mmol/L (3.5-5.1); Protein, Total 7.4 g/dL (6.0-8.3); Sodium 132 mmol/L (136-145)
[2020-10-24 13:16] LABS: #Eosinphils 0.1 thou/uL (0.0-0.7); #Lymphocytes 0.5 thou/uL (1.20-3.40); #Monocytes 0.5 thou/uL (0.11-0.59); #Neutrophils 7.4 thou/uL (1.40-6.50); %Basophils 0.5 % (0.0-1.0); %Eosinophils 0.9 % (0.0-10.0); %Lymphocytes 6.2 % (21.0-51.0); %Monocytes 5.3 % (0.0-10.0); %Neutrophils 87.1 % (42.0-75.0); MDiff Complete? YES; Mean Platelet Volume 10.1 fL (7.4-10.4); Platelet Count 36 thou/uL (130-400); Platelet Morphology Comment Appears Decreased; Polychromasia SLIGHT = 2-3 cells (100X) (0-2/hpf); RBC Distribution Width 11.8 % (11.5-14.5)
--- NOTE | 2020-10-24 13:20 | CT ---
CT Cervical Spine WO Con History: Dizziness Comparison: CT cervical spine 2014 Findings: The odontoid process is intact. Occipital condyles are intact. No acute fracture or malalig nment. Moderate C3-C7 degenerative disc space height loss with 1 mm C3-4, C4-5, C5-6 retrolisthesis and disc osteophyte complex. No acute cervical spine fracture or malalignment. The spinous processes are intact. Transverse proces ses are intact. Impression: No acute cervical spine fracture or malalignment.
--- NOTE | 2020-10-24 13:24 | RAD ---
XR Chest 1 View Portable History: Fall Comparison: Radiograph March 2020 Findings: Lungs are clear. No pneumothorax or effusion. Right upper quadrant surgical clips of the ab domen. No acute osseous abnormality. No displaced rib fracture. Impression: No acute intrathoracic abnormality.
--- NOTE | 2020-10-24 13:25 | CT ---
CT BRAIN NONCONTRAST: DATE: 10/24/2020 HISTORY: 50-year-old male with altered mental status after acute head trauma, status post fall. Dr. Dill reported the findings by telephone to Dr. Harper at 1:17 PM 10/24/2020 COMPARISON: 12/22/2015 FINDINGS: All of the following findings are new since the prior CT: Left frontotemporoparietal parietal subdural hematoma. A sample measurement at left frontal region at the level of the frontal horns, adjacent to the coronal suture has thickness of approximately 1 cm. Subdural hematoma along the anterior and posterior interhemispheric falx, which is 1.1 cm transverse thickness at cerebral convexity. Small right frontal subdural hematoma (0.4 cm thick). Diffuse effacement of left cerebral hemispheric sulci from mass effect. Left to right midline shift of septum pellucidum by 0.8 cm. At the left parasagittal upper cerebral hemisphere, superior to the level of the ventricles, there is a 4.1 x 2.1 cm intra-axial hematoma. Mild distortion of midbrain. Prepontine cistern and foramen magnum are clear. No calvarial fracture. IMPRESSION: 1) left frontotemporal parietal subdural hematoma. 2.) Subdural hematoma along anterior and posterior interhemispheric falx. 3) small right frontal subdural hematoma. 4) large 4 cm left paramedian cerebral intra-axial hematoma 5) mass effect upon the left cerebral hemisphere, and subfalcine herniation of 8 mm.
[2020-10-24 14:44] LABS: PTT 25.7 sec (22.9-36.1); Prothrombin Time 13.7 sec (12.0-14.7)
[2020-10-24] MEDS ORDERED: Ondansetron PF 4 MG/2 ML Vial IVP PRN (14:52)
[2020-10-24] MEDS ORDERED: hydrALAZINE 20 MG/ML VIAL SLOW IVP PRN (14:52)
[2020-10-24] MEDS ORDERED: Dextrose 5% in Water 1,000 ML IV PRN (14:52)
[2020-10-24] MEDS ORDERED: Dextrose 50% Abboject 50 ML SYRINGE SLOW IVP PRN (14:52)
[2020-10-24 15:00] LABS: Alcohol 41 mg/dL (Less than 10); Magnesium 1.4 mg/dL (1.6-2.6)
[2020-10-24] MEDS ORDERED: Oxazepam 10 MG CAP PO SCH ×3 (15:00→23:00)
[2020-10-24] MEDS ORDERED: Morphine 2 MG/ML VIAL SLOW IVP PRN (15:01)
[2020-10-24] MEDS ORDERED: Tranexamic Acid 1,000 MG/10 ML VIAL ONE (16:10)
--- NOTE | 2020-10-24 16:29 | HP ---
REQUESTING PHYSICIAN: Dr. Harper. PRIMARY CARE PHYSICIAN: Dr. Grant. CONSULTS: Neurosurgery, Dr. Valentine. CHIEF COMPLAINT: Ground level fall 2 days ago, head pain, left rib pain. HISTORY OF PRESENT ILLNESS: This is a 50-year-old gentleman with a past medical history of Djcgw-Kuihphbek-Opaeu, hypertension, schizophrenia, liver disease, and alcohol abuse. The patient states that he slipped and fell 2 days ago on the ice, hitting the back of his head and left ribs. The patient denies any loss of consciousness. The patient states that the head pain and left rib pain have gotten worse over the last couple of days, which prompted him to call 911. The patient denies any nausea or vomiting. The patient has had a decreased appetite over the last couple of days. The patient reports that he drinks alcohol approximately a six-pack of beer every other day. The patient denies any history of alcohol withdrawal. The patient currently tachycardic and tremors in his upper extremities. The patient states that he has tremors often. The patient reports that he last drank alcohol yesterday. The patient was recently hospitalized for a cholecystectomy in March and he also had a cardiac ablation. The patient did have thrombocytopenia at that time. The patient was evaluated in the emergency room and found to have a large subdural hemorrhage with a midline shift. The patient's current [place] Coma Scale is 14, -1 for confusion to date. The patient was given a L of normal saline in the ER and 1 unit of platelets have been ordered in addition to TXA. PAST MEDICAL HISTORY: Hypertension, schizophrenia, alcohol abuse, liver disease, atrial fibrillation, Tsaey-Keznvmewp-Tvxfj. SURGERIES: Cholecystectomy, ablation. ALLERGIES: ELZBIETA INHIBITORS, SERTRALINE, SULFA. SOCIAL HISTORY: The patient drinks a six pack of beer every other day. Denies illicit drug use. Denies tobacco use. CURRENT MEDICATIONS: 1. Aspirin 81 mg daily. 2. Amlodipine 10 mg q.a.m. 3. Nexium 24HR 20 mg q.a.m. 4. Invega Sustenna 234 mg intramuscular once a month. PHYSICAL EXAMINATION: VITAL SIGNS: Blood pressure 116/72, pulse 128, respirations 18, temperature 99.5, SpO2 of 100% on room air. GENERAL: Middle-age male, awake, alert. GCS 14, -1 for confusion, tremors in upper extremities. HEENT: Pain in back of head, no obvious deformity, normocephalic. Pupils are pinpoint bilateral, extraocular muscles intact. Midface stable. Mucous membranes moist. NECK: No cervical spine tenderness, normal range of motion of neck. RESPIRATORY: Bilateral breath sounds clear, no wheezing, rales, or rhonchi, tenderness left ribs, no obvious injuries, chest is symmetrical. CARDIAC: Tachycardic, regular rate, regular rhythm, systolic murmur. No pedal edema. No JVD. ABDOMEN: Soft, nontender, nondistended, pelvis stable. EXTREMITIES: Moves all extremities, neurovascularly intact x4, strength 5/5 in all extremities. NEUROLOGIC: GCS 14, -1 for confusion, no focal deficits. LABORATORY DATA: WBC 8.5, RBC 3.42, hemoglobin 11.6, hematocrit 34.3, MCV 100, platelets 36. PT 13.7, INR 1.0, APTT 25.7. Sodium 132, potassium 3.6, chloride 94, carbon dioxide 18, BUN 4, creatinine 0.68, estimated GFR greater than 90, magnesium 1.4, AST 18, ALT 25. CK 353, troponin I 0.010. Lipase 70, plasma alcohol 41. DIAGNOSTIC DATA: Brain CT, impression; left frontotemporoparietal subdural hematoma. Subdural hematoma along the anterior and posterior interhemispheric falx. Small right frontal subdural hematoma. Large 4 cm left paramedian cerebral intra-axial hematoma. Mass effect upon the left cerebral hemisphere and subfalcine herniation of 8 mm. Chest x-ray, impression; no acute intrathoracic abnormality. No pneumothorax, no displaced rib fractures. Cervical spine CT, impression; no acute cervical spine fracture or malalignment. IMPRESSION: 1. Ground level fall with delayed presentation. 2. Left frontotemporoparietal subdural hematoma, subdural hematoma of anterior and posterior interhemispheric falx. Small right frontal subdural hematoma. 3. Large 4 cm left paramedian cerebral intra-axial hematoma. 4. Mass effect left cerebral hemisphere and subfalcine herniation of 8 mm. 5. Hyponatremia, likely chronic. 6. Thrombocytopenia. 7. Liver disease. 8. Alcohol abuse. 9. History of schizophrenia, Daack-Unpvpshtl-Nglxb, atrial fibrillation, and hypertension. PLAN: Admit to the critical care unit with q.1 hour neuro checks. Neurosurgery pending plan at this time. The patient is getting unit of platelets currently in the ER and TXA for his thrombocytopenia. SCDs for mechanical VTE prophylaxis. Protonix for gastric prophylaxis. N.p.o. with sips and medications. Head of bed elevated at 30 degrees at all times. We will also start patient on Decadron for 24 hours. Medications for alcohol withdrawal. The plan was discussed with Dr. Gross, who agrees. Job ID: [id number] MTDD
[2020-10-24] MEDS ORDERED: Potassium Phosphate 30 MMOL, Magnesium Sulfate 4 GM in Sodium Chloride 0.9% 250 ML IVPB SCH (16:30)
[2020-10-24] MEDS: Sodium Chloride 0.9% 1,000 ML IV SCH (17:12)
[2020-10-24] MEDS: Dexamethasone 4 MG in Sodium Chloride 0.9% 50 ML IVPB SCH (18:37)
[2020-10-24 18:49] LABS: Platelet Count 76 thou/uL (130-400)
[2020-10-24 22:30] LABS: SARS-CoV-2 NAA Rapid Test Not Detected (NotDetected)
--- NOTE | 2020-10-24 22:31 | CON ---
DATE OF CONSULTATION: 10/24/2020 This is Romy Arias PA-C dictating a report for Barrett Valentine MD. HISTORY OF PRESENT ILLNESS: The patient is a 50-year-old male with a past medical history of chronic alcohol abuse, atrial fibrillation, Wetec-Bfyegmyze-Fyzsl, hypertension who was found today by a friend more confused. The patient's friend contacted EMS, who brought the patient to the ER for additional evaluation. The patient reports that Friday he had a mechanical fall while walking outside. He has had some headaches, dizziness and nausea since the event and some worsening confusion, last seen normal couple of days ago per the friend. He was evaluated with a noncontrast CT head on arrival, which showed acute subdural hematoma along the left convexity as well as interhemispheric fissure and also a large intra-axial parasagittal hematoma on the left just superior to the ventricles. There is moderate mass effect from the hemorrhages. The patient's platelets were also found to be 36,000. The patient was treated with TXA and platelets in the emergency department. Neurosurgery was contacted for his acute intracranial injuries. The Trauma Service was also notified. I visited the patient at the bedside. He is currently awake and oriented to person, place, and time. He has free active range of motion of all extremities and no gross motor deficits. Currently, GCS 15 during my exam. He is moderately tachycardic 125. PAST MEDICAL HISTORY: AFib, Ybiyx-Mxpinwxtj-Qdbiv, chronic alcohol abuse, GERD, hypertension, hyperlipidemia. PAST SURGICAL HISTORY: History of DVT in the lower extremities, hernia repair, psychiatric history, PTSD, schizophrenia. SOCIAL HISTORY: The patient does drink daily approximately six pack per day per the patient. He does not smoke. He denies drug use. MEDICATIONS: 1. The patient does report he takes an 81 mg aspirin daily. 2. Invega. 3. Nexium. 4. Amlodipine. PHYSICAL EXAMINATION: CONSTITUTIONAL: Awake, alert, oriented to person, place, and time. GCS 15. HEAD: No obvious trauma. EYES: PERRLA. Extraocular movements intact. He has some scleral icterus noted. ENT: Ecru intact and moist. The patient has normal voice. NECK: Nontender. Free active range of motion. No meningismus or nuchal rigidity. CARDIAC: Significantly tachycardic in the 120s, regular rhythm. PULMONARY: Symmetric chest expansion. No evidence of dyspnea. MUSCULOSKELETAL: Free active range of all extremities. No focal motor weakness. No trauma noted. NEUROLOGIC: A and O x3. GCS of 15. No focal neurologic deficits are appreciated. ASSESSMENT AND PLAN: The patient had a mechanical fall on Friday and has had some worsening headaches, dizziness, nausea, and confusion and found to have a large intra-axial hematoma, which is left parasagittal with moderate mass effect as well as subdural hematoma along the interhemispheric fissure and left convexity. He has significantly low platelets 36,000, which is likely related to his ETOH abuse. We have ordered him one pack of platelets and we will repeat his platelet count after this is complete and repeat with additional platelets, if needed. He will also be given TXA and we will hold any aspirin use. His situation is quite guarded and we will continue to monitor him closely in the ICU with q.1 neuro checks. I will plan to repeat a morning a.m. head CT. I have discussed this plan with Dr. Valentine who is in agreement. Job ID: [id number]
[2020-10-24] MEDS ORDERED: Pantoprazole 40 MG VIAL ONE (23:15)
[2020-10-24] MEDS: Pantoprazole 40 MG VIAL IVP SCH (23:32)
[2020-10-24 23:41] LABS: Platelet Count 126 thou/uL (130-400)
[2020-10-25] MEDS: Oxazepam 10 MG CAP PO SCH ×4 (00:05→23:14)
[2020-10-25] MEDS ORDERED: Acetaminophen 500 MG TAB ONE (00:16)
[2020-10-25] MEDS: Acetaminophen 500 MG TAB PO PRN ×2 (00:18→08:22)
--- NOTE | 2020-10-25 00:52 | PRG ---
DATE OF SERVICE: 10/24/2020 SUBJECTIVE: The patient was seen this evening first during rounds early in the evening and then later on. Initially, the patient's GCS was about 15. He was slightly tremulous and mildly tachycardic with a heart rate in the 100s. He reported a headache and the patient was given Tylenol. Upon re-evaluation later in the evening, nursing reported the patient's GCS was more on 14. He was not communicating as easily as before. He also appeared more tremulous and slightly more tachycardic with a heart rate in the one teens to 120s. Serax was increased from 10 mg to 20 mg q.8 hours at that time. The patient was re-evaluated later and appeared to be more comfortable. OBJECTIVE: VITAL SIGNS: Temperature 99.5, pulse 111, respirations 18, oxygen saturation 100% on room air, blood pressure 139/99. GCS was 14 to 15, -1 for occasional confusion. ASSESSMENT: 1. Status post ground level fall, with delayed presentation on aspirin. 2. Left frontal and temporal subdural hemorrhages. 3. Cerebral hematoma. 4. Left-sided chest wall contusion. 5. Acute alcohol withdrawal. 6. Hyponatremia. 7. Thrombocytopenia, status post platelet transfusion. 8. History of alcohol abuse, schizophrenia, liver disease, Nnuvb-Ooynmybvn-Epkqz syndrome, status post ablation, atrial fibrillation, and hypertension. PLAN: Continue n.p.o. Continue IV fluids. Increase Serax from 10 mg q.8 hours to 20 mg q.8 hours. Continue to closely monitor GCS. Repeat head CT in the morning. Repeat blood work in the morning as well. If the patient's GCS declines any further, we will repeat a head CT early. Neurosurgery was also updated on the condition of the patient by nursing. Job ID: [id number]
[2020-10-25] MEDS ORDERED: Tranexamic Acid 1,000 MG/10 ML VIAL ONE (01:17)
[2020-10-25] MEDS: Sodium Chloride 0.9% 1,000 ML IV SCH ×3 (02:20→23:44)
[2020-10-25] MEDS: Dexamethasone 4 MG in Sodium Chloride 0.9% 50 ML IVPB SCH ×4 (03:30→14:16)
[2020-10-25 05:40] VITALS: BMI 20.9
--- NOTE | 2020-10-25 07:09 | CT ---
PRELIMINARY REPORT/[facility]/EMERGENCY AFTER HOURS PROCEDURE: EXAM: CT Head Without Intravenous Contrast. CLINICAL HISTORY: FOLLOW UP TECHNIQUE: Axial computed tomography images of the head/brain without intravenous contrast. COMPARISON: October 24, 2020 FINDINGS: Again demonstrated is an intraparenchymal hematoma along the medial aspect of the left cere piedad just above the level of the body of the lateral ventricle. Abundant subdural hemorrhage is also seen on the left extending from the middle cranial fossa up to the level near the vertex with a prominent interhemispheric component extending to the tentorium.. The subdural collection along the lateral periphery of the left cerebrum has actually diminished in the interval with decreasing mass-e ffect and midline shift. The degree of midline shift only a few millimeters on the current study compared to about 8 mm on previous. Subdural thickness now measuring about 4 mm compared to about 9 mm on previous. Fairly dramatic improvement given the lack of apparent intervention. No new findings. IMPRESSION: Considerable interval improvement of the fairly large subdural hematoma on the left. Int raparenchymal hematoma on the left about the same. ELECTRONICALLY SIGNED BY: Manuel Johnson MD Oct 25, 2020 5:06:14 AM CERTIFIED MEDICAL CODING SPECIALIST FINAL REPORT HEAD CT WITHOUT CONTRAST: HISTORY: Follow-up intracranial hemorrhage. Trauma. Fall. COMPARISON: 10/24/2020. FINDINGS: Hemorrhage: Redemonstration of intraparenchymal and extraaxial hemorrhage. Intraparenchymal hematoma along the me dial left frontal lobe measures 1.8 x 4.3 cm, previously measuring 2.1 x 4.1 cm. Stable parafalcine, bilateral subarticular tentorial and left frontal temporal parietal subdural hematoma. T he degree of parafalcine subdural hematoma is unchanged. There is decreasing subdural hematoma along the left frontal and temporal and parietal convexities. Brain parenchyma: Cortical figueroa-white matter differentiation is preserved with the exception of the m edial left frontal lobe. There is evidence of associated edema peripheral to the aforementioned hematoma. 0.4 cm of left to right subfalcine herniation.. Ventricular system: Ventricles and sulci are patent and symmetric. Calvarium: Intact. Scalp: Left scalp hematoma is redemonstrated. Sinuses and mastoid air cells: Adequate aeration. IMPRESSION: 1. This report is in agreement with initial report by [facility]. 2. Decreasing left to right subfalcine herniation secondary to decreasing subdural hematoma along the left frontal temporal convexity. Additional areas of subdural blood are redemonstrated and unchanged. Transcribed Date/Time: 10/25/2020 7:41 AM
[2020-10-25 07:57] LABS: Amphetamine Not Detected (NotDetected); Barbiturates Screen Not Detected (NotDetected); Benzodiazepine Screen Detected (NotDetected); Cocaine Metabolite Screen Not Detected (NotDetected); Medtox Control Line Valid? VALID (VALID); Medtox Reader # READER 1; Methadone Not Detected (NotDetected); Methamphetamine Not Detected (NotDetected); Opiate Screen Not Detected (NotDetected); Oxycodone Screen Not Detected (NotDetected); Phencyclidine (PCP) Not Detected (NotDetected); THC/Cannabinoid Screen Not Detected (NotDetected); Tricyclic Screen Not Detected (NotDetected)
[2020-10-25 08:08] LABS: #Lymphocytes 0.5 thou/uL (1.20-3.40); #Monocytes 0.2 thou/uL (0.11-0.59); #Neutrophils 4.6 thou/uL (1.40-6.50); %Basophils 0.3 % (0.0-1.0); %Eosinophils 0.2 % (0.0-10.0); %Lymphocytes 8.7 % (21.0-51.0); %Monocytes 4.4 % (0.0-10.0); %Neutrophils 86.5 % (42.0-75.0); Mean Corpuscular HGB CONC 33.9 g/dL (32.0-36.0); Mean Corpuscular Hemoglobin 34.2 pg (27.0-31.0); Mean Platelet Volume 9.1 fL (7.4-10.4); Platelet Count 120 thou/uL (130-400); RBC Distribution Width 11.8 % (11.5-14.5); White Blood Cell (WBC) Count 5.4 thou/uL (4.8-10.8)
[2020-10-25 08:10] LABS: PTT 26.7 sec (22.9-36.1); Prothrombin Time 13.6 sec (12.0-14.7)
[2020-10-25] MEDS: Multivitamin W/ Minerals 1 TAB PO SCH (08:19)
[2020-10-25] MEDS: Polyethylene Glycol 3350 17 GM Packet PO SCH (08:19)
[2020-10-25] MEDS: Folic Acid 1 MG TAB PO SCH ×2 (08:19→08:20)
[2020-10-25] MEDS: Pantoprazole 40 MG VIAL IVP SCH ×2 (08:19→20:53)
[2020-10-25] MEDS: Senokot S 8.6-50 MG TAB PO SCH ×2 (08:19→20:52)
[2020-10-25] MEDS: Thiamine 100 MG TAB PO SCH (08:20)
[2020-10-25 08:21] LABS: Phosphorus 2.9 mg/dL (2.3-4.7)
[2020-10-25 08:25] LABS: ALT (SGPT) 21 U/L (8-55); AST (SGOT) 67 U/L (5-34); Albumin 3.9 g/dL (3.5-5.0); Alkaline Phosphatase 70 U/L (40-110); Anion Gap 21 mmol/L (10-20); BUN (Urea Nitrogen) 4 mg/dL (8.9-20.6); Bilirubin, Total 1.6 mg/dL (0.2-1.2); Calc. Creatinine Clearance 100 mL/min (70-130); Calcium 8.4 mg/dL (7.8-10.44); Carbon Dioxide 19 mmol/L (22-29); Chloride 99 mmol/L (98-107); Globulin 3.3 g/dL (2.4-3.5); Glucose 113 mg/dL (70-105); Magnesium 2.2 mg/dL (1.6-2.6); Potassium 4.6 mmol/L (3.5-5.1); Protein, Total 7.2 g/dL (6.0-8.3); Sodium 134 mmol/L (136-145)
[2020-10-25] MEDS: cloNIDine 0.1 MG TAB PO SCH ×3 (08:40→20:53)
[2020-10-25] MEDS ORDERED: Amlodipine 10 MG TAB PO SCH (09:00)
--- NOTE | 2020-10-25 11:14 | PRG ---
DATE OF SERVICE: 10/25/2020 SUBJECTIVE: The patient was seen and examined. I agree with Romy Arias's evaluation on 10/24/2020. The patient is a 50-year-old male who was found down yesterday, having a history of striking his head on a curb. He had severe thrombocytopenia with platelets in the 30s, presumably related to chronic alcoholism, although his coags are normal. OBJECTIVE: Currently, he is alert, interactive and appropriate and nonfocal. DIAGNOSTIC STUDIES: CT scan reveals a left superior frontal intraparenchymal hemorrhage with extension into the parafalcine subdural space and the left subdural space over the convexity. There is only modest mass effect. IMPRESSION AND PLAN: The patient has an intraparenchymal hemorrhage and subdural hematoma related to head trauma in the setting of thrombocytopenia. No neurosurgical intervention is warranted at this time. His platelets have been corrected and were at 126 this morning and I recommend trying to keep them over 100 throughout his hospital stay. His diet can be advanced and he can be mobilized. Job ID: [id number]
--- NOTE | 2020-10-25 13:56 | PRG ---
DATE OF SERVICE: 10/25/2020 SUBJECTIVE: Mr. Sabillon is a 50-year-old man, post injury day #1, status post ground level fall, where he sustained multiple traumatic injuries including left frontotemporal parietal subdural hematoma, intrafalcine subdural hematoma, and a large 4 cm left paramedian cerebral hematoma. This morning, he is awake and alert. His [place] Coma Scale remains stable at E4, V4, M6. Urinary output is adequate for the patient's age and weight. OBJECTIVE: VITAL SIGNS: Include blood pressure 121/77, pulse 88, respiratory rate is 20, maximum temperature since admission is 100 degrees Fahrenheit, oxygen saturation is 98% on room air. HEENT: Pupils are equal, round, and reactive to light bilaterally. HEART: Reveals regular rate and rhythm. LUNGS: Clear to auscultation bilaterally. Breathing, regular and nonlabored. ABDOMEN: Soft, nontender, and nondistended. EXTREMITIES: Reveal 2+ radial and pedal pulses bilaterally. No ankle edema is present. MUSCULOSKELETAL: Reveals 5/5 muscle strength in bilateral upper and lower extremities. He has intention tremor, which at present is baseline given his history of chronic alcoholism. NEUROLOGIC: Reveals no focal deficits present. LABORATORY FINDINGS: Today include a CBC with 5400 white blood cells, hemoglobin and hematocrit are stable at 11.0 and 32.3 respectively. Platelet count 120,000, this is after 2 units of platelets transfused yesterday for low platelet count of 36,000 then. Metabolic profile; sodium 134, potassium 4.6, chloride is 99, bicarb is 19, BUN is 4, creatinine 0.72, glucose is 113, magnesium 2.2, and phosphorus 2.9. IMPRESSION: 1. Post injury day #1, status post ground level fall. 2. Acute traumatic brain injury. Neurologically stable. CT scan of the brain reveals stable intracranial hemorrhages. 3. History of chronic alcoholism. PLAN: 1. Increase activity per Physical and Occupational Therapy. 2. Initiate speech and language pathology. The patient will be transferred to General Surgical Floor. 3. Anticipate transfer to inpatient rehabilitation following this discharge. Job ID: [id number]
--- NOTE | 2020-10-25 16:00 | PQF ---
CLINICAL DOCUMENTATION CLARIFICATION FORM: Dear Dr. MINDA MCCANN Date: 10-25-20 Please exercise your independent, professional judgment in responding to the clarification form. Clinical indicators are provided on the bottom of this form for your review. Please check appropriate box(es): [ x ] Encephalopathy: Type: [ x] Acute [ ] Subacute [ ] Chronic Etiology: [ ] Hypertensive [x ] Metabolic [ ] Toxic [ ] Other (please specify) [ ] Transient Alteration of Awareness [ ] Other diagnosis [ ] Unable to determine In addition, please specify: Present on Admission (POA): [ x ] Yes [ ] No [ ] Unable to determine For continuity of documentation, please document condition throughout progress notes and discharge summary. Thank You. To be completed by CDI/Coding staff for physician review: CLINICAL INDICATORS - SIGNS / SYMPTOMS / LABS / RESULTS AND LOCATION IN EMR: ER NOTES 10-24-20: CONFUSION AND HEAD INJURY ER DX: 10-24-20: INTRACRANIAL HEMORRHAGE H&P: 10-24-20: L FRONTOTEMPOROPARIETAL SUBDURAL HEMATOMA, SUBDURAL HEMATOMA OF ANTERIOR AND POSTERIOR INTERHEMISPHERIC FALX., MASS EFFECT LEFT CEREBRAL HEMISPHERE AND SUBFALCINE HERNIATION OF 8MM., HYPONATREMIA LIKELY CHRONIC, ALCOHOL ABUSE RISK FACTORS / RESULTS AND LOCATION IN EMR: H&P: 10-24-20: L FRONTOTEMPOROPARIETAL SUBDURAL HEMATOMA, SUBDURAL HEMATOMA OF ANTERIOR AND POSTERIOR INTERHEMISPHERIC FALX., MASS EFFECT LEFT CEREBRAL HEMISPHERE AND SUBFALCINE HERNIATION OF 8MM., HYPONATREMIA LIKELY CHRONIC, ALCOHOL ABUSE TREATMENTS / RESULTS AND LOCATION IN EMR: H&P 10-24-20: ADMIT TO CCU WITH 1 HR NEURO CHECKS, NEURO SX PENDING, DECADRON FOR 24 HRS CDS Signature: Sophia Kaur Phone #: [phone] Date/Time: 10-25-20 This is a permanent part of the Medical Record [facility]
[2020-10-25 17:19] LABS: Platelet Count 130 thou/uL (130-400)
--- NOTE | 2020-10-25 23:35 | PRG ---
DATE OF SERVICE: 10/25/2020 SUBJECTIVE: The patient was seen this evening during rounds. He was lying in bed, resting comfortably, and asleep with no signs of acute distress. Nursing reported no acute events. OBJECTIVE: VITAL SIGNS: Temperature 98.8, pulse 91, respirations 16, oxygen saturation 98% on room air, blood pressure 139/87. ASSESSMENT: 1. Status post ground-level fall, on aspirin. 2. Left frontal and temporal subdural hemorrhages with midline shift, stable. 3. Cerebral hematoma, stable. 4. Hyponatremia, improving. 5. Thrombocytopenia, improving. 6. History of alcohol abuse, schizophrenia, liver disease, Eoahz-Zzzijrrzi-Xwoft, status post ablation, atrial fibrillation, hypertension. PLAN: Continue current diet and pain regimen. Continue physical and occupational therapy. Continue speech therapy. We will discontinue the IV fluids. Monitor diet. Repeat blood work in the morning. The patient is pending discharge to acute rehab facility. Job ID: [id number]
[2020-10-26] MEDS: cloNIDine 0.1 MG TAB PO SCH ×4 (02:54→19:48)
[2020-10-26 06:02] LABS: Hemoglobin 10.3 g/dL (14.0-18.0); Mean Corpuscular HGB CONC 34.5 g/dL (32.0-36.0); Mean Corpuscular Hemoglobin 34.4 pg (27.0-31.0); Mean Corpuscular Volume 99.7 fL (78.0-98.0); Mean Platelet Volume 9.7 fL (7.4-10.4); Platelet Count 120 thou/uL (130-400); RBC Distribution Width 11.8 % (11.5-14.5); Red Blood Cell (RBC) Count 2.98 mill/uL (4.70-6.10); White Blood Cell (WBC) Count 7.9 thou/uL (4.8-10.8)
[2020-10-26 06:30] LABS: Anion Gap 12 mmol/L (10-20); BUN (Urea Nitrogen) 5 mg/dL (8.9-20.6); Calc. Creatinine Clearance 104 mL/min (70-130); Calcium 8.4 mg/dL (7.8-10.44); Carbon Dioxide 23 mmol/L (22-29); Chloride 101 mmol/L (98-107); Glucose 168 mg/dL (70-105); Magnesium 1.9 mg/dL (1.6-2.6); Phosphorus 2.5 mg/dL (2.3-4.7); Potassium 3.4 mmol/L (3.5-5.1); Sodium 133 mmol/L (136-145)
[2020-10-26 08:09] LABS: Hemoglobin A1c 4.5 % (4.0-6.0)
[2020-10-26] MEDS ORDERED: Magnesium 2 GM/50 ML 2 GM in Premix Bag 1 BAG IVPB SCH (08:30)
[2020-10-26] MEDS: Folic Acid 1 MG TAB PO SCH (08:47)
[2020-10-26] MEDS: Oxazepam 10 MG CAP PO SCH ×3 (08:47→23:15)
[2020-10-26] MEDS: Thiamine 100 MG TAB PO SCH (08:47)
[2020-10-26] MEDS: Senokot S 8.6-50 MG TAB PO SCH ×2 (08:47→19:48)
[2020-10-26] MEDS: Multivitamin W/ Minerals 1 TAB PO SCH (08:47)
[2020-10-26] MEDS: Amlodipine 10 MG TAB PO SCH (08:48)
[2020-10-26] MEDS: Polyethylene Glycol 3350 17 GM Packet PO SCH (08:48)
--- NOTE | 2020-10-26 10:17 | PRG ---
DATE OF SERVICE: 10/26/2020 SUBJECTIVE: Patient is now day 2, status post admission for a fall with acute left intracranial hemorrhage with a left superior frontal intraparenchymal hemorrhage as well as extension into the parafalcine subdural space and left subdural space over the convexity. This is stable on followup CT. His neurologic exam has improved with regard to confusion and he has moved to the floor yesterday. OBJECTIVE: GENERAL: On exam this morning, he is awake, oriented x3. Moving all 4s easily in the bed. He does have some subtle weakness in the right upper extremity and the right lower extremity diffusely. He has had some difficulty with ambulating when he tries to work with nurses in therapy. His platelets today are 120. The patient is improving with regard to his neurologic status but continues to suffer with some right-sided weakness and difficulty walking in the setting of his acute intracranial bleed. No plans for neurosurgical intervention at this time. The patient would benefit from inpatient rehab and rehab screen has been ordered. Job ID: [id number]
--- NOTE | 2020-10-26 13:19 | PRG ---
DATE OF SERVICE: 10/26/2020 SUBJECTIVE: The patient is a 50-year-old male on hospital day 3, status post ground level fall, where he sustained multiple traumatic injuries including left frontotemporoparietal subdural hematoma, intra-falcine subdural hematoma, a large 4-cm left paramedian cerebral hematoma. This morning, he is awake, alert, and oriented x2, this is unchanged from previous exams. GCS 14. He states he is tolerating diet. He has been able to work with PT, although he continues to have right-sided hemiparesis and some ataxia. OBJECTIVE: VITAL SIGNS: Blood pressure 123/83, pulse 86, temperature 98.6, respiratory rate 18, and oxygen saturation 99% on room air. HEENT: Pupils are equal, round, and reactive. Normocephalic, atraumatic. HEART: Regular rate and rhythm. LUNGS: Nonlabored breathing. Good inspiratory and expiratory effort. ABDOMEN: Soft, nondistended. EXTREMITIES: No edema. NEUROLOGIC: Mild right-sided weakness. Lower extremity right side muscle strength is 4/5, left side 5/5 lower extremity. LABORATORY FINDINGS: Hemoglobin 10.3, hematocrit 29.8, and platelets 120. Chemistry; sodium 133, potassium 3.4, BUN 5, creatinine 0.69, phosphorus 2.5, and magnesium 1.9. ASSESSMENT: 1. Status post ground level fall, on aspirin. 2. Left frontal and temporal subdural hemorrhage with midline shift, stable. 3. Cerebral hematoma, stable. 4. Hyponatremia. 5. Thrombocytopenia. 6. History of alcohol abuse. 7. Schizophrenia. 8. Liver disease. 9. Aqgsd-Nidrkbngc-Jbdgf. 10. Atrial fibrillation. 11. Hypertension. PLAN: Continue current supportive treatment. Encourage continued work with physical and occupational therapy. Neurosurgery continues to proceed with nonoperative management. Patient is pending approval for inpatient rehab. This patient was seen and evaluated by Dr. Gross on morning rounds. Job ID: [id number] [facility]
[2020-10-26] MEDS: Acetaminophen 500 MG TAB PO PRN (22:44)
--- NOTE | 2020-10-26 23:30 | PRG ---
DATE OF SERVICE: 10/26/2020 SUBJECTIVE: The patient was seen this evening during rounds. He was sitting up in bed, awake and alert, and watching TV. He reports he had just recently woken up for a nap. He is tolerating his diet. He did state that he does have a headache, but has not asked for pain medication. He was open to trying Tylenol. Nursing was updated and was providing the patient Tylenol. OBJECTIVE: VITAL SIGNS: Temperature 98.5, pulse 80, respirations 19, oxygen saturation 100% on room air, blood pressure 119/79. ASSESSMENT: 1. Status post ground level fall, on aspirin. 2. Large left frontal and temporal subdural hemorrhages with midline shift. 3. Cerebral hematoma. 4. Hwbqe-ek-zpueppc hyponatremia, improving. 5. Thrombocytopenia, improving. 6. History of alcohol abuse, schizophrenia, liver disease, Yqrbm-Vtglqpjge-Sujyn, status post ablation, atrial fibrillation, hypertension, and hepatitis. PLAN: Continue current diet and pain regimen. Continue physical and occupational therapy as well as speech language pathology. Continue supportive care. The patient will need placement in our acute rehab facility. He is pending insurance approval and is ready for discharge at this time. Job ID: [id number]
[2020-10-27] MEDS: cloNIDine 0.1 MG TAB PO SCH ×4 (02:13→20:06)
[2020-10-27 05:42] LABS: Mean Corpuscular HGB CONC 32.9 g/dL (32.0-36.0); Mean Platelet Volume 9.7 fL (7.4-10.4); Platelet Count 124 thou/uL (130-400); RBC Distribution Width 11.9 % (11.5-14.5); Red Blood Cell (RBC) Count 3.34 mill/uL (4.70-6.10); White Blood Cell (WBC) Count 6.4 thou/uL (4.8-10.8)
[2020-10-27 06:09] LABS: Anion Gap 13 mmol/L (10-20); BUN (Urea Nitrogen) 6 mg/dL (8.9-20.6); Calc. Creatinine Clearance 109 mL/min (70-130); Calcium 8.5 mg/dL (7.8-10.44); Carbon Dioxide 26 mmol/L (22-29); Chloride 103 mmol/L (98-107); Glucose 117 mg/dL (70-105); Magnesium 1.7 mg/dL (1.6-2.6); Phosphorus 3.7 mg/dL (2.3-4.7); Potassium 3.6 mmol/L (3.5-5.1); Sodium 138 mmol/L (136-145)
[2020-10-27] MEDS ORDERED: Potassium Phosphate 15 MMOL, Magnesium Sulfate 2 GM in Sodium Chloride 0.9% 250 ML 250 ML IVPB SCH (08:15)
[2020-10-27] MEDS: Thiamine 100 MG TAB PO SCH (08:19)
[2020-10-27] MEDS: Oxazepam 10 MG CAP PO SCH ×3 (08:19→23:27)
[2020-10-27] MEDS: Amlodipine 10 MG TAB PO SCH (08:19)
[2020-10-27] MEDS: Senokot S 8.6-50 MG TAB PO SCH ×2 (08:19→20:06)
[2020-10-27] MEDS: Multivitamin W/ Minerals 1 TAB PO SCH (08:20)
[2020-10-27] MEDS: Polyethylene Glycol 3350 17 GM Packet PO SCH (08:20)
[2020-10-27] MEDS: Folic Acid 1 MG TAB PO SCH (08:20)
--- NOTE | 2020-10-27 08:38 | PRG ---
DATE OF SERVICE: 10/27/2020 SUBJECTIVE: The patient remained stable on the floor. He continues to have some right-sided hemiparesis and some instability with walking. He has been working with Physical Therapy and there is a rehab screen underway. His platelets are 124 today. Overall, patient has neurologically remained stable on the floor. He would benefit from inpatient rehab and I anticipate he will be able to transition there in the near future. We will follow up with repeat CT head in approximately 4 weeks. Job ID: [id number]
[2020-10-27] MEDS ORDERED: Potassium Phosphate 15 MMOL in Sodium Chloride 0.9% 250 ML 250 ML IVPB SCH (09:00)
[2020-10-27] MEDS ORDERED: Magnesium Sulfate 2 GM in Sodium Chloride 0.9% 100 ML IVPB SCH (09:00)
[2020-10-27] MEDS: Acetaminophen 500 MG TAB PO PRN ×2 (15:16→23:27)
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
--- NOTE | 2020-10-28 00:35 | PRG ---
DATE OF SERVICE: 10/27/2020 SUBJECTIVE: The patient was seen this evening during rounds. He was sitting up in bed, resting comfortably and asleep with no signs of acute distress. Nursing reported no acute events. OBJECTIVE: VITAL SIGNS: Temperature 99.5, pulse 81, respirations 18, oxygen saturation 99% on room air, blood pressure 111/74. ASSESSMENT: 1. Status post ground level fall, on aspirin. 2. Large frontal and temporal subdural hemorrhages. 3. Cerebral hematoma. 4. Hyponatremia, stable. 5. Thrombocytopenia, stable. 6. History of alcohol abuse, schizophrenia, liver disease, Bvojf-Ysnhiplou-Bppiu syndrome, atrial fibrillation, hypertension. PLAN: Continue current diet and pain regimen. Continue physical and occupational therapy. Continue supportive care. The patient is pending discharge to acute rehab facility. He is ready for discharge at this time. Job ID: [id number]
[2020-10-28] MEDS: cloNIDine 0.1 MG TAB PO SCH ×3 (01:42→13:36)
[2020-10-28] MEDS: Polyethylene Glycol 3350 17 GM Packet PO SCH (07:55)
[2020-10-28] MEDS: Senokot S 8.6-50 MG TAB PO SCH (07:56)
[2020-10-28] MEDS: Thiamine 100 MG TAB PO SCH (07:56)
[2020-10-28] MEDS: Multivitamin W/ Minerals 1 TAB PO SCH (07:57)
[2020-10-28] MEDS: Folic Acid 1 MG TAB PO SCH (07:57)
[2020-10-28] MEDS: Amlodipine 10 MG TAB PO SCH (07:57)
[2020-10-28] MEDS: Oxazepam 10 MG CAP PO SCH ×2 (07:57→15:04)
--- NOTE | 2020-10-28 14:21 | EKG ---
Test Reason : Blood Pressure : / mmHG Vent. Rate : 091 BPM Atrial Rate : 091 BPM P-R Int : 116 ms QRS Dur : 072 ms QT Int : 344 ms P-R-T Axes : 074 074 031 degrees QTc Int : 423 ms Normal sinus rhythm Septal infarct , age undetermined Abnormal ECG Confirmed by ADITYA BOSCH DO ([id number]), communications editor MINERVA COOK ([id number]) on 10/28/2020 2:20:40 PM Referred By: Confirmed By:ADITYA BOSCH DO
[2020-10-28 15:08] VITALS: BP 143/83; TEMP 98.5
[2020-10-28] MEDS: Acetaminophen 500 MG TAB PO PRN (16:09)
--- NOTE | 2020-10-31 13:59 | DIS ---
DATE OF ADMISSION: 10/24/2020 DATE OF DISCHARGE: 10/28/2020 CONSULTATION: Dr. Valentine, Neurosurgery. PROCEDURES: None. PRIMARY DIAGNOSES: Ground level fall with delayed presentation; large left frontal, temporal subdural hemorrhage with 8 mm shift; cerebral hematoma; hyponatremia; thrombocytopenia; and right hemiparesis. SECONDARY DIAGNOSES: Alcohol abuse, schizophrenia, autoimmune hepatitis, Adkmy-Gwwfogrqf-Vfekg, atrial fibrillation, and hypertension. DISCHARGE MEDICATIONS: 1. Acetaminophen 500 mg q.6 hours p.r.n. pain. 2. Amlodipine 10 mg p.o. daily. 3. Clonidine 0.1 mg p.o. q.6 hours with hold parameters. 4. Nexium 20 mg p.o. q. day. 5. Folic acid 1 mg p.o. daily. 6. Lactulose 30 gram p.o. daily for constipation. 7. Serax 20 mg p.o. q.8 hours. 8. Invega Sustenna 234 mg IM q.28 days. 9. Senokot as needed for constipation. 10. Thiamine 100 mg p.o. daily. No discontinued medications. HISTORY OF PRESENT ILLNESS AND HOSPITAL COURSE: This is a 50-year-old gentleman, who presented to the emergency room after he slipped and fell 2 days prior on ice, hitting the back of his head and left ribs. The patient denied any loss of consciousness. The patient states that he continued to have head pain and left rib pain and decided to be evaluated, so he called 911. The patient denied any nausea or vomiting. The patient reports that he drinks a 6-pack of beer approximately every other day. He does report having a decreased appetite over the last couple of days. The patient was tachycardic with tremors in his upper extremities when evaluated in the emergency room. The patient was started on Serax for alcohol withdrawal, in which his tremors improved. The patient also reports recently being hospitalized for cardiac ablation. The patient's Yumi Coma Scale on arrival was 14, -1 for confusion. The patient was unable to recall the year. Neurosurgery was consulted and recommended one unit of platelets be given in addition to TXA. Neurosurgery recommendation to have the patient's platelets at least 100,000. The patient was admitted to the critical care unit with frequent neuro checks. The patient's neuro status remained unchanged during his hospital stay. The patient's repeat head CT did improve. The patient did develop some right hemiparesis, which was expected due to his left-sided subarachnoid hemorrhage. The patient was able to ambulate using a walker with physical therapy. A rehab screen was placed for continued physical therapy. On the day of discharge, the patient's exam was unremarkable including cardiopulmonary and GI exam. The patient was started on lactulose as he has not had a bowel movement. The patient's GCS remained 14, -1 for confusion as he still could not recall the year, this could likely be baseline. The patient was deemed stable for discharge to inpatient rehab. DISPOSITION: Stable. DISCHARGE INSTRUCTIONS: 1. Location: Inpatient rehab. 2. Diet: Regular diet as tolerated. 3. Activity: As tolerated. 4. Followup: Follow up with Neurosurgery in 4 weeks with a repeat head CT. No need to follow up with trauma services. This is just a summary of the hospital visit, please see the entire medical record for details. Job ID: [id number]
== END 2020-10-28 19:44 | DRG 82 ==
LOC: ERS 11:54 → ERHOLD 14:55 → CCU 10-25 02:15 → SURG A 10-25 15:54
PROVIDERS: ADMIT Surgery; ATTEND Surgery
PROC: 30233R1 Transfusion of Nonautologous Platelets into Peripheral Vein, Percutaneous Approach (ICD-10-PCS; principal; 2020-10-24)
DX: S06.5X9A Traumatic subdural hemorrhage with loss of consciousness of unspecified duration, initial encounter (principal); G93.41 Metabolic encephalopathy; E87.1 Hypo-osmolality and hyponatremia; F10.239 Alcohol dependence with withdrawal, unspecified; G81.91 Hemiplegia, unspecified affecting right dominant side; D69.6 Thrombocytopenia, unspecified; I48.91 Unspecified atrial fibrillation; I10 Essential (primary) hypertension; F43.10 Post-traumatic stress disorder, unspecified; K21.9 Gastro-esophageal reflux disease without esophagitis; E78.00 Pure hypercholesterolemia, unspecified; R40.2412 Glasgow coma scale score 13-15, at arrival to emergency department; K76.9 Liver disease, unspecified; F20.9 Schizophrenia, unspecified; W01.0XXA Fall on same level from slipping, tripping and stumbling without subsequent striking against object, initial encounter; I45.6 Pre-excitation syndrome; Z98.890 Other specified postprocedural states; Z88.1 Allergy status to other antibiotic agents; Z88.2 Allergy status to sulfonamides; Z79.82 Long term (current) use of aspirin; Z79.899 Other long term (current) drug therapy; Z88.8 Allergy status to other drugs, medicaments and biological substances; Z90.49 Acquired absence of other specified parts of digestive tract; Z20.822 Contact with and (suspected) exposure to COVID-19
CPT/HCPCS: 36415; 36416; 36430; 70450; 71045; 72125; 80048; 80053; 80306; 80307; 82550; 83036; 83690; 83735; 84100; 84484; 85025; 85027; 85610; 85730; 86850; 86900; 86901; 93005; 96365; 96376; C9113; G0390; J1100; J3475; J7030; J7050; P9035; U0002

== ENCOUNTER 2021-06-04 21:11 | Observation (INO) | payer OTHER ==
[~2021-06-04 21:11] MED LIST changes: +Iopamidol 370 76% 100 ML VIAL ONE; -Magnesium 2 GM/50 ML 2 GM in Premix Bag 1 BAG IVPB SCH
[2021-06-04 22:27] LABS: PTT 30.6 sec (22.9-36.1); Prothrombin Time 13.4 sec (12.0-14.7)
[2021-06-04 22:36] LABS: ALT (SGPT) 16 U/L (8-55); AST (SGOT) 43 U/L (5-34); Albumin 3.3 g/dL (3.5-5.0); Alkaline Phosphatase 81 U/L (40-110); Anion Gap 11 mmol/L (10-20); BUN (Urea Nitrogen) Less than 4 mg/dL (8.9-20.6); Bilirubin, Total 1.4 mg/dL (0.2-1.2); Calc. Creatinine Clearance 0 mL/min (70-130); Calcium 8.5 mg/dL (7.8-10.44); Carbon Dioxide 26 mmol/L (22-29); Chloride 94 mmol/L (98-107); Globulin 3.2 g/dL (2.4-3.5); Glucose 110 mg/dL (70-105); Potassium 3.1 mmol/L (3.5-5.1); Protein, Total 6.5 g/dL (6.0-8.3); Sodium 128 mmol/L (136-145)
[2021-06-04 22:51] LABS: #Lymphocytes 1.2 thou/uL (1.20-3.40); #Monocytes 0.6 thou/uL (0.11-0.59); #Neutrophils 3.2 thou/uL (1.40-6.50); %Basophils 0.5 % (0.0-1.0); %Eosinophils 0.4 % (0.0-10.0); %Monocytes 12.1 % (0.0-10.0); Mean Corpuscular HGB CONC 35.2 g/dL (32.0-36.0); Mean Corpuscular Volume 99.4 fL (78.0-98.0); Mean Platelet Volume 10.6 fL (7.4-10.4); Platelet Count 59 thou/uL (130-400); RBC Distribution Width 11.4 % (11.5-14.5); Red Blood Cell (RBC) Count 3.44 mill/uL (4.70-6.10); White Blood Cell (WBC) Count 4.7 thou/uL (4.8-10.8)
[2021-06-04 23:12] LABS: MDiff Complete? YES; Macrocytosis SLIGHT = 6-15 cells (100X) (0-5/hpf); Platelet Morphology Comment Appears Decreased
[2021-06-05 00:09] LABS: SARS-CoV-2 NAA Rapid Test Not Detected (NotDetected)
[2021-06-05] MEDS ORDERED: Ondansetron ODT 4 MG TAB PO PRN (02:36)
[2021-06-05] MEDS ORDERED: Ondansetron PF 4 MG/2 ML Vial IVP PRN (02:36)
[2021-06-05] MEDS ORDERED: Morphine 2 MG/ML VIAL SLOW IVP PRN (02:46)
[2021-06-05] MEDS ORDERED: Morphine 4 MG/ML VIAL SLOW IVP PRN (02:46)
[2021-06-05] MEDS ORDERED: Diazepam 5 MG TAB PO PRN (03:02)
[2021-06-05] MEDS ORDERED: Potassium Chloride 20 MEQ TAB ONE (03:14)
[2021-06-05] MEDS ORDERED: Morphine 4 MG/ML VIAL ONE ×2 (03:14→11:05)
[2021-06-05] MEDS ORDERED: Sodium Chloride 0.9% (PF) 10 ML VIAL FS PRN (03:15)
[2021-06-05] MEDS ORDERED: Diazepam 5 MG TAB PO SCH (03:30)
[2021-06-05] MEDS ORDERED: Thiamine HCl 200 MG/2 ML VIAL IM SCH (03:30)
[2021-06-05 03:42] LABS: Bacteria/HPF None Seen HPF (None Seen); Bilirubin Negative (Negative); Blood, Urine Negative (Negative); Clarity Clear (Clear); Glucose, Urine (Dipstick) Normal (Negative); Ketone, Urine Negative (Negative); Leukocyte Negative Leu/uL (Negative); Nitrite Negative (Negative); Protein, Urine (Dipstick) Negative (Neg-Trace); RBC/HPF None Seen HPF (0-3); Specific Gravity, Urine 1.014 (1.002-1.036); Squamous Epithelial None Seen HPF (0-3); Urobilinogen Normal mg/dL (Less than 2); WBC/HPF None Seen HPF (0-3); pH, Urine 7.5 (5.0-9.0)
[2021-06-05 04:07] LABS: #Lymphocytes 0.9 thou/uL (1.20-3.40); #Monocytes 0.7 thou/uL (0.11-0.59); #Neutrophils 3.1 thou/uL (1.40-6.50); %Basophils 0.4 % (0.0-1.0); %Eosinophils 0.4 % (0.0-10.0); %Lymphocytes 19.8 % (21.0-51.0); %Monocytes 13.9 % (0.0-10.0); %Neutrophils 65.5 % (42.0-75.0); Hemoglobin 12.5 g/dL (14.0-18.0); Mean Corpuscular HGB CONC 35.2 g/dL (32.0-36.0); Mean Corpuscular Hemoglobin 35.3 pg (27.0-31.0); Mean Platelet Volume 10.5 fL (7.4-10.4); Platelet Count 47 thou/uL (130-400); RBC Distribution Width 11.6 % (11.5-14.5); Red Blood Cell (RBC) Count 3.54 mill/uL (4.70-6.10); White Blood Cell (WBC) Count 4.7 thou/uL (4.8-10.8)
[2021-06-05 04:09] LABS: Magnesium 1.7 mg/dL (1.6-2.6)
[2021-06-05 04:11] LABS: ALT (SGPT) 20 U/L (8-55); AST (SGOT) 42 U/L (5-34); Albumin 3.4 g/dL (3.5-5.0); Alkaline Phosphatase 74 U/L (40-110); Anion Gap 12 mmol/L (10-20); BUN (Urea Nitrogen) Less than 4 mg/dL (8.9-20.6); Calc. Creatinine Clearance 0 mL/min (70-130); Calcium 8.9 mg/dL (7.8-10.44); Carbon Dioxide 25 mmol/L (22-29); Chloride 100 mmol/L (98-107); Globulin 3.4 g/dL (2.4-3.5); Glucose 92 mg/dL (70-105); Potassium 3.4 mmol/L (3.5-5.1); Protein, Total 6.8 g/dL (6.0-8.3); Sodium 134 mmol/L (136-145)
[2021-06-05 04:13] LABS: Troponin I Less than 0.010 ng/mL (< 0.028)
[2021-06-05] MEDS ORDERED: Diazepam 5 MG TAB ONE ×2 (05:22→08:28)
[2021-06-05 06:56] LABS: Troponin I Less than 0.010 ng/mL (< 0.028)
[2021-06-05] MEDS ORDERED: Potassium Chloride 20 MEQ TAB PO SCH (08:15)
[2021-06-05] MEDS: Lactated Ringer's 1,000 ML IV SCH ×2 (08:36→21:55)
[2021-06-05 09:50] LABS: HBSAB Concentration Less than 8.00 mIU/mL; HIV (1/2) Antibody/Antigen Non-Reactive (NonReactive); HIV 1/2 INDEX 0.13 S/CO (<1.00); Hep B Core Total Ab Non-Reactive (NonReactive); Hep B Core Total Index 0.05 S/CO (0-0.79); Hep B Surf AB Non-Reactive (NonReactive); Hep B Surf Ag Non-Reactive S/CO (NonReactive); Hep C IgG Ab Non-Reactive (NonReactive); Hep C Index 0.28 S/CO (0-0.79)
[2021-06-05] MEDS ORDERED: Lorazepam 2 MG/ML VIAL SLOW IVP PRN (09:57)
[2021-06-05] MEDS ORDERED: Magnesium Sulfate 2 GM in Sodium Chloride 0.9% 100 ML IVPB SCH (10:00)
[2021-06-05] MEDS ORDERED: Potassium Chloride 20 MEQ in Premix Bag 1 BAG IVPB SCH (10:00)
[2021-06-05] MEDS ORDERED: Magnesium 2 GM/50 ML 2 GM in Premix Bag 1 BAG IVPB SCH (10:15)
[2021-06-05] MEDS ORDERED: Multivitamin W/ Minerals 1 TAB ONE (10:43)
[2021-06-05] MEDS ORDERED: Folic Acid 1 MG TAB ONE (10:43)
[2021-06-05] MEDS ORDERED: Pantoprazole 40 MG VIAL ONE (10:43)
[2021-06-05] MEDS ORDERED: Magnesium 2 GM/50 ML BAG (IN WATER) ONE (10:44)
[2021-06-05] MEDS: Pantoprazole 40 MG VIAL IVP SCH (10:54)
[2021-06-05] MEDS: Folic Acid 1 MG TAB PO SCH (10:57)
[2021-06-05] MEDS: Multivitamin W/ Minerals 1 TAB PO SCH (10:58)
[2021-06-05] MEDS: Morphine 2 MG/ML VIAL SLOW IVP PRN ×2 (15:24→21:55)
[2021-06-05 15:26] LABS: Anion Gap 16 mmol/L (10-20); BUN (Urea Nitrogen) Less than 4 mg/dL (8.9-20.6); Calc. Creatinine Clearance 99 mL/min (70-130); Calcium 8.6 mg/dL (7.8-10.44); Carbon Dioxide 21 mmol/L (22-29); Chloride 105 mmol/L (98-107); Glucose 84 mg/dL (70-105); Potassium 3.5 mmol/L (3.5-5.1); Sodium 138 mmol/L (136-145)
[2021-06-06] MEDS ORDERED: Diazepam 5 MG TAB PO PRN (04:00)
[2021-06-06 04:31] LABS: #Lymphocytes 1.2 thou/uL (1.20-3.40); #Monocytes 0.8 thou/uL (0.11-0.59); %Basophils 0.2 % (0.0-1.0); %Eosinophils 0.7 % (0.0-10.0); %Lymphocytes 24.3 % (21.0-51.0); %Monocytes 14.9 % (0.0-10.0); %Neutrophils 59.8 % (42.0-75.0); Hemoglobin 11.1 g/dL (14.0-18.0); Mean Corpuscular HGB CONC 34.5 g/dL (32.0-36.0); Mean Corpuscular Hemoglobin 35.4 pg (27.0-31.0); Mean Platelet Volume 9.8 fL (7.4-10.4); Platelet Count 64 thou/uL (130-400); RBC Distribution Width 11.7 % (11.5-14.5); Red Blood Cell (RBC) Count 3.14 mill/uL (4.70-6.10)
[2021-06-06 04:48] LABS: ALT (SGPT) 14 U/L (8-55); AST (SGOT) 31 U/L (5-34); Alkaline Phosphatase 62 U/L (40-110); Anion Gap 15 mmol/L (10-20); BUN (Urea Nitrogen) Less than 4 mg/dL (8.9-20.6); Bilirubin, Total 0.7 mg/dL (0.2-1.2); Calc. Creatinine Clearance 101 mL/min (70-130); Calcium 8.7 mg/dL (7.8-10.44); Carbon Dioxide 23 mmol/L (22-29); Chloride 103 mmol/L (98-107); Globulin 3.1 g/dL (2.4-3.5); Glucose 74 mg/dL (70-105); Potassium 3.5 mmol/L (3.5-5.1); Protein, Total 6.1 g/dL (6.0-8.3); Sodium 137 mmol/L (136-145)
[2021-06-06] MEDS: Morphine 2 MG/ML VIAL SLOW IVP PRN (08:55)
[2021-06-06] MEDS: Amlodipine 10 MG TAB PO SCH (08:55)
[2021-06-06] MEDS: Multivitamin W/ Minerals 1 TAB PO SCH (08:55)
[2021-06-06] MEDS: Magnesium Oxide 400 MG TAB PO SCH (08:55)
[2021-06-06] MEDS: Thiamine 100 MG TAB PO SCH (08:55)
[2021-06-06] MEDS: Folic Acid 1 MG TAB PO SCH (08:55)
[2021-06-06] MEDS: Lactated Ringer's 1,000 ML IV SCH (08:56)
[2021-06-06] MEDS: Pantoprazole 40 MG VIAL IVP SCH (08:56)
[2021-06-06] MEDS ORDERED: Diazepam 5 MG TAB PO SCH ×3 (09:00→21:00)
[2021-06-06 09:06] VITALS: BMI 20.6
[2021-06-06 13:04] LABS: Syphilis Antibody Nonreactive (Nonreactive); Syphilis Antibody Index 0.05 S/CO (<1.00 Non-Reactive)
[2021-06-07] MEDS: Magnesium Oxide 400 MG TAB PO SCH (08:51)
[2021-06-07] MEDS: Amlodipine 10 MG TAB PO SCH (08:51)
[2021-06-07] MEDS: Multivitamin W/ Minerals 1 TAB PO SCH (08:51)
[2021-06-07] MEDS: Thiamine 100 MG TAB PO SCH (08:52)
[2021-06-07] MEDS: Folic Acid 1 MG TAB PO SCH (08:52)
[2021-06-07] MEDS ORDERED: Azithromycin 250 MG TAB PO SCH (09:00)
[2021-06-07] MEDS ORDERED: Diazepam 2 MG TAB PO SCH (09:00)
[2021-06-07 11:14] VITALS: BP 124/82; TEMP 98.3
[2021-06-07 13:27] LABS: EliA Thy New Method **** NEW METHOD ****; Thyroid Peroxidase IgG Ab Less than 4.0 IU/mL (<25 Normal)
[2021-06-07 21:35] LABS: Chlam.trachomatis by PCR,Urine Not Detected (NotDetected)
== END 2021-06-07 16:22 | disposition home or self-care (01) ==
LOC: ERS 21:11 → ERHOLD 06-05 03:00 → 2NO 06-05 12:39 → INTOOBSV 06-06 17:29 → OBSVTOIN 06-06 17:29
PROVIDERS: ADMIT Emergency Medicine; ATTEND Emergency Medicine
DX: K86.1 Other chronic pancreatitis (principal); K86.3 Pseudocyst of pancreas; E87.6 Hypokalemia; R19.7 Diarrhea, unspecified; E87.1 Hypo-osmolality and hyponatremia; D50.9 Iron deficiency anemia, unspecified; F10.20 Alcohol dependence, uncomplicated; R30.0 Dysuria; R36.9 Urethral discharge, unspecified; N40.0 Benign prostatic hyperplasia without lower urinary tract symptoms; E03.9 Hypothyroidism, unspecified; K76.0 Fatty (change of) liver, not elsewhere classified; D69.6 Thrombocytopenia, unspecified; I10 Essential (primary) hypertension; F43.10 Post-traumatic stress disorder, unspecified; F20.9 Schizophrenia, unspecified; R07.9 Chest pain, unspecified; I25.10 Atherosclerotic heart disease of native coronary artery without angina pectoris; K75.4 Autoimmune hepatitis; K21.9 Gastro-esophageal reflux disease without esophagitis; Z79.899 Other long term (current) drug therapy; Z88.2 Allergy status to sulfonamides; Z88.1 Allergy status to other antibiotic agents; Z88.8 Allergy status to other drugs, medicaments and biological substances; Z20.822 Contact with and (suspected) exposure to COVID-19
CPT/HCPCS: 36415; 70450; 71045; 74177; 80053; 81001; 82607; 82746; 83630; 83690; 83735; 83880; 83930; 83935; 84300; 84439; 84443; 84484; 85025; 85610; 85652; 85730; 86140; 86376; 86704; 86706; 86780; 86803; 87045; 87046; 87081; 87324; 87328; 87329; 87340; 87389; 87427; 87449; 87491; 87591; 93005; 96372; 96374; 96375; 96376; C9113; G0378; J2270; J3411; J3475; J3480; J3490; J7120; Q9967; U0002; U0005

== ENCOUNTER 2022-03-02 05:25 | Inpatient (IN) | payer OTHER ==
[2022-03-02 06:17] LABS: #Basophils 0.1 thou/uL (0.0-0.2); #Monocytes 0.5 thou/uL (0.11-0.59); #Neutrophils 3.1 thou/uL (1.40-6.50); %Basophils 1.1 % (0.0-1.0); %Eosinophils 0.5 % (0.0-10.0); %Lymphocytes 22.3 % (21.0-51.0); %Monocytes 10.4 % (0.0-10.0); %Neutrophils 65.6 % (42.0-75.0); Hemoglobin 14.9 g/dL (14.0-18.0); Mean Corpuscular HGB CONC 32.9 g/dL (32.0-36.0); Mean Corpuscular Hemoglobin 33.3 pg (27.0-31.0); Mean Platelet Volume 8.3 fL (7.4-10.4); Platelet Count 155 thou/uL (130-400); RBC Distribution Width 13.1 % (11.5-14.5); Red Blood Cell (RBC) Count 4.47 mill/uL (4.70-6.10); White Blood Cell (WBC) Count 4.7 thou/uL (4.8-10.8)
[2022-03-02 06:39] LABS: Bilirubin Negative (Negative); Blood, Urine Negative (Negative); Clarity Clear (Clear); Glucose, Urine (Dipstick) Normal (Negative); Ketone, Urine Negative (Negative); Leukocyte Negative Leu/uL (Negative); Nitrite Negative (Negative); Protein, Urine (Dipstick) Negative (Neg-Trace); Specific Gravity, Urine 1.019 (1.002-1.036); Urobilinogen Normal mg/dL (Less than 2); pH, Urine 5.5 (5.0-9.0)
[2022-03-02 06:40] LABS: ALT (SGPT) 9 U/L (8-55); AST (SGOT) 30 U/L (5-34); Albumin 3.9 g/dL (3.5-5.0); Alkaline Phosphatase 69 U/L (40-110); Anion Gap 16 mmol/L (10-20); BUN (Urea Nitrogen) 5 mg/dL (8.9-20.6); Bilirubin, Total 0.3 mg/dL (0.2-1.2); Calc. Creatinine Clearance 0 mL/min (70-130); Calcium 8.5 mg/dL (7.8-10.44); Carbon Dioxide 24 mmol/L (22-29); Chloride 100 mmol/L (98-107); Globulin 3.7 g/dL (2.4-3.5); Glucose 99 mg/dL (70-105); Lipase 828 U/L (8-78); Potassium 3.4 mmol/L (3.5-5.1); Protein, Total 7.6 g/dL (6.0-8.3); Sodium 137 mmol/L (136-145)
[2022-03-02] MEDS ORDERED: Ondansetron PF 4 MG/2 ML Vial ONE (09:54)
[2022-03-02] MEDS ORDERED: Morphine 4 MG/ML VIAL ONE ×2 (09:54→13:11)
[2022-03-02] MEDS ORDERED: Iopamidol-370 76% 500 ML 1 ML ONE (10:54)
[2022-03-02] MEDS ORDERED: Ondansetron ODT 4 MG TAB PO PRN (12:43)
[2022-03-02] MEDS ORDERED: Ondansetron PF 4 MG/2 ML Vial IVP PRN (12:43)
[2022-03-02] MEDS ORDERED: Morphine 2 MG/ML VIAL SLOW IVP PRN (12:53)
[2022-03-02 13:18] LABS: Alcohol 13 mg/dL (Less than 10); Magnesium 1.4 mg/dL (1.6-2.6); Phosphorus 4.1 mg/dL (2.3-4.7)
[2022-03-02] MEDS ORDERED: Folic Acid 1 MG TAB PO SCH (13:30)
[2022-03-02] MEDS ORDERED: Multivit, Therapeutic 1 TAB PO SCH (13:30)
[2022-03-02] MEDS: Thiamine HCl 200 MG/2 ML VIAL SLOW IVP SCH (15:14)
[2022-03-02] MEDS: Lactated Ringer's 1,000 ML IV SCH ×2 (15:19→20:15)
[2022-03-02 15:27] VITALS: BMI 21.6
[2022-03-02] MEDS: Morphine 4 MG/ML VIAL SLOW IVP PRN ×2 (16:46→23:14)
[2022-03-02] MEDS ORDERED: Potassium Chloride 20 MEQ TAB PO SCH (17:15)
[2022-03-02] MEDS: Magnesium Oxide 400 MG TAB PO SCH (20:08)
[2022-03-02] MEDS: Pantoprazole 40 MG VIAL IVP SCH (20:09)
[2022-03-02] MEDS: Morphine 2 MG/ML VIAL SLOW IVP PRN (20:10)
[2022-03-03] MEDS: Lactated Ringer's 1,000 ML IV SCH ×5 (01:42→16:48)
[2022-03-03] MEDS: Morphine 4 MG/ML VIAL SLOW IVP PRN ×5 (03:10→22:29)
[2022-03-03 04:18] LABS: Amphetamine Not Detected (NotDetected); Barbiturates Screen Not Detected (NotDetected); Benzodiazepine Screen Not Detected (NotDetected); Cocaine Metabolite Screen Not Detected (NotDetected); Methadone Not Detected (NotDetected); Methamphetamine Not Detected (NotDetected); Opiate Screen Detected (NotDetected); Oxycodone Screen Not Detected (NotDetected); Phencyclidine (PCP) Not Detected (NotDetected); THC/Cannabinoid Screen Not Detected (NotDetected); Tricyclic Screen Not Detected (NotDetected)
[2022-03-03] MEDS: Morphine 2 MG/ML VIAL SLOW IVP PRN ×4 (05:56→19:27)
[2022-03-03 06:56] LABS: Hemoglobin 13.5 g/dL (14.0-18.0); Mean Corpuscular Hemoglobin 33.8 pg (27.0-31.0); Mean Platelet Volume 7.6 fL (7.4-10.4); Platelet Count 131 thou/uL (130-400); RBC Distribution Width 13.3 % (11.5-14.5); Red Blood Cell (RBC) Count 4.01 mill/uL (4.70-6.10); White Blood Cell (WBC) Count 5.5 thou/uL (4.8-10.8)
[2022-03-03 07:06] LABS: ALT (SGPT) 9 U/L (8-55); AST (SGOT) 39 U/L (5-34); Albumin 3.4 g/dL (3.5-5.0); Alkaline Phosphatase 63 U/L (40-110); Anion Gap 10 mmol/L (10-20); BUN (Urea Nitrogen) Less than 4 mg/dL (8.9-20.6); Calc. Creatinine Clearance 108 mL/min (70-130); Calcium 8.5 mg/dL (7.8-10.44); Carbon Dioxide 28 mmol/L (22-29); Chloride 103 mmol/L (98-107); Globulin 3.1 g/dL (2.4-3.5); Glucose 119 mg/dL (70-105); Magnesium 1.5 mg/dL (1.6-2.6); Potassium 3.7 mmol/L (3.5-5.1); Protein, Total 6.5 g/dL (6.0-8.3); Sodium 137 mmol/L (136-145)
[2022-03-03 07:17] LABS: Phosphorus 2.4 mg/dL (2.3-4.7)
[2022-03-03 07:37] LABS: Band 4 % (5-11); Eosinophils 2 % (0-10); Lymphocytes 10 % (21-51); MDiff Complete? YES; Macrocytosis SLIGHT = 6-15 cells (100X) (0-5/hpf); Monocytes 10 % (0-10); Neutrophil 67 % (42-75); Platelet Morphology Comment Appears Adequate; Reactive Lymphocytes 7 % (0-10)
[2022-03-03] MEDS: Amlodipine 10 MG TAB PO SCH (07:51)
[2022-03-03] MEDS: Ferrous Sulfate 325 MG TAB PO SCH (07:51)
[2022-03-03] MEDS: Magnesium Oxide 400 MG TAB PO SCH ×2 (07:51→20:47)
[2022-03-03] MEDS: Pantoprazole 40 MG VIAL IVP SCH ×2 (07:51→20:47)
[2022-03-03] MEDS: Folic Acid 1 MG TAB PO SCH (07:51)
[2022-03-03] MEDS: Multivit, Therapeutic 1 TAB PO SCH (07:51)
[2022-03-03] MEDS: Thiamine HCl 200 MG/2 ML VIAL SLOW IVP SCH (12:33)
[2022-03-04] MEDS: Lactated Ringer's 1,000 ML IV SCH ×5 (01:39→20:43)
[2022-03-04] MEDS: Morphine 2 MG/ML VIAL SLOW IVP PRN ×4 (02:28→20:27)
[2022-03-04] MEDS: Morphine 4 MG/ML VIAL SLOW IVP PRN ×5 (05:41→22:11)
[2022-03-04 06:11] LABS: #Eosinphils 0.1 thou/uL (0.0-0.7); #Lymphocytes 0.8 thou/uL (1.20-3.40); #Monocytes 0.4 thou/uL (0.11-0.59); #Neutrophils 2.5 thou/uL (1.40-6.50); %Basophils 0.7 % (0.0-1.0); %Eosinophils 1.7 % (0.0-10.0); %Lymphocytes 22.2 % (21.0-51.0); %Monocytes 10.8 % (0.0-10.0); %Neutrophils 64.6 % (42.0-75.0); Hemoglobin 12.7 g/dL (14.0-18.0); Mean Corpuscular HGB CONC 32.7 g/dL (32.0-36.0); Mean Corpuscular Hemoglobin 33.6 pg (27.0-31.0); Platelet Count 128 thou/uL (130-400); Red Blood Cell (RBC) Count 3.79 mill/uL (4.70-6.10); White Blood Cell (WBC) Count 3.8 thou/uL (4.8-10.8)
[2022-03-04 06:38] LABS: ALT (SGPT) 99 U/L (8-55); AST (SGOT) 429 U/L (5-34); Albumin 3.3 g/dL (3.5-5.0); Alkaline Phosphatase 179 U/L (40-110); Anion Gap 12 mmol/L (10-20); BUN (Urea Nitrogen) Less than 4 mg/dL (8.9-20.6); Bilirubin, Total 2.1 mg/dL (0.2-1.2); Calc. Creatinine Clearance 107 mL/min (70-130); Calcium 8.4 mg/dL (7.8-10.44); Carbon Dioxide 26 mmol/L (22-29); Chloride 102 mmol/L (98-107); Globulin 3.3 g/dL (2.4-3.5); Glucose 96 mg/dL (70-105); Magnesium 1.4 mg/dL (1.6-2.6); Potassium 3.6 mmol/L (3.5-5.1); Protein, Total 6.6 g/dL (6.0-8.3); Sodium 136 mmol/L (136-145)
[2022-03-04] MEDS ORDERED: Magnesium 2 GM/50 ML(in water) 2 GM in Premix Bag 1 BAG IVPB SCH (07:00)
[2022-03-04] MEDS: Folic Acid 1 MG TAB PO SCH (07:59)
[2022-03-04] MEDS: Ferrous Sulfate 325 MG TAB PO SCH (07:59)
[2022-03-04] MEDS: Amlodipine 10 MG TAB PO SCH (07:59)
[2022-03-04] MEDS: Multivit, Therapeutic 1 TAB PO SCH (07:59)
[2022-03-04] MEDS: Pantoprazole 40 MG VIAL IVP SCH ×2 (08:00→22:26)
[2022-03-04] MEDS: Thiamine HCl 200 MG/2 ML VIAL SLOW IVP SCH (14:04)
[2022-03-04] MEDS ORDERED: Iopamidol 370 76% 100 ML VIAL ONE (14:58)
[2022-03-04] MEDS ORDERED: INVEGA SUSTENNA 234 MG/1.5 ML IM SCH (16:00)
[2022-03-04 16:23] LABS: ALT (SGPT) 86 U/L (8-55); AST (SGOT) 244 U/L (5-34); Albumin 3.6 g/dL (3.5-5.0); Alkaline Phosphatase 184 U/L (40-110); Anion Gap 13 mmol/L (10-20); BUN (Urea Nitrogen) Less than 4 mg/dL (8.9-20.6); Bilirubin, Total 1.8 mg/dL (0.2-1.2); Calc. Creatinine Clearance 113 mL/min (70-130); Calcium 8.7 mg/dL (7.8-10.44); Carbon Dioxide 25 mmol/L (22-29); Chloride 100 mmol/L (98-107); Globulin 3.5 g/dL (2.4-3.5); Glucose 97 mg/dL (70-105); Potassium 3.7 mmol/L (3.5-5.1); Protein, Total 7.1 g/dL (6.0-8.3); Sodium 134 mmol/L (136-145)
[2022-03-05] MEDS: Morphine 2 MG/ML VIAL SLOW IVP PRN ×8 (00:53→22:23)
[2022-03-05] MEDS: Lactated Ringer's 1,000 ML IV SCH ×5 (00:59→19:29)
[2022-03-05] MEDS: Morphine 4 MG/ML VIAL SLOW IVP PRN ×2 (02:49→06:53)
[2022-03-05 06:02] LABS: #Monocytes 0.6 thou/uL (0.11-0.59); #Neutrophils 4.7 thou/uL (1.40-6.50); %Basophils 0.4 % (0.0-1.0); %Eosinophils 0.5 % (0.0-10.0); %Lymphocytes 15.1 % (21.0-51.0); %Neutrophils 73.9 % (42.0-75.0); Hemoglobin 13.7 g/dL (14.0-18.0); Mean Corpuscular Hemoglobin 34.7 pg (27.0-31.0); Mean Platelet Volume 8.1 fL (7.4-10.4); Platelet Count 133 thou/uL (130-400); RBC Distribution Width 12.9 % (11.5-14.5); Red Blood Cell (RBC) Count 3.94 mill/uL (4.70-6.10); White Blood Cell (WBC) Count 6.3 thou/uL (4.8-10.8)
[2022-03-05 06:26] LABS: ALT (SGPT) 64 U/L (8-55); AST (SGOT) 120 U/L (5-34); Albumin 3.6 g/dL (3.5-5.0); Alkaline Phosphatase 165 U/L (40-110); Anion Gap 14 mmol/L (10-20); BUN (Urea Nitrogen) Less than 4 mg/dL (8.9-20.6); Bilirubin, Total 1.1 mg/dL (0.2-1.2); Calc. Creatinine Clearance 110 mL/min (70-130); Calcium 8.9 mg/dL (7.8-10.44); Carbon Dioxide 26 mmol/L (22-29); Chloride 96 mmol/L (98-107); Globulin 3.5 g/dL (2.4-3.5); Glucose 113 mg/dL (70-105); Potassium 3.5 mmol/L (3.5-5.1); Protein, Total 7.1 g/dL (6.0-8.3); Sodium 132 mmol/L (136-145)
[2022-03-05] MEDS: Amlodipine 10 MG TAB PO SCH (08:09)
[2022-03-05] MEDS: Folic Acid 1 MG TAB PO SCH (08:09)
[2022-03-05] MEDS: Pantoprazole 40 MG VIAL IVP SCH ×2 (08:09→19:30)
[2022-03-05] MEDS: Ferrous Sulfate 325 MG TAB PO SCH (08:09)
[2022-03-05] MEDS: Multivit, Therapeutic 1 TAB PO SCH (08:09)
[2022-03-05] MEDS ORDERED: Senokot S 8.6-50 MG TAB PO SCH (10:45)
[2022-03-05] MEDS ORDERED: Acetaminophen 500 MG TAB PO PRN (12:06)
[2022-03-05] MEDS: Thiamine 100 MG TAB PO SCH (13:17)
[2022-03-05] MEDS ORDERED: Fentanyl 100 MCG/2 ML VIAL SLOW IVP PRN (13:28)
[2022-03-05] MEDS ORDERED: Hydrochlorothiazide 25 MG TAB PO SCH (13:30)
[2022-03-05] MEDS: Senokot S 8.6-50 MG TAB PO SCH (19:29)
[2022-03-06] MEDS: Lactated Ringer's 1,000 ML IV SCH ×4 (02:25→17:53)
[2022-03-06] MEDS: Morphine 2 MG/ML VIAL SLOW IVP PRN ×7 (02:25→23:54)
[2022-03-06 06:29] LABS: #Lymphocytes 0.8 thou/uL (1.20-3.40); #Monocytes 0.8 thou/uL (0.11-0.59); #Neutrophils 5.9 thou/uL (1.40-6.50); %Basophils 0.2 % (0.0-1.0); %Eosinophils 0.1 % (0.0-10.0); %Lymphocytes 10.8 % (21.0-51.0); %Monocytes 10.4 % (0.0-10.0); %Neutrophils 78.5 % (42.0-75.0); Hemoglobin 14.1 g/dL (14.0-18.0); Mean Corpuscular HGB CONC 34.4 g/dL (32.0-36.0); Mean Corpuscular Hemoglobin 34.2 pg (27.0-31.0); Mean Corpuscular Volume 99.3 fL (78.0-98.0); Mean Platelet Volume 8.1 fL (7.4-10.4); Platelet Count 127 thou/uL (130-400); RBC Distribution Width 12.6 % (11.5-14.5); Red Blood Cell (RBC) Count 4.12 mill/uL (4.70-6.10); White Blood Cell (WBC) Count 7.5 thou/uL (4.8-10.8)
[2022-03-06 06:56] LABS: ALT (SGPT) 43 U/L (8-55); AST (SGOT) 51 U/L (5-34); Albumin 3.7 g/dL (3.5-5.0); Alkaline Phosphatase 141 U/L (40-110); Anion Gap 16 mmol/L (10-20); BUN (Urea Nitrogen) 4 mg/dL (8.9-20.6); Bilirubin, Total 1.2 mg/dL (0.2-1.2); Calc. Creatinine Clearance 97 mL/min (70-130); Carbon Dioxide 27 mmol/L (22-29); Chloride 91 mmol/L (98-107); Globulin 3.7 g/dL (2.4-3.5); Glucose 118 mg/dL (70-105); Potassium 3.8 mmol/L (3.5-5.1); Protein, Total 7.4 g/dL (6.0-8.3); Sodium 130 mmol/L (136-145)
[2022-03-06] MEDS: Amlodipine 10 MG TAB PO SCH (08:26)
[2022-03-06] MEDS: Multivit, Therapeutic 1 TAB PO SCH (08:26)
[2022-03-06] MEDS: Ferrous Sulfate 325 MG TAB PO SCH (08:26)
[2022-03-06] MEDS: Senokot S 8.6-50 MG TAB PO SCH ×2 (08:29→20:33)
[2022-03-06] MEDS: Pantoprazole 40 MG VIAL IVP SCH ×2 (08:29→20:33)
[2022-03-06] MEDS: Folic Acid 1 MG TAB PO SCH (08:29)
[2022-03-06] MEDS ORDERED: Hydrochlorothiazide 25 MG TAB PO SCH (09:00)
[2022-03-06] MEDS ORDERED: Calcium Carbonate 500 MG ChewTAB PO PRN (09:02)
[2022-03-06] MEDS: Polyethylene Glycol 3350 17 GM Packet PO SCH (09:41)
[2022-03-06 13:11] LABS: Magnesium 1.6 mg/dL (1.6-2.6); Phosphorus 2.8 mg/dL (2.3-4.7)
[2022-03-06] MEDS: Thiamine 100 MG TAB PO SCH (14:01)
[2022-03-07] MEDS: Lactated Ringer's 1,000 ML IV SCH ×3 (04:37→06:27)
[2022-03-07] MEDS: Morphine 2 MG/ML VIAL SLOW IVP PRN ×4 (04:38→20:04)
[2022-03-07 06:52] LABS: #Lymphocytes 1.3 thou/uL (1.20-3.40); #Monocytes 0.9 thou/uL (0.11-0.59); #Neutrophils 4.9 thou/uL (1.40-6.50); %Basophils 0.5 % (0.0-1.0); %Eosinophils 0.4 % (0.0-10.0); %Lymphocytes 17.7 % (21.0-51.0); %Monocytes 12.5 % (0.0-10.0); %Neutrophils 68.9 % (42.0-75.0); Hemoglobin 14.8 g/dL (14.0-18.0); Mean Corpuscular HGB CONC 33.9 g/dL (32.0-36.0); Mean Platelet Volume 8.3 fL (7.4-10.4); Platelet Count 142 thou/uL (130-400); RBC Distribution Width 12.4 % (11.5-14.5); Red Blood Cell (RBC) Count 4.35 mill/uL (4.70-6.10); White Blood Cell (WBC) Count 7.1 thou/uL (4.8-10.8)
[2022-03-07 07:17] LABS: ALT (SGPT) 30 U/L (8-55); AST (SGOT) 30 U/L (5-34); Albumin 3.9 g/dL (3.5-5.0); Alkaline Phosphatase 122 U/L (40-110); Anion Gap 15 mmol/L (10-20); BUN (Urea Nitrogen) 4 mg/dL (8.9-20.6); Bilirubin, Total 1.4 mg/dL (0.2-1.2); Calc. Creatinine Clearance 101 mL/min (70-130); Carbon Dioxide 25 mmol/L (22-29); Chloride 93 mmol/L (98-107); Globulin 3.8 g/dL (2.4-3.5); Glucose 108 mg/dL (70-105); Magnesium 1.7 mg/dL (1.6-2.6); Potassium 3.1 mmol/L (3.5-5.1); Protein, Total 7.7 g/dL (6.0-8.3); Sodium 130 mmol/L (136-145)
[2022-03-07 07:24] LABS: Phosphorus 2.2 mg/dL (2.3-4.7)
[2022-03-07] MEDS: Pantoprazole 40 MG VIAL IVP SCH ×2 (08:08→20:06)
[2022-03-07] MEDS: Hydrochlorothiazide 25 MG TAB PO SCH (08:08)
[2022-03-07] MEDS: Senokot S 8.6-50 MG TAB PO SCH ×2 (08:08→20:06)
[2022-03-07] MEDS: Folic Acid 1 MG TAB PO SCH (08:08)
[2022-03-07] MEDS: Multivit, Therapeutic 1 TAB PO SCH (08:08)
[2022-03-07] MEDS: Ferrous Sulfate 325 MG TAB PO SCH (08:08)
[2022-03-07] MEDS: Polyethylene Glycol 3350 17 GM Packet PO SCH (08:08)
[2022-03-07] MEDS: Amlodipine 10 MG TAB PO SCH (08:09)
[2022-03-07] MEDS ORDERED: Potassium Chloride 20 MEQ TAB PO SCH (09:00)
[2022-03-07] MEDS ORDERED: PHOS-NAK 1 PKT PACK PO SCH (09:00)
[2022-03-07] MEDS ORDERED: Magnesium 2 GM/50 ML(in water) 2 GM in Premix Bag 1 BAG IVPB SCH (09:00)
[2022-03-07] MEDS: Thiamine 100 MG TAB PO SCH (13:47)
[2022-03-07] MEDS ORDERED: Fentanyl 100 MCG/2 ML VIAL SLOW IVP SCH (19:15)
[2022-03-08] MEDS: Morphine 2 MG/ML VIAL SLOW IVP PRN (01:53)
[2022-03-08 07:53] LABS: ALT (SGPT) 24 U/L (8-55); AST (SGOT) 20 U/L (5-34); Alkaline Phosphatase 123 U/L (40-110); Anion Gap 12 mmol/L (10-20); BUN (Urea Nitrogen) 5 mg/dL (8.9-20.6); Bilirubin, Total 1.4 mg/dL (0.2-1.2); Calc. Creatinine Clearance 88 mL/min (70-130); Calcium 9.4 mg/dL (7.8-10.44); Carbon Dioxide 31 mmol/L (22-29); Chloride 86 mmol/L (98-107); Globulin 4.2 g/dL (2.4-3.5); Glucose 132 mg/dL (70-105); Potassium 3.3 mmol/L (3.5-5.1); Protein, Total 8.2 g/dL (6.0-8.3); Sodium 126 mmol/L (136-145)
[2022-03-08 08:02] LABS: Eosinophils 1 % (0-10); Hemoglobin 14.9 g/dL (14.0-18.0); Lymphocytes 15 % (21-51); MDiff Complete? YES; Macrocytosis SLIGHT = 6-15 cells (100X) (0-5/hpf); Mean Corpuscular HGB CONC 33.6 g/dL (32.0-36.0); Mean Corpuscular Hemoglobin 33.7 pg (27.0-31.0); Mean Platelet Volume 8.2 fL (7.4-10.4); Monocytes 17 % (0-10); Neutrophil 66 % (42-75); Platelet Count 140 thou/uL (130-400); Platelet Morphology Comment Appears Adequate; RBC Distribution Width 12.1 % (11.5-14.5); Reactive Lymphocytes 1 % (0-10); Red Blood Cell (RBC) Count 4.42 mill/uL (4.70-6.10); White Blood Cell (WBC) Count 6.1 thou/uL (4.8-10.8)
[2022-03-08] MEDS ORDERED: Morphine 2 MG/ML VIAL SLOW IVP PRN ×3 (08:15→12:45)
[2022-03-08] MEDS: Ferrous Sulfate 325 MG TAB PO SCH (08:26)
[2022-03-08] MEDS: Amlodipine 10 MG TAB PO SCH (08:26)
[2022-03-08] MEDS: Polyethylene Glycol 3350 17 GM Packet PO SCH (08:26)
[2022-03-08] MEDS: Folic Acid 1 MG TAB PO SCH (08:26)
[2022-03-08] MEDS: Hydrochlorothiazide 25 MG TAB PO SCH (08:27)
[2022-03-08] MEDS: Multivit, Therapeutic 1 TAB PO SCH (08:27)
[2022-03-08] MEDS: Senokot S 8.6-50 MG TAB PO SCH ×2 (08:27→20:23)
[2022-03-08] MEDS: Pantoprazole 40 MG VIAL IVP SCH (08:30)
[2022-03-08] MEDS: Glycerin Adult Supp. (24 ct jar) PR PRN (11:02)
[2022-03-08] MEDS: Ketorolac Tromethamine 30 MG/ML VIAL IVP PRN ×2 (13:43→20:23)
[2022-03-08] MEDS: Thiamine 100 MG TAB PO SCH (13:43)
[2022-03-08 14:35] LABS: ALT (SGPT) 22 U/L (8-55); AST (SGOT) 20 U/L (5-34); Albumin 3.9 g/dL (3.5-5.0); Alkaline Phosphatase 117 U/L (40-110); Anion Gap 12 mmol/L (10-20); BUN (Urea Nitrogen) 5 mg/dL (8.9-20.6); Bilirubin, Total 1.3 mg/dL (0.2-1.2); Calc. Creatinine Clearance 92 mL/min (70-130); Calcium 9.1 mg/dL (7.8-10.44); Carbon Dioxide 30 mmol/L (22-29); Chloride 86 mmol/L (98-107); Globulin 4.2 g/dL (2.4-3.5); Glucose 119 mg/dL (70-105); Potassium 3.2 mmol/L (3.5-5.1); Protein, Total 8.1 g/dL (6.0-8.3); Sodium 125 mmol/L (136-145)
[2022-03-08] MEDS: Carvedilol 3.125 MG TAB PO SCH (16:41)
[2022-03-08] MEDS ORDERED: PHOS-NAK 1 PKT PACK PO SCH (17:00)
[2022-03-09] MEDS: Ketorolac Tromethamine 30 MG/ML VIAL IVP PRN (02:22)
[2022-03-09 06:41] LABS: Band 14 % (5-11); Hypochromia SLIGHT = 6-15 cells (100X) (0-5/hpf); Lymphocytes 10 % (21-51); MDiff Complete? YES; Mean Corpuscular HGB CONC 34.3 g/dL (32.0-36.0); Mean Corpuscular Volume 99.1 fL (78.0-98.0); Mean Platelet Volume 8.4 fL (7.4-10.4); Monocytes 14 % (0-10); Neutrophil 57 % (42-75); Platelet Count 150 thou/uL (130-400); Platelet Morphology Comment Appears Adequate; Reactive Lymphocytes 5 % (0-10); Red Blood Cell (RBC) Count 4.11 mill/uL (4.70-6.10); White Blood Cell (WBC) Count 6.6 thou/uL (4.8-10.8)
[2022-03-09 06:45] LABS: ALT (SGPT) 17 U/L (8-55); AST (SGOT) 18 U/L (5-34); Albumin 3.6 g/dL (3.5-5.0); Alkaline Phosphatase 101 U/L (40-110); Anion Gap 11 mmol/L (10-20); BUN (Urea Nitrogen) 12 mg/dL (8.9-20.6); Bilirubin, Total 1.3 mg/dL (0.2-1.2); Calc. Creatinine Clearance 80 mL/min (70-130); Calcium 9.2 mg/dL (7.8-10.44); Carbon Dioxide 32 mmol/L (22-29); Chloride 85 mmol/L (98-107); Globulin 3.8 g/dL (2.4-3.5); Glucose 107 mg/dL (70-105); Magnesium 2.1 mg/dL (1.6-2.6); Potassium 3.3 mmol/L (3.5-5.1); Protein, Total 7.4 g/dL (6.0-8.3); Sodium 125 mmol/L (136-145)
[2022-03-09] MEDS ORDERED: Potassium Chloride 20 MEQ TAB PO SCH (08:30)
[2022-03-09] MEDS: Senokot S 8.6-50 MG TAB PO SCH ×2 (09:02→20:36)
[2022-03-09] MEDS: Ferrous Sulfate 325 MG TAB PO SCH (09:02)
[2022-03-09] MEDS: Amlodipine 10 MG TAB PO SCH (09:02)
[2022-03-09] MEDS: Carvedilol 3.125 MG TAB PO SCH ×2 (09:02→16:22)
[2022-03-09] MEDS: Folic Acid 1 MG TAB PO SCH (09:04)
[2022-03-09] MEDS: Multivit, Therapeutic 1 TAB PO SCH (09:04)
[2022-03-09] MEDS: Polyethylene Glycol 3350 17 GM Packet PO SCH (09:04)
[2022-03-09] MEDS: Ibuprofen 600 MG TAB PO PRN ×2 (11:03→18:27)
[2022-03-09] MEDS: Thiamine 100 MG TAB PO SCH (13:19)
[2022-03-09] MEDS: Glycerin Adult Supp. (24 ct jar) PR PRN (13:20)
[2022-03-09 13:51] LABS: ALT (SGPT) 109 U/L (8-55); AST (SGOT) 504 U/L (5-34); Albumin 3.4 g/dL (3.5-5.0); Alkaline Phosphatase 295 U/L (40-110); Anion Gap 13 mmol/L (10-20); BUN (Urea Nitrogen) 11 mg/dL (8.9-20.6); Bilirubin, Total 2.6 mg/dL (0.2-1.2); Calc. Creatinine Clearance 98 mL/min (70-130); Calcium 8.8 mg/dL (7.8-10.44); Carbon Dioxide 28 mmol/L (22-29); Chloride 86 mmol/L (98-107); Globulin 3.6 g/dL (2.4-3.5); Glucose 112 mg/dL (70-105); Potassium 3.5 mmol/L (3.5-5.1); Sodium 123 mmol/L (136-145)
[2022-03-09 16:15] LABS: ALT (SGPT) 231 U/L (8-55); AST (SGOT) 984 U/L (5-34); Albumin 3.4 g/dL (3.5-5.0); Alkaline Phosphatase 340 U/L (40-110); Anion Gap 12 mmol/L (10-20); BUN (Urea Nitrogen) 10 mg/dL (8.9-20.6); Bilirubin, Total 3.3 mg/dL (0.2-1.2); Calc. Creatinine Clearance 89 mL/min (70-130); Calcium 8.8 mg/dL (7.8-10.44); Carbon Dioxide 30 mmol/L (22-29); Chloride 86 mmol/L (98-107); Globulin 3.6 g/dL (2.4-3.5); Glucose 106 mg/dL (70-105); Potassium 3.6 mmol/L (3.5-5.1); Sodium 124 mmol/L (136-145)
[2022-03-09] MEDS ORDERED: Sodium Chloride 0.9% 1,000 ML IV SCH ×2 (18:15→19:00)
[2022-03-09 18:58] LABS: Cardiac Risk 2.3 (Less than 4.5)
[2022-03-09 23:05] LABS: Anion Gap 9 mmol/L (10-20); BUN (Urea Nitrogen) 8 mg/dL (8.9-20.6); Calc. Creatinine Clearance 100 mL/min (70-130); Calcium 8.1 mg/dL (7.8-10.44); Carbon Dioxide 25 mmol/L (22-29); Chloride 94 mmol/L (98-107); Glucose 129 mg/dL (70-105); Potassium 3.4 mmol/L (3.5-5.1); Sodium 125 mmol/L (136-145)
[2022-03-10] MEDS: Ibuprofen 600 MG TAB PO PRN ×3 (00:19→14:36)
[2022-03-10 07:03] LABS: Hemoglobin 12.8 g/dL (14.0-18.0); Mean Corpuscular HGB CONC 34.1 g/dL (32.0-36.0); Mean Corpuscular Hemoglobin 34.6 pg (27.0-31.0); Platelet Count 166 thou/uL (130-400); Red Blood Cell (RBC) Count 3.69 mill/uL (4.70-6.10)
[2022-03-10 07:05] LABS: INR-International Normal Ratio 1.1; Prothrombin Time 14.2 sec (12.0-14.7)
[2022-03-10 08:02] LABS: Lymphocytes 12 % (21-51); MDiff Complete? YES; Monocytes 20 % (0-10); Neutrophil 68 % (42-75); Platelet Morphology Comment Appears Adequate
[2022-03-10 08:59] LABS: Iron Binding Capacity, Total 204 mcg/dL (261-462)
[2022-03-10 09:00] LABS: Globulin 3.5 g/dL (2.4-3.5)
[2022-03-10 09:39] LABS: Albumin 3.3 g/dL (3.5-5.0)
[2022-03-10 09:40] LABS: Chloride 92 mmol/L (98-107); Potassium 3.4 mmol/L (3.5-5.1); Sodium 127 mmol/L (136-145)
[2022-03-10 09:41] LABS: Calcium 8.6 mg/dL (7.8-10.44)
[2022-03-10 09:42] LABS: Glucose 112 mg/dL (70-105); Protein, Total 6.8 g/dL (6.0-8.3)
[2022-03-10 09:43] LABS: Anion Gap 12 mmol/L (10-20); Bilirubin, Total 3.2 mg/dL (0.2-1.2); Carbon Dioxide 26 mmol/L (22-29)
[2022-03-10 09:44] LABS: Alkaline Phosphatase 368 U/L (40-110)
[2022-03-10 09:45] LABS: Calc. Creatinine Clearance 96 mL/min (70-130)
[2022-03-10 09:46] LABS: BUN (Urea Nitrogen) 7 mg/dL (8.9-20.6)
[2022-03-10 09:47] LABS: ALT (SGPT) 381 U/L (8-55); AST (SGOT) 951 U/L (5-34)
[2022-03-10 09:53] LABS: Iron 31 ug/dL (65-175)
[2022-03-10 10:19] LABS: HBCM Index 0.08 S/CO (0-0.79); HBSAg Index 0.22 S/CO (0-0.99); Hep A IgM AB Non-Reactive (NonReactive); Hep A IgM S/CO 0.18 S/CO (0-0.79); Hep B Surf Ag Non-Reactive S/CO (NonReactive); Hep C IgG Ab Non-Reactive (NonReactive); Hep C Index 0.43 S/CO (0-0.79); Hepatitis B Core IgM Abs Non-Reactive (NonReactive)
[2022-03-10] MEDS: Polyethylene Glycol 3350 17 GM Packet PO SCH (11:52)
[2022-03-10] MEDS: Senokot S 8.6-50 MG TAB PO SCH ×2 (11:52→20:04)
[2022-03-10] MEDS: Multivit, Therapeutic 1 TAB PO SCH (11:52)
[2022-03-10] MEDS: Carvedilol 3.125 MG TAB PO SCH ×2 (11:53→18:17)
[2022-03-10] MEDS: Folic Acid 1 MG TAB PO SCH (12:17)
[2022-03-10] MEDS: Amlodipine 10 MG TAB PO SCH (12:18)
[2022-03-10] MEDS: Thiamine 100 MG TAB PO SCH (14:36)
[2022-03-10] MEDS ORDERED: Ibuprofen 200 MG TAB PO PRN (15:52)
[2022-03-11 06:43] LABS: ALT (SGPT) 342 U/L (8-55); AST (SGOT) 531 U/L (5-34); Albumin 3.2 g/dL (3.5-5.0); Alkaline Phosphatase 431 U/L (40-110); Anion Gap 12 mmol/L (10-20); BUN (Urea Nitrogen) 4 mg/dL (8.9-20.6); Bilirubin, Total 3.1 mg/dL (0.2-1.2); Calc. Creatinine Clearance 104 mL/min (70-130); Calcium 8.6 mg/dL (7.8-10.44); Carbon Dioxide 24 mmol/L (22-29); Chloride 97 mmol/L (98-107); Globulin 3.6 g/dL (2.4-3.5); Glucose 169 mg/dL (70-105); Potassium 3.3 mmol/L (3.5-5.1); Protein, Total 6.8 g/dL (6.0-8.3); Sodium 130 mmol/L (136-145)
[2022-03-11 06:53] LABS: Eosinophils 1 % (0-10); Hemoglobin 12.2 g/dL (14.0-18.0); Lymphocytes 1 % (21-51); MDiff Complete? YES; Macrocytosis SLIGHT = 6-15 cells (100X) (0-5/hpf); Mean Corpuscular HGB CONC 33.5 g/dL (32.0-36.0); Mean Corpuscular Hemoglobin 34.1 pg (27.0-31.0); Mean Platelet Volume 8.4 fL (7.4-10.4); Monocytes 19 % (0-10); Neutrophil 79 % (42-75); Platelet Count 203 thou/uL (130-400); Platelet Morphology Comment Appears Adequate; RBC Distribution Width 11.9 % (11.5-14.5); White Blood Cell (WBC) Count 7.2 thou/uL (4.8-10.8)
[2022-03-11] MEDS ORDERED: Ibuprofen 600 MG TAB PO PRN (08:02)
[2022-03-11] MEDS ORDERED: Potassium Chloride 20 MEQ TAB PO SCH (08:15)
[2022-03-11] MEDS: Multivit, Therapeutic 1 TAB PO SCH (08:21)
[2022-03-11] MEDS: Senokot S 8.6-50 MG TAB PO SCH ×2 (08:21→21:41)
[2022-03-11] MEDS: Amlodipine 10 MG TAB PO SCH (08:21)
[2022-03-11] MEDS: Carvedilol 3.125 MG TAB PO SCH ×2 (08:21→15:49)
[2022-03-11] MEDS: Folic Acid 1 MG TAB PO SCH (08:21)
[2022-03-11] MEDS: Polyethylene Glycol 3350 17 GM Packet PO SCH (08:22)
[2022-03-11] MEDS ORDERED: Ibuprofen 200 MG TAB PO SCH ×2 (15:30→18:00)
[2022-03-11 15:39] LABS: Anion Gap 12 mmol/L (10-20); BUN (Urea Nitrogen) 4 mg/dL (8.9-20.6); Calc. Creatinine Clearance 105 mL/min (70-130); Calcium 8.7 mg/dL (7.8-10.44); Carbon Dioxide 25 mmol/L (22-29); Chloride 95 mmol/L (98-107); Glucose 148 mg/dL (70-105); Potassium 3.7 mmol/L (3.5-5.1); Sodium 128 mmol/L (136-145)
[2022-03-11] MEDS: Thiamine 100 MG TAB PO SCH (15:49)
[2022-03-11] MEDS ORDERED: Ibuprofen 600 MG TAB PO SCH (18:00)
[2022-03-11] MEDS: Ibuprofen 200 MG TAB PO PRN (22:02)
[2022-03-12] MEDS: Ibuprofen 200 MG TAB PO PRN (04:54)
[2022-03-12 05:48] LABS: #Eosinphils 0.2 thou/uL (0.0-0.7); #Lymphocytes 1.4 thou/uL (1.20-3.40); #Monocytes 0.3 thou/uL (0.11-0.59); #Neutrophils 1.2 thou/uL (1.40-6.50); %Basophils 1.5 % (0.0-1.0); %Eosinophils 7.4 % (0.0-10.0); %Lymphocytes 43.3 % (21.0-51.0); %Monocytes 9.9 % (0.0-10.0); %Neutrophils 37.9 % (42.0-75.0); Hemoglobin 12.1 g/dL (14.0-18.0); Mean Corpuscular Hemoglobin 33.3 pg (27.0-31.0); Mean Platelet Volume 8.3 fL (7.4-10.4); Platelet Count 197 thou/uL (130-400); RBC Distribution Width 12.8 % (11.5-14.5); Red Blood Cell (RBC) Count 3.62 mill/uL (4.70-6.10); White Blood Cell (WBC) Count 3.1 thou/uL (4.8-10.8)
[2022-03-12 06:29] LABS: ALT (SGPT) 7 U/L (8-55); AST (SGOT) 31 U/L (5-34); Albumin 3.7 g/dL (3.5-5.0); Alkaline Phosphatase 41 U/L (40-110); Anion Gap 10 mmol/L (10-20); BUN (Urea Nitrogen) 23 mg/dL (8.9-20.6); Bilirubin, Total 0.5 mg/dL (0.2-1.2); Calc. Creatinine Clearance 85 mL/min (70-130); Calcium 9.5 mg/dL (7.8-10.44); Carbon Dioxide 28 mmol/L (22-29); Chloride 105 mmol/L (98-107); Globulin 3.1 g/dL (2.4-3.5); Glucose 136 mg/dL (70-105); Magnesium 1.4 mg/dL (1.6-2.6); Potassium 3.9 mmol/L (3.5-5.1); Protein, Total 6.8 g/dL (6.0-8.3); Sodium 139 mmol/L (136-145)
[2022-03-12] MEDS ORDERED: Magnesium 2 GM/50 ML(in water) 2 GM in Premix Bag 1 BAG IVPB SCH (07:00)
[2022-03-12 08:39] VITALS: TEMP 98.2
[2022-03-12] MEDS ORDERED: Ferrous Sulfate 325 MG TAB PO SCH (09:00)
[2022-03-12] MEDS: Folic Acid 1 MG TAB PO SCH (09:19)
[2022-03-12] MEDS: Senokot S 8.6-50 MG TAB PO SCH (09:19)
[2022-03-12] MEDS: Multivit, Therapeutic 1 TAB PO SCH (09:19)
[2022-03-12] MEDS: Polyethylene Glycol 3350 17 GM Packet PO SCH (09:19)
[2022-03-12] MEDS: Carvedilol 3.125 MG TAB PO SCH (09:20)
[2022-03-12] MEDS: Amlodipine 10 MG TAB PO SCH (09:20)
[2022-03-12 11:25] LABS: #Basophils 0.1 thou/uL (0.0-0.2); #Eosinphils 0.2 thou/uL (0.0-0.7); #Lymphocytes 1.2 thou/uL (1.20-3.40); #Monocytes 0.9 thou/uL (0.11-0.59); %Eosinophils 3.7 % (0.0-10.0); %Lymphocytes 18.2 % (21.0-51.0); %Monocytes 14.5 % (0.0-10.0); %Neutrophils 62.6 % (42.0-75.0); Mean Corpuscular HGB CONC 32.9 g/dL (32.0-36.0); Mean Corpuscular Hemoglobin 34.5 pg (27.0-31.0); Mean Platelet Volume 8.4 fL (7.4-10.4); Platelet Count 276 thou/uL (130-400); RBC Distribution Width 11.9 % (11.5-14.5); Red Blood Cell (RBC) Count 3.78 mill/uL (4.70-6.10); White Blood Cell (WBC) Count 6.4 thou/uL (4.8-10.8)
[2022-03-12 11:48] LABS: ALT (SGPT) 329 U/L (8-55); AST (SGOT) 409 U/L (5-34); Albumin 3.3 g/dL (3.5-5.0); Alkaline Phosphatase 434 U/L (40-110); Anion Gap 12 mmol/L (10-20); BUN (Urea Nitrogen) Less than 4 mg/dL (8.9-20.6); Bilirubin, Total 4.1 mg/dL (0.2-1.2); Calc. Creatinine Clearance 112 mL/min (70-130); Calcium 8.7 mg/dL (7.8-10.44); Carbon Dioxide 25 mmol/L (22-29); Chloride 96 mmol/L (98-107); Globulin 3.9 g/dL (2.4-3.5); Glucose 175 mg/dL (70-105); Potassium 3.6 mmol/L (3.5-5.1); Protein, Total 7.2 g/dL (6.0-8.3); Sodium 129 mmol/L (136-145)
[2022-03-12 12:18] VITALS: BP 150/93
[2022-03-12 12:21] LABS: ALT (SGPT) 331 U/L (8-55); AST (SGOT) 410 U/L (5-34); Albumin 3.3 g/dL (3.5-5.0); Alkaline Phosphatase 435 U/L (40-110); Bilirubin, Direct 2.8 mg/dL (0.1-0.3); Bilirubin, Total 4.1 mg/dL (0.2-1.2); Protein, Total 7.2 g/dL (6.0-8.3)
[2022-03-13 12:34] LABS: EliA Vaculitis New Method **** NEW METHOD ****; Mitochondrial Ab 1.2 U/mL (<4 Negative)
== END 2022-03-12 13:35 | disposition home or self-care (01) | DRG 439 ==
LOC: ERS 05:25 → T4-B 11:55 → OBSVTOIN 11:55
PROVIDERS: ADMIT Emergency Medicine; ATTEND Family Medicine
DX: K85.20 Alcohol induced acute pancreatitis without necrosis or infection (principal); K86.3 Pseudocyst of pancreas; E87.1 Hypo-osmolality and hyponatremia; Z20.822 Contact with and (suspected) exposure to COVID-19; K86.0 Alcohol-induced chronic pancreatitis; F41.9 Anxiety disorder, unspecified; F32.A Depression, unspecified; I10 Essential (primary) hypertension; E78.5 Hyperlipidemia, unspecified; F20.9 Schizophrenia, unspecified; F10.20 Alcohol dependence, uncomplicated; K74.3 Primary biliary cirrhosis; I45.6 Pre-excitation syndrome; Z60.2 Problems related to living alone; K70.10 Alcoholic hepatitis without ascites; R30.0 Dysuria; E83.42 Hypomagnesemia; K59.00 Constipation, unspecified; Z88.1 Allergy status to other antibiotic agents; Z88.2 Allergy status to sulfonamides; Z88.8 Allergy status to other drugs, medicaments and biological substances; Z79.899 Other long term (current) drug therapy; Z98.890 Other specified postprocedural states; Z90.49 Acquired absence of other specified parts of digestive tract; Z82.49 Family history of ischemic heart disease and other diseases of the circulatory system; Z86.2 Personal history of diseases of the blood and blood-forming organs and certain disorders involving the immune mechanism
CPT/HCPCS: 36415; 74160; 74177; 74183; 76700; 80053; 80061; 80074; 80306; 80307; 81003; 83516; 83540; 83550; 83690; 83735; 83930; 83935; 84100; 84300; 84443; 85025; 85610; 86015; 93005; 96361; 96374; 96375; 96376; C9113; J1885; J2270; J2405; J3010; J3411; J3475; J7050; J7120; Q0162; Q9967; U0003; U0005

== ENCOUNTER 2022-03-27 11:18 | Inpatient (IN) | payer OTHER ==
[2022-03-27 11:58] LABS: #Eosinphils 0.1 thou/uL (0.0-0.7); #Lymphocytes 1.7 thou/uL (1.20-3.40); #Monocytes 1.1 thou/uL (0.11-0.59); #Neutrophils 5.6 thou/uL (1.40-6.50); %Basophils 0.5 % (0.0-1.0); %Eosinophils 1.5 % (0.0-10.0); %Lymphocytes 20.1 % (21.0-51.0); %Monocytes 12.4 % (0.0-10.0); %Neutrophils 65.7 % (42.0-75.0); Hemoglobin 13.6 g/dL (14.0-18.0); Mean Corpuscular HGB CONC 33.4 g/dL (32.0-36.0); Mean Corpuscular Hemoglobin 34.9 pg (27.0-31.0); Mean Platelet Volume 7.6 fL (7.4-10.4); Platelet Count 239 thou/uL (130-400); RBC Distribution Width 13.2 % (11.5-14.5); Red Blood Cell (RBC) Count 3.89 mill/uL (4.70-6.10); White Blood Cell (WBC) Count 8.6 thou/uL (4.8-10.8)
[2022-03-27 12:09] LABS: INR-International Normal Ratio 1.1; Prothrombin Time 14.7 sec (12.0-14.7)
[2022-03-27 12:10] LABS: PTT 32.9 sec (22.9-36.1)
[2022-03-27 12:23] LABS: ALT (SGPT) 21 U/L (8-55); AST (SGOT) 18 U/L (5-34); Albumin 3.2 g/dL (3.5-5.0); Alkaline Phosphatase 351 U/L (40-110); Anion Gap 12 mmol/L (10-20); BUN (Urea Nitrogen) 4 mg/dL (8.9-20.6); Bilirubin, Total 2.1 mg/dL (0.2-1.2); Calc. Creatinine Clearance 0 mL/min (70-130); Calcium 8.8 mg/dL (7.8-10.44); Carbon Dioxide 26 mmol/L (22-29); Chloride 102 mmol/L (98-107); Globulin 3.9 g/dL (2.4-3.5); Glucose 109 mg/dL (70-105); Lipase 841 U/L (8-78); Protein, Total 7.1 g/dL (6.0-8.3); Sodium 136 mmol/L (136-145)
[2022-03-27] MEDS ORDERED: Ketorolac Tromethamine 30 MG/ML VIAL ONE (12:29)
[2022-03-27] MEDS ORDERED: Multivitamins, Adult 10 ML, Thiamine HCl 100 MG, Folic Acid 1 MG in Dextrose 5 %-0.45 %... IV SCH (12:45)
[2022-03-27 13:01] LABS: Bilirubin Negative (Negative); Blood, Urine 3+ (Negative); Clarity Clear (Clear); Glucose, Urine (Dipstick) Normal (Negative); Ketone, Urine Negative (Negative); Leukocyte 25 Leu/uL (Negative); Nitrite Negative (Negative); Protein, Urine (Dipstick) Negative (Neg-Trace); RBC/HPF Greater than 50 HPF (0-3); Squamous Epithelial None Seen HPF (0-3); Urobilinogen Normal mg/dL (Less than 2); WBC/HPF 0-3 HPF (0-3); pH, Urine 6.5 (5.0-9.0)
[2022-03-27 13:02] LABS: Bacteria/HPF 1+ HPF (None Seen)
[2022-03-27] MEDS ORDERED: Ondansetron PF 4 MG/2 ML Vial IVP PRN (13:50)
[2022-03-27] MEDS ORDERED: Pantoprazole 40 MG VIAL IVP SCH (14:00)
[2022-03-27] MEDS ORDERED: Enoxaparin Sodium 40 MG/0.4 ML SYRINGE SC SCH (14:00)
[2022-03-27] MEDS ORDERED: Cyclobenzaprine 10 MG TAB PO PRN (14:02)
[2022-03-27] MEDS ORDERED: Cyclobenzaprine 10 MG TAB PO SCH (14:15)
[2022-03-27] MEDS ORDERED: Labetalol HCl 100 MG/20 ML VIAL SLOW IVP PRN (14:27)
[2022-03-27] MEDS ORDERED: Enoxaparin Sodium 40 MG/0.4 ML SYRINGE ONE (14:44)
[2022-03-27] MEDS ORDERED: Pantoprazole 40 MG VIAL ONE (14:47)
[2022-03-27] MEDS ORDERED: Cyclobenzaprine 10 MG TAB ONE (14:52)
[2022-03-27 15:05] LABS: Hemoglobin A1c 4.7 % (4.0-6.0)
[2022-03-27 15:50] VITALS: BMI 22.0
[2022-03-27] MEDS: Morphine 4 MG/ML VIAL SLOW IVP PRN ×2 (16:10→20:34)
[2022-03-27] MEDS: cefTRIAXone\\ROCEPHIN 1 GM in Sodium Chloride 0.9% 100 ML IVPB SCH (16:10)
[2022-03-27] MEDS: Lactated Ringer's 1,000 ML IV SCH ×2 (18:16→23:12)
[2022-03-28] MEDS: Lactated Ringer's 1,000 ML IV SCH ×4 (01:58→14:21)
[2022-03-28] MEDS: Morphine 4 MG/ML VIAL SLOW IVP PRN ×4 (01:59→17:05)
[2022-03-28] MEDS: Morphine 2 MG/ML VIAL SLOW IVP PRN ×2 (05:26→21:02)
[2022-03-28 06:16] LABS: #Eosinphils 0.2 thou/uL (0.0-0.7); #Lymphocytes 2.1 thou/uL (1.20-3.40); #Monocytes 0.9 thou/uL (0.11-0.59); #Neutrophils 4.2 thou/uL (1.40-6.50); %Basophils 0.2 % (0.0-1.0); %Eosinophils 3.2 % (0.0-10.0); %Lymphocytes 28.3 % (21.0-51.0); %Monocytes 12.6 % (0.0-10.0); %Neutrophils 55.8 % (42.0-75.0); Hemoglobin 12.2 g/dL (14.0-18.0); Mean Corpuscular HGB CONC 32.6 g/dL (32.0-36.0); Mean Corpuscular Hemoglobin 34.8 pg (27.0-31.0); Platelet Count 200 thou/uL (130-400); RBC Distribution Width 12.9 % (11.5-14.5); Red Blood Cell (RBC) Count 3.49 mill/uL (4.70-6.10); White Blood Cell (WBC) Count 7.4 thou/uL (4.8-10.8)
[2022-03-28 06:33] LABS: ALT (SGPT) 16 U/L (8-55); AST (SGOT) 14 U/L (5-34); Albumin 2.6 g/dL (3.5-5.0); Alkaline Phosphatase 279 U/L (40-110); Anion Gap 11 mmol/L (10-20); BUN (Urea Nitrogen) 6 mg/dL (8.9-20.6); Bilirubin, Total 2.2 mg/dL (0.2-1.2); Calc. Creatinine Clearance 107 mL/min (70-130); Carbon Dioxide 25 mmol/L (22-29); Chloride 106 mmol/L (98-107); Globulin 3.4 g/dL (2.4-3.5); Glucose 94 mg/dL (70-105); Potassium 4.1 mmol/L (3.5-5.1); Sodium 138 mmol/L (136-145)
[2022-03-28] MEDS: Pantoprazole 40 MG VIAL IVP SCH (08:44)
[2022-03-28] MEDS: Enoxaparin Sodium 40 MG/0.4 ML SYRINGE SC SCH (08:44)
[2022-03-28] MEDS ORDERED: ISOVUE-370 76%-LOCM 1 ML ONE (12:00)
[2022-03-28] MEDS: cefTRIAXone\\ROCEPHIN 1 GM in Sodium Chloride 0.9% 100 ML IVPB SCH (14:48)
[2022-03-28] MEDS: Carvedilol 3.125 MG TAB PO SCH (17:05)
[2022-03-29] MEDS: Lactated Ringer's 1,000 ML IV SCH ×3 (00:27→20:36)
[2022-03-29] MEDS: Morphine 4 MG/ML VIAL SLOW IVP PRN ×4 (00:29→18:04)
[2022-03-29 05:49] LABS: #Eosinphils 0.3 thou/uL (0.0-0.7); #Lymphocytes 1.6 thou/uL (1.20-3.40); #Monocytes 0.9 thou/uL (0.11-0.59); #Neutrophils 4.4 thou/uL (1.40-6.50); %Basophils 0.3 % (0.0-1.0); %Eosinophils 4.1 % (0.0-10.0); %Lymphocytes 22.6 % (21.0-51.0); %Monocytes 11.9 % (0.0-10.0); %Neutrophils 61.1 % (42.0-75.0); Hemoglobin 11.4 g/dL (14.0-18.0); Mean Corpuscular HGB CONC 32.4 g/dL (32.0-36.0); Mean Corpuscular Hemoglobin 34.4 pg (27.0-31.0); Mean Platelet Volume 8.4 fL (7.4-10.4); Platelet Count 175 thou/uL (130-400); RBC Distribution Width 12.4 % (11.5-14.5); Red Blood Cell (RBC) Count 3.31 mill/uL (4.70-6.10); White Blood Cell (WBC) Count 7.1 thou/uL (4.8-10.8)
[2022-03-29 06:11] LABS: ALT (SGPT) 14 U/L (8-55); AST (SGOT) 14 U/L (5-34); Albumin 2.6 g/dL (3.5-5.0); Alkaline Phosphatase 246 U/L (40-110); Anion Gap 13 mmol/L (10-20); BUN (Urea Nitrogen) 6 mg/dL (8.9-20.6); Bilirubin, Total 1.8 mg/dL (0.2-1.2); Calc. Creatinine Clearance 106 mL/min (70-130); Calcium 8.4 mg/dL (7.8-10.44); Carbon Dioxide 24 mmol/L (22-29); Chloride 102 mmol/L (98-107); Globulin 3.5 g/dL (2.4-3.5); Glucose 76 mg/dL (70-105); Protein, Total 6.1 g/dL (6.0-8.3); Sodium 135 mmol/L (136-145)
[2022-03-29] MEDS: Amlodipine 10 MG TAB PO SCH (08:23)
[2022-03-29] MEDS: Enoxaparin Sodium 40 MG/0.4 ML SYRINGE SC SCH (08:24)
[2022-03-29] MEDS: Carvedilol 3.125 MG TAB PO SCH ×2 (08:24→16:03)
[2022-03-29] MEDS: Pantoprazole 40 MG VIAL IVP SCH (08:24)
[2022-03-29] MEDS: Morphine 2 MG/ML VIAL SLOW IVP PRN ×3 (11:50→20:27)
[2022-03-29] MEDS: cefTRIAXone\\ROCEPHIN 1 GM in Sodium Chloride 0.9% 100 ML IVPB SCH (16:03)
[2022-03-30] MEDS: Morphine 4 MG/ML VIAL SLOW IVP PRN ×4 (00:05→19:18)
[2022-03-30] MEDS: Lactated Ringer's 1,000 ML IV SCH ×2 (04:09→14:22)
[2022-03-30] MEDS: Morphine 2 MG/ML VIAL SLOW IVP PRN ×2 (04:09→15:52)
[2022-03-30 06:23] LABS: #Eosinphils 0.3 thou/uL (0.0-0.7); #Lymphocytes 1.4 thou/uL (1.20-3.40); #Monocytes 0.7 thou/uL (0.11-0.59); #Neutrophils 2.7 thou/uL (1.40-6.50); %Basophils 0.2 % (0.0-1.0); %Eosinophils 5.1 % (0.0-10.0); %Lymphocytes 27.2 % (21.0-51.0); %Monocytes 13.6 % (0.0-10.0); %Neutrophils 53.9 % (42.0-75.0); Hemoglobin 11.5 g/dL (14.0-18.0); Mean Corpuscular Hemoglobin 34.9 pg (27.0-31.0); Mean Platelet Volume 8.1 fL (7.4-10.4); Platelet Count 188 thou/uL (130-400); RBC Distribution Width 12.2 % (11.5-14.5); Red Blood Cell (RBC) Count 3.29 mill/uL (4.70-6.10)
[2022-03-30 06:47] LABS: ALT (SGPT) 10 U/L (8-55); AST (SGOT) 17 U/L (5-34); Albumin 2.6 g/dL (3.5-5.0); Alkaline Phosphatase 209 U/L (40-110); Anion Gap 12 mmol/L (10-20); BUN (Urea Nitrogen) Less than 4 mg/dL (8.9-20.6); Bilirubin, Total 1.3 mg/dL (0.2-1.2); Calc. Creatinine Clearance 114 mL/min (70-130); Calcium 8.4 mg/dL (7.8-10.44); Carbon Dioxide 26 mmol/L (22-29); Chloride 103 mmol/L (98-107); Globulin 3.5 g/dL (2.4-3.5); Glucose 86 mg/dL (70-105); Potassium 3.5 mmol/L (3.5-5.1); Protein, Total 6.1 g/dL (6.0-8.3); Sodium 137 mmol/L (136-145)
[2022-03-30] MEDS: Pantoprazole 40 MG VIAL IVP SCH (08:43)
[2022-03-30] MEDS: Enoxaparin Sodium 40 MG/0.4 ML SYRINGE SC SCH (08:43)
[2022-03-30] MEDS: Amlodipine 10 MG TAB PO SCH (08:43)
[2022-03-30] MEDS: Carvedilol 3.125 MG TAB PO SCH ×2 (08:43→16:59)
[2022-03-30] MEDS: cefTRIAXone\\ROCEPHIN 1 GM in Sodium Chloride 0.9% 100 ML IVPB SCH (14:22)
[2022-03-30] MEDS: Nitrofurantoin Monohyd/M-Cryst 100 MG CAP PO SCH (19:21)
[2022-03-31] MEDS: Lactated Ringer's 1,000 ML IV SCH ×3 (01:38→21:41)
[2022-03-31] MEDS: Morphine 2 MG/ML VIAL SLOW IVP PRN (01:40)
[2022-03-31] MEDS: Morphine 4 MG/ML VIAL SLOW IVP PRN ×5 (05:09→21:35)
[2022-03-31 06:28] LABS: #Eosinphils 0.2 thou/uL (0.0-0.7); #Lymphocytes 1.3 thou/uL (1.20-3.40); #Monocytes 0.6 thou/uL (0.11-0.59); #Neutrophils 2.2 thou/uL (1.40-6.50); %Basophils 0.2 % (0.0-1.0); %Eosinophils 5.2 % (0.0-10.0); %Lymphocytes 29.5 % (21.0-51.0); %Monocytes 14.2 % (0.0-10.0); %Neutrophils 50.9 % (42.0-75.0); Hemoglobin 11.6 g/dL (14.0-18.0); Mean Corpuscular HGB CONC 33.3 g/dL (32.0-36.0); Mean Corpuscular Hemoglobin 35.3 pg (27.0-31.0); Mean Platelet Volume 8.2 fL (7.4-10.4); Platelet Count 194 thou/uL (130-400); RBC Distribution Width 12.3 % (11.5-14.5); White Blood Cell (WBC) Count 4.3 thou/uL (4.8-10.8)
[2022-03-31 06:59] LABS: ALT (SGPT) 10 U/L (8-55); AST (SGOT) 26 U/L (5-34); Albumin 2.6 g/dL (3.5-5.0); Alkaline Phosphatase 206 U/L (40-110); Anion Gap 10 mmol/L (10-20); BUN (Urea Nitrogen) Less than 4 mg/dL (8.9-20.6); Bilirubin, Total 1.2 mg/dL (0.2-1.2); Calc. Creatinine Clearance 112 mL/min (70-130); Calcium 8.4 mg/dL (7.8-10.44); Carbon Dioxide 26 mmol/L (22-29); Chloride 104 mmol/L (98-107); Globulin 3.3 g/dL (2.4-3.5); Glucose 99 mg/dL (70-105); Potassium 3.8 mmol/L (3.5-5.1); Protein, Total 5.9 g/dL (6.0-8.3); Sodium 136 mmol/L (136-145)
[2022-03-31] MEDS: Amlodipine 10 MG TAB PO SCH (08:33)
[2022-03-31] MEDS: Nitrofurantoin Monohyd/M-Cryst 100 MG CAP PO SCH ×2 (08:33→21:32)
[2022-03-31] MEDS: Carvedilol 3.125 MG TAB PO SCH ×2 (08:33→17:29)
[2022-03-31] MEDS: Pantoprazole 40 MG VIAL IVP SCH (08:34)
[2022-03-31] MEDS: Enoxaparin Sodium 40 MG/0.4 ML SYRINGE SC SCH (08:34)
[2022-03-31] MEDS ORDERED: Cyclobenzaprine 10 MG TAB PO SCH (09:45)
[2022-03-31] MEDS: Cyclobenzaprine 10 MG TAB PO SCH (21:31)
[2022-04-01] MEDS: Morphine 4 MG/ML VIAL SLOW IVP PRN ×3 (02:45→11:15)
[2022-04-01 06:34] LABS: #Eosinphils 0.3 thou/uL (0.0-0.7); #Lymphocytes 1.4 thou/uL (1.20-3.40); #Monocytes 0.6 thou/uL (0.11-0.59); #Neutrophils 2.4 thou/uL (1.40-6.50); %Basophils 0.3 % (0.0-1.0); %Eosinophils 6.9 % (0.0-10.0); %Lymphocytes 29.8 % (21.0-51.0); %Monocytes 12.6 % (0.0-10.0); %Neutrophils 50.6 % (42.0-75.0); Hemoglobin 11.3 g/dL (14.0-18.0); Mean Corpuscular HGB CONC 32.8 g/dL (32.0-36.0); Mean Platelet Volume 8.3 fL (7.4-10.4); Platelet Count 187 thou/uL (130-400); RBC Distribution Width 12.1 % (11.5-14.5); Red Blood Cell (RBC) Count 3.23 mill/uL (4.70-6.10); White Blood Cell (WBC) Count 4.7 thou/uL (4.8-10.8)
[2022-04-01 06:45] LABS: ALT (SGPT) 17 U/L (8-55); AST (SGOT) 44 U/L (5-34); Albumin 2.5 g/dL (3.5-5.0); Alkaline Phosphatase 246 U/L (40-110); Anion Gap 11 mmol/L (10-20); BUN (Urea Nitrogen) Less than 4 mg/dL (8.9-20.6); Bilirubin, Total 1.2 mg/dL (0.2-1.2); Calc. Creatinine Clearance 107 mL/min (70-130); Calcium 8.3 mg/dL (7.8-10.44); Carbon Dioxide 24 mmol/L (22-29); Chloride 106 mmol/L (98-107); Globulin 3.4 g/dL (2.4-3.5); Glucose 93 mg/dL (70-105); Potassium 3.7 mmol/L (3.5-5.1); Protein, Total 5.9 g/dL (6.0-8.3); Sodium 137 mmol/L (136-145)
[2022-04-01] MEDS ORDERED: ISOVUE-370 76%-LOCM 1 ML ONE (08:00)
[2022-04-01] MEDS: Pantoprazole 40 MG VIAL IVP SCH (08:36)
[2022-04-01] MEDS: Nitrofurantoin Monohyd/M-Cryst 100 MG CAP PO SCH ×2 (08:36→20:15)
[2022-04-01] MEDS: Carvedilol 3.125 MG TAB PO SCH ×2 (08:36→17:46)
[2022-04-01] MEDS: Amlodipine 10 MG TAB PO SCH (08:36)
[2022-04-01] MEDS: Enoxaparin Sodium 40 MG/0.4 ML SYRINGE SC SCH (08:36)
[2022-04-01] MEDS: Cyclobenzaprine 10 MG TAB PO SCH ×2 (08:36→20:15)
[2022-04-01] MEDS: Lactated Ringer's 1,000 ML IV SCH ×3 (08:36→20:16)
[2022-04-01] MEDS: Morphine 4 MG/ML VIAL SLOW IVP SCH ×3 (14:01→21:41)
[2022-04-02] MEDS: Morphine 4 MG/ML VIAL SLOW IVP SCH ×6 (01:06→20:53)
[2022-04-02] MEDS: Lactated Ringer's 1,000 ML IV SCH ×2 (05:59→20:00)
[2022-04-02 06:06] LABS: #Eosinphils 0.4 thou/uL (0.0-0.7); #Lymphocytes 1.5 thou/uL (1.20-3.40); #Monocytes 0.6 thou/uL (0.11-0.59); #Neutrophils 1.9 thou/uL (1.40-6.50); %Basophils 0.5 % (0.0-1.0); %Eosinophils 9.4 % (0.0-10.0); %Lymphocytes 33.4 % (21.0-51.0); %Monocytes 13.5 % (0.0-10.0); %Neutrophils 43.1 % (42.0-75.0); Hemoglobin 11.2 g/dL (14.0-18.0); Mean Corpuscular HGB CONC 32.4 g/dL (32.0-36.0); Mean Corpuscular Hemoglobin 34.4 pg (27.0-31.0); Mean Platelet Volume 8.7 fL (7.4-10.4); Platelet Count 165 thou/uL (130-400); RBC Distribution Width 12.1 % (11.5-14.5); Red Blood Cell (RBC) Count 3.26 mill/uL (4.70-6.10); White Blood Cell (WBC) Count 4.5 thou/uL (4.8-10.8)
[2022-04-02 06:26] LABS: ALT (SGPT) 12 U/L (8-55); AST (SGOT) 24 U/L (5-34); Albumin 2.5 g/dL (3.5-5.0); Alkaline Phosphatase 209 U/L (40-110); Anion Gap 9 mmol/L (10-20); BUN (Urea Nitrogen) Less than 4 mg/dL (8.9-20.6); Bilirubin, Total 1.2 mg/dL (0.2-1.2); Calc. Creatinine Clearance 112 mL/min (70-130); Carbon Dioxide 27 mmol/L (22-29); Chloride 104 mmol/L (98-107); Globulin 3.3 g/dL (2.4-3.5); Glucose 86 mg/dL (70-105); Potassium 3.6 mmol/L (3.5-5.1); Protein, Total 5.8 g/dL (6.0-8.3); Sodium 136 mmol/L (136-145)
[2022-04-02] MEDS: Nitrofurantoin Monohyd/M-Cryst 100 MG CAP PO SCH ×2 (09:10→20:52)
[2022-04-02] MEDS: Cyclobenzaprine 10 MG TAB PO SCH ×2 (09:10→20:52)
[2022-04-02] MEDS: Pantoprazole 40 MG VIAL IVP SCH (09:10)
[2022-04-02] MEDS: Enoxaparin Sodium 40 MG/0.4 ML SYRINGE SC SCH (09:10)
[2022-04-02] MEDS: Carvedilol 3.125 MG TAB PO SCH ×2 (09:11→16:34)
[2022-04-02] MEDS: Amlodipine 10 MG TAB PO SCH (09:11)
[2022-04-03] MEDS: Morphine 4 MG/ML VIAL SLOW IVP SCH ×4 (00:56→12:57)
[2022-04-03] MEDS: Lactated Ringer's 1,000 ML IV SCH ×4 (00:58→20:33)
[2022-04-03 06:38] LABS: #Eosinphils 0.4 thou/uL (0.0-0.7); #Lymphocytes 1.3 thou/uL (1.20-3.40); #Monocytes 0.4 thou/uL (0.11-0.59); #Neutrophils 1.6 thou/uL (1.40-6.50); %Basophils 0.2 % (0.0-1.0); %Lymphocytes 35.2 % (21.0-51.0); %Monocytes 11.2 % (0.0-10.0); %Neutrophils 43.4 % (42.0-75.0); Hemoglobin 11.2 g/dL (14.0-18.0); Mean Corpuscular HGB CONC 32.6 g/dL (32.0-36.0); Mean Corpuscular Hemoglobin 34.5 pg (27.0-31.0); Mean Platelet Volume 8.7 fL (7.4-10.4); Platelet Count 189 thou/uL (130-400); Red Blood Cell (RBC) Count 3.26 mill/uL (4.70-6.10); White Blood Cell (WBC) Count 3.8 thou/uL (4.8-10.8)
[2022-04-03 07:06] LABS: ALT (SGPT) 10 U/L (8-55); AST (SGOT) 18 U/L (5-34); Albumin 2.6 g/dL (3.5-5.0); Alkaline Phosphatase 197 U/L (40-110); Anion Gap 12 mmol/L (10-20); BUN (Urea Nitrogen) Less than 4 mg/dL (8.9-20.6); Calc. Creatinine Clearance 112 mL/min (70-130); Calcium 8.4 mg/dL (7.8-10.44); Carbon Dioxide 26 mmol/L (22-29); Chloride 106 mmol/L (98-107); Globulin 3.4 g/dL (2.4-3.5); Glucose 86 mg/dL (70-105); Potassium 3.7 mmol/L (3.5-5.1); Sodium 140 mmol/L (136-145)
[2022-04-03] MEDS: Nitrofurantoin Monohyd/M-Cryst 100 MG CAP PO SCH ×2 (08:04→20:30)
[2022-04-03] MEDS: Polyethylene Glycol 3350 17 GM Packet PO SCH (08:04)
[2022-04-03] MEDS: Cyclobenzaprine 10 MG TAB PO SCH ×2 (08:04→20:29)
[2022-04-03] MEDS: Enoxaparin Sodium 40 MG/0.4 ML SYRINGE SC SCH (08:04)
[2022-04-03] MEDS: Carvedilol 3.125 MG TAB PO SCH ×2 (08:04→16:52)
[2022-04-03] MEDS: Amlodipine 10 MG TAB PO SCH (08:08)
[2022-04-03] MEDS: Pantoprazole 40 MG VIAL IVP SCH (08:09)
[2022-04-03] MEDS ORDERED: traMADol HCl 50 MG TAB PO PRN (16:06)
[2022-04-03] MEDS: Morphine 2 MG/ML VIAL SLOW IVP PRN ×2 (16:52→20:30)
[2022-04-03] MEDS: Gabapentin 100 MG CAP PO SCH (20:30)
[2022-04-04] MEDS: Morphine 2 MG/ML VIAL SLOW IVP PRN ×5 (01:38→20:19)
[2022-04-04] MEDS: Lactated Ringer's 1,000 ML IV SCH ×2 (05:30→16:36)
[2022-04-04 05:36] LABS: #Eosinphils 0.4 thou/uL (0.0-0.7); #Lymphocytes 1.5 thou/uL (1.20-3.40); #Monocytes 0.5 thou/uL (0.11-0.59); #Neutrophils 2.8 thou/uL (1.40-6.50); %Basophils 0.1 % (0.0-1.0); %Eosinophils 7.9 % (0.0-10.0); %Lymphocytes 27.9 % (21.0-51.0); %Monocytes 9.4 % (0.0-10.0); %Neutrophils 54.7 % (42.0-75.0); Hemoglobin 11.1 g/dL (14.0-18.0); Mean Corpuscular HGB CONC 32.2 g/dL (32.0-36.0); Mean Corpuscular Hemoglobin 34.4 pg (27.0-31.0); Mean Platelet Volume 8.6 fL (7.4-10.4); Platelet Count 209 thou/uL (130-400); RBC Distribution Width 11.9 % (11.5-14.5); Red Blood Cell (RBC) Count 3.22 mill/uL (4.70-6.10); White Blood Cell (WBC) Count 5.2 thou/uL (4.8-10.8)
[2022-04-04 06:01] LABS: ALT (SGPT) 8 U/L (8-55); AST (SGOT) 16 U/L (5-34); Albumin 2.6 g/dL (3.5-5.0); Alkaline Phosphatase 179 U/L (40-110); Anion Gap 11 mmol/L (10-20); BUN (Urea Nitrogen) 4 mg/dL (8.9-20.6); Bilirubin, Total 0.8 mg/dL (0.2-1.2); Calc. Creatinine Clearance 110 mL/min (70-130); Calcium 8.6 mg/dL (7.8-10.44); Carbon Dioxide 29 mmol/L (22-29); Chloride 103 mmol/L (98-107); Globulin 3.5 g/dL (2.4-3.5); Glucose 88 mg/dL (70-105); Lipase 285 U/L (8-78); Potassium 3.9 mmol/L (3.5-5.1); Protein, Total 6.1 g/dL (6.0-8.3); Sodium 139 mmol/L (136-145)
[2022-04-04] MEDS: Polyethylene Glycol 3350 17 GM Packet PO SCH (08:04)
[2022-04-04] MEDS: Enoxaparin Sodium 40 MG/0.4 ML SYRINGE SC SCH (08:04)
[2022-04-04] MEDS: Cyclobenzaprine 10 MG TAB PO SCH ×2 (08:04→20:19)
[2022-04-04] MEDS: Gabapentin 100 MG CAP PO SCH ×3 (08:04→20:19)
[2022-04-04] MEDS: Nitrofurantoin Monohyd/M-Cryst 100 MG CAP PO SCH (08:05)
[2022-04-04] MEDS: Pantoprazole 40 MG VIAL IVP SCH (08:05)
[2022-04-04] MEDS: Amlodipine 10 MG TAB PO SCH (08:05)
[2022-04-04] MEDS: Carvedilol 3.125 MG TAB PO SCH ×2 (08:05→16:38)
[2022-04-05] MEDS: Lactated Ringer's 1,000 ML IV SCH (04:16)
[2022-04-05] MEDS: Morphine 2 MG/ML VIAL SLOW IVP PRN ×5 (04:16→22:26)
[2022-04-05 06:15] LABS: #Eosinphils 0.5 thou/uL (0.0-0.7); #Lymphocytes 1.5 thou/uL (1.20-3.40); #Monocytes 0.2 thou/uL (0.11-0.59); #Neutrophils 1.6 thou/uL (1.40-6.50); %Basophils 0.9 % (0.0-1.0); %Eosinophils 12.9 % (0.0-10.0); %Monocytes 5.5 % (0.0-10.0); %Neutrophils 41.7 % (42.0-75.0); Hemoglobin 11.3 g/dL (14.0-18.0); Mean Corpuscular HGB CONC 32.2 g/dL (32.0-36.0); Mean Corpuscular Hemoglobin 34.5 pg (27.0-31.0); Mean Platelet Volume 8.5 fL (7.4-10.4); Platelet Count 226 thou/uL (130-400); RBC Distribution Width 11.9 % (11.5-14.5); Red Blood Cell (RBC) Count 3.29 mill/uL (4.70-6.10); White Blood Cell (WBC) Count 3.8 thou/uL (4.8-10.8)
[2022-04-05 06:55] LABS: ALT (SGPT) Less than 7 U/L (8-55); AST (SGOT) 16 U/L (5-34); Albumin 2.6 g/dL (3.5-5.0); Alkaline Phosphatase 168 U/L (40-110); Anion Gap 11 mmol/L (10-20); BUN (Urea Nitrogen) 4 mg/dL (8.9-20.6); Bilirubin, Total 0.7 mg/dL (0.2-1.2); Calc. Creatinine Clearance 110 mL/min (70-130); Calcium 8.6 mg/dL (7.8-10.44); Carbon Dioxide 28 mmol/L (22-29); Chloride 102 mmol/L (98-107); Globulin 3.4 g/dL (2.4-3.5); Glucose 126 mg/dL (70-105); Sodium 137 mmol/L (136-145)
[2022-04-05] MEDS: Carvedilol 3.125 MG TAB PO SCH ×2 (08:08→16:36)
[2022-04-05] MEDS: Gabapentin 100 MG CAP PO SCH ×3 (08:08→20:36)
[2022-04-05] MEDS: Cyclobenzaprine 10 MG TAB PO SCH ×2 (08:08→20:36)
[2022-04-05] MEDS: Pantoprazole 40 MG VIAL IVP SCH (08:08)
[2022-04-05] MEDS: Polyethylene Glycol 3350 17 GM Packet PO SCH (08:08)
[2022-04-05] MEDS: Enoxaparin Sodium 40 MG/0.4 ML SYRINGE SC SCH (08:08)
[2022-04-05] MEDS: Amlodipine 10 MG TAB PO SCH (08:09)
[2022-04-05] MEDS ORDERED: Lactated Ringer's 1,000 ML IV SCH (08:30)
[2022-04-05 20:46] VITALS: BP 129/85; TEMP 98.9
== END 2022-04-05 22:45 | disposition short-term general hospital (02) | DRG 439 ==
LOC: ERS 11:18 → ERHOLD 13:27 → T4-A 15:30
PROVIDERS: ADMIT Student in an Organized Health Care Education/Training Program; ATTEND Student in an Organized Health Care Education/Training Program
DX: K85.20 Alcohol induced acute pancreatitis without necrosis or infection (principal); K86.3 Pseudocyst of pancreas; K86.1 Other chronic pancreatitis; I10 Essential (primary) hypertension; F20.9 Schizophrenia, unspecified; E78.5 Hyperlipidemia, unspecified; F41.9 Anxiety disorder, unspecified; F32.A Depression, unspecified; K74.60 Unspecified cirrhosis of liver; K31.9 Disease of stomach and duodenum, unspecified; F10.20 Alcohol dependence, uncomplicated; N30.90 Cystitis, unspecified without hematuria; M62.838 Other muscle spasm; M54.9 Dorsalgia, unspecified; I48.91 Unspecified atrial fibrillation; I45.6 Pre-excitation syndrome; K21.9 Gastro-esophageal reflux disease without esophagitis; K70.0 Alcoholic fatty liver; E78.00 Pure hypercholesterolemia, unspecified; F43.10 Post-traumatic stress disorder, unspecified; Z20.822 Contact with and (suspected) exposure to COVID-19; K74.3 Primary biliary cirrhosis; B96.20 Unspecified Escherichia coli [E. coli] as the cause of diseases classified elsewhere; Z60.2 Problems related to living alone; Z88.1 Allergy status to other antibiotic agents; Z88.2 Allergy status to sulfonamides; Z88.8 Allergy status to other drugs, medicaments and biological substances; Z98.890 Other specified postprocedural states; Z90.49 Acquired absence of other specified parts of digestive tract; Z79.899 Other long term (current) drug therapy; Z86.718 Personal history of other venous thrombosis and embolism; Z79.82 Long term (current) use of aspirin; Z82.49 Family history of ischemic heart disease and other diseases of the circulatory system
CPT/HCPCS: 36415; 74178; 80053; 81003; 81015; 82550; 83036; 83605; 83690; 85025; 85610; 85730; 87077; 87086; 87186; 96365; 96375; C9113; J0696; J1650; J1885; J2270; J3411; J3490; J7042; J7120; Q9966; U0003; U0005

== ENCOUNTER 2022-04-17 10:22 | Emergency (ER) | payer OTHER | END 2022-04-17 12:46 | disposition home or self-care (01) | LOC: ERS 10:22 | DX: H61.22 Impacted cerumen, left ear (principal); I48.91 Unspecified atrial fibrillation; K21.9 Gastro-esophageal reflux disease without esophagitis; E78.5 Hyperlipidemia, unspecified; E78.00 Pure hypercholesterolemia, unspecified; I10 Essential (primary) hypertension; Z86.718 Personal history of other venous thrombosis and embolism; Z79.899 Other long term (current) drug therapy; Z79.82 Long term (current) use of aspirin | CPT/HCPCS: 69209 ==

== ENCOUNTER 2022-05-04 20:07 | Inpatient (IN) | payer OTHER ==
[~2022-05-04 20:07] MED LIST changes: -Iopamidol 370 76% 100 ML VIAL ONE; +Iopamidol-370 76% 500 ML 1 ML ONE
[2022-05-04] MEDS ORDERED: Acetaminophen 500 MG TAB ONE (20:31)
[2022-05-04 21:02] LABS: #Eosinphils 0.1 thou/uL (0.0-0.7); #Lymphocytes 1.2 thou/uL (1.20-3.40); #Monocytes 0.6 thou/uL (0.11-0.59); %Basophils 0.4 % (0.0-1.0); %Eosinophils 0.9 % (0.0-10.0); %Lymphocytes 15.6 % (21.0-51.0); %Monocytes 7.9 % (0.0-10.0); %Neutrophils 75.1 % (42.0-75.0); Hemoglobin 13.7 g/dL (14.0-18.0); Mean Corpuscular HGB CONC 34.1 g/dL (32.0-36.0); Mean Corpuscular Volume 99.9 fL (78.0-98.0); Mean Platelet Volume 9.9 fL (7.4-10.4); Platelet Count 79 thou/uL (130-400); Platelet Morphology Comment Appears Decreased; RBC Distribution Width 11.8 % (11.5-14.5); Red Blood Cell (RBC) Count 4.01 mill/uL (4.70-6.10); White Blood Cell (WBC) Count 7.9 thou/uL (4.8-10.8)
[2022-05-04 21:03] LABS: ALT (SGPT) 14 U/L (8-55); AST (SGOT) 35 U/L (5-34); Albumin 3.7 g/dL (3.5-5.0); Alkaline Phosphatase 98 U/L (40-110); Anion Gap 18 mmol/L (10-20); BUN (Urea Nitrogen) 4 mg/dL (8.9-20.6); Bilirubin, Total 0.9 mg/dL (0.2-1.2); Calc. Creatinine Clearance 0 mL/min (70-130); Calcium 8.4 mg/dL (7.8-10.44); Carbon Dioxide 23 mmol/L (22-29); Chloride 101 mmol/L (98-107); Estimated GFR 107; Glucose 124 mg/dL (70-105); Lipase 471 U/L (8-78); Potassium 3.6 mmol/L (3.5-5.1); Protein, Total 7.7 g/dL (6.0-8.3); Sodium 138 mmol/L (136-145)
[2022-05-04] MEDS ORDERED: Cefepime 2 GM VIAL ONE (21:13)
[2022-05-04] MEDS ORDERED: Vancomycin 1 GM/200 ML BAG ONE (21:13)
[2022-05-04] MEDS ORDERED: Morphine 4 MG/ML VIAL ONE ×2 (22:01→23:21)
[2022-05-04] MEDS ORDERED: Ondansetron PF 4 MG/2 ML Vial ONE (22:01)
[2022-05-04 23:29] LABS: Lactic Acid 2.1 mmol/L (0.5-2.2)
[2022-05-05] MEDS ORDERED: Ondansetron ODT 4 MG TAB PO PRN (00:01)
[2022-05-05] MEDS ORDERED: Acetaminophen 650 MG Suppository PR PRN (00:01)
[2022-05-05] MEDS ORDERED: Morphine 4 MG/ML VIAL SLOW IVP PRN (00:21)
[2022-05-05] MEDS ORDERED: Lorazepam 1 MG TAB PO PRN (00:37)
[2022-05-05] MEDS ORDERED: Lorazepam 2 MG/ML VIAL IM PRN (00:37)
[2022-05-05 01:19] VITALS: BMI 22.1
[2022-05-05] MEDS: Lactated Ringer's 1,000 ML IV SCH ×5 (01:35→22:11)
[2022-05-05] MEDS: Morphine 4 MG/ML VIAL SLOW IVP PRN ×5 (01:36→22:11)
[2022-05-05 02:24] LABS: SARS-CoV-2 NAA Rapid Test Not Detected (NotDetected)
[2022-05-05 06:29] LABS: #Eosinphils 0.1 thou/uL (0.0-0.7); #Lymphocytes 1.6 thou/uL (1.20-3.40); #Monocytes 0.8 thou/uL (0.11-0.59); #Neutrophils 3.9 thou/uL (1.40-6.50); %Basophils 0.2 % (0.0-1.0); %Eosinophils 2.3 % (0.0-10.0); %Lymphocytes 25.1 % (21.0-51.0); %Monocytes 11.7 % (0.0-10.0); %Neutrophils 60.8 % (42.0-75.0); Hemoglobin 11.2 g/dL (14.0-18.0); Mean Corpuscular Hemoglobin 33.6 pg (27.0-31.0); Platelet Count 66 thou/uL (130-400); RBC Distribution Width 11.9 % (11.5-14.5); Red Blood Cell (RBC) Count 3.34 mill/uL (4.70-6.10); White Blood Cell (WBC) Count 6.4 thou/uL (4.8-10.8)
[2022-05-05] MEDS ORDERED: Nitroglycerin 0.4 MG TAB (25 Tab Bottle) SL PRN (06:45)
[2022-05-05 06:51] LABS: ALT (SGPT) 25 U/L (8-55); AST (SGOT) 298 U/L (5-34); Alkaline Phosphatase 167 U/L (40-110); Anion Gap 12 mmol/L (10-20); BUN (Urea Nitrogen) Less than 4 mg/dL (8.9-20.6); Bilirubin, Total 2.8 mg/dL (0.2-1.2); Calc. Creatinine Clearance 111 mL/min (70-130); Calcium 7.5 mg/dL (7.8-10.44); Carbon Dioxide 24 mmol/L (22-29); Chloride 102 mmol/L (98-107); Estimated GFR 113; Globulin 3.2 g/dL (2.4-3.5); Glucose 117 mg/dL (70-105); Magnesium 1.2 mg/dL (1.6-2.6); Phosphorus 2.4 mg/dL (2.3-4.7); Potassium 3.4 mmol/L (3.5-5.1); Protein, Total 6.2 g/dL (6.0-8.3); Sodium 135 mmol/L (136-145)
[2022-05-05] MEDS ORDERED: Potassium Chloride 20 MEQ in Premix Bag 1 BAG IVPB SCH (07:45)
[2022-05-05] MEDS ORDERED: Magnesium 2 GM/50 ML(in water) 2 GM in Premix Bag 1 BAG IVPB SCH (08:00)
[2022-05-05] MEDS: Morphine 2 MG/ML VIAL SLOW IVP PRN ×2 (08:32→11:33)
[2022-05-05] MEDS: Amlodipine 10 MG TAB PO SCH (08:35)
[2022-05-05] MEDS: Multivit, Therapeutic 1 TAB PO SCH (08:36)
[2022-05-05] MEDS: Carvedilol 3.125 MG TAB PO SCH ×2 (08:37→19:32)
[2022-05-05] MEDS: Folic Acid 1 MG TAB PO SCH (08:37)
[2022-05-05] MEDS: Thiamine 100 MG TAB PO SCH (08:37)
[2022-05-05] MEDS: Enoxaparin Sodium 40 MG/0.4 ML SYRINGE SC SCH (08:50)
[2022-05-05] MEDS ORDERED: Pantoprazole 40 MG VIAL IVP SCH (09:00)
[2022-05-05] MEDS ORDERED: Folic Acid 1 MG TAB PO SCH (09:00)
[2022-05-05] MEDS ORDERED: Famotidine/PF 20 mg/2ml Vial SLOW IVP SCH (09:00)
[2022-05-05] MEDS: Ferrous Sulfate 325 MG TAB PO SCH (09:20)
[2022-05-05] MEDS: Ondansetron PF 4 MG/2 ML Vial IVP PRN (09:53)
[2022-05-06] MEDS ORDERED: Lorazepam 1 MG TAB PO PRN (00:37)
[2022-05-06] MEDS: Morphine 4 MG/ML VIAL SLOW IVP PRN ×5 (02:04→21:00)
[2022-05-06] MEDS: Lactated Ringer's 1,000 ML IV SCH ×4 (05:52→21:08)
[2022-05-06 08:02] LABS: #Eosinphils 0.1 thou/uL (0.0-0.7); #Lymphocytes 1.2 thou/uL (1.20-3.40); #Monocytes 0.9 thou/uL (0.11-0.59); #Neutrophils 5.5 thou/uL (1.40-6.50); %Basophils 0.5 % (0.0-1.0); %Eosinophils 1.8 % (0.0-10.0); %Lymphocytes 15.2 % (21.0-51.0); %Neutrophils 71.5 % (42.0-75.0); Hemoglobin 11.6 g/dL (14.0-18.0); Mean Corpuscular HGB CONC 32.8 g/dL (32.0-36.0); Mean Corpuscular Hemoglobin 33.3 pg (27.0-31.0); Mean Platelet Volume 10.3 fL (7.4-10.4); Platelet Count 68 thou/uL (130-400); RBC Distribution Width 11.8 % (11.5-14.5); White Blood Cell (WBC) Count 7.8 thou/uL (4.8-10.8)
[2022-05-06 08:11] LABS: ALT (SGPT) 27 U/L (8-55); AST (SGOT) 93 U/L (5-34); Albumin 3.1 g/dL (3.5-5.0); Alkaline Phosphatase 206 U/L (40-110); Anion Gap 14 mmol/L (10-20); BUN (Urea Nitrogen) Less than 4 mg/dL (8.9-20.6); Bilirubin, Total 1.2 mg/dL (0.2-1.2); Calc. Creatinine Clearance 108 mL/min (70-130); Calcium 8.2 mg/dL (7.8-10.44); Carbon Dioxide 24 mmol/L (22-29); Chloride 99 mmol/L (98-107); Estimated GFR 112; Globulin 3.3 g/dL (2.4-3.5); Glucose 92 mg/dL (70-105); Potassium 3.4 mmol/L (3.5-5.1); Protein, Total 6.4 g/dL (6.0-8.3); Sodium 134 mmol/L (136-145)
[2022-05-06 08:55] LABS: Magnesium 1.5 mg/dL (1.6-2.6)
[2022-05-06] MEDS: Enoxaparin Sodium 40 MG/0.4 ML SYRINGE SC SCH (09:13)
[2022-05-06] MEDS: Amlodipine 10 MG TAB PO SCH (09:14)
[2022-05-06] MEDS: Thiamine 100 MG TAB PO SCH (09:14)
[2022-05-06] MEDS: Folic Acid 1 MG TAB PO SCH (09:14)
[2022-05-06] MEDS: Carvedilol 3.125 MG TAB PO SCH ×2 (09:14→21:00)
[2022-05-06] MEDS: Multivit, Therapeutic 1 TAB PO SCH (09:14)
[2022-05-06] MEDS ORDERED: Magnesium Sulfate 20 GM/WATER 500 ML BAG IVPB SCH (09:30)
[2022-05-06] MEDS ORDERED: Magnesium Sulfate In Water 4 GM in Premix Bag 1 BAG IVPB SCH (10:00)
[2022-05-06] MEDS: Potassium Chloride 20 MEQ in Premix Bag 1 BAG IVPB SCH ×2 (12:39→14:58)
[2022-05-06] MEDS: Ferrous Sulfate 325 MG TAB PO SCH (12:41)
[2022-05-06] MEDS ORDERED: Potassium Chloride 20 MEQ TAB PO SCH (14:30)
[2022-05-06] MEDS: chlordiazePOXIDE HCl 25 MG CAP PO SCH ×2 (14:44→21:00)
[2022-05-07] MEDS ORDERED: Lorazepam 1 MG TAB PO PRN (00:37)
[2022-05-07] MEDS: Lactated Ringer's 1,000 ML IV SCH ×7 (02:30→20:29)
[2022-05-07] MEDS: Acetaminophen 325 MG TAB PO PRN (02:31)
[2022-05-07] MEDS: Morphine 4 MG/ML VIAL SLOW IVP PRN ×5 (02:31→23:20)
[2022-05-07] MEDS: chlordiazePOXIDE HCl 25 MG CAP PO SCH ×4 (03:22→20:23)
[2022-05-07 06:29] LABS: ALT (SGPT) 15 U/L (8-55); AST (SGOT) 37 U/L (5-34); Albumin 2.5 g/dL (3.5-5.0); Alkaline Phosphatase 140 U/L (40-110); Anion Gap 13 mmol/L (10-20); BUN (Urea Nitrogen) 4 mg/dL (8.9-20.6); Bilirubin, Total 1.2 mg/dL (0.2-1.2); Calc. Creatinine Clearance 109 mL/min (70-130); Calcium 7.8 mg/dL (7.8-10.44); Carbon Dioxide 22 mmol/L (22-29); Chloride 103 mmol/L (98-107); Estimated GFR 113; Globulin 3.1 g/dL (2.4-3.5); Glucose 81 mg/dL (70-105); Magnesium 1.9 mg/dL (1.6-2.6); Potassium 3.5 mmol/L (3.5-5.1); Protein, Total 5.6 g/dL (6.0-8.3); Sodium 134 mmol/L (136-145)
[2022-05-07] MEDS ORDERED: Iopamidol-370 76% 500 ML 1 ML ONE (08:49)
[2022-05-07] MEDS: Thiamine 100 MG TAB PO SCH (08:53)
[2022-05-07] MEDS: Amlodipine 10 MG TAB PO SCH (08:53)
[2022-05-07] MEDS: Folic Acid 1 MG TAB PO SCH (08:54)
[2022-05-07] MEDS: Multivit, Therapeutic 1 TAB PO SCH (08:54)
[2022-05-07] MEDS: Carvedilol 3.125 MG TAB PO SCH ×2 (08:54→20:23)
[2022-05-07 09:37] LABS: #Eosinphils 0.1 thou/uL (0.0-0.7); #Lymphocytes 1.4 thou/uL (1.20-3.40); #Monocytes 1.6 thou/uL (0.11-0.59); #Neutrophils 7.6 thou/uL (1.40-6.50); %Basophils 0.3 % (0.0-1.0); %Eosinophils 1.4 % (0.0-10.0); %Lymphocytes 12.7 % (21.0-51.0); %Monocytes 14.9 % (0.0-10.0); %Neutrophils 70.8 % (42.0-75.0); Hemoglobin 10.7 g/dL (14.0-18.0); Mean Corpuscular HGB CONC 31.9 g/dL (32.0-36.0); Mean Corpuscular Hemoglobin 32.1 pg (27.0-31.0); Mean Platelet Volume 9.6 fL (7.4-10.4); Platelet Count 80 thou/uL (130-400); Red Blood Cell (RBC) Count 3.35 mill/uL (4.70-6.10); White Blood Cell (WBC) Count 10.7 thou/uL (4.8-10.8)
[2022-05-07] MEDS ORDERED: Piperacillin/Tazobactam 3.375 GM in Sodium Chloride 0.9% 100 ML IVPB SCH ×2 (10:48→11:30)
[2022-05-07 11:09] LABS: Band 5 % (5-11); Reactive Lymphocytes 3 % (0-10)
[2022-05-07 11:10] LABS: Lymphocytes 15 % (21-51)
[2022-05-07 11:11] LABS: Monocytes 12 % (0-10); Neutrophil 65 % (42-75); Platelet Morphology Comment Appears Decreased; Polychromasia SLIGHT = 2-3 cells (100X) (0-2/hpf)
[2022-05-07] MEDS: metroNIDAZOLE 500 MG in Premix Bag 1 BAG IVPB SCH ×2 (13:25→20:23)
[2022-05-07 14:22] LABS: Bacteria/HPF None Seen HPF (None Seen); Bilirubin Negative (Negative); Blood, Urine Negative (Negative); Clarity Clear (Clear); Glucose, Urine (Dipstick) Normal (Negative); Ketone, Urine 60 mg/dL (Negative); Leukocyte Negative Leu/uL (Negative); Nitrite Negative (Negative); Protein, Urine (Dipstick) Negative (Neg-Trace); RBC/HPF 0-3 HPF (0-3); Specific Gravity, Urine 1.012 (1.002-1.036); Squamous Epithelial None Seen HPF (0-3); Urobilinogen 6 mg/dL (Less than 2); WBC/HPF 0-3 HPF (0-3)
[2022-05-07 14:24] LABS: Urine Culture Reflex No No
[2022-05-07 16:15] LABS: SARS-CoV-2 NAA Rapid Test Not Detected (NotDetected)
[2022-05-07] MEDS: Piperacillin/Tazobactam 3.375 GM in Sodium Chloride 0.9% 100 ML IVPB SCH (18:44)
[2022-05-08] MEDS ORDERED: Lorazepam 0.5 MG TAB PO PRN (00:37)
[2022-05-08] MEDS: Piperacillin/Tazobactam 3.375 GM in Sodium Chloride 0.9% 100 ML IVPB SCH ×3 (01:08→17:11)
[2022-05-08] MEDS: chlordiazePOXIDE HCl 25 MG CAP PO SCH ×4 (02:44→21:37)
[2022-05-08] MEDS: Lactated Ringer's 1,000 ML IV SCH ×3 (04:39→18:31)
[2022-05-08] MEDS: metroNIDAZOLE 500 MG in Premix Bag 1 BAG IVPB SCH ×3 (05:13→21:05)
[2022-05-08] MEDS: Morphine 4 MG/ML VIAL SLOW IVP PRN ×3 (05:13→21:04)
[2022-05-08 06:10] LABS: ALT (SGPT) 10 U/L (8-55); AST (SGOT) 27 U/L (5-34); Albumin 2.6 g/dL (3.5-5.0); Alkaline Phosphatase 104 U/L (40-110); Anion Gap 18 mmol/L (10-20); BUN (Urea Nitrogen) 7 mg/dL (8.9-20.6); Bilirubin, Total 1.3 mg/dL (0.2-1.2); Calc. Creatinine Clearance 101 mL/min (70-130); Calcium 7.8 mg/dL (7.8-10.44); Carbon Dioxide 20 mmol/L (22-29); Chloride 99 mmol/L (98-107); Estimated GFR 110; Globulin 3.5 g/dL (2.4-3.5); Glucose 77 mg/dL (70-105); Magnesium 1.7 mg/dL (1.6-2.6); Potassium 4.1 mmol/L (3.5-5.1); Protein, Total 6.1 g/dL (6.0-8.3); Sodium 133 mmol/L (136-145)
[2022-05-08] MEDS ORDERED: Thiamine 100 MG TAB PO SCH (09:00)
[2022-05-08] MEDS ORDERED: PALIPERIDONE PALMITATE 234 MG/1.5 ML IM SCH (09:00)
[2022-05-08] MEDS: Thiamine 100 MG TAB PO SCH (09:56)
[2022-05-08] MEDS: Multivit, Therapeutic 1 TAB PO SCH (09:56)
[2022-05-08] MEDS: Folic Acid 1 MG TAB PO SCH (09:56)
[2022-05-08] MEDS: Amlodipine 10 MG TAB PO SCH (09:56)
[2022-05-08] MEDS: Carvedilol 3.125 MG TAB PO SCH ×2 (09:56→21:03)
[2022-05-08 11:19] LABS: Band 3 % (5-11); Eosinophils 2 % (0-10); Hemoglobin 11.2 g/dL (14.0-18.0); Lymphocytes 10 % (21-51); MDiff Complete? YES; Mean Corpuscular HGB CONC 33.2 g/dL (32.0-36.0); Mean Corpuscular Hemoglobin 33.3 pg (27.0-31.0); Mean Platelet Volume 8.6 fL (7.4-10.4); Monocytes 6 % (0-10); Neutrophil 79 % (42-75); Platelet Count 94 thou/uL (130-400); Platelet Morphology Comment Appears Decreased; RBC Distribution Width 11.9 % (11.5-14.5); RBC Morphology Normal; Red Blood Cell (RBC) Count 3.36 mill/uL (4.70-6.10)
[2022-05-08] MEDS: Morphine 2 MG/ML VIAL SLOW IVP PRN (14:18)
[2022-05-08] MEDS: Loperamide HCl 2 MG CAP PO PRN ×2 (18:19→21:12)
[2022-05-08] MEDS: Acetaminophen 325 MG TAB PO PRN (21:04)
[2022-05-09] MEDS: Piperacillin/Tazobactam 3.375 GM in Sodium Chloride 0.9% 100 ML IVPB SCH ×4 (00:10→23:25)
[2022-05-09] MEDS: Lactated Ringer's 1,000 ML IV SCH ×5 (00:14→20:08)
[2022-05-09] MEDS: chlordiazePOXIDE HCl 25 MG CAP PO SCH ×4 (03:14→20:30)
[2022-05-09] MEDS: Morphine 4 MG/ML VIAL SLOW IVP PRN ×4 (03:15→20:02)
[2022-05-09] MEDS: metroNIDAZOLE 500 MG in Premix Bag 1 BAG IVPB SCH ×3 (04:33→20:02)
[2022-05-09 06:45] LABS: ALT (SGPT) 9 U/L (8-55); AST (SGOT) 25 U/L (5-34); Albumin 2.9 g/dL (3.5-5.0); Alkaline Phosphatase 98 U/L (40-110); Anion Gap 15 mmol/L (10-20); BUN (Urea Nitrogen) 6 mg/dL (8.9-20.6); Bilirubin, Total 1.1 mg/dL (0.2-1.2); Calc. Creatinine Clearance 109 mL/min (70-130); Calcium 8.3 mg/dL (7.8-10.44); Carbon Dioxide 24 mmol/L (22-29); Chloride 104 mmol/L (98-107); Estimated GFR 113; Globulin 3.3 g/dL (2.4-3.5); Glucose 83 mg/dL (70-105); Potassium 3.7 mmol/L (3.5-5.1); Protein, Total 6.2 g/dL (6.0-8.3); Sodium 139 mmol/L (136-145)
[2022-05-09 07:10] LABS: Hemoglobin 10.9 g/dL (14.0-18.0); Mean Corpuscular HGB CONC 33.9 g/dL (32.0-36.0); Mean Corpuscular Hemoglobin 33.4 pg (27.0-31.0); Mean Corpuscular Volume 98.7 fL (78.0-98.0); Mean Platelet Volume 8.2 fL (7.4-10.4); Platelet Count 125 thou/uL (130-400); RBC Distribution Width 11.9 % (11.5-14.5); Red Blood Cell (RBC) Count 3.25 mill/uL (4.70-6.10); White Blood Cell (WBC) Count 8.4 thou/uL (4.8-10.8)
[2022-05-09 09:02] LABS: Band 6 % (5-11); Lymphocytes 17 % (21-51); MDiff Complete? YES; Monocytes 9 % (0-10); Neutrophil 66 % (42-75); Platelet Morphology Comment Appears Decreased; RBC Morphology Normal; Reactive Lymphocytes 2 % (0-10)
[2022-05-09] MEDS: Amlodipine 10 MG TAB PO SCH (09:45)
[2022-05-09] MEDS: Saccharomyces boulardii 250 MG CAP PO SCH (09:45)
[2022-05-09] MEDS: Thiamine 100 MG TAB PO SCH (09:45)
[2022-05-09] MEDS: Folic Acid 1 MG TAB PO SCH (09:45)
[2022-05-09] MEDS: Multivit, Therapeutic 1 TAB PO SCH (09:45)
[2022-05-09] MEDS: Carvedilol 3.125 MG TAB PO SCH ×2 (09:45→20:03)
[2022-05-09] MEDS ORDERED: chlordiazePOXIDE HCl 25 MG CAP PO SCH (12:00)
[2022-05-09] MEDS: Ferrous Sulfate 325 MG TAB PO SCH (12:20)
[2022-05-10] MEDS: Morphine 2 MG/ML VIAL SLOW IVP PRN ×5 (00:45→20:48)
[2022-05-10] MEDS: metroNIDAZOLE 500 MG in Premix Bag 1 BAG IVPB SCH ×3 (03:43→20:48)
[2022-05-10] MEDS: Lactated Ringer's 1,000 ML IV SCH ×3 (03:44→16:37)
[2022-05-10] MEDS: chlordiazePOXIDE HCl 25 MG CAP PO SCH (03:48)
[2022-05-10] MEDS: Ondansetron PF 4 MG/2 ML Vial IVP PRN (03:59)
[2022-05-10 05:07] LABS: #Eosinphils 0.2 thou/uL (0.0-0.7); #Lymphocytes 1.1 thou/uL (1.20-3.40); #Monocytes 0.8 thou/uL (0.11-0.59); #Neutrophils 3.7 thou/uL (1.40-6.50); %Basophils 0.1 % (0.0-1.0); %Eosinophils 2.9 % (0.0-10.0); %Lymphocytes 19.5 % (21.0-51.0); %Monocytes 13.3 % (0.0-10.0); %Neutrophils 64.2 % (42.0-75.0); Hemoglobin 9.9 g/dL (14.0-18.0); Mean Corpuscular HGB CONC 33.2 g/dL (32.0-36.0); Mean Corpuscular Hemoglobin 33.3 pg (27.0-31.0); Mean Platelet Volume 7.4 fL (7.4-10.4); Platelet Count 139 thou/uL (130-400); Red Blood Cell (RBC) Count 2.98 mill/uL (4.70-6.10); White Blood Cell (WBC) Count 5.7 thou/uL (4.8-10.8)
[2022-05-10 05:25] LABS: ALT (SGPT) 8 U/L (8-55); AST (SGOT) 18 U/L (5-34); Albumin 2.6 g/dL (3.5-5.0); Alkaline Phosphatase 83 U/L (40-110); Anion Gap 12 mmol/L (10-20); BUN (Urea Nitrogen) Less than 4 mg/dL (8.9-20.6); Bilirubin, Total 0.6 mg/dL (0.2-1.2); Calc. Creatinine Clearance 111 mL/min (70-130); Calcium 7.8 mg/dL (7.8-10.44); Carbon Dioxide 24 mmol/L (22-29); Chloride 104 mmol/L (98-107); Estimated GFR 113; Glucose 134 mg/dL (70-105); Protein, Total 5.6 g/dL (6.0-8.3); Sodium 137 mmol/L (136-145)
[2022-05-10 05:28] LABS: Potassium 2.8 mmol/L (3.5-5.1)
[2022-05-10 06:28] LABS: Magnesium 1.6 mg/dL (1.6-2.6)
[2022-05-10] MEDS ORDERED: Magnesium 2 GM/50 ML(in water) 2 GM in Premix Bag 1 BAG IVPB SCH (08:00)
[2022-05-10] MEDS: Piperacillin/Tazobactam 3.375 GM in Sodium Chloride 0.9% 100 ML IVPB SCH ×3 (08:36→23:46)
[2022-05-10] MEDS: Potassium Chloride 20 MEQ TAB PO SCH ×2 (08:37→15:50)
[2022-05-10] MEDS: Carvedilol 3.125 MG TAB PO SCH ×2 (08:38→20:48)
[2022-05-10] MEDS: Folic Acid 1 MG TAB PO SCH (08:38)
[2022-05-10] MEDS: Thiamine 100 MG TAB PO SCH (08:38)
[2022-05-10] MEDS: Multivit, Therapeutic 1 TAB PO SCH (08:38)
[2022-05-10] MEDS: Saccharomyces boulardii 250 MG CAP PO SCH (08:38)
[2022-05-10] MEDS: Amlodipine 10 MG TAB PO SCH (08:38)
[2022-05-10] MEDS: Loperamide HCl 2 MG CAP PO PRN (09:57)
[2022-05-10] MEDS ORDERED: Morphine IR Tab 15 MG TAB PO PRN (10:39)
[2022-05-10] MEDS ORDERED: HYDROcodone/Acetaminophen 5/325 mg Tablet PO PRN (10:41)
[2022-05-10] MEDS ORDERED: Morphine IR Tab 15 MG TAB PO SCH (10:45)
[2022-05-10] MEDS ORDERED: Acetaminophen 325 MG TAB PO PRN (10:48)
[2022-05-10] MEDS ORDERED: Acetaminophen 500 MG TAB PO PRN (10:50)
[2022-05-10] MEDS: HYDROcodone/Acetaminophen 5/325 mg Tablet PO PRN ×2 (12:54→23:50)
[2022-05-10 14:05] LABS: Anion Gap 14 mmol/L (10-20); BUN (Urea Nitrogen) Less than 4 mg/dL (8.9-20.6); Calc. Creatinine Clearance 101 mL/min (70-130); Calcium 8.3 mg/dL (7.8-10.44); Carbon Dioxide 22 mmol/L (22-29); Chloride 106 mmol/L (98-107); Estimated GFR 110; Glucose 156 mg/dL (70-105); Potassium 3.5 mmol/L (3.5-5.1); Sodium 138 mmol/L (136-145)
[2022-05-10] MEDS ORDERED: Lactated Ringer's 1,000 ML IV SCH (16:39)
[2022-05-10] MEDS ORDERED: Potassium Chloride 20 MEQ TAB PO SCH (17:00)
[2022-05-11] MEDS: Morphine 2 MG/ML VIAL SLOW IVP PRN ×2 (00:53→05:42)
[2022-05-11] MEDS: metroNIDAZOLE 500 MG in Premix Bag 1 BAG IVPB SCH (03:31)
[2022-05-11 05:45] LABS: Hemoglobin 10.9 g/dL (14.0-18.0); Mean Corpuscular HGB CONC 34.2 g/dL (32.0-36.0); Mean Corpuscular Hemoglobin 34.3 pg (27.0-31.0); Mean Platelet Volume 7.7 fL (7.4-10.4); Platelet Count 231 thou/uL (130-400); RBC Distribution Width 12.1 % (11.5-14.5); Red Blood Cell (RBC) Count 3.18 mill/uL (4.70-6.10)
[2022-05-11 05:49] LABS: Eosinophils 3 % (0-10); Lymphocytes 20 % (21-51); MDiff Complete? YES; Monocytes 15 % (0-10); Neutrophil 62 % (42-75)
[2022-05-11 05:51] LABS: ALT (SGPT) 7 U/L (8-55); AST (SGOT) 16 U/L (5-34); Alkaline Phosphatase 83 U/L (40-110); Anion Gap 11 mmol/L (10-20); BUN (Urea Nitrogen) Less than 4 mg/dL (8.9-20.6); Bilirubin, Total 0.6 mg/dL (0.2-1.2); Calc. Creatinine Clearance 98 mL/min (70-130); Calcium 8.5 mg/dL (7.8-10.44); Carbon Dioxide 24 mmol/L (22-29); Chloride 106 mmol/L (98-107); Estimated GFR 109; Globulin 3.5 g/dL (2.4-3.5); Glucose 149 mg/dL (70-105); Potassium 3.4 mmol/L (3.5-5.1); Protein, Total 6.5 g/dL (6.0-8.3); Sodium 138 mmol/L (136-145)
[2022-05-11 07:01] LABS: Magnesium 1.8 mg/dL (1.6-2.6)
[2022-05-11] MEDS ORDERED: Potassium Chloride 20 MEQ TAB PO SCH (09:05)
[2022-05-11] MEDS ORDERED: Magnesium 2 GM/50 ML(in water) 2 GM in Premix Bag 1 BAG IVPB SCH (09:15)
[2022-05-11] MEDS ORDERED: Ciprofloxacin 500 MG TAB PO SCH (09:15)
[2022-05-11] MEDS: Folic Acid 1 MG TAB PO SCH (09:20)
[2022-05-11] MEDS: HYDROcodone/Acetaminophen 5/325 mg Tablet PO PRN ×2 (09:21→16:57)
[2022-05-11] MEDS: Saccharomyces boulardii 250 MG CAP PO SCH (09:21)
[2022-05-11] MEDS: Multivit, Therapeutic 1 TAB PO SCH (09:21)
[2022-05-11] MEDS: Thiamine 100 MG TAB PO SCH (09:21)
[2022-05-11] MEDS: Amlodipine 10 MG TAB PO SCH (09:21)
[2022-05-11] MEDS: Ferrous Sulfate 325 MG TAB PO SCH (09:22)
[2022-05-11] MEDS: Carvedilol 3.125 MG TAB PO SCH ×2 (09:22→20:58)
[2022-05-11] MEDS: Piperacillin/Tazobactam 3.375 GM in Sodium Chloride 0.9% 100 ML IVPB SCH (09:22)
[2022-05-11] MEDS: metroNIDAZOLE 500 MG TAB PO SCH ×3 (10:04→20:58)
[2022-05-11] MEDS: Loperamide HCl 2 MG CAP PO PRN (14:28)
[2022-05-11] MEDS: Ciprofloxacin 500 MG TAB PO SCH (20:58)
[2022-05-12] MEDS: HYDROcodone/Acetaminophen 5/325 mg Tablet PO PRN ×3 (00:35→16:17)
[2022-05-12] MEDS: Ciprofloxacin 500 MG TAB PO SCH (06:06)
[2022-05-12 07:00] LABS: Anion Gap 13 mmol/L (10-20); BUN (Urea Nitrogen) Less than 4 mg/dL (8.9-20.6); Calc. Creatinine Clearance 111 mL/min (70-130); Calcium 8.1 mg/dL (7.8-10.44); Carbon Dioxide 23 mmol/L (22-29); Chloride 107 mmol/L (98-107); Estimated GFR 113; Glucose 103 mg/dL (70-105); Magnesium 1.8 mg/dL (1.6-2.6); Potassium 3.6 mmol/L (3.5-5.1); Sodium 139 mmol/L (136-145)
[2022-05-12 07:51] LABS: Band 2 % (5-11); Eosinophils 3 % (0-10); Hemoglobin 9.9 g/dL (14.0-18.0); Lymphocytes 13 % (21-51); MDiff Complete? YES; Mean Corpuscular HGB CONC 32.9 g/dL (32.0-36.0); Mean Corpuscular Hemoglobin 32.7 pg (27.0-31.0); Mean Corpuscular Volume 99.5 fL (78.0-98.0); Mean Platelet Volume 7.7 fL (7.4-10.4); Monocytes 15 % (0-10); Neutrophil 62 % (42-75); Platelet Count 290 thou/uL (130-400); Platelet Morphology Comment Appears Adequate; Polychromasia SLIGHT = 2-3 cells (100X) (0-2/hpf); RBC Distribution Width 12.2 % (11.5-14.5); Reactive Lymphocytes 5 % (0-10); Red Blood Cell (RBC) Count 3.03 mill/uL (4.70-6.10); Target Cells SLIGHT = 2-5 cells (100X) (0-1/hpf); White Blood Cell (WBC) Count 5.7 thou/uL (4.8-10.8)
[2022-05-12] MEDS: Carvedilol 3.125 MG TAB PO SCH (08:54)
[2022-05-12] MEDS: Folic Acid 1 MG TAB PO SCH (08:54)
[2022-05-12] MEDS: Multivit, Therapeutic 1 TAB PO SCH (08:54)
[2022-05-12] MEDS: metroNIDAZOLE 500 MG TAB PO SCH ×2 (08:54→16:17)
[2022-05-12] MEDS: Thiamine 100 MG TAB PO SCH (08:54)
[2022-05-12] MEDS: Amlodipine 10 MG TAB PO SCH (08:54)
[2022-05-12] MEDS: Saccharomyces boulardii 250 MG CAP PO SCH (08:54)
[2022-05-12 16:04] VITALS: BP 120/84; TEMP 97.8
== END 2022-05-12 18:06 | disposition home or self-care (01) | DRG 871 ==
LOC: ERS 20:07 → SURG A 23:23
PROVIDERS: ADMIT Family Medicine; ATTEND Family Medicine
DX: A41.9 Sepsis, unspecified organism (principal); K85.90 Acute pancreatitis without necrosis or infection, unspecified; K83.1 Obstruction of bile duct; K86.3 Pseudocyst of pancreas; K86.1 Other chronic pancreatitis; F10.239 Alcohol dependence with withdrawal, unspecified; K52.1 Toxic gastroenteritis and colitis; K63.0 Abscess of intestine; L02.211 Cutaneous abscess of abdominal wall; I48.91 Unspecified atrial fibrillation; R65.20 Severe sepsis without septic shock; I10 Essential (primary) hypertension; K21.9 Gastro-esophageal reflux disease without esophagitis; E78.5 Hyperlipidemia, unspecified; E78.00 Pure hypercholesterolemia, unspecified; F43.10 Post-traumatic stress disorder, unspecified; F41.9 Anxiety disorder, unspecified; K52.9 Noninfective gastroenteritis and colitis, unspecified; Z20.822 Contact with and (suspected) exposure to COVID-19; K86.89 Other specified diseases of pancreas; F20.9 Schizophrenia, unspecified; D69.6 Thrombocytopenia, unspecified; E83.42 Hypomagnesemia; E87.6 Hypokalemia; T36.95XA Adverse effect of unspecified systemic antibiotic, initial encounter; Z88.2 Allergy status to sulfonamides; Z88.8 Allergy status to other drugs, medicaments and biological substances; Z86.718 Personal history of other venous thrombosis and embolism; Z98.890 Other specified postprocedural states; Z79.899 Other long term (current) drug therapy
CPT/HCPCS: 36415; 71045; 74177; 74178; 74181; 80048; 80053; 81001; 83605; 83690; 83735; 84100; 84145; 84484; 85025; 85060; 87040; 87324; 87449; 93005; 96361; 96365; 96366; 96375; J0692; J2270; J2405; J2543; J3370; J3475; J3480; J3490; J7120; Q9967; U0002

== ENCOUNTER 2022-06-02 03:59 | Emergency (ER) | payer OTHER ==
[2022-06-02] MEDS ORDERED: Ondansetron PF 4 MG/2 ML Vial ONE (04:10)
[2022-06-02 04:52] LABS: Bilirubin Negative (Negative); Blood, Urine Negative (Negative); Clarity Clear (Clear); Glucose, Urine (Dipstick) Normal (Negative); Ketone, Urine Negative (Negative); Leukocyte Negative Leu/uL (Negative); Nitrite Negative (Negative); Protein, Urine (Dipstick) Negative (Neg-Trace); Specific Gravity, Urine 1.006 (1.002-1.036); Urobilinogen Normal mg/dL (Less than 2); pH, Urine 5.5 (5.0-9.0)
[2022-06-02 05:00] LABS: Amphetamine Not Detected (NotDetected); Barbiturates Screen Not Detected (NotDetected); Benzodiazepine Screen Detected (NotDetected); Cocaine Metabolite Screen Not Detected (NotDetected); Methadone Not Detected (NotDetected); Methamphetamine Not Detected (NotDetected); Opiate Screen Not Detected (NotDetected); Oxycodone Screen Not Detected (NotDetected); Phencyclidine (PCP) Not Detected (NotDetected); THC/Cannabinoid Screen Not Detected (NotDetected); Tricyclic Screen Not Detected (NotDetected)
[2022-06-02 05:04] LABS: Hemoglobin 13.4 g/dL (14.0-18.0); Mean Corpuscular HGB CONC 33.5 g/dL (32.0-36.0); Mean Corpuscular Hemoglobin 32.8 pg (27.0-31.0); Mean Corpuscular Volume 98.1 fL (78.0-98.0); Platelet Count 146 thou/uL (130-400); RBC Distribution Width 13.5 % (11.5-14.5); White Blood Cell (WBC) Count 3.2 thou/uL (4.8-10.8)
[2022-06-02] MEDS ORDERED: Morphine 4 MG/ML VIAL ONE (05:11)
[2022-06-02 05:26] LABS: Lymphocytes 68 % (21-51); MDiff Complete? YES; Monocytes 3 % (0-10); Neutrophil 23 % (42-75); Platelet Morphology Comment Appears Adequate; RBC Morphology Normal; Reactive Lymphocytes 5 % (0-10)
[2022-06-02 05:28] LABS: ALT (SGPT) 20 U/L (8-55); AST (SGOT) 91 U/L (5-34); Albumin 3.5 g/dL (3.5-5.0); Alkaline Phosphatase 164 U/L (40-110); Anion Gap 18 mmol/L (10-20); BUN (Urea Nitrogen) Less than 4 mg/dL (8.4-25.7); Bilirubin, Total 0.9 mg/dL (0.2-1.2); CK (CPK) 345 U/L (30-200); Calc. Creatinine Clearance 0 mL/min (70-130); Calcium 8.5 mg/dL (7.8-10.44); Carbon Dioxide 20 mmol/L (22-29); Chloride 103 mmol/L (98-107); Estimated GFR 105; Globulin 4.1 g/dL (2.4-3.5); Glucose 104 mg/dL (70-105); Lipase 25 U/L (8-78); Potassium 3.5 mmol/L (3.5-5.1); Protein, Total 7.6 g/dL (6.0-8.3); Sodium 137 mmol/L (136-145)
[2022-06-02 06:22] LABS: Acetaminophen Less than 10.0 mcg/mL (10.0-30.0); Alcohol Less than 10 mg/dL (Less than 10); Salicylate Less than 8.0 mg/dL (15.0-30.0)
== END 2022-06-02 06:30 | disposition home or self-care (01) ==
LOC: ERS 03:59
DX: R10.13 Epigastric pain (principal); I48.91 Unspecified atrial fibrillation; I45.6 Pre-excitation syndrome; K21.9 Gastro-esophageal reflux disease without esophagitis; E78.00 Pure hypercholesterolemia, unspecified; Z86.718 Personal history of other venous thrombosis and embolism; I10 Essential (primary) hypertension
CPT/HCPCS: 80053; 80306; 80307; 81003; 82550; 83690; 84484; 85025; 93005; 96374; 96375; J2270; J2405

== ENCOUNTER 2022-07-26 17:09 | Emergency (ER) | payer OTHER ==
[2022-07-26 18:31] LABS: #Lymphocytes 1.7 thou/uL (1.20-3.40); #Monocytes 0.4 thou/uL (0.11-0.59); #Neutrophils 1.7 thou/uL (1.40-6.50); %Basophils 0.7 % (0.0-1.0); %Eosinophils 0.6 % (0.0-10.0); %Lymphocytes 44.4 % (21.0-51.0); %Monocytes 10.5 % (0.0-10.0); %Neutrophils 43.8 % (42.0-75.0); Mean Corpuscular HGB CONC 32.3 g/dL (32.0-36.0); Mean Corpuscular Hemoglobin 31.9 pg (27.0-31.0); Mean Corpuscular Volume 98.9 fL (78.0-98.0); Mean Platelet Volume 8.9 fL (7.4-10.4); Platelet Count 99 thou/uL (130-400); RBC Distribution Width 12.6 % (11.5-14.5); Red Blood Cell (RBC) Count 4.38 mill/uL (4.70-6.10); White Blood Cell (WBC) Count 3.9 thou/uL (4.8-10.8)
[2022-07-26 18:45] LABS: ALT (SGPT) 9 U/L (8-55); AST (SGOT) 25 U/L (5-34); Albumin 4.2 g/dL (3.5-5.0); Alkaline Phosphatase 67 U/L (40-110); Anion Gap 15 mmol/L (10-20); BUN (Urea Nitrogen) Less than 4 mg/dL (8.4-25.7); Bilirubin, Total 0.5 mg/dL (0.2-1.2); Calc. Creatinine Clearance 0 mL/min (70-130); Calcium 8.8 mg/dL (7.8-10.44); Carbon Dioxide 23 mmol/L (22-29); Chloride 104 mmol/L (98-107); Estimated GFR 108; Globulin 3.6 g/dL (2.4-3.5); Glucose 102 mg/dL (70-105); Lipase 11 U/L (8-78); Potassium 3.6 mmol/L (3.5-5.1); Protein, Total 7.8 g/dL (6.0-8.3); Sodium 138 mmol/L (136-145)
[2022-07-26 18:46] LABS: Platelet Morphology Comment Appears Decreased; RBC Morphology Normal
== END 2022-07-26 18:54 | disposition left against medical advice (07) ==
LOC: ERS 17:09
DX: Z53.21 Procedure and treatment not carried out due to patient leaving prior to being seen by health care provider (principal)
CPT/HCPCS: 36415; 71045; 80053; 83690; 84484; 85025; 93005

== ENCOUNTER 2023-11-28 18:32 | Inpatient (IN) | payer OTHER ==
[~2023-11-28 18:32] MED LIST changes: -Iopamidol-370 76% 500 ML 1 ML ONE; +Iopamidol-370 76% 500 ML MDV (1 ML CHARGE) ONE
[2023-11-28] MEDS ORDERED: Ondansetron PF 4 MG/2 ML Vial ONE (18:42)
[2023-11-28] MEDS ORDERED: Aspirin Chewable 81 MG TAB ONE (18:42)
[2023-11-28] MEDS ORDERED: Morphine 4 MG/ML VIAL ONE ×2 (18:42→21:09)
[2023-11-28] MEDS ORDERED: Acetaminophen 500 MG TAB ONE (18:53)
[2023-11-28 19:22] LABS: #Monocytes 0.5 thou/uL (0.11-0.59); #Neutrophils 2.3 thou/uL (1.40-6.50); %Basophils 0.5 % (0.0-1.0); %Eosinophils 0.2 % (0.0-10.0); %Lymphocytes 34.3 % (21.0-51.0); %Monocytes 10.8 % (0.0-10.0); Hematocrit 35.9 % (42.0-52.0); Hemoglobin 13.2 g/dL (14.0-18.0); Mean Corpuscular HGB CONC 36.8 g/dL (32.0-36.0); Mean Corpuscular Hemoglobin 32.8 pg (27.0-31.0); Mean Corpuscular Volume 89.1 fl (78.0-98.0); Mean Platelet Volume 12.3 fL (7.4-10.4); RBC Distribution Width 14.1 % (11.5-14.5); Red Blood Cell (RBC) Count 4.03 mill/uL (4.70-6.10); White Blood Cell (WBC) Count 4.3 10x3/uL (4.8-10.8)
[2023-11-28 19:25] LABS: Platelet Count 90 10x3/uL (130-400)
[2023-11-28 19:46] LABS: Troponin I Less than 0.010 ng/mL (< 0.028)
[2023-11-28 19:48] LABS: ALT (SGPT) 268 U/L (8-55); AST (SGOT) 224 U/L (5-34); Albumin 3.1 g/dL (3.5-5.0); Alkaline Phosphatase 134 U/L (40-110); Anion Gap 10 mmol/L (10-20); BUN (Urea Nitrogen) 8 mg/dL (8.4-25.7); Bilirubin, Total 2.5 mg/dL (0.2-1.2); Calc. Creatinine Clearance 0 mL/min (70-130); Calcium 8.5 mg/dL (7.8-10.44); Carbon Dioxide 27 mmol/L (22-29); Chloride 100 mmol/L (98-107); Estimated GFR 96; Globulin 3.3 g/dL (2.4-3.5); Glucose 156 mg/dL (70-105); Lipase 265 U/L (8-78); Potassium 4.3 mmol/L (3.5-5.1); Protein, Total 6.4 g/dL (6.0-8.3); Sodium 133 mmol/L (136-145)
[2023-11-28 20:09] LABS: SARS-CoV-2 NAA Rapid Test Not Detected (NotDetected)
[2023-11-28] MEDS ORDERED: Cefepime 2 GM VIAL ONE (20:12)
[2023-11-28] MEDS ORDERED: Sodium Chloride 0.9% 100 ML ONE (20:12)
[2023-11-28 20:36] LABS: INR-International Normal Ratio 1.3; Prothrombin Time 16.4 sec (12.0-14.7)
[2023-11-28 20:37] LABS: PTT 31.1 sec (22.9-36.1)
[2023-11-28] MEDS ORDERED: Ibuprofen 600 MG TAB PO PRN (23:21)
[2023-11-29 00:02] LABS: Troponin I Less than 0.010 ng/mL (< 0.028)
[2023-11-29] MEDS ORDERED: PALIPERIDONE PALMITATE 234 MG/1.5 ML IM SCH (00:15)
[2023-11-29 00:31] LABS: Phosphorus 3.5 mg/dL (2.3-4.7)
[2023-11-29 00:34] LABS: Acetaminophen 12 mcg/mL (10.0-30.0); Alcohol Less than 10.0 mg/dL (Less than 10); Magnesium 1.3 mg/dL (1.6-2.6); Salicylate Less than 8.0 mg/dL (15.0-30.0)
[2023-11-29 00:44] LABS: HBCM Index 0.08 S/CO (0-0.79); HIV (1/2) Antibody/Antigen Non-Reactive (NonReactive); HIV 1/2 INDEX 0.27 S/CO (<1.00); Hep A IgM AB Non-Reactive S/CO (NonReactive); Hep A IgM S/CO 0.13 S/CO (0-0.79); Hep C IgG Ab Non-Reactive S/CO (NonReactive); Hepatitis B Core IgM Abs Non-Reactive S/CO (NonReactive)
[2023-11-29 00:57] LABS: HBSAg Index 4.09 S/CO (0-0.99); Hep B Surf Ag Reflx Confirmation S/CO (NonReactive)
[2023-11-29 01:05] VITALS: BMI 26.3
[2023-11-29] MEDS: Lactated Ringer's 1,000 ML IV SCH (01:39)
[2023-11-29] MEDS: Lactated Ringer's 500 ML IV SCH (01:43)
[2023-11-29] MEDS: Morphine 2 MG/ML VIAL SLOW IVP PRN ×2 (01:48→22:05)
[2023-11-29] MEDS: Thiamine HCl 200 MG/2 ML VIAL SLOW IVP SCH (01:49)
[2023-11-29 03:44] LABS: Troponin I Less than 0.010 ng/mL (< 0.028)
[2023-11-29 05:33] LABS: Hematocrit 33.7 % (42.0-52.0); Hemoglobin 12.2 g/dL (14.0-18.0); Manual Diff?? YES; Mean Corpuscular HGB CONC 36.2 g/dL (32.0-36.0); Mean Corpuscular Hemoglobin 32.3 pg (27.0-31.0); Mean Corpuscular Volume 89.2 fl (78.0-98.0); RBC Distribution Width 14.4 % (11.5-14.5); Red Blood Cell (RBC) Count 3.78 mill/uL (4.70-6.10); White Blood Cell (WBC) Count 5.6 10x3/uL (4.8-10.8)
[2023-11-29 05:46] LABS: Delete Auto Diff?? YES; Platelet Count 80 10x3/uL (130-400)
[2023-11-29 05:56] LABS: Bacteria/HPF None Seen HPF (None Seen); Bilirubin Negative (Negative); Blood, Urine Negative (Negative); Clarity Clear (Clear); Glucose, Urine (Dipstick) Normal (Negative); Ketone, Urine Negative (Negative); Leukocyte Negative Leu/uL (Negative); Nitrite Negative (Negative); Protein, Urine (Dipstick) Negative (Neg-Trace); RBC/HPF 0-3 HPF (0-3); Specific Gravity, Urine 1.033 (1.002-1.036); Squamous Epithelial None Seen HPF (0-3); Urobilinogen Normal mg/dL (Less than 2); WBC/HPF 0-3 HPF (0-3); pH, Urine 5.5 (5.0-9.0)
[2023-11-29 05:59] LABS: ALT (SGPT) 233 U/L (8-55); AST (SGOT) 215 U/L (5-34); Albumin 2.8 g/dL (3.5-5.0); Alkaline Phosphatase 109 U/L (40-110); Anion Gap 12 mmol/L (10-20); BUN (Urea Nitrogen) 8 mg/dL (8.4-25.7); Bilirubin, Total 2.5 mg/dL (0.2-1.2); Calc. Creatinine Clearance 98 mL/min (70-130); Calcium 7.8 mg/dL (7.8-10.44); Carbon Dioxide 27 mmol/L (22-29); Cardiac Risk 4.4 (Less than 4.5); Chloride 101 mmol/L (98-107); Cholesterol 71 mg/dl (< 200 Desired); Estimated GFR 103; Glucose 126 mg/dL (70-105); HDL Cholesterol 16 mg/dL (>60 Neg Risk); LDL Cholesterol, Calculated 27 mg/dL; Protein, Total 5.8 g/dL (6.0-8.3); Sodium 136 mmol/L (136-145); Triglycerides 140 mg/dL (Less than 150)
[2023-11-29 06:03] LABS: Amphetamine Not Detected (NotDetected); Barbiturates Screen Not Detected (NotDetected); Benzodiazepine Screen Not Detected (NotDetected); Cocaine Metabolite Screen Not Detected (NotDetected); Methadone Not Detected (NotDetected); Methamphetamine Not Detected (NotDetected); Opiate Screen Detected (NotDetected); Oxycodone Screen Not Detected (NotDetected); Phencyclidine (PCP) Not Detected (NotDetected); THC/Cannabinoid Screen Not Detected (NotDetected); Tricyclic Screen Not Detected (NotDetected)
[2023-11-29 06:36] LABS: Anisocytosis SLIGHT = 6-15 cells HPF (0-5); CellaVision Operator ID lab.sh2; Large Platelets 23.6 % (0-5); Lymphocytes 15 % (21-51); Macrocytosis MODERATE=16-30 cells HPF (0-5); Monocytes 11 % (0-10); Neutrophil 74 % (42-75); Ovalocytes SLIGHT = 2-5 cells HPF (0-1); Platelet Adequacy Comment Platelets Decreased; Polychromasia SLIGHT = 2-3 cells HPF (0-2); Smudge Cells 32.6 %; Target Cells MODERATE= 6-15 cells HPF (0-1); Tear Drops SLIGHT = 2-5 cells HPF (0-1); Total Cell Count 89
[2023-11-29] MEDS: Magnesium 2 GM/50 ML(in water) 2 GM in Premix 1 BAG IVPB SCH (07:37)
[2023-11-29] MEDS ORDERED: Sertraline 100 MG TAB PO SCH (09:00)
[2023-11-29] MEDS ORDERED: Folic Acid 1 MG TAB PO SCH (09:00)
[2023-11-29] MEDS ORDERED: PALIPERIDONE 3 MG PO SCH (09:00)
[2023-11-29] MEDS ORDERED: Enoxaparin 40 MG (0.4 mL) SYRINGE SC SCH (09:00)
[2023-11-29] MEDS: Magnesium Oxide 400 MG TAB PO SCH (09:44)
[2023-11-29] MEDS: Multivit, Therapeutic 1 TAB PO SCH (09:44)
[2023-11-29] MEDS: Ferrous Sulfate 325 MG TAB PO SCH (09:44)
[2023-11-29] MEDS: Spironolactone 25 MG TAB PO SCH (09:44)
[2023-11-29] MEDS: Saccharomyces boulardii 250 MG CAP PO SCH (09:44)
[2023-11-29] MEDS: Losartan 25 MG TAB PO SCH (09:44)
[2023-11-29] MEDS: Folic Acid 1 MG TAB PO SCH (09:45)
[2023-11-29 11:54] LABS: Syphilis Antibody Nonreactive (Nonreactive); Syphilis Antibody Index 0.06 S/CO (<1.00 Non-Reactive)
[2023-11-29] MEDS: Ondansetron ODT 4 MG TAB PO PRN (20:05)
[2023-11-30 05:08] LABS: #Eosinphils 0.1 thou/uL (0.0-0.7); #Monocytes 0.6 thou/uL (0.11-0.59); #Neutrophils 4.6 thou/uL (1.40-6.50); %Basophils 0.2 % (0.0-1.0); %Eosinophils 0.8 % (0.0-10.0); %Lymphocytes 18.8 % (21.0-51.0); %Monocytes 9.6 % (0.0-10.0); %Neutrophils 70.1 % (42.0-75.0); Hematocrit 33.9 % (42.0-52.0); Hemoglobin 12.1 g/dL (14.0-18.0); Mean Corpuscular HGB CONC 35.7 g/dL (32.0-36.0); Mean Corpuscular Hemoglobin 32.4 pg (27.0-31.0); Mean Corpuscular Volume 90.6 fl (78.0-98.0); Mean Platelet Volume 13.9 fL (7.4-10.4); RBC Distribution Width 14.6 % (11.5-14.5); Red Blood Cell (RBC) Count 3.74 mill/uL (4.70-6.10); White Blood Cell (WBC) Count 6.6 10x3/uL (4.8-10.8)
[2023-11-30 05:10] LABS: Platelet Count 73 10x3/uL (130-400)
[2023-11-30 05:35] LABS: ALT (SGPT) 177 U/L (8-55); AST (SGOT) 137 U/L (5-34); Albumin 2.9 g/dL (3.5-5.0); Alkaline Phosphatase 102 U/L (40-110); Anion Gap 10 mmol/L (10-20); BUN (Urea Nitrogen) 5 mg/dL (8.4-25.7); Bilirubin, Total 3.3 mg/dL (0.2-1.2); Calc. Creatinine Clearance 102 mL/min (70-130); Calcium 8.3 mg/dL (7.8-10.44); Carbon Dioxide 26 mmol/L (22-29); Chloride 99 mmol/L (98-107); Estimated GFR 104; Globulin 3.1 g/dL (2.4-3.5); Glucose 163 mg/dL (70-105); Magnesium 1.6 mg/dL (1.6-2.6); Potassium 4.3 mmol/L (3.5-5.1); Sodium 131 mmol/L (136-145)
[2023-12-01 06:12] LABS: #Eosinphils 0.1 thou/uL (0.0-0.7); #Monocytes 0.7 thou/uL (0.11-0.59); #Neutrophils 3.1 thou/uL (1.40-6.50); %Basophils 0.4 % (0.0-1.0); %Eosinophils 1.1 % (0.0-10.0); %Lymphocytes 29.1 % (21.0-51.0); %Monocytes 12.6 % (0.0-10.0); %Neutrophils 56.1 % (42.0-75.0); Hematocrit 34.8 % (42.0-52.0); Hemoglobin 12.1 g/dL (14.0-18.0); Mean Corpuscular HGB CONC 34.8 g/dL (32.0-36.0); Mean Corpuscular Hemoglobin 31.7 pg (27.0-31.0); Mean Corpuscular Volume 91.1 fl (78.0-98.0); Mean Platelet Volume 12.7 fL (7.4-10.4); RBC Distribution Width 14.7 % (11.5-14.5); Red Blood Cell (RBC) Count 3.82 mill/uL (4.70-6.10); White Blood Cell (WBC) Count 5.6 10x3/uL (4.8-10.8)
[2023-12-01 06:21] LABS: Platelet Count 70 10x3/uL (130-400)
[2023-12-01 07:43] LABS: ALT (SGPT) 128 U/L (8-55); AST (SGOT) 77 U/L (5-34); Alkaline Phosphatase 97 U/L (40-110); Anion Gap 10 mmol/L (10-20); BUN (Urea Nitrogen) 5 mg/dL (8.4-25.7); Bilirubin, Total 2.4 mg/dL (0.2-1.2); Calc. Creatinine Clearance 94 mL/min (70-130); Calcium 8.5 mg/dL (7.8-10.44); Carbon Dioxide 28 mmol/L (22-29); Chloride 101 mmol/L (98-107); Estimated GFR 99; Globulin 3.3 g/dL (2.4-3.5); Glucose 143 mg/dL (70-105); Potassium 4.1 mmol/L (3.5-5.1); Protein, Total 6.3 g/dL (6.0-8.3); Sodium 135 mmol/L (136-145)
[2023-12-01] MEDS ORDERED: Polyethylene Glycol 3350 17 GM Packet PO PRN (11:49)
[2023-12-01] MEDS: Polyethylene Glycol 3350 17 GM Packet PO SCH (12:31)
[2023-12-01] MEDS: Thiamine 100 MG TAB PO SCH (20:56)
[2023-12-02 05:19] LABS: #Eosinphils 0.1 thou/uL (0.0-0.7); #Monocytes 0.7 thou/uL (0.11-0.59); #Neutrophils 2.8 thou/uL (1.40-6.50); %Basophils 0.5 % (0.0-1.0); %Eosinophils 1.4 % (0.0-10.0); %Lymphocytes 34.6 % (21.0-51.0); %Monocytes 13.3 % (0.0-10.0); %Neutrophils 49.7 % (42.0-75.0); Hematocrit 31.7 % (42.0-52.0); Hemoglobin 10.9 g/dL (14.0-18.0); Mean Corpuscular HGB CONC 34.4 g/dL (32.0-36.0); Mean Corpuscular Hemoglobin 32.3 pg (27.0-31.0); Mean Platelet Volume 13.9 fL (7.4-10.4); RBC Distribution Width 14.5 % (11.5-14.5); Red Blood Cell (RBC) Count 3.37 mill/uL (4.70-6.10); White Blood Cell (WBC) Count 5.6 10x3/uL (4.8-10.8)
[2023-12-02 05:34] LABS: Mean Corpuscular Volume 94.1 fl (78.0-98.0); Platelet Count 69 10x3/uL (130-400)
[2023-12-02 05:40] LABS: ALT (SGPT) 96 U/L (8-55); AST (SGOT) 53 U/L (5-34); Albumin 2.7 g/dL (3.5-5.0); Alkaline Phosphatase 79 U/L (40-110); Anion Gap 11 mmol/L (10-20); BUN (Urea Nitrogen) 5 mg/dL (8.4-25.7); Bilirubin, Total 1.7 mg/dL (0.2-1.2); Calc. Creatinine Clearance 88 mL/min (70-130); Calcium 8.4 mg/dL (7.8-10.44); Carbon Dioxide 29 mmol/L (22-29); Chloride 98 mmol/L (98-107); Estimated GFR 91; Globulin 3.1 g/dL (2.4-3.5); Glucose 224 mg/dL (70-105); Potassium 4.5 mmol/L (3.5-5.1); Protein, Total 5.8 g/dL (6.0-8.3); Sodium 133 mmol/L (136-145)
[2023-12-02 06:14] LABS: Hep B Surface AG-Rflx Sendout Negative (Negative)
[2023-12-02] MEDS ORDERED: FLU VACC QS2023-24(6MOS UP)/PF 60 MCG/0.5 ML SYRINGE IM ONE (09:00)
[2023-12-02] MEDS: Polyethylene Glycol 3350 17 GM Packet PO SCH (09:13)
[2023-12-02] MEDS: Losartan 25 MG TAB PO SCH (09:14)
[2023-12-02] MEDS: Morphine 2 MG/ML VIAL SLOW IVP PRN (12:30)
[2023-12-02] MEDS: Acetaminophen 500 MG TAB PO PRN (20:40)
[2023-12-03 05:28] LABS: #Eosinphils 0.1 thou/uL (0.0-0.7); #Monocytes 0.8 thou/uL (0.11-0.59); #Neutrophils 2.1 thou/uL (1.40-6.50); %Basophils 0.8 % (0.0-1.0); %Eosinophils 1.7 % (0.0-10.0); %Lymphocytes 42.9 % (21.0-51.0); %Monocytes 14.8 % (0.0-10.0); %Neutrophils 39.4 % (42.0-75.0); Hematocrit 34.1 % (42.0-52.0); Hemoglobin 11.9 g/dL (14.0-18.0); Mean Corpuscular HGB CONC 34.9 g/dL (32.0-36.0); Mean Corpuscular Hemoglobin 32.5 pg (27.0-31.0); Mean Corpuscular Volume 93.2 fl (78.0-98.0); Platelet Count 95 10x3/uL (130-400); RBC Distribution Width 14.4 % (11.5-14.5); Red Blood Cell (RBC) Count 3.66 mill/uL (4.70-6.10); White Blood Cell (WBC) Count 5.2 10x3/uL (4.8-10.8)
[2023-12-03 05:52] LABS: ALT (SGPT) 91 U/L (8-55); AST (SGOT) 61 U/L (5-34); Albumin 3.2 g/dL (3.5-5.0); Alkaline Phosphatase 86 U/L (40-110); Anion Gap 12 mmol/L (10-20); BUN (Urea Nitrogen) Less than 4 mg/dL (8.4-25.7); Bilirubin, Total 1.3 mg/dL (0.2-1.2); Calc. Creatinine Clearance 92 mL/min (70-130); Calcium 8.5 mg/dL (7.8-10.44); Carbon Dioxide 27 mmol/L (22-29); Chloride 102 mmol/L (98-107); Estimated GFR 96; Globulin 3.6 g/dL (2.4-3.5); Glucose 132 mg/dL (70-105); Potassium 4.1 mmol/L (3.5-5.1); Protein, Total 6.8 g/dL (6.0-8.3); Sodium 137 mmol/L (136-145)
[2023-12-03 11:36] VITALS: BP 153/92; TEMP 97.5
== END 2023-12-03 14:50 | disposition home or self-care (01) | DRG 439 ==
LOC: ERS 18:32 → 2NO 22:35 → OBSVTOIN 11-29 10:54
PROVIDERS: ADMIT Student in an Organized Health Care Education/Training Program; ATTEND Student in an Organized Health Care Education/Training Program
DX: K85.90 Acute pancreatitis without necrosis or infection, unspecified (principal); K62.5 Hemorrhage of anus and rectum; K86.2 Cyst of pancreas; K75.4 Autoimmune hepatitis; K86.1 Other chronic pancreatitis; F20.9 Schizophrenia, unspecified; I45.6 Pre-excitation syndrome; F41.9 Anxiety disorder, unspecified; F32.A Depression, unspecified; E78.00 Pure hypercholesterolemia, unspecified; F10.90 Alcohol use, unspecified, uncomplicated; R30.0 Dysuria; F10.10 Alcohol abuse, uncomplicated; K76.0 Fatty (change of) liver, not elsewhere classified; R74.01 Elevation of levels of liver transaminase levels; K74.5 Biliary cirrhosis, unspecified; D64.9 Anemia, unspecified; D69.6 Thrombocytopenia, unspecified; Z98.890 Other specified postprocedural states; Z88.2 Allergy status to sulfonamides; Z88.1 Allergy status to other antibiotic agents; Z90.49 Acquired absence of other specified parts of digestive tract; Z82.49 Family history of ischemic heart disease and other diseases of the circulatory system; Z11.52 Encounter for screening for COVID-19
CPT/HCPCS: 36415; 71045; 74177; 76705; 80053; 80061; 80074; 80306; 80307; 81001; 82248; 83605; 83615; 83690; 83735; 83880; 84100; 84484; 85025; 85610; 85730; 86780; 87040; 87340; 87389; 93005; 96361; 96365; 96374; 96375; 96376; G0378; J0692; J2270; J2272; J2405; J3411; J3475; J3490; J7120; Q0162; Q9967

== ENCOUNTER 2024-07-03 19:14 | Inpatient (IN) | payer OTHER ==
[2024-07-03 20:07] LABS: Hematocrit 39.8 % (42.0-52.0); Hemoglobin 13.4 g/dL (14.0-18.0); Mean Corpuscular HGB CONC 33.7 g/dL (32.0-36.0); Mean Corpuscular Hemoglobin 32.4 pg (27.0-31.0); Mean Corpuscular Volume 96.4 fL (78.0-98.0); Mean Platelet Volume 11.7 fL (7.4-10.4); Platelet Count 162 10x3/uL (130-400); Red Blood Cell (RBC) Count 4.13 mill/uL (4.70-6.10)
[2024-07-03 20:23] LABS: Troponin I Less than 0.010 ng/mL (< 0.028)
[2024-07-03 20:25] LABS: Lipase 1318 U/L (8-78)
[2024-07-03 20:29] LABS: Eosinophils 1 % (0-10); Large Platelets 4.9 % (0-5); Lymphocytes 20 % (21-51); Monocytes 6 % (0-10); Neutrophil 72 % (42-75); Platelet Adequacy Comment Platelets Normal; Reactive Lymphocytes 2 % (0-10); Smudge Cells 4.9 %
[2024-07-03 20:53] LABS: ALT (SGPT) 132 U/L (8-55); AST (SGOT) 300 U/L (5-34); Albumin 3.9 g/dL (3.5-5.0); Alkaline Phosphatase 90 U/L (40-110); Anion Gap 15 mmol/L (10-20); BUN (Urea Nitrogen) 10 mg/dL (8.4-25.7); Bilirubin, Total 0.4 mg/dL (0.2-1.2); Calc. Creatinine Clearance 0 mL/min (70-130); Calcium 9.6 mg/dL (7.8-10.44); Carbon Dioxide 22 mmol/L (22-29); Chloride 100 mmol/L (98-107); Estimated GFR 95; Glucose 144 mg/dL (70-105); Potassium 3.8 mmol/L (3.5-5.1); Protein, Total 7.9 g/dL (6.0-8.3); Sodium 133 mmol/L (136-145)
[2024-07-03] MEDS ORDERED: Ondansetron PF 4 MG/2 ML Vial ONE (21:00)
[2024-07-03] MEDS ORDERED: Thiamine HCl 200 MG/2 ML VIAL ONE (21:00)
[2024-07-03] MEDS ORDERED: Morphine 4 MG/ML VIAL ONE (21:00)
[2024-07-03 21:34] LABS: Acetaminophen Less than 10 mcg/mL (Less than 10); Alcohol 36.3 mg/dL (Less than 10); Salicylate Less than 8.0 mg/dL (Less than 8.0)
[2024-07-03 21:57] LABS: Influenza A by NAA Not Detected (NotDetected); Influenza B by NAA Not Detected (NotDetected); SARS-CoV-2 NAA Rapid Test Not Detected (NotDetected)
[2024-07-03 23:41] VITALS: BMI 27.3
[2024-07-04] MEDS ORDERED: Lorazepam 1 MG TAB PO PRN (00:09)
[2024-07-04] MEDS ORDERED: Ondansetron ODT 4 MG TAB PO PRN (00:09)
[2024-07-04] MEDS ORDERED: Lorazepam 2 MG/ML VIAL IM PRN (00:09)
[2024-07-04] MEDS ORDERED: Electrolyte Replacement Protocol 1 EACH FS SCH (00:15)
[2024-07-04] MEDS: Lactated Ringer's 1,000 ML IV SCH ×2 (00:22→07:41)
[2024-07-04] MEDS ORDERED: Ondansetron PF 4 MG/2 ML Vial IVP PRN (00:27)
[2024-07-04] MEDS: Morphine 2 MG/ML VIAL SLOW IVP PRN ×2 (00:48→15:37)
[2024-07-04 01:20] LABS: Hematocrit 37.2 % (42.0-52.0); Hemoglobin 13.1 g/dL (14.0-18.0); Mean Corpuscular HGB CONC 35.2 g/dL (32.0-36.0); Mean Corpuscular Hemoglobin 33.1 pg (27.0-31.0); Mean Corpuscular Volume 93.9 fL (78.0-98.0); Mean Platelet Volume 11.6 fL (7.4-10.4); Platelet Count 153 10x3/uL (130-400); RBC Distribution Width 13.1 % (11.5-14.5); Red Blood Cell (RBC) Count 3.96 mill/uL (4.70-6.10)
[2024-07-04 01:26] LABS: Bilirubin, Direct 0.2 mg/dL (0.1-0.3); Magnesium 1.8 mg/dL (1.6-2.6)
[2024-07-04 01:38] LABS: ALT (SGPT) 142 U/L (8-55); Albumin 3.5 g/dL (3.5-5.0); Alkaline Phosphatase 105 U/L (40-110); Anion Gap 14 mmol/L (10-20); BUN (Urea Nitrogen) 9 mg/dL (8.4-25.7); Bilirubin, Total 0.7 mg/dL (0.2-1.2); Calc. Creatinine Clearance 111 mL/min (70-130); Calcium 8.9 mg/dL (7.8-10.44); Carbon Dioxide 22 mmol/L (22-29); Chloride 103 mmol/L (98-107); Estimated GFR 105; Globulin 3.8 g/dL (2.4-3.5); Glucose 141 mg/dL (70-105); Protein, Total 7.3 g/dL (6.0-8.3); Sodium 134 mmol/L (136-145)
[2024-07-04 01:40] LABS: AST (SGOT) 338 U/L (5-34); Anisocytosis MODERATE=16-30 cells HPF (0-5); Burr Cells SLIGHT = 2-5 cells HPF (0-1); Eosinophils 6 % (0-10); Lymphocytes 14 % (21-51); Macrocytosis SLIGHT = 6-15 cells HPF (0-5); Monocytes 3 % (0-10); Neutrophil 76 % (42-75); Platelet Adequacy Comment Platelets Normal; Potassium 4.8 mmol/L (3.5-5.1); Smudge Cells 9.1 %
[2024-07-04] MEDS ORDERED: PALIPERIDONE PALMITATE 39 MG/0.25 ML IM SCH (02:15)
[2024-07-04] MEDS: Magnesium 2 GM/50 ML(in water) 2 GM in Premix 1 BAG IVPB SCH (05:49)
[2024-07-04] MEDS: Pantoprazole 40 MG VIAL IVP SCH (08:21)
[2024-07-04] MEDS: Enoxaparin 40 MG (0.4 mL) SYRINGE SC SCH (08:21)
[2024-07-04] MEDS ORDERED: Folic Acid 1 MG TAB PO SCH (09:00)
[2024-07-04] MEDS: Morphine 4 MG/ML VIAL SLOW IVP SCH ×2 (10:39→19:23)
[2024-07-04] MEDS: Ferrous Sulfate 325 MG TAB PO SCH (10:40)
[2024-07-04] MEDS: Spironolactone 25 MG TAB PO SCH (10:40)
[2024-07-04] MEDS: Multivit, Therapeutic 1 TAB PO SCH (10:40)
[2024-07-04] MEDS: Losartan 25 MG TAB PO SCH (10:40)
[2024-07-04] MEDS: Carvedilol 6.25 MG TAB PO SCH (10:40)
[2024-07-04] MEDS: Folic Acid 1 MG TAB PO SCH (10:41)
[2024-07-04] MEDS: Amlodipine 10 MG TAB PO SCH (10:41)
[2024-07-04] MEDS: Sertraline 100 MG TAB PO SCH (10:41)
[2024-07-04 16:20] LABS: Bilirubin 1+ (Negative); Blood, Urine Negative (Negative); Clarity Clear (Clear); Glucose, Urine (Dipstick) Normal (Negative); Ketone, Urine 20 mg/dL (Negative); Leukocyte Negative Leu/uL (Negative); Nitrite Negative (Negative); Protein, Urine (Dipstick) Negative (Neg-Trace); Specific Gravity, Urine 1.019 (1.002-1.036); Urobilinogen 3 mg/dL (Less than 2); pH, Urine 7.5 (5.0-9.0)
[2024-07-04] MEDS: Acetaminophen 325 MG TAB PO PRN (16:23)
[2024-07-04] MEDS: Thiamine HCl 200 MG/2 ML VIAL SLOW IVP SCH (21:04)
[2024-07-05] MEDS ORDERED: Lorazepam 1 MG TAB PO PRN (00:09)
[2024-07-05] MEDS ORDERED: Iopamidol-370 76% 500 ML MDV (1 ML CHARGE) ONE (10:50)
[2024-07-05 12:35] VITALS: BMI 27.3
[2024-07-05] MEDS ORDERED: Zolpidem Tartrate 5 MG TAB PO PRN (13:04)
[2024-07-05] MEDS ORDERED: Ondansetron PF 4 MG/2 ML Vial IVP PRN (13:15)
[2024-07-05] MEDS ORDERED: diphenhydrAMINE 50 MG/ML VIAL IM/IV PRN (13:15)
[2024-07-05] MEDS ORDERED: Promethazine HCl 25 MG/ML VIAL IM PRN (13:15)
[2024-07-05] MEDS ORDERED: Naloxone HCl 0.4 mg/ml Vial IV PRN (13:15)
[2024-07-05] MEDS: Fentanyl CADD 100 ML IVPB SCH (15:06)
[2024-07-06] MEDS ORDERED: Lorazepam 1 MG TAB PO PRN (00:09)
[2024-07-06] MEDS: Carvedilol 6.25 MG TAB PO SCH (17:27)
[2024-07-06] MEDS: Thiamine 100 MG TAB PO SCH (21:14)
[2024-07-07] MEDS ORDERED: Lorazepam 0.5 MG TAB PO PRN (00:09)
[2024-07-07 06:49] LABS: #Basophils 0.04 10x3/uL (0.0-0.2); %Basophils 0.7 % (0.0-1.0); %Monocytes 17.5 % (0.0-10.0); %Neutrophils 56.3 % (42.0-75.0); Hemoglobin 12.8 g/dL (14.0-18.0); Mean Corpuscular HGB CONC 34.6 g/dL (32.0-36.0); Mean Corpuscular Hemoglobin 33.2 pg (27.0-31.0); Mean Corpuscular Volume 96.1 fL (78.0-98.0); Mean Platelet Volume 12.1 fL (7.4-10.4); Platelet Count 133 10x3/uL (130-400); RBC Distribution Width 13.3 % (11.5-14.5); Red Blood Cell (RBC) Count 3.85 mill/uL (4.70-6.10)
[2024-07-07 07:58] LABS: ALT (SGPT) 63 U/L (8-55); AST (SGOT) 48 U/L (5-34); Albumin 2.9 g/dL (3.5-5.0); Alkaline Phosphatase 168 U/L (40-110); Anion Gap 13 mmol/L (10-20); BUN (Urea Nitrogen) 6 mg/dL (8.4-25.7); Bilirubin, Total 0.9 mg/dL (0.2-1.2); Calc. Creatinine Clearance 114 mL/min (70-130); Calcium 9.2 mg/dL (7.8-10.44); Carbon Dioxide 23 mmol/L (22-29); Chloride 102 mmol/L (98-107); Estimated GFR 106; Glucose 106 mg/dL (70-105); Potassium 3.6 mmol/L (3.5-5.1); Protein, Total 6.9 g/dL (6.0-8.3); Sodium 134 mmol/L (136-145)
[2024-07-08 05:03] LABS: #Basophils 0.04 10x3/uL (0.0-0.2); %Basophils 0.7 % (0.0-1.0); %Eosinophils 3.8 % (0.0-10.0); %Lymphocytes 28.1 % (21.0-51.0); %Monocytes 15.3 % (0.0-10.0); %Neutrophils 51.4 % (42.0-75.0); Hematocrit 36.4 % (42.0-52.0); Hemoglobin 12.6 g/dL (14.0-18.0); Mean Corpuscular HGB CONC 34.6 g/dL (32.0-36.0); Mean Corpuscular Hemoglobin 32.2 pg (27.0-31.0); Mean Corpuscular Volume 93.1 fL (78.0-98.0); Platelet Count 161 10x3/uL (130-400); RBC Distribution Width 13.2 % (11.5-14.5); Red Blood Cell (RBC) Count 3.91 mill/uL (4.70-6.10)
[2024-07-08 05:40] LABS: ALT (SGPT) 51 U/L (8-55); AST (SGOT) 41 U/L (5-34); Albumin 2.9 g/dL (3.5-5.0); Alkaline Phosphatase 158 U/L (40-110); Anion Gap 11 mmol/L (10-20); BUN (Urea Nitrogen) 5 mg/dL (8.4-25.7); Bilirubin, Total 0.7 mg/dL (0.2-1.2); Calc. Creatinine Clearance 114 mL/min (70-130); Calcium 9.3 mg/dL (7.8-10.44); Carbon Dioxide 27 mmol/L (22-29); Chloride 101 mmol/L (98-107); Estimated GFR 106; Globulin 4.1 g/dL (2.4-3.5); Glucose 114 mg/dL (70-105); Potassium 3.7 mmol/L (3.5-5.1); Sodium 135 mmol/L (136-145)
[2024-07-08] MEDS: oxyCODONE 5 MG TAB PO PRN ×2 (08:03→14:29)
[2024-07-08] MEDS: traZODone HCl 50 MG TAB PO PRN (20:49)
[2024-07-09] MEDS: diphenhydrAMINE 25 MG CAP PO PRN (01:13)
[2024-07-09 05:36] LABS: #Basophils 0.04 10x3/uL (0.0-0.2); %Basophils 0.7 % (0.0-1.0); %Eosinophils 3.2 % (0.0-10.0); %Lymphocytes 28.2 % (21.0-51.0); %Monocytes 13.4 % (0.0-10.0); %Neutrophils 54.1 % (42.0-75.0); Hematocrit 36.7 % (42.0-52.0); Hemoglobin 12.7 g/dL (14.0-18.0); Mean Corpuscular HGB CONC 34.6 g/dL (32.0-36.0); Mean Corpuscular Hemoglobin 32.4 pg (27.0-31.0); Mean Corpuscular Volume 93.6 fL (78.0-98.0); Platelet Count 173 10x3/uL (130-400); RBC Distribution Width 13.1 % (11.5-14.5); Red Blood Cell (RBC) Count 3.92 mill/uL (4.70-6.10)
[2024-07-09 05:52] LABS: ALT (SGPT) 39 U/L (8-55); AST (SGOT) 35 U/L (5-34); Alkaline Phosphatase 141 U/L (40-110); Anion Gap 13 mmol/L (10-20); BUN (Urea Nitrogen) 7 mg/dL (8.4-25.7); Bilirubin, Total 0.7 mg/dL (0.2-1.2); Calc. Creatinine Clearance 114 mL/min (70-130); Calcium 9.2 mg/dL (7.8-10.44); Carbon Dioxide 25 mmol/L (22-29); Chloride 101 mmol/L (98-107); Estimated GFR 106; Globulin 3.9 g/dL (2.4-3.5); Glucose 107 mg/dL (70-105); Potassium 3.8 mmol/L (3.5-5.1); Protein, Total 6.9 g/dL (6.0-8.3); Sodium 135 mmol/L (136-145)
[2024-07-09 12:46] VITALS: BP 145/92; TEMP 98.2
== END 2024-07-09 13:15 | disposition home or self-care (01) | DRG 439 ==
LOC: ERS 19:14 → SURG B 22:39
PROVIDERS: ADMIT Student in an Organized Health Care Education/Training Program; ATTEND Student in an Organized Health Care Education/Training Program
DX: K85.20 Alcohol induced acute pancreatitis without necrosis or infection (principal); E87.1 Hypo-osmolality and hyponatremia; K86.3 Pseudocyst of pancreas; K70.10 Alcoholic hepatitis without ascites; F10.10 Alcohol abuse, uncomplicated; I25.10 Atherosclerotic heart disease of native coronary artery without angina pectoris; I48.91 Unspecified atrial fibrillation; I10 Essential (primary) hypertension; F41.9 Anxiety disorder, unspecified; F31.9 Bipolar disorder, unspecified; K86.0 Alcohol-induced chronic pancreatitis; Z88.2 Allergy status to sulfonamides; Z90.49 Acquired absence of other specified parts of digestive tract; Z88.1 Allergy status to other antibiotic agents; Z79.899 Other long term (current) drug therapy
CPT/HCPCS: 36415; 71045; 74177; 80053; 80307; 81003; 82248; 83615; 83690; 83735; 83880; 84100; 84484; 85025; 87040; 93005; 96374; 96375; J1650; J2272; J2405; J2470; J3010; J3411; J3475; J7120; Q9967

== ENCOUNTER 2024-09-11 18:46 | Inpatient (IN) | payer OTHER ==
[2024-09-11 19:23] LABS: #Basophils 0.03 10x3/uL (0.0-0.2); %Basophils 0.5 % (0.0-1.0); %Eosinophils 0.8 % (0.0-10.0); %Lymphocytes 47.6 % (21.0-51.0); %Monocytes 8.3 % (0.0-10.0); %Neutrophils 42.6 % (42.0-75.0); Hematocrit 30.5 % (42.0-52.0); Hemoglobin 10.9 g/dL (14.0-18.0); Mean Corpuscular HGB CONC 35.7 g/dL (32.0-36.0); Mean Corpuscular Hemoglobin 32.1 pg (27.0-31.0); Mean Corpuscular Volume 89.7 fL (78.0-98.0); Mean Platelet Volume 11.3 fL (7.4-10.4); Platelet Count 178 10x3/uL (130-400); RBC Distribution Width 12.3 % (11.5-14.5)
[2024-09-11] MEDS ORDERED: fentaNYL 50 mcg/mL 1 mL Vial ONE (19:36)
[2024-09-11] MEDS ORDERED: Ondansetron PF 4 MG/2 ML Vial ONE (19:36)
[2024-09-11 19:38] LABS: ALT (SGPT) 74 U/L (8-55); AST (SGOT) 169 U/L (5-34); Albumin 3.3 g/dL (3.5-5.0); Alkaline Phosphatase 63 U/L (40-110); Anion Gap 16 mmol/L (10-20); BUN (Urea Nitrogen) 14 mg/dL (8.4-25.7); Bilirubin, Total 0.5 mg/dL (0.2-1.2); Calc. Creatinine Clearance 0 mL/min (70-130); Calcium 8.1 mg/dL (7.8-10.44); Carbon Dioxide 20 mmol/L (22-29); Chloride 103 mmol/L (98-107); Estimated GFR 74; Globulin 3.3 g/dL (2.4-3.5); Glucose 186 mg/dL (70-105); Potassium 4.2 mmol/L (3.5-5.1); Protein, Total 6.6 g/dL (6.0-8.3); Sodium 135 mmol/L (136-145)
[2024-09-11] MEDS ORDERED: Droperidol 5 MG/2 ML VIAL ONE (22:08)
[2024-09-11] MEDS ORDERED: Ondansetron PF 4 MG/2 ML Vial IVP PRN (23:15)
[2024-09-11] MEDS ORDERED: Ondansetron ODT 4 MG TAB SL PRN (23:15)
[2024-09-12 02:06] VITALS: BMI 27.4
[2024-09-12] MEDS ORDERED: traZODone HCl 50 MG TAB PO PRN (02:22)
[2024-09-12] MEDS ORDERED: traMADol HCl 50 MG TAB ONE (03:02)
[2024-09-12] MEDS ORDERED: Pancrelipase DR 12,000 1 CAP PO PRN (03:05)
[2024-09-12] MEDS: traMADol HCl 50 MG TAB PO PRN (03:08)
[2024-09-12] MEDS: Lactated Ringer's 1,000 ML IV SCH (03:09)
[2024-09-12] MEDS ORDERED: Morphine 2 MG/ML VIAL ONE (05:21)
[2024-09-12] MEDS: Morphine 2 MG/ML VIAL SLOW IVP SCH (05:24)
[2024-09-12 05:34] LABS: #Basophils 0.04 10x3/uL (0.0-0.2); %Basophils 0.8 % (0.0-1.0); %Eosinophils 0.8 % (0.0-10.0); %Lymphocytes 38.2 % (21.0-51.0); %Monocytes 11.8 % (0.0-10.0); %Neutrophils 48.2 % (42.0-75.0); Hematocrit 30.5 % (42.0-52.0); Hemoglobin 10.4 g/dL (14.0-18.0); Mean Corpuscular HGB CONC 34.1 g/dL (32.0-36.0); Mean Corpuscular Hemoglobin 31.7 pg (27.0-31.0); Mean Platelet Volume 11.4 fL (7.4-10.4); Platelet Count 152 10x3/uL (130-400); RBC Distribution Width 12.6 % (11.5-14.5); Red Blood Cell (RBC) Count 3.28 mill/uL (4.70-6.10)
[2024-09-12 05:55] LABS: INR-International Normal Ratio 1.4; Prothrombin Time 16.9 sec (12.0-14.7)
[2024-09-12 05:56] LABS: PTT 28.3 sec (22.9-36.1)
[2024-09-12 06:13] LABS: ALT (SGPT) 71 U/L (8-55); AST (SGOT) 151 U/L (5-34); Albumin 3.1 g/dL (3.5-5.0); Alkaline Phosphatase 56 U/L (40-110); Anion Gap 12 mmol/L (10-20); BUN (Urea Nitrogen) 14 mg/dL (8.4-25.7); Bilirubin, Total 0.4 mg/dL (0.2-1.2); Calc. Creatinine Clearance 81 mL/min (70-130); Calcium 8.2 mg/dL (7.8-10.44); Carbon Dioxide 23 mmol/L (22-29); Chloride 106 mmol/L (98-107); Estimated GFR 79; Globulin 3.1 g/dL (2.4-3.5); Glucose 130 mg/dL (70-105); Potassium 4.6 mmol/L (3.5-5.1); Protein, Total 6.2 g/dL (6.0-8.3); Sodium 136 mmol/L (136-145)
[2024-09-12] MEDS ORDERED: PALIPERIDONE 3 MG PO SCH (09:00)
[2024-09-12] MEDS ORDERED: Pantoprazole DR 40 MG TAB ONE (09:12)
[2024-09-12] MEDS ORDERED: Folic Acid 1 MG TAB ONE (09:12)
[2024-09-12] MEDS ORDERED: Famotidine 20 MG TAB ONE (09:12)
[2024-09-12] MEDS: Pancrelipase DR 12,000 1 CAP PO SCH (09:12)
[2024-09-12] MEDS ORDERED: Sertraline 100 MG TAB ONE (09:15)
[2024-09-12] MEDS: Pantoprazole 40 MG VIAL IVP SCH (09:19)
[2024-09-12] MEDS: Folic Acid 1 MG TAB PO SCH (09:19)
[2024-09-12] MEDS: Sertraline 100 MG TAB PO SCH (09:19)
[2024-09-12] MEDS: Famotidine 20 MG TAB PO SCH (09:19)
[2024-09-12 15:16] LABS: Iron 182 ug/dL (65-175); Iron Binding Capacity, Total 238 mcg/dL (261-462)
[2024-09-12] MEDS: GoLYTELY 4,000 ml Bottle PO SCH (20:18)
[2024-09-13 05:56] LABS: #Basophils Less than 0.03 10x3/uL (0.0-0.2); %Basophils 0.4 % (0.0-1.0); %Eosinophils 1.5 % (0.0-10.0); %Lymphocytes 33.1 % (21.0-51.0); %Neutrophils 52.6 % (42.0-75.0); Hematocrit 28.3 % (42.0-52.0); Hemoglobin 9.6 g/dL (14.0-18.0); Mean Corpuscular HGB CONC 33.9 g/dL (32.0-36.0); Mean Corpuscular Hemoglobin 31.5 pg (27.0-31.0); Mean Corpuscular Volume 92.8 fL (78.0-98.0); Mean Platelet Volume 11.6 fL (7.4-10.4); Platelet Count 125 10x3/uL (130-400); RBC Distribution Width 12.9 % (11.5-14.5); Red Blood Cell (RBC) Count 3.05 mill/uL (4.70-6.10)
[2024-09-13 05:59] LABS: ALT (SGPT) 71 U/L (8-55); AST (SGOT) 149 U/L (5-34); Albumin 2.9 g/dL (3.5-5.0); Alkaline Phosphatase 54 U/L (40-110); Anion Gap 11 mmol/L (10-20); BUN (Urea Nitrogen) 5 mg/dL (8.4-25.7); Calc. Creatinine Clearance 98 mL/min (70-130); Calcium 8.1 mg/dL (7.8-10.44); Carbon Dioxide 25 mmol/L (22-29); Chloride 103 mmol/L (98-107); Estimated GFR 97; Globulin 2.8 g/dL (2.4-3.5); Glucose 132 mg/dL (70-105); Potassium 3.4 mmol/L (3.5-5.1); Protein, Total 5.7 g/dL (6.0-8.3); Sodium 136 mmol/L (136-145)
[2024-09-13 06:28] LABS: Eosinophils 3 % (0-10); Large Platelets 0.9 % (0-5); Lymphocytes 32 % (21-51); Macrocytosis SLIGHT = 6-15 cells HPF (0-5); Monocytes 6 % (0-10); Neutrophil 58 % (42-75); Platelet Adequacy Comment Platelets Normal; Polychromasia SLIGHT = 2-3 cells HPF (0-2); Reactive Lymphocytes 1 % (0-10); Stomatocytes SLIGHT = 2-5 cells HPF (0-1); Tear Drops SLIGHT = 2-5 cells HPF (0-1)
[2024-09-13] MEDS ORDERED: PROPOFOL 40 ML ONE (08:21)
[2024-09-13] MEDS ORDERED: Lidocaine 2% PF 5 ML VIAL ONE (08:39)
[2024-09-13] MEDS ORDERED: PROPOFOL 20 ML ONE (08:44)
[2024-09-13] MEDS: Ferrous Sulfate 325 MG TAB PO SCH (10:10)
[2024-09-13] MEDS: Potassium Chloride 20 MEQ in Premix 1 BAG IVPB SCH (10:11)
[2024-09-13 11:40] VITALS: BMI 28.0
[2024-09-13 11:51] VITALS: BP 131/76; TEMP 98.5
[2024-09-13] MEDS: Potassium Chloride 20 MEQ in Premix 2 BAG IVPB SCH (14:55)
[2024-09-13] MEDS ORDERED: Methylcellulose 500 MG TAB PO SCH (21:00)
[2024-09-13] MEDS ORDERED: Hydrocortisone Acetate 25 MG Suppository PR SCH (21:00)
[2024-09-14] MEDS ORDERED: FLU (Fluarix Triv) TS24-25(6MOS UP)/PF 45 MCG/0.5 ML Syringe IM ONE (09:00)
[2024-10-11] MEDS ORDERED: PALIPERIDONE PALMITATE 819 MG/2.63 ML IM SCH (02:30)
== END 2024-09-13 15:20 | disposition home or self-care (01) | DRG 378 ==
LOC: ERS 18:46 → ERHOLD 23:02 → OBS 09-12 14:09 → OBSVTOIN 09-12 17:52
PROVIDERS: ADMIT Family Medicine; ATTEND Family Medicine
PROC: 0DJD8ZZ Inspection of Lower Intestinal Tract, Via Natural or Artificial Opening Endoscopic (ICD-10-PCS; principal; 2024-09-13)
DX: K92.1 Melena (principal); D62 Acute posthemorrhagic anemia; K86.1 Other chronic pancreatitis; K64.8 Other hemorrhoids; I10 Essential (primary) hypertension; I25.10 Atherosclerotic heart disease of native coronary artery without angina pectoris; F20.9 Schizophrenia, unspecified; K74.60 Unspecified cirrhosis of liver; F41.9 Anxiety disorder, unspecified; F31.9 Bipolar disorder, unspecified; I45.6 Pre-excitation syndrome; Z88.2 Allergy status to sulfonamides; Z88.1 Allergy status to other antibiotic agents; Z79.899 Other long term (current) drug therapy; Z90.49 Acquired absence of other specified parts of digestive tract; Z98.890 Other specified postprocedural states
CPT/HCPCS: 36415; 74177; 80053; 82728; 83540; 83550; 83605; 83690; 85025; 85610; 85730; 86850; 86900; 86901; J1790; J2272; J2405; J2470; J2704; J3010; J3480; J7120